=== PATIENT | male | born 1940 | race Caucasian/White ===

== ENCOUNTER 2017-09-18 08:30 | Outpatient (RCR) | payer MEDICARE, BC, SELFPAY | END 2017-09-20 | LOC: PT.CARL 08:30 | PROVIDERS: Referring Provider Internal Medicine Adolescent Medicine; Visit Provider Internal Medicine Adolescent Medicine | DX: M54.31 Sciatica, right side (principal); M54.32 Sciatica, left side | CPT/HCPCS: G8978; G8979; G8980; 97012; 97014; 97033; 97035; 97110; 97162; G0283 ==

== ENCOUNTER 2017-09-29 17:02 | Emergency (ER) | payer MEDICARE, BC, SELFPAY ==
--- NOTE | 2017-09-29 09:38 | XR_ITS ---
XR chest 2V HISTORY: ITS.REASON: COUGH, CONGESTION ORDERING PHYSICIAN: Hever Sutton MD PATIENT AGE: 77 years COMPARISON: 07/07/2017 FINDINGS: Prior CABG. Normal heart size. No lobar consolidation or collapse. Mild hyperinflation with attenuation of the peripheral pulmonary vessels consistent with obstructive chronic bronchitis. There is some patchy density left lung base posteriorly may be due to an area of atelectasis, fibrosis, or patchy infiltrate. No acute bony anomalies. IMPRESSION: Patchy density left lung base which may be due to an area of atelectasis, fibrosis, or infiltrate. COPD
[2017-09-29 17:15] VITALS: BP 117/59; PULSE 87; RESP 22; TEMP 36.6; O2SAT 95; BMI 24.3
[2017-09-29 18:35] VITALS: BP 128/67; PULSE 80; RESP 20; O2SAT 95
[2017-09-29 19:00] VITALS: BP 110/66; PULSE 79
[2017-09-29 23:33] VITALS: BP 168/84; PULSE 79; RESP 20; TEMP 36.6; O2SAT 99
[2017-09-29 23:54] LABS: Lactic Acid 2.3 mmol/L (0.4-2.0)
[2017-09-30 00:01] LABS: Alanine Aminotransferase 77 U/L (12-78); Albumin Level 3.9 gm/dL (3.4-5.0); Alkaline Phosphatase 101 U/L (46-116); Anion Gap 11.1 mEq/L (5-15); Aspartate Amino Transferase 37 U/L (15-37); Bilirubin,Total 1.5 mg/dL (0.2-1.0); Blood Urea Nitrogen 34 mg/dL (7-18); Calcium 9.4 mg/dL (8.5-10.1); Carbon Dioxide 31 mmol/L (21.0-32.0); Chloride 101 mmol/L (98-107); Creatinine,Serum 1.64 mg/dL (0.70-1.30); Estimated Glomerular Filt Rate 41 ml/min (>60); GFR (African American) 50 ML/MIN (>60); Glucose 86 mg/dL (74-106); Sodium 137 mmol/L (136-145); Total Protein,Serum 7.9 gm/dL (6.4-8.2)
[2017-09-30 00:10] LABS: Potassium 6.1 mmoL/L (3.5-5.1)
[2017-09-30 00:22] LABS: Strep Scrn Group A (Rapid) Negative (Negative)
[2017-09-30 01:09] LABS: Basophils % 0.5 % (0.1-2.0); Eosinophils % 0.5 % (0.1-12.0); Hematocrit 54.8 % (42.0-52.0); Hemoglobin 17.2 g/dL (14.1-18.0); Lymphocytes # 2.1 K/mm3 (0.7-4.5); Mean Corpuscular HGB Conc 31.4 g/dL (31.8-35.4); Mean Corpuscular Hemoglobin 30.3 pg (27.0-31.2); Mean Corpuscular Volume 96.4 fl (80-94); Mean Platelet Volume 7.9 fl (7.4-10.4); Monocytes % 6.5 % (1.7-9.3); Neutrophils # 8.5 K/mm3 (1.8-7.8); Neutrophils % 73.8 % (37.0-80.0); Platelet Count 285 K/mm3 (142-424); Red Blood Count 5.69 M/mm3 (4.60-6.20); Red Cell Distribution Width 13.3 % (11.5-17.5); White Blood Count 11.5 K/mm3 (4.8-10.8)
[2017-09-30 01:10] LABS: Basophils # 0.1 K/mm3 (0-0.2); Eosinophils # 0.1 K/mm3 (0.0-0.4); Monocytes # 0.8 K/mm3 (0.1-1.0)
== END 2017-09-29 20:30 | disposition home or self-care (01) ==
PROVIDERS: Emergency Provider Emergency Medicine; Family Provider Internal Medicine Adolescent Medicine; PCP Internal Medicine Adolescent Medicine
DX: J44.9 Chronic obstructive pulmonary disease, unspecified (principal); I48.0 Paroxysmal atrial fibrillation; N28.9 Disorder of kidney and ureter, unspecified; E87.5 Hyperkalemia
CPT/HCPCS: 71046; 80053; 83605; 85025; 87040; 87430; 96360; 96365; 96375; 99282; 99284; J2405

== ENCOUNTER → 2017-09-30 11:34 | Outpatient (CLI) | payer MEDICARE, BC, SELFPAY ==
[2017-09-30 13:21] LABS: Anion Gap 12.1 mEq/L (5-15); Blood Urea Nitrogen 29 mg/dL (7-18); Carbon Dioxide 31 mmol/L (21.0-32.0); Chloride 102 mmol/L (98-107); Estimated Glomerular Filt Rate 42 ml/min (>60); GFR (African American) 51 ML/MIN (>60); Glucose 98 mg/dL (74-106); Potassium 5.1 mmoL/L (3.5-5.1); Sodium 140 mmol/L (136-145)
== END ==
PROVIDERS: PCP Internal Medicine Adolescent Medicine; Visit Provider Internal Medicine Adolescent Medicine
DX: E87.5 Hyperkalemia (principal)
CPT/HCPCS: 36415; 80048

== ENCOUNTER → 2017-10-16 08:35 | Outpatient (CLI) | payer MEDICARE, BC, SELFPAY ==
[2017-10-16 13:56] LABS: Anion Gap 9.1 mEq/L (5-15); Blood Urea Nitrogen 18 mg/dL (7-18); Carbon Dioxide 33 mmol/L (21.0-32.0); Chloride 104 mmol/L (98-107); Creatinine,Serum 1.24 mg/dL (0.70-1.30); Estimated Glomerular Filt Rate 57 ml/min (>60); GFR (African American) 69 ML/MIN (>60); Glucose 93 mg/dL (74-106); Potassium 4.1 mmoL/L (3.5-5.1); Sodium 142 mmol/L (136-145)
== END ==
PROVIDERS: PCP Internal Medicine Adolescent Medicine; Visit Provider Internal Medicine Adolescent Medicine
DX: E78.5 Hyperlipidemia, unspecified (principal)
CPT/HCPCS: 36415; 80048

== ENCOUNTER → 2017-10-25 13:25 | Outpatient (CLI) | payer MEDICARE, BC, SELFPAY ==
--- NOTE | 2017-10-25 13:29 | CT_ITS ---
CT chest wo con HISTORY: Solitary pulmonary nodule, follow-up abnormal chest x-ray ITS.REASON: PULMONARY NODULES ORDERING PHYSICIAN: Sri Zelaya PATIENT AGE: 77 years TECHNIQUE: Axial images obtained. Sagittal and coronal reformatted images are also generated and reviewed. CONTRAST: None COMPARISON: Radiograph of 09/29/[address] scan of 05/19/2015 FINDINGS: There has been prior median sternotomy. Small nodular opacities are present in the superior mediastinum and may represent collateral vessels similar to the previous exam. There is extensive coronary artery calcification. Prior CABG. Normal heart size. No pericardial effusion. No hilar or mediastinal mass or adenopathy. There are centrilobular emphysematous changes. There are scattered nodular opacities in the right lung which appear stable. There is mild diffuse bronchial thickening. A 9 x 7 mm nodular opacity is present in the left lung base along the hemidiaphragm. In addition, there is an irregular area of parenchymal opacity in the left lower lobe posteriorly at 2 cm. This may be due to an area of postinflammatory fibrosis as there was previously noted pneumonia in this region on older CT scan. An active area of recurrent pneumonia or atelectasis is also better. Upper abdominal images show left renal cysts which are incompletely imaged. No acute bony anomalies. IMPRESSION: 1. Centrilobular emphysema bronchial thickening consistent with chronic bronchitis/COPD. 2. 9 x 7 mm noncalcified nodule is present in the left lung base not readily apparent on the previous exam. This is along the hemidiaphragm and could be postinflammatory in nature. Developing pulmonary nodule is an additional consideration. Suggest [address] follow-up to confirm short-term stability. 3. 2 cm irregular parenchymal opacity in left lung base posteriorly probably related to postinflammatory fibrotic change. Versus an area of acute infiltrate or atelectasis. This likely accounts for the radiographic abnormality.
== END ==
PROVIDERS: Family Provider Internal Medicine Adolescent Medicine; PCP Internal Medicine Adolescent Medicine; Visit Provider Nurse Practitioner Acute Care
DX: R91.8 Other nonspecific abnormal finding of lung field (principal)
CPT/HCPCS: 71250

== ENCOUNTER 2017-12-10 08:20 | Inpatient (IN) | payer MEDICARE, BC, SELFPAY ==
[2017-12-10 08:26] VITALS: BP 142/66; PULSE 84; RESP 16; TEMP 36.8; O2SAT 96; BMI 25.0
--- NOTE | 2017-12-10 08:39 | HMH.EDGENADL ---
ED Disposition Clinical Impression: CAP (community acquired pneumonia) Qualifiers: Laterality: unspecified laterality Qualified Code(s): J18.9 - Pneumonia, unspecified organism Disposition: Still a Patient Condition on Discharge: Fair Referrals: Benja Cortes MD [Primary Care Provider] - - Critical Care Critical Care Time: No Attestation: On , the high probability of a clinically significant, sudden or life threatening deterioration of the following system(s) required my full and direct attention, intervention and personal management. The time I documented below is in addition to time spent performing reported procedures but includes the following listed in this critical care notation. Medical Decision Making - Juan Miguel Inquiry Pt receiving controlled substance: No Vital Signs: 12/10/17 08:26 Temperature 98.2 F Temperature Source Oral Pulse Rate [Right Radial] 84 Respiratory Rate 16 Blood Pressure [Right Arm] 142/66 Blood Pressure [Right Radial Artery] 142/66 Blood Pressure Mean [Right Arm] 91 Blood Pressure Mean [Right Radial Artery] 91 Blood Pressure Source [Right Arm] Automatic Cuff Blood Pressure Source [Right Radial Artery] Automatic Cuff Blood Pressure Position [Right Arm] Sitting Blood Pressure Position [Right Radial Artery] Sitting 02 Sat by Pulse Oximetry 96 Oxygen Delivery Method Room Air - Lab Data Lab Results 12/10/17 08:30: WBC 15.0 H, RBC 4.86, Hgb 14.4, Hct 46.2, MCV 95.1 H, MCH 29.7, MCHC 31.2 L, RDW 13.9, Plt Count 236, MPV 8.2, Neut % (Auto) 89.0 H, Lymph % (Auto) 5.0 L, [place] % (Auto) 5.8, Eos % (Auto) 0.1, Baso % (Auto) 0.1, Neut # (Auto) 13.3 H, Lymph # (Auto) 0.7, [place] # (Auto) 0.9, Eos # (Auto) 0.0, Baso # (Auto) 0.0, Total Counted 100, Neutrophils % (Manual) 92 H, Lymphocytes % (Manual) 5 L, Monocytes % (Manual) 3, Platelet Estimate Normal 12/10/17 08:30: Sodium 145, Potassium 4.2, Chloride 107, Carbon Dioxide 31, Anion Gap 11.2, BUN 20 H, Creatinine 1.38 H, Estimated Creat Clear 48, Estimated GFR 50 L, Est GFR ( Amer) 61, Glucose 116 H, Calcium 9.1, Total Bilirubin 1.9 H, AST 14 L, ALT 18, Alkaline Phosphatase 74, Total Creatine Kinase 36 L, CK-MB (CK-2) 1.0, CK-MB (CK-2) Rel Index 2.8, Troponin I < 0.02, Total Protein 7.2, Albumin 3.7, Globulin 3.5 H, Albumin/Globulin Ratio 1.1 12/10/17 08:30: Lipase 124 12/10/17 09:45: Lactic Acid 1.2 12/10/17 09:50: Urine Color Yellow, Urine Appearance Clear, Urine pH 6.5, Ur Specific [place] 1.020, Urine Protein 2+, Urine Glucose (UA) Negative, Urine Ketones Trace, Urine Blood Negative, Urine Nitrate Negative, Urine Bilirubin Negative, Urine Urobilinogen 1.0, Ur Leukocyte Esterase Negative, Urine RBC None, Urine WBC 3-5, Ur Squamous Epith Cells Occasional, Urine Bacteria Trace Result diagrams: 12/10/17 08:30 12/10/17 08:30 Orders (Tests/Meds): ED MEDICATIONS Generic Name Dose Route Start Last Admin Trade Name Freq PRN Reason Stop Dose Admin Aspirin 81 mg 12/11/17 09:00 Aspirin 81mg Enteric Coated Tablet PO 01/10/18 08:59 DAILY [facility] Carvedilol 25 mg 12/10/17 21:00 Coreg 25mg Tablet PO 01/09/18 20:59 BID PAM Clopidogrel Bisulfate 75 mg 12/11/17 09:00 Plavix 75mg Tablet PO 01/10/18 08:59 DAILY PAM Sodium Chloride 1,000 mls @ 150 mls/hr 12/10/17 09:00 12/10/17 09:22 Sod Chlor 0.9% 1000ml Bag IV 01/09/18 08:59 150 mls/hr .[id number] PAM Administration Azithromycin 500 mg/ Sodium 250 mls @ 250 mls/hr 12/10/17 09:45 12/10/17 10:23 Chloride IV 12/24/17 09:44 250 mls/hr Q24H PAM Administration Protocol Ceftriaxone Sodium 1 gm/ 50 mls @ 100 mls/hr 12/10/17 09:45 12/10/17 10:00 Sodium Chloride IV 12/24/17 09:44 100 mls/hr Q24H PAM Administration Protocol Non-Formulary Medication 20 mg 12/10/17 21:00 Simvastatin [Simvastatin] PO 01/09/18 20:59 HS PAM Discontinued Medications Generic Name Dose Route Start Last Admin Trade Name Freq
--- NOTE | 2017-12-10 08:57 | CT_ITS ---
CT abdomen pelvis wo con CLINICAL INDICATION: Abdominal pain with vomiting ITS.REASON: abdo pain, dry heaves, 3 BMs since 4a ORDERING PHYSICIAN: Poncho Issa MD PATIENT AGE: 77 years COMPARISON: 03/21/2017 TECHNIQUE: Axial images obtained with sagittal and coronal reformats. All CT scans at the facility use one or more dose reduction, viz: automated exposure control; ma/kV adjustment per patient size (including targeted exams where dose is matched to indication; i.e. head); or iterative reconstruction technique. PROCEDURE: Oral Contrast: None IV Contrast: None . FINDINGS: Patchy consolidation is present in both lower lobes posteriorly consistent with bilateral lower lobe pneumonia. Prior cholecystectomy without ductal dilatation. The liver, spleen, adrenal glands, and pancreas are unremarkable. There exophytic left renal cyst. Hyperdensity is noted in the lower pole the right kidney consistent with a hyperdense cyst unchanged. There is moderate stranding of the perinephric renal fat bilaterally. This is similar when compared to the previous exam. No intestinal obstruction or free air. No evidence of appendicitis, diverticulitis, intestinal obstruction, or free air. There is mild prominence of the prostate with coarse calcifications. No acute bony anomalies. There is diffuse fatty infiltration of the generalized musculature. IMPRESSION: 1. Bilateral lower lobe pneumonia. 2. Enlarged prostate. 3. No acute abdominal or pelvic findings.
[2017-12-10 09:14] LABS: Basophils % 0.1 % (0.1-2.0); Eosinophils % 0.1 % (0.1-12.0); Hematocrit 46.2 % (42.0-52.0); Hemoglobin 14.4 g/dL (14.1-18.0); Lymphocytes # 0.7 K/mm3 (0.7-4.5); Mean Corpuscular HGB Conc 31.2 g/dL (31.8-35.4); Mean Corpuscular Hemoglobin 29.7 pg (27.0-31.2); Mean Corpuscular Volume 95.1 fl (80-94); Mean Platelet Volume 8.2 fl (7.4-10.4); Monocytes # 0.9 K/mm3 (0.1-1.0); Monocytes % 5.8 % (1.7-9.3); Neutrophils # 13.3 K/mm3 (1.8-7.8); Platelet Count 236 K/mm3 (142-424); Red Blood Count 4.86 M/mm3 (4.60-6.20); Red Cell Distribution Width 13.9 % (11.5-17.5)
--- NOTE | 2017-12-10 09:38 | XR_ITS ---
XR chest portable HISTORY: Pneumonia follow-up ITS.REASON: pneumonia on CT abdo ORDERING PHYSICIAN: Poncho Issa MD PATIENT AGE: 77 years COMPARISON: None available FINDINGS: Prior median sternotomy. Borderline cardiomegaly without failure. Patchy infiltrate is present in both lower lobes and in the right mid upper lung zone. No obvious effusion. No acute bony anomalies. IMPRESSION: Bilateral pneumonia
[2017-12-10 09:41] LABS: MANUAL DIFFERENTIAL MANUAL DIFFERENTIAL (MANUAL DIFF)
[2017-12-10 09:47] LABS: Alanine Aminotransferase 18 U/L (12-78); Albumin Level 3.7 gm/dL (3.4-5.0); Albumin/Globulin Ratio 1.1 (1.1-1.8); Alkaline Phosphatase 74 U/L (46-116); Anion Gap 11.2 mEq/L (5-15); Aspartate Amino Transferase 14 U/L (15-37); Bilirubin,Total 1.9 mg/dL (0.2-1.0); Blood Urea Nitrogen 20 mg/dL (7-18); CKMB Relative Index 2.8 U/L (0-4.0); Calcium 9.1 mg/dL (8.5-10.1); Carbon Dioxide 31 mmol/L (21.0-32.0); Chloride 107 mmol/L (98-107); Creatine Kinase 36 U/L (39-308); Creatinine Clearance Estimated 48 mL/min (0-300); Creatinine,Serum 1.38 mg/dL (0.70-1.30); Estimated Glomerular Filt Rate 50 ml/min (>60); GFR (African American) 61 ML/MIN (>60); Globulin 3.5 gm/dl (1.3-3.2); Glucose 116 mg/dL (74-106); Potassium 4.2 mmoL/L (3.5-5.1); Sodium 145 mmol/L (136-145); Total Protein,Serum 7.2 gm/dL (6.4-8.2); Troponin I < 0.02 ng/ml (0.00-0.06)
[2017-12-10 09:48] LABS: Lipase 124 u/L (73-393)
[2017-12-10 10:18] LABS: Lactic Acid 1.2 mmol/L (0.4-2.0)
[2017-12-10 10:27] LABS: Lymphocytes % 5 % (10-50); Monocytes % 3 % (2-9); Neutrophils % 92 % (42-76); Platelet Estimate Normal; Total Cells Counted 100
[2017-12-10 10:55] LABS: Microscopic, Urine URINE MICROSCOPIC (MICROSCOPIC)
[2017-12-10 10:57] LABS: Appearance,Urine CLEAR (Clear); Bilirubin,Urine Negative (Negative); Blood, Urine Negative (Negative); Color,Urine YELLOW (Yellow); Glucose,Urine (UA) Negative (Negative); Ketones,Urine TRACE (Negative); Leukocyte Esterase,Urine Negative (Negative); Nitrate,Urine Negative (Negative); PH,Urine 6.5 (5.0-8.5); Protein,Urine 2+ (Negative)
[2017-12-10 11:16] LABS: Bacteria,Urine Trace /lpf; Squamous Epithelial Cell,Urine Occasional #/hpf (0-5)
[2017-12-10 11:26] VITALS: BP 114/57; PULSE 84; RESP 16; TEMP 36.6
[2017-12-10 11:34] VITALS: BMI 24.8
[2017-12-10 13:33] LABS: Adenovirus,PCR Not Detected (NotDetected); Bordetella Pertussis Not Detected (NotDetected); Chlamydophila Pneumoniae, PCR Not Detected (NotDetected); Coronavirus 229E Not Detected (NotDetected); Coronavirus NL63 Not Detected (NotDetected); Coronavirus OC43 Not Detected (NotDetected); Coronovirus HKU1,PCR Not Detected (NotDetected); Human Metapneumovirus Not Detected (NotDetected); Influenza A, PCR Not Detected (NotDetected); Influenza AH1, 2009 Not Detected (NotDetected); Influenza AH1, PCR Not Detected (NotDetected); Influenza AH3,PCR Not Detected (NotDetected); Influenza B, PCR Not Detected (NotDetected); Mycoplasma Pneumoniae, PCR Not Detected (NotDected); Parainfluenza 1, PCR Not Detected (NotDetected); Parainfluenza 2, PCR Not Detected (NotDetected); Parainfluenza 3, PCR Not Detected (NotDetected); Parainfluenza 4, PCR Not Detected (NotDetected); Respiratory Syncytial Virus Not Detected (NotDetected)
[2017-12-10 13:35] VITALS: BP 114/44; PULSE 78; RESP 18; TEMP 37.7; O2SAT 96; BMI 24.8
--- NOTE | 2017-12-10 14:33 | HMH.HP ---
*Admission Date: 12/10/17 *Chief complaint: nausea, cough, weakness *History of present illness: 77 year old male with a history of HTN, CAD, A.Fib and COPD presents to the ED with nausea, dry heaves, and weakness that started at 0400 this morning. Patient reports he felt well yesterday with exception of a mild cough. He further reports chills and looser than normal stools. In the ED, CXR revealed bilateral pneumonia and CBC showed leukocytosis with WBC 15. CT abdomen/pelvis with no additional pathology. He had persistent dry heaving and was given both zofran and promethazine. He was noted to be mildly dehydrated and jaundiced with BUN/Creatinine 20/1.38 and Total Bili 1.9. Patient was admitted for IV antibiotics and further evaluation. [facility] History I have reviewed the patient's past medical history: Yes Medical History: Reports:: Hyperlipidemia, Hypertension Denies:: Diabetes Mellitus Type 1, Diabetes Mellitus Type 2 Other Surgeries: Yes: Open Heart Surgery (bypass) Amputation: No Fractures: No - *Social History Educational Level: Completed High School Smoking Status: Former smoker Smoking End Date: 15 years ago Alcohol Intake: never Occupational Status: retired Household Members: spouse - Psychiatric History Expresses thoughts of harming self/others: None Suicide Plan Description: No Plan Review of Systems - Review of Systems Review of systems:: pertinent systems reviewed and negative unless documented below - Constitutional Reports chills, Reports malaise - *Respiratory Reports cough Meds Home Medications Medication Instructions Recorded Confirmed Type Albuterol Sulfate [Albuterol HFA 1 dose INHALATION DAILY PRN 12/10/17 12/10/17 History Inhaler] Aspirin [Aspir 81] 81 mg PO DAILY 12/10/17 12/10/17 History Budesonide/Formoterol Fumarate 1 dose INHALATION DAILY 12/10/17 12/10/17 History [Symbicort 160-4.5 Mcg Inhaler] Carvedilol [Carvedilol 25mg Tab] 25 mg PO BID 12/10/17 12/10/17 History Clopidogrel Bisulfate [Plavix 75mg 75 mg PO DAILY 12/10/17 12/10/17 History Tab] Furosemide [Lasix 20mg tab] 20 mg PO DAILY 12/10/17 12/10/17 History Simvastatin 20 mg PO HS 12/10/17 12/10/17 History Allergies Allergy/AdvReac Type Severity Reaction Status Date / Time hydrocodone [From LORTAB] Allergy Mild Verified 12/10/17 08:36 oxycodone [From PERCOCET] Allergy Mild Verified 12/10/17 08:36 sulfamethoxazole Allergy Mild Verified 12/10/17 08:36 [From BACTRIM] trimethoprim [From BACTRIM] Allergy Mild Verified 12/10/17 08:36 Exam Vital signs and Labs for Last 24 Hours: Temp Pulse Resp BP Pulse Ox 100 F H 78 18 114/44 96 12/10/17 13:35 12/10/17 13:35 12/10/17 13:35 12/10/17 13:35 12/10/17 13:35 I & O for Last 24 hours: Intake & Output 12/08/17 12/09/17 12/10/17 12/11/17 11:59 11:59 11:59 11:59 Intake Total 0 / 0 Balance 0 / 0 Weight 168 lb 7 oz 168 lb 3 oz Narrative: Alert and oriented x3. Drowsy, opens eyes to voice. Rate and rhythm regular. Coarse crackles RLL/RML/LLL. Skin is slightly jaundiced. ENT exam unremarkable. No JVD or cervical LAD. Abdomen soft and nontender. Normoactive bowel sounds. Neuro exam with no acute deficits. Assessment and Plan (1) Elevated bilirubin Current visit: Yes Status: Acute Category: Medical Code(s): R17 - Unspecified jaundice (2) CAP (community acquired pneumonia) Current visit: Yes Status: Acute Qualifiers: Laterality: unspecified laterality Qualified Code(s): J18.9 - Pneumonia, unspecified organism Category: Medical Code(s): J18.9 - Pneumonia, unspecified organism - Assessment and plan all Dx Assessment and Plan for all problems:: IV antibiotics and normal saline infusions. Continue prn antiemetics. Blood cultures pending. Obtain sputum culture if able to produce. Respiratory PCR obtained and pending. Will recheck CBC/CMP in the am.
--- NOTE | 2017-12-10 14:37 | P.HP_ITS ---
*Admission Date: 12/10/17 *Chief complaint: nausea, cough, weakness *History of present illness: 77 year old male with a history of HTN, CAD, A.Fib and COPD presents to the ED with nausea, dry heaves, and weakness that started at 0400 this morning. Patient reports he felt well yesterday with exception of a mild cough. He further reports chills and looser than normal stools. In the ED, CXR revealed bilateral pneumonia and CBC showed leukocytosis with WBC 15. CT abdomen/pelvis with no additional pathology. He had persistent dry heaving and was given both zofran and promethazine. He was noted to be mildly dehydrated and jaundiced with BUN/Creatinine 20/1.38 and Total Bili 1.9. Patient was admitted for IV antibiotics and further evaluation. [facility] History I have reviewed the patient's past medical history: Yes Medical History: Reports:: Hyperlipidemia, Hypertension Denies:: Diabetes Mellitus Type 1, Diabetes Mellitus Type 2 Other Surgeries: Yes: Open Heart Surgery (bypass) Amputation: No Fractures: No - *Social History Educational Level: Completed High School Smoking Status: Former smoker Smoking End Date: 15 years ago Alcohol Intake: never Occupational Status: retired Household Members: spouse - Psychiatric History Expresses thoughts of harming self/others: None Suicide Plan Description: No Plan Review of Systems - Review of Systems Review of systems:: pertinent systems reviewed and negative unless documented below - Constitutional Reports chills, Reports malaise - *Respiratory Reports cough Meds Home Medications Medication Instructions Recorded Confirmed Type Albuterol Sulfate [Albuterol HFA 1 dose INHALATION DAILY PRN 12/10/17 12/10/17 History Inhaler] Aspirin [Aspir 81] 81 mg PO DAILY 12/10/17 12/10/17 History Budesonide/Formoterol Fumarate 1 dose INHALATION DAILY 12/10/17 12/10/17 History [Symbicort 160-4.5 Mcg Inhaler] Carvedilol [Carvedilol 25mg Tab] 25 mg PO BID 12/10/17 12/10/17 History Clopidogrel Bisulfate [Plavix 75mg 75 mg PO DAILY 12/10/17 12/10/17 History Tab] Furosemide [Lasix 20mg tab] 20 mg PO DAILY 12/10/17 12/10/17 History Simvastatin 20 mg PO HS 12/10/17 12/10/17 History Allergies Allergy/AdvReac Type Severity Reaction Status Date / Time hydrocodone [From LORTAB] Allergy Mild Verified 12/10/17 08:36 oxycodone [From PERCOCET] Allergy Mild Verified 12/10/17 08:36 sulfamethoxazole Allergy Mild Verified 12/10/17 08:36 [From BACTRIM] trimethoprim [From BACTRIM] Allergy Mild Verified 12/10/17 08:36 Exam Vital signs and Labs for Last 24 Hours: Temp Pulse Resp BP Pulse Ox 100 F H 78 18 114/44 96 12/10/17 13:35 12/10/17 13:35 12/10/17 13:35 12/10/17 13:35 12/10/17 13:35 I & O for Last 24 hours: Intake & Output 12/08/17 12/09/17 12/10/17 12/11/17 11:59 11:59 11:59 11:59 Intake Total 0 / 0 Balance 0 / 0 Weight 168 lb 7 oz 168 lb 3 oz Narrative: Alert and oriented x3. Drowsy, opens eyes to voice. Rate and rhythm regular. Coarse crackles RLL/RML/LLL. Skin is slightly jaundiced. ENT exam unremarkable. No JVD or cervical LAD. Abdomen soft and nontender. Normoactive bowel sounds. Neuro exam with no acute deficits. Assessment and Plan (1) Elevated bilirubin Current visit: Yes Status: Acute Category: Medical Code(s):
[2017-12-10 15:35] VITALS: BP 106/42; PULSE 95; RESP 18; TEMP 37.1; O2SAT 91
[2017-12-10 15:57] LABS: Rhinovirus/Enterovirus Detected (NotDetected)
[2017-12-10 20:00] VITALS: BP 91/45; PULSE 88; RESP 18; TEMP 36.6; O2SAT 99
[2017-12-10 20:56] VITALS: O2SAT 92
[2017-12-11] VITALS (10 sets, daily range): BP systolic 93–111; BP diastolic 41–56; PULSE 74–109; RESP 18–22; TEMP 36.5–37.3; O2SAT 85–97
--- NOTE | 2017-12-11 03:21 | PC.NURSE ---
C/O SOA AND NAUSEA. (REFER TO NOTIFY MD INTERVENTION FOR DETAILS OF C/O SOA) DID ADMINISTER NAUSEA MEDICATION PER MAR FOR C/O NAUSEA. TOLERATED 2LNC WELL T/O SHIFT. DENIED PAIN. VSS. WILL CONTINUE TO MONITOR.
--- NOTE | 2017-12-11 05:33 | PC.NURSE ---
DROPLET PRECAUTIONS IN PLACE R/T RHINOVIRUS DETECTED ON PCR. EDUCATION PROVIDED REGARDING ISOLATION AND PPE
--- NOTE | 2017-12-11 07:10 | P.CONPHA_ITS ---
[facility] Pharmacy VTE Monitoring - Patient Demographics Admission date: 12/10/17 Report Date: 12/11/17 Time: 07:10 Allergies/Adverse Reactions: Patient Allergies hydrocodone [From LORTAB] Allergy (Mild, Verified 12/10/17 08:36) oxycodone [From PERCOCET] Allergy (Mild, Verified 12/10/17 08:36) sulfamethoxazole [From BACTRIM] Allergy (Mild, Verified 12/10/17 08:36) trimethoprim [From BACTRIM] Allergy (Mild, Verified 12/10/17 08:36) Height: 1.75 m Weight: 76.289 kg Patient Problems: Current Active Problems CAP (community acquired pneumonia) (Acute) Elevated bilirubin (Acute) - VTE Risk Labs: VTE Related Lab Results Hgb 14.4 g/dL (14.1-18.0) 12/10/17 08:30 Hct 46.2 % (42.0-52.0) 12/10/17 08:30 Plt Count 236 K/mm3 (142-424) 12/10/17 08:30 BUN 20 mg/dL (7-18) H 12/10/17 08:30 Creatinine 1.38 mg/dL (0.70-1.30) H 12/10/17 08:30 Estimated Creat Clear 48 mL/min (0-300) 12/10/17 08:30 Clinical Trial Participant: No - Prophylaxis VTE Prophylaxis Ordered?: Yes Types of VTE Prophylaxis: TEDS Knee High Location of Applied Device: Bilateral Lower Extremeties
[2017-12-11 07:43] LABS: Basophils # 0.1 K/mm3 (0-0.2); Basophils % 0.3 % (0.1-2.0); Eosinophils # 0.2 K/mm3 (0.0-0.4); Hematocrit 41.6 % (42.0-52.0); Lymphocytes % 5.4 K/mm3 (10-50); Mean Corpuscular HGB Conc 30.7 g/dL (31.8-35.4); Mean Corpuscular Hemoglobin 29.7 pg (27.0-31.2); Mean Corpuscular Volume 96.6 fl (80-94); Mean Platelet Volume 8.6 fl (7.4-10.4); Monocytes # 0.4 K/mm3 (0.1-1.0); Neutrophils # 16.7 K/mm3 (1.8-7.8); Neutrophils % 91.4 % (37.0-80.0); Platelet Count 168 K/mm3 (142-424); Red Blood Count 4.31 M/mm3 (4.60-6.20); Red Cell Distribution Width 13.9 % (11.5-17.5); White Blood Count 18.3 K/mm3 (4.8-10.8)
[2017-12-11 07:59] LABS: MANUAL DIFFERENTIAL MANUAL DIFFERENTIAL (MANUAL DIFF)
[2017-12-11 08:18] LABS: Hemoglobin 12.9 g/dL (14.1-18.0)
[2017-12-11 08:19] LABS: Albumin Level 2.9 gm/dL (3.4-5.0); Albumin/Globulin Ratio 0.9 (1.1-1.8); Alkaline Phosphatase 48 U/L (46-116); Aspartate Amino Transferase 12 U/L (15-37); Blood Urea Nitrogen 31 mg/dL (7-18); Calcium 8.7 mg/dL (8.5-10.1); Carbon Dioxide 26 mmol/L (21.0-32.0); Chloride 108 mmol/L (98-107); Creatinine Clearance Estimated 37 mL/min (0-300); Creatinine,Serum 1.82 mg/dL (0.70-1.30); Estimated Glomerular Filt Rate 36 ml/min (>60); GFR (African American) 44 ML/MIN (>60); Globulin 3.4 gm/dl (1.3-3.2); Glucose 82 mg/dL (74-106); Sodium 145 mmol/L (136-145); Total Protein,Serum 6.3 gm/dL (6.4-8.2)
[2017-12-11 08:32] LABS: Alanine Aminotransferase 13 U/L (12-78)
--- NOTE | 2017-12-11 08:36 | P.PN_ITS ---
Internal Medicine - PN: Subj *Date: 12/11/17 *Time: 08:35 Interval history: He is to feel nauseated, but is breathing somewhat more easily. Wonders about starting his nebulizer treatments back. Exam Vital signs and Labs for Last 24 Hours: Temp Pulse Resp BP Pulse Ox 99.2 F 95 H 22 101/41 92 L 12/11/17 07:28 12/11/17 07:28 12/11/17 07:28 12/11/17 07:28 12/11/17 07:28 Laboratory Results - last 24 hr 12/10/17 13:30: Chlamy pneumoniae PCR Not detected, Adenovirus (PCR) Not detected, B.parapertussis DNA PCR Not detected, Coronavirus OC43 (PCR) Not detected, Coronavirus HKU1 (PCR) Not detected, Coronavirus 229E (PCR) Not detected, Coronavirus NL63 (PCR) Not detected, Human Metapneumovir PCR Not detected, Influenza A (H1) PCR Not detected, Influ A (H1N1/09) PCR Not detected , Influenza A (H3) PCR Not detected, Influenza Type A (PCR) Not detected, Influenza Type B (PCR) Not detected, M. pneumoniae (PCR) Not detected, Parainfluenza 1 (PCR) Not detected, Parainfluenza 2 (PCR) Not detected, Parainfluenza 3 (PCR) Not detected, Parainfluenza 4 (PCR) Not detected, RSV (PCR ) Not detected, Entero/Rhino (PCR) Detected A 12/11/17 07:15: WBC 18.3 H, RBC 4.31 L, Hgb 12.9 L D, Hct 41.6 L, MCV 96.6 H, MCH 29.7, MCHC 30.7 L, RDW 13.9, Plt Count 168 D, MPV 8.6, Neut % (Auto) 91.4 H , Lymph % (Auto) 5.4 L, [place] % (Auto) 2.0, Eos % (Auto) 1.0, Baso % (Auto) 0.3, Neut # (Auto) 16.7 H, Lymph # (Auto) 1.0, [place] # (Auto) 0.4, Eos # (Auto) 0.2, Baso # (Auto) 0.1 12/11/17 07:15: Sodium 145, Potassium 5.0, Chloride 108 H, Carbon Dioxide 26, Anion Gap 16.0 H, BUN 31 H D, Creatinine 1.82 H D, Estimated Creat Clear 37, Estimated GFR 36 L, Est GFR ( Amer) 44 L D, Glucose 82 D, Calcium 8.7, Total Bilirubin 2.0 H, AST 12 L, ALT 13 D, Alkaline Phosphatase 48, Total Protein 6.3 L, Albumin 2.9 L D, Globulin 3.4 H, Albumin/Globulin Ratio 0.9 L I & O for Last 24 hours: Intake & Output 12/08/17 12/09/17 12/10/17 12/11/17 11:59 11:59 11:59 11:59 Intake Total 1193 / 1193 Balance 1193 / 1193 Weight 168 lb 7 oz 168 lb 3 oz Narrative: Patient's alert, oriented ?3, bibasilar crackles. However moves air easily with minimal wheezing. Heart rate regular. Blood pressure normal. Abdomen soft, some nausea but no tenderness in the abdomen. No edema in the extremities of the feet. Assessment and Plan (1) Elevated bilirubin Current visit: Yes Status: Acute Category: Medical Code(s): R17 - Unspecified jaundice (2) CAP (community acquired pneumonia) Current visit: Yes Status: Acute Qualifiers: Laterality: unspecified laterality Qualified Code(s): J18.9 - Pneumonia, unspecified organism Category: Medical Code(s): J18.9 - Pneumonia, unspecified organism - Assessment and plan all Dx Assessment and Plan for all problems:: Restart nebulizers. Continue gentle hydration, follow labs tomorrow. Probable viral pneumonitis. Cover with antibiotics pending cultures.
[2017-12-11 10:27] LABS: Lymphocytes % 17 % (10-50); Monocytes % 12 % (2-9); Neutrophils % 67 % (42-76); Platelet Estimate Normal; Total Cells Counted 100
[2017-12-11 10:28] LABS: RBC Morphology Normal
--- NOTE | 2017-12-11 14:37 | HMH.PHACONS ---
- Pharmacy Consult Date: 12/11/17 Time: 14:37 Referring provider: DR. LANG Reason for Consult:: TOBRAMYCIN DOSING Allergies and ADEs:: Allergies Allergy/AdvReac Type Severity Reaction Status Date / Time hydrocodone [From LORTAB] Allergy Mild Verified 12/10/17 08:36 oxycodone [From PERCOCET] Allergy Mild Verified 12/10/17 08:36 sulfamethoxazole Allergy Mild Verified 12/10/17 08:36 [From BACTRIM] trimethoprim [From BACTRIM] Allergy Mild Verified 12/10/17 08:36 Home Medications:: Home Medications Medication Instructions Recorded Confirmed Type Albuterol Sulfate [Albuterol 0.63 mg IH Q6HP PRN 12/10/17 12/11/17 History Sulfate 0.63mg/3ml Neb] Aspirin [Aspir 81] 81 mg PO DAILY 12/10/17 12/10/17 History Budesonide/Formoterol Fumarate 1 dose INHALATION DAILY 12/10/17 12/10/17 History [Symbicort 160-4.5 Mcg Inhaler] Carvedilol [Carvedilol 25mg Tab] 25 mg PO BID 12/10/17 12/10/17 History Clopidogrel Bisulfate [Plavix 75mg 75 mg PO DAILY 12/10/17 12/10/17 History Tab] Furosemide [Lasix 20mg tab] 20 mg PO DAILY 12/10/17 12/10/17 History Simvastatin 20 mg PO HS 12/10/17 12/10/17 History Losartan Potassium [Losartan 25 mg PO DAILY 12/11/17 12/11/17 History Potassium] Height: 1.75 m Weight: 76.289 kg Laboratory Results:: Laboratory Results - last 24 hr 12/10/17 13:30: Chlamy pneumoniae PCR Not detected, Adenovirus (PCR) Not detected, B.parapertussis DNA PCR Not detected, Coronavirus OC43 (PCR) Not detected, Coronavirus HKU1 (PCR) Not detected, Coronavirus 229E (PCR) Not detected, Coronavirus NL63 (PCR) Not detected, Human Metapneumovir PCR Not detected, Influenza A (H1) PCR Not detected, Influ A (H1N1/09) PCR Not detected, Influenza A (H3) PCR Not detected, Influenza Type A (PCR) Not detected, Influenza Type B (PCR) Not detected, M. pneumoniae (PCR) Not detected, Parainfluenza 1 (PCR) Not detected, Parainfluenza 2 (PCR) Not detected, Parainfluenza 3 (PCR) Not detected, Parainfluenza 4 (PCR) Not detected, RSV (PCR) Not detected, Entero/Rhino (PCR) Detected A 12/11/17 07:15: WBC 18.3 H, RBC 4.31 L, Hgb 12.9 L D, Hct 41.6 L, MCV 96.6 H, MCH 29.7, MCHC 30.7 L, RDW 13.9, Plt Count 168 D, MPV 8.6, Neut % (Auto) 91.4 H, Lymph % (Auto) 5.4 L, Yell % (Auto) 2.0, Eos % (Auto) 1.0, Baso % (Auto) 0.3, Neut # (Auto) 16.7 H, Lymph # (Auto) 1.0, Yell # (Auto) 0.4, Eos # (Auto) 0.2, Baso # (Auto) 0.1, Total Counted 100, Neutrophils % (Manual) 67, Band Neutrophils % 3.0, Lymphocytes % (Manual) 17, Monocytes % (Manual) 12 H, Metamyelocytes % 1.0, Platelet Estimate Normal, RBC Morphology Normal 12/11/17 07:15: Sodium 145, Potassium 5.0, Chloride 108 H, Carbon Dioxide 26, Anion Gap 16.0 H, BUN 31 H D, Creatinine 1.82 H D, Estimated Creat Clear 37, Estimated GFR 36 L, Est GFR ( Amer) 44 L D, Glucose 82 D, Calcium 8.7, Total Bilirubin 2.0 H, AST 12 L, ALT 13 D, Alkaline Phosphatase 48, Total Protein 6.3 L, Albumin 2.9 L D, Globulin 3.4 H, Albumin/Globulin Ratio 0.9 L Medical History: Reports:: Hyperlipidemia, Hypertension Denies:: Diabetes Mellitus Type 1, Diabetes Mellitus Type 2 Assessment and Plan (1) Elevated bilirubin Current visit: Yes Status: Acute Category: Medical Code(s): R17 - Unspecified jaundice (2) CAP (community acquired pneumonia) Current visit: Yes Status: Acute Qualifiers: Laterality: unspecified laterality Qualified Code(s): J18.9 - Pneumonia, unspecified organism Category: Medical Code(s): J18.9 - Pneumonia, unspecified organism - Assessment and plan all Dx Assessment and Plan for all problems:: BASED ON PATIENT FACTORS, RECOMMEND TOBRAMYCIN 360 MG (5 MG/KG/DBW) IV Q48H. WILL OBTAIN LEVELS AT 4 AND 14-HOURS POST INFUSION. PHARMACY WILL FOLLOW DAILY AND ADJUST APPROPRIATE.
--- NOTE | 2017-12-11 17:33 | PC.NURSE ---
PATIENT SITTING UP AT BEDSIDE AT THIS TIME, FAMILY AT BEDSIDE. BLOOD CULTURES CAME BACK POSITIVE FOR STREPT PNEUMONIAE, NOTIFIED. C/O SOB AND NAUSEA, NAUSEA MEDS GIVEN THIS AM, PATIENT ABLE TO GET SOME SLEEP. ADVANCED FROM CLEARS TO A FULL LIQUID DIET, TO START AT DINNER, WILL MONITOR. PATIENT LUNG SOUNDS ARE WHEEZES AND DIMINISHED IN THE BASES. BLOOD PRESSURE HAS BEEN RUNNING LOW, HELD AM BLOOD PRESSURE MEDS, STATES PATIENT IS NO LONGER TAKING THAT MEDICATION. GAVE PATIENT MORE NAUSEA MEDICATION AT 1615, PATIENT STATES HE FEELS A LITTLE BETTER. DENIES ANY PAIN, CALL PATEL IN REACH, WILL CONTINUE TO MONITOR.
--- NOTE | 2017-12-11 18:58 | PC.NURSE ---
REPORT GIVEN TO REJI CALDWELL
--- NOTE | 2017-12-11 19:18 | PC.NURSE ---
report given to renetta
[2017-12-11 20:25] LABS: Tobramycin,Random 6.8 ug/ml
[2017-12-12] VITALS (10 sets, daily range): BP systolic 116–138; BP diastolic 55–78; PULSE 76–116; RESP 20–24; TEMP 36.3–37.2; O2SAT 89–100
--- NOTE | 2017-12-12 03:35 | PC.NURSE ---
He is a&ox3. He has been awake periodically t/o the night. Received PRN pain medication for pain all over. He is [place] on his right side. REports that his abdomen is tender in all quads. Received PRN medication for nausea. No vomiting. No sputum production. is at the bedside.
--- NOTE | 2017-12-12 07:31 | PC.NURSE ---
REPORT GIVEN TO Donna PRETTY W/C
--- NOTE | 2017-12-12 07:37 | XR_ITS ---
XR chest portable PICC plac HISTORY: ITS.REASON: Confirm PICC line placement ORDERING PHYSICIAN: Benja Cortes MD PATIENT AGE: 77 years COMPARISON: None available FINDINGS: There is a series of 3 portable chest x-rays performed for PICC line placement. Chest x-ray #1 obtained at 1316 hours shows the PICC line curled in the left axillary region with the tip inferior to the medial aspect of the clavicle likely in the subclavian vein. Chest x-ray #2 once again shows the line curled in the axillary region with no change in the tip placement. X-ray #3 shows the PICC line tip in the region of the right atrium. The line could be pulled back approximately 2 to 3 cm. 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 Mild cardiomegaly without failure. Vascular crowding noted in the lung bases with improvement in the bilateral infiltrates. IMPRESSION: Status post PICC line placement as described above. The last image shows PICC line tip at the region of the right atrium.
--- NOTE | 2017-12-12 07:52 | P.PN_ITS ---
Internal Medicine - PN: Subj *Date: 12/12/17 *Time: 07:30 Interval history: Patient reports continued nausea, no vomiting or diarrhea. He has a mild cough, no sputum production. reports he had a rough night. States he was up out of bed at least 4 times last night. He has been confused which seems to correlate with promethazine administration. Alert and oriented x 3 this morning. Rate and rhythm regular, no edema. Pulses 2+ bilaterally. Lung sounds with crackles in bilateral bases. Abdomen soft with mild diffuse tenderness, normoactive bowel sounds. Exam Vital signs and Labs for Last 24 Hours: Temp Pulse Resp BP Pulse Ox 97.5 F L 76 24 138/72 94 L 12/12/17 04:00 12/12/17 06:28 12/12/17 04:00 12/12/17 04:00 12/12/17 06:28 Laboratory Results - last 24 hr 12/11/17 07:15: WBC 18.3 H, RBC 4.31 L, Hgb 12.9 L D, Hct 41.6 L, MCV 96.6 H, MCH 29.7, MCHC 30.7 L, RDW 13.9, Plt Count 168 D, MPV 8.6, Neut % (Auto) 91.4 H , Lymph % (Auto) 5.4 L, [place] % (Auto) 2.0, Eos % (Auto) 1.0, Baso % (Auto) 0.3, Neut # (Auto) 16.7 H, Lymph # (Auto) 1.0, [place] # (Auto) 0.4, Eos # (Auto) 0.2, Baso # (Auto) 0.1, Total Counted 100, Neutrophils % (Manual) 67, Band Neutrophils % 3.0, Lymphocytes % (Manual) 17, Monocytes % (Manual) 12 H, Metamyelocytes % 1.0, Platelet Estimate Normal, RBC Morphology Normal 12/11/17 07:15: Sodium 145, Potassium 5.0, Chloride 108 H, Carbon Dioxide 26, Anion Gap 16.0 H, BUN 31 H D, Creatinine 1.82 H D, Estimated Creat Clear 37, Estimated GFR 36 L, Est GFR ( Amer) 44 L D, Glucose 82 D, Calcium 8.7, Total Bilirubin 2.0 H, AST 12 L, ALT 13 D, Alkaline Phosphatase 48, Total Protein 6.3 L, Albumin 2.9 L D, Globulin 3.4 H, Albumin/Globulin Ratio 0.9 L 12/11/17 20:04: Random Tobramycin 6.8 I & O for Last 24 hours: Intake & Output 12/09/17 12/10/17 12/11/17 12/12/17 11:59 11:59 11:59 11:59 Intake Total 1193 / 1193 2855 / 2855 Output Total 900 / 900 Balance 1193 / 1193 1955 / 1955 Weight 168 lb 7 oz 168 lb 3 oz 168 lb 3 oz Assessment and Plan (1) Elevated bilirubin Current visit: Yes Status: Acute Category: Medical Code(s): R17 - Unspecified jaundice (2) CAP (community acquired pneumonia) Current visit: Yes Status: Acute Qualifiers: Laterality: unspecified laterality Qualified Code(s): J18.9 - Pneumonia, unspecified organism Category: Medical Code(s): J18.9 - Pneumonia, unspecified organism (3) Blood bacterial culture positive Current visit: Yes Status: Acute Category: Medical Code(s): R78.81 - Bacteremia - Assessment and plan all Dx Assessment and Plan for all problems:: Blood culture revealed strep pneumo. Continue azithromycin, cefriaxone and tobra pending sensitivity. Place PICC line today. Change promethazine to zofran. Schedule tylenol for arthritic pain
[2017-12-12 09:11] LABS: Eosinophils # 0.1 K/mm3 (0.0-0.4); Eosinophils % 0.7 % (0.1-12.0); Hematocrit 41.3 % (42.0-52.0); Hemoglobin 12.9 g/dL (14.1-18.0); Lymphocytes # 0.5 K/mm3 (0.7-4.5); Lymphocytes % 3.2 K/mm3 (10-50); Mean Corpuscular HGB Conc 31.2 g/dL (31.8-35.4); Mean Corpuscular Hemoglobin 30.4 pg (27.0-31.2); Mean Corpuscular Volume 97.7 fl (80-94); Mean Platelet Volume 8.8 fl (7.4-10.4); Monocytes # 0.6 K/mm3 (0.1-1.0); Monocytes % 3.7 % (1.7-9.3); Neutrophils # 14.4 K/mm3 (1.8-7.8); Neutrophils % 92.5 % (37.0-80.0); Platelet Count 162 K/mm3 (142-424); Red Blood Count 4.23 M/mm3 (4.60-6.20); Red Cell Distribution Width 14.2 % (11.5-17.5); White Blood Count 15.6 K/mm3 (4.8-10.8)
[2017-12-12 09:15] LABS: MANUAL DIFFERENTIAL MANUAL DIFFERENTIAL (MANUAL DIFF)
--- NOTE | 2017-12-12 09:39 | INFXCTL.NOTE ---
Patient is psoitive for Rhinovirus. Per CDC Guidelines, patient has been placed in Droplet Precautions.
[2017-12-12 09:51] LABS: Alanine Aminotransferase 27 U/L (12-78); Alkaline Phosphatase 58 U/L (46-116); Anion Gap 16.1 mEq/L (5-15); Aspartate Amino Transferase 18 U/L (15-37); Bilirubin,Total 1.2 mg/dL (0.2-1.0); Blood Urea Nitrogen 48 mg/dL (7-18); Calcium 8.6 mg/dL (8.5-10.1); Carbon Dioxide 25 mmol/L (21.0-32.0); Chloride 105 mmol/L (98-107); Creatinine Clearance Estimated 33 mL/min (0-300); Creatinine,Serum 2.07 mg/dL (0.70-1.30); Estimated Glomerular Filt Rate 31 ml/min (>60); GFR (African American) 38 ML/MIN (>60); Glucose 100 mg/dL (74-106); Potassium 5.1 mmoL/L (3.5-5.1); Sodium 141 mmol/L (136-145)
[2017-12-12 11:18] LABS: Lymphocytes % 3 % (10-50); Monocytes % 5 % (2-9); Neutrophils % 90 % (42-76); Platelet Estimate Normal; RBC Morphology Normal; Total Cells Counted 100
--- NOTE | 2017-12-12 14:32 | SW/DCPLANNER ---
WENT IN TO SPEAK WITH PATIENT AND FAMILY ABOUT DISCHARGE PLANNING: PATIENT IS GOING TO NEED 10 DAYS OF IV ANTIBIOTICS.. I EXPLAINED TO THEM HE CAN STAY IN A SWING BED OR WE CAN FIND PLACEMENT FOR SHORT TERM IN A NURSING FACILITY... WE ARE WAITING ON CULTURES TO SEE WHAT ANTIBIOTIC IS NECESSARY AND ONCE WE DETERMINE WE WILL SEE WHAT PATIENT WANTS TO DO AND IF SWING BED IS CHOSEN THEY WILL CONVERT TO THAT STATUS...WILL FOLLOW UP WITH MD AND PATIENT AND TO SEE WHAT IS BEST FOR THEM...
--- NOTE | 2017-12-12 17:58 | PC.NURSE ---
77 YEAR OLD PATIENT ADMITTED TO THE HOSPITAL WITH A DIAGNOSIS OF PNEUMONIA AND DEHYDRATION. HE CONTINUES TO HAVE NAUSEA BUT DENIES VOMITING AT THIS TIME. HE HAS AN UNPRODUCTIVE COUGH AND HAS BEEN UNABLE TO GET US A SPUTUM SAMPLE. LUNG ASSESSMENT REVEALS CRACKLES IN THE BILATERAL LOWER LOBES. ABDOMINAL ASSESSMENT REVEALS MILD TENDERNESS THROUGHOUT ORDER FOR TYLENOL EVERY 8 HOURS FOR HIS ARTHRITIC PAIN AND HAS SEEM TO HELP ALLEVIATE SOME OF THE PAIN. HIS FAMILY HAS BEEN AT BEDSIDE ALL DAY. A PICC LINE WAS INSERTED TODAY AND HE TOLERATED THE PROCEDURE WELL. AT THIS TIME HE IS STILL NAUSEATED AND ZOFRAN HAS BEEN GIVEN PER ORDER. WE WILL CONTINUE TO MONITOR. FRANKLIN MCGINNIS, MSN, RN
[2017-12-13] VITALS: BP 148/80; PULSE 108; RESP 20; TEMP 36.8; O2SAT 98
[2017-12-13 04:00] VITALS: BP 147/67; PULSE 108; RESP 20; TEMP 36.6; O2SAT 96
--- NOTE | 2017-12-13 04:19 | PC.NURSE ---
Pt has rested well this shift, at beginning of shift pt c/o pain r.t arthritis and nuasea. Medicated per NOV. BS active in all 4 qauds. Fine crackles noted in roberta. bases. Pt is alert to person and time but not place. PICC noted to EZEKIEL, good blood return noted, infusing IVF without difficulty. at bedside. VSS. No acute distress noted. Will continue to monitor.
[2017-12-13 06:15] VITALS: PULSE 107; O2SAT 97
[2017-12-13 07:22] LABS: Anion Gap 9.6 mEq/L (5-15); Blood Urea Nitrogen 54 mg/dL (7-18); Carbon Dioxide 26 mmol/L (21.0-32.0); Chloride 105 mmol/L (98-107); Creatinine Clearance Estimated 40 mL/min (0-300); Creatinine,Serum 1.69 mg/dL (0.70-1.30); Estimated Glomerular Filt Rate 40 ml/min (>60); GFR (African American) 48 ML/MIN (>60); Glucose 98 mg/dL (74-106); Potassium 4.6 mmoL/L (3.5-5.1); Sodium 136 mmol/L (136-145)
[2017-12-13 07:25] LABS: Eosinophils % 0.2 % (0.1-12.0); Hematocrit 39.3 % (42.0-52.0); Hemoglobin 12.4 g/dL (14.1-18.0); Lymphocytes # 0.7 K/mm3 (0.7-4.5); Lymphocytes % 4.4 K/mm3 (10-50); Mean Corpuscular HGB Conc 31.5 g/dL (31.8-35.4); Mean Corpuscular Hemoglobin 30.5 pg (27.0-31.2); Mean Corpuscular Volume 96.9 fl (80-94); Mean Platelet Volume 8.9 fl (7.4-10.4); Monocytes # 0.7 K/mm3 (0.1-1.0); Monocytes % 4.3 % (1.7-9.3); Neutrophils # 14.4 K/mm3 (1.8-7.8); Platelet Count 188 K/mm3 (142-424); Red Blood Count 4.06 M/mm3 (4.60-6.20); Red Cell Distribution Width 14.2 % (11.5-17.5); White Blood Count 15.8 K/mm3 (4.8-10.8)
[2017-12-13 07:28] LABS: MANUAL DIFFERENTIAL MANUAL DIFFERENTIAL (MANUAL DIFF)
--- NOTE | 2017-12-13 07:31 | PC.NURSE ---
REPORT GIVEN TO Anthony MADRIGAL W/C
[2017-12-13 07:38] VITALS: BP 147/67; BP 163/78; PULSE 107; RESP 16; TEMP 36.4; O2SAT 99
--- NOTE | 2017-12-13 07:52 | PC.NURSE ---
report given to muna leach rn
--- NOTE | 2017-12-13 07:58 | HMH.SWING ---
*Admission Date: 12/10/17 *Chief complaint: Febrile illness/pneumococcal sepsis *History of present illness: 77 year old male with a history of HTN, CAD, A.Fib and COPD presents to the ED with nausea, dry heaves, and weakness that started at 0400 this morning. Patient reports he felt well yesterday with exception of a mild cough. He further reports chills and looser than normal stools. In the ED, CXR revealed bilateral pneumonia and CBC showed leukocytosis with WBC 15. CT abdomen/pelvis with no additional pathology. He had persistent dry heaving and was given both zofran and promethazine. He was noted to be mildly dehydrated and jaundiced with BUN/Creatinine 20/1.38 and Total Bili 1.9. Patient was admitted for IV antibiotics and further evaluation. Hospital Course Hospital Course: Patient was admitted to hospital and placed on broad-spectrum IV antibiotics. Serologic testing was done which revealed rhinovirus. Blood culture the following day returned positive for Streptococcus pneumonia. PICC line was placed and patient was continued on broad-spectrum IV antibiotics. Sensitivities returned this morning showing sensitivity to levofloxacin and vancomycin as well as benzyl penicillin. Of note patient suffered acute kidney injury with creatinine rising to 2.08. Returning this morning to 1.5, which is close to his baseline. Patient had some confusion with Phenergan and this was discontinued and this is also improved. Patient continues to complain of some back pain and hip pain. Physical therapy will be involved. This morning patient is clinically improving, metabolically stable. Plan will be to transfer to swing bed for ongoing physical therapy/Occupational Therapy and finishing up a total of 10 days of IV antibiotics for his pneumococcal sepsis. Exam Vital signs and Labs for Last 24 Hours: Temp Pulse Resp BP Pulse Ox 97.6 F 107 H 16 147/67 99 12/13/17 07:38 12/13/17 07:38 12/13/17 07:38 12/13/17 07:38 12/13/17 07:38 Laboratory Results - last 24 hr 12/12/17 09:00: Random Tobramycin 4.0 12/12/17 09:00: WBC 15.6 H, RBC 4.23 L, Hgb 12.9 L, Hct 41.3 L, MCV 97.7 H, MCH 30.4, MCHC 31.2 L, RDW 14.2, Plt Count 162, MPV 8.8, Neut % (Auto) 92.5 H, Lymph % (Auto) 3.2 L, [place] % (Auto) 3.7, Eos % (Auto) 0.7, Baso % (Auto) 0.0 L, Neut # (Auto) 14.4 H, Lymph # (Auto) 0.5 L, [place] # (Auto) 0.6, Eos # (Auto) 0.1, Baso # (Auto) 0.0, Total Counted 100, Neutrophils % (Manual) 90 H, Band Neutrophils % 2.0, Lymphocytes % (Manual) 3 L, Monocytes % (Manual) 5, Platelet Estimate Normal, RBC Morphology Normal 12/12/17 09:00: Sodium 141, Potassium 5.1, Chloride 105, Carbon Dioxide 25, Anion Gap 16.1 H, BUN 48 H D, Creatinine 2.07 H, Estimated Creat Clear 33, Estimated GFR 31 L, Est GFR ( Amer) 38 L, Glucose 100, Calcium 8.6, Total Bilirubin 1.2 H, AST 18 D, ALT 27 D, Alkaline Phosphatase 58, Total Protein 6.0 L, Albumin 3.0 L, Globulin 3.0, Albumin/Globulin Ratio 1.0 L 12/13/17 07:02: WBC 15.8 H, RBC 4.06 L, Hgb 12.4 L, Hct 39.3 L, MCV 96.9 H, MCH 30.5, MCHC 31.5 L, RDW 14.2, Plt Count 188, MPV 8.9, Neut % (Auto) 91.0 H, Lymph % (Auto) 4.4 L, [place] % (Auto) 4.3, Eos % (Auto) 0.2, Baso % (Auto) 0.0 L, Neut # (Auto) 14.4 H, Lymph # (Auto) 0.7, [place] # (Auto) 0.7, Eos # (Auto) 0.0, Baso # (Auto) 0.0 12/13/17 07:02: Sodium 136, Potassium 4.6, Chloride 105, Carbon Dioxide 26, Anion Gap 9.6, BUN 54 H, Creatinine 1.69 H, Estimated Creat Clear 40, Estimated GFR 40 L, Est GFR ( Amer) 48 L D, Glucose 98 I & O for Last 24 hours: Intake & Output 12/10/17 12/11/17 12/12/17 12/13/17 11:59 11:59 11:59 11:59 Intake Total 1193 / 1193 2855 / 2855 1650 / 1650 Output Total 900 / 900 Balance 1193 / 1193 1954 / 1954 1650 / 1650 Weight 168 lb 7 oz 168 lb 3 oz 168 lb 3 oz Narrative: Morning patient sitting in his chair. Alert. Oriented ?2. Little fuzzy about the date after having some sundowning last night. Lungs are clear in the anter
--- NOTE | 2017-12-13 08:01 | P.SWB_ITS ---
*Admission Date: 12/10/17 *Chief complaint: Febrile illness/pneumococcal sepsis *History of present illness: 77 year old male with a history of HTN, CAD, A.Fib and COPD presents to the ED with nausea, dry heaves, and weakness that started at 0400 this morning. Patient reports he felt well yesterday with exception of a mild cough. He further reports chills and looser than normal stools. In the ED, CXR revealed bilateral pneumonia and CBC showed leukocytosis with WBC 15. CT abdomen/pelvis with no additional pathology. He had persistent dry heaving and was given both zofran and promethazine. He was noted to be mildly dehydrated and jaundiced with BUN/Creatinine 20/1.38 and Total Bili 1.9. Patient was admitted for IV antibiotics and further evaluation. Hospital Course Hospital Course: Patient was admitted to hospital and placed on broad-spectrum IV antibiotics. Serologic testing was done which revealed rhinovirus. Blood culture the following day returned positive for Streptococcus pneumonia. PICC line was placed and patient was continued on broad-spectrum IV antibiotics. Sensitivities returned this morning showing sensitivity to levofloxacin and vancomycin as well as benzyl penicillin. Of note patient suffered acute kidney injury with creatinine rising to 2.08. Returning this morning to 1.5, which is close to his baseline. Patient had some confusion with Phenergan and this was discontinued and this is also improved. Patient continues to complain of some back pain and hip pain. Physical therapy will be involved. This morning patient is clinically improving, metabolically stable. Plan will be to transfer to swing bed for ongoing physical therapy/Occupational Therapy and finishing up a total of 10 days of IV antibiotics for his pneumococcal sepsis. Exam Vital signs and Labs for Last 24 Hours: Temp Pulse Resp BP Pulse Ox 97.6 F 107 H 16 147/67 99 12/13/17 07:38 12/13/17 07:38 12/13/17 07:38 12/13/17 07:38 12/13/17 07:38 Laboratory Results - last 24 hr 12/12/17 09:00: Random Tobramycin 4.0 12/12/17 09:00: WBC 15.6 H, RBC 4.23 L, Hgb 12.9 L, Hct 41.3 L, MCV 97.7 H, MCH 30.4, MCHC 31.2 L, RDW 14.2, Plt Count 162, MPV 8.8, Neut % (Auto) 92.5 H, Lymph % (Auto) 3.2 L, [place] % (Auto) 3.7, Eos % (Auto) 0.7, Baso % (Auto) 0.0 L, Neut # (Auto) 14.4 H, Lymph # (Auto) 0.5 L, [place] # (Auto) 0.6, Eos # (Auto) 0.1 , Baso # (Auto) 0.0, Total Counted 100, Neutrophils % (Manual) 90 H, Band Neutrophils % 2.0, Lymphocytes % (Manual) 3 L, Monocytes % (Manual) 5, Platelet Estimate Normal, RBC Morphology Normal 12/12/17 09:00: Sodium 141, Potassium 5.1, Chloride 105, Carbon Dioxide 25, Anion Gap 16.1 H, BUN 48 H D, Creatinine 2.07 H, Estimated Creat Clear 33, Estimated GFR 31 L, Est GFR ( Amer) 38 L, Glucose 100, Calcium 8.6, Total Bilirubin 1.2 H, AST 18 D, ALT 27 D, Alkaline Phosphatase 58, Total Protein 6.0 L, Albumin 3.0 L, Globulin 3.0, Albumin/Globulin Ratio 1.0 L 12/13/17 07:02: WBC 15.8 H, RBC 4.06 L, Hgb 12.4 L, Hct 39.3 L, MCV 96.9 H, MCH 30.5, MCHC 31.5 L, RDW 14.2, Plt Count 188, MPV 8.9, Neut % (Auto) 91.0 H, Lymph % (Auto) 4.4 L, [place] % (Auto) 4.3, Eos % (Auto) 0.2, Baso % (Auto) 0.0 L, Neut # (Auto) 14.4 H, Lymph # (Auto) 0.7, [place] # (Auto) 0.7, Eos # (Auto) 0.0, Baso # (Auto) 0.0 12/13/17 07:02: Sodium 136, Potassium 4.6, Chloride 105, Carbon Dioxide 26, Anion Gap 9.6, BUN 54 H, Creatinine 1.69 H, Estimated Creat Clear 40, Estimated GFR 40 L, Est GFR ( Amer) 48 L D, Glucose 98 I & O for Last 24 hours: Intake & Output 12/10/17 12/11/17 12/12/17 12/13/17 11:59 11:59 11:59 11:59
[2017-12-13 09:21] LABS: Lymphocytes % 6 % (10-50); Monocytes % 5 % (2-9); Neutrophils % 89 % (42-76); Platelet Estimate Normal; Total Cells Counted 100
[2017-12-13 09:23] LABS: RBC Morphology Normal
--- NOTE | 2017-12-13 11:02 | HMH.PHACONS ---
- Pharmacy Consult Date: 12/13/17 Time: 11:03 Referring provider: DR. LANG Reason for Consult:: TOBRAMYCIN LEVELS 4-HOUR POST-INFUSION: 6.8 CALCULATED PEAK: 7.69 MCG/ML 17-HOUR POST-INFUSION: 4.0 CALCULATED TROUGH: 1.12 MCG/ML A TOBRAMYCIN TROUGH LEVEL WAS SCHEDULED FOR TODAY. TOBRAMYCIN WAS DISCONTINUED AND ANTIBIOTICS HAVE BEEN CHANGED TO VANCOMYCIN AND LEVAQUIN DUE TO SENSITIVITIES OF BLOOD CULTURE. Allergies and ADEs:: Allergies Allergy/AdvReac Type Severity Reaction Status Date / Time hydrocodone [From LORTAB] Allergy Mild Verified 12/10/17 08:36 oxycodone [From PERCOCET] Allergy Mild Verified 12/10/17 08:36 sulfamethoxazole Allergy Mild Verified 12/10/17 08:36 [From BACTRIM] trimethoprim [From BACTRIM] Allergy Mild Verified 12/10/17 08:36 Home Medications:: Home Medications Medication Instructions Recorded Confirmed Type Aspirin [Aspir 81] 81 mg PO DAILY 12/10/17 12/13/17 History Budesonide/Formoterol Fumarate 1 dose INHALATION DAILY 12/10/17 12/13/17 History [Symbicort 160-4.5 Mcg Inhaler] Carvedilol [Carvedilol 25mg Tab] 25 mg PO BID 12/10/17 12/13/17 History Clopidogrel Bisulfate [Plavix 75mg 75 mg PO DAILY 12/10/17 12/13/17 History Tab] Ipratropium/Albuterol Sulfate 3 ml IH Q6RT 12/13/17 12/13/17 History [Duoneb 3mL neb] Levofloxacin/D5w 750 mg/150 ml 500 mg IV DAILY 12/13/17 12/13/17 History [Levofloxacin 750mg/150mL Premix IVPB] Height: 1.75 m Weight: 76.289 kg Laboratory Results:: Laboratory Results - last 24 hr 12/12/17 09:00: Total Counted 100, Neutrophils % (Manual) 90 H, Band Neutrophils % 2.0, Lymphocytes % (Manual) 3 L, Monocytes % (Manual) 5, Platelet Estimate Normal, RBC Morphology Normal 12/13/17 07:02: WBC 15.8 H, RBC 4.06 L, Hgb 12.4 L, Hct 39.3 L, MCV 96.9 H, MCH 30.5, MCHC 31.5 L, RDW 14.2, Plt Count 188, MPV 8.9, Neut % (Auto) 91.0 H, Lymph % (Auto) 4.4 L, [place] % (Auto) 4.3, Eos % (Auto) 0.2, Baso % (Auto) 0.0 L, Neut # (Auto) 14.4 H, Lymph # (Auto) 0.7, [place] # (Auto) 0.7, Eos # (Auto) 0.0, Baso # (Auto) 0.0, Total Counted 100, Neutrophils % (Manual) 89 H, Lymphocytes % (Manual) 6 L, Monocytes % (Manual) 5, Platelet Estimate Normal, RBC Morphology Normal 12/13/17 07:02: Sodium 136, Potassium 4.6, Chloride 105, Carbon Dioxide 26, Anion Gap 9.6, BUN 54 H, Creatinine 1.69 H, Estimated Creat Clear 40, Estimated GFR 40 L, Est GFR ( Amer) 48 L D, Glucose 98 Medical History: Reports:: Hyperlipidemia, Hypertension Denies:: Diabetes Mellitus Type 1, Diabetes Mellitus Type 2 Assessment and Plan (1) Elevated bilirubin Status: Acute Category: Medical Code(s): R17 - Unspecified jaundice (2) CAP (community acquired pneumonia) Status: Acute Qualifiers: Laterality: unspecified laterality Qualified Code(s): J18.9 - Pneumonia, unspecified organism Category: Medical Code(s): J18.9 - Pneumonia, unspecified organism (3) Streptococcal sepsis Status: Acute Category: Medical Code(s): A40.9 - Streptococcal sepsis, unspecified (4) Acute kidney injury Status: Acute Category: Medical Code(s): N17.9 - Acute kidney failure, unspecified (5) Osteoarthritis of back Status: Acute Category: Medical Code(s): M47.815 - Spondylosis without myelopathy or radiculopathy, thoracolumbar region (6) Cough Status: Acute Category: Medical Code(s): R05 - Cough - Assessment and plan all Dx Assessment and Plan for all problems:: TOBRAMYCIN LEVELS 4-HOUR POST-INFUSION: 6.8 CALCULATED PEAK: 7.69 MCG/ML 17-HOUR POST-INFUSION: 4.0 CALCULATED TROUGH: 1.12 MCG/ML A TOBRAMYCIN TROUGH LEVEL WAS SCHEDULED FOR TODAY. TOBRAMYCIN WAS DISCONTINUED AND ANTIBIOTICS HAVE BEEN CHANGED TO VANCOMYCIN AND LEVAQUIN DUE TO SENSITIVITIES OF BLOOD CULTURE.
== END 2017-12-13 08:26 | disposition swing bed (61) | DRG 193 ==
LOC: ER 10:14 → 2ND 11:28
PROVIDERS: Nurse Practitioner Family; Admitting Provider Internal Medicine Adolescent Medicine; Emergency Provider Emergency Medicine; Family Provider Internal Medicine Adolescent Medicine; PCP Internal Medicine Adolescent Medicine; Visit Provider Internal Medicine Adolescent Medicine
DX: J18.9 Pneumonia, unspecified organism (principal); A40.9 Streptococcal sepsis, unspecified; I48.91 Unspecified atrial fibrillation; J44.9 Chronic obstructive pulmonary disease, unspecified; E86.0 Dehydration; I10 Essential (primary) hypertension; I25.10 Atherosclerotic heart disease of native coronary artery without angina pectoris
CPT/HCPCS: 36569; 36415; 71045; 74176; 80048; 80053; 80200; 81001; 82550; 82553; 83605; 83690; 84484; 85007; 85025; 87040; 87077; 87186; 87486; 87581; 87633; 87798; 93005; 94640; 94761; 96365; 96366; 96375; 96376; 99284; C1751; J0456; J2405

== ENCOUNTER 2017-12-13 08:27 | Inpatient (IN) ==
--- NOTE | 2017-12-13 11:00 | Pharmacy Consult Notes ---
[facility] Pharmacy VTE Monitoring - Patient Demographics Admission date: 12/13/17 Report Date: 12/13/17 Time: 11:00 Allergies/Adverse Reactions: Patient Allergies hydrocodone [From LORTAB] Allergy (Mild, Verified 12/10/17 08:36) oxycodone [From PERCOCET] Allergy (Mild, Verified 12/10/17 08:36) sulfamethoxazole [From BACTRIM] Allergy (Mild, Verified 12/10/17 08:36) trimethoprim [From BACTRIM] Allergy (Mild, Verified 12/10/17 08:36) Height: 1.75 m Weight: 78.528 kg - VTE Risk Was VTE Risk Assessment Performed: Yes VTE Score: 3 VTE Risk Level: Low Risk - Prophylaxis VTE Prophylaxis Ordered?: Yes Types of VTE Prophylaxis: TEDS Thigh High Location of Applied Device: Bilateral Lower Extremeties
--- NOTE | 2017-12-13 11:13 | Pharmacy Consult Notes ---
- Pharmacy Consult Date: 12/13/17 Time: 11:11 Referring provider: DR. LANG Reason for Consult:: VANCOMYCIN DOSING Allergies and ADEs:: Allergies Allergy/AdvReac Type Severity Reaction Status Date / Time hydrocodone [From LORTAB] Allergy Mild Verified 12/10/17 08:36 oxycodone [From PERCOCET] Allergy Mild Verified 12/10/17 08:36 sulfamethoxazole Allergy Mild Verified 12/10/17 08:36 [From BACTRIM] trimethoprim [From BACTRIM] Allergy Mild Verified 12/10/17 08:36 Home Medications:: Home Medications Medication Instructions Recorded Confirmed Type Aspirin [Aspir 81] 81 mg PO DAILY 12/10/17 12/13/17 History Budesonide/Formoterol Fumarate 1 dose INHALATION DAILY 12/10/17 12/13/17 History [Symbicort 160-4.5 Mcg Inhaler] Carvedilol [Carvedilol 25mg Tab] 25 mg PO BID 12/10/17 12/13/17 History Clopidogrel Bisulfate [Plavix 75mg 75 mg PO DAILY 12/10/17 12/13/17 History Tab] Ipratropium/Albuterol Sulfate 3 ml IH Q6RT 12/13/17 12/13/17 History [Duoneb 3mL neb] Levofloxacin/D5w 750 mg/150 ml 500 mg IV DAILY 12/13/17 12/13/17 History [Levofloxacin 750mg/150mL Premix IVPB] Height: 1.75 m Weight: 78.528 kg Laboratory Results:: SRCR=1.69 Medical History: Reports:: Atrial Fibrillation, Coronary Artery Disease, Hyperlipidemia, Hypertension Denies:: Cancer, Diabetes Mellitus Type 1, Diabetes Mellitus Type 2, MRSA Assessment and Plan - Assessment and plan all Dx Assessment and Plan for all problems:: BASED ON PATIENT FACTORS, RECOMMEND VANCOMYCIN 1250 MG IV Q24H. PATIENT'S BLOOD CULTURE IS POSITIVE FOR STREP PNEUMONIAE, SENSITIVE TO VANCOMYCIN AND LEVAQUIN. PHARMACY WILL FOLLOW DAILY AND ADJUST APPROPRIATE.
--- NOTE | 2017-12-13 14:32 | Swing Bed Reports ---
*Admission Date: 12/13/17 *Chief complaint: Febrile illness, pneumococcal sepsis *History of present illness: 77-year-old male with a history of hypertension, CAD, A. fib, and COPD presents to the ED with nausea, dry heaves, and weakness that started at 04 100 this morning. Patient reports he felt well yesterday with the exception of a mild cough. He further reports chills and "" looser than normal stools. In the ED, chest x-ray revealed bilateral pneumonia and CBC showed leukocytosis with white blood cell count 15. CT of the abdomen and pelvis with no additional pathology. He had persistent dry heaving and was given both Zofran and promethazine. He was noted to be mildly dehydrated and jaundiced with BUN/ creatinine 20/1.38 and total bili 1.9. Patient was admitted for IV antibiotics and further evaluation. Hospital Course Hospital Course: Patient was admitted to the hospital and placed on broad-spectrum IV antibiotics. Serologic testing was done which revealed rhinovirus. Blood culture the following day returned positive for Streptococcus pneumonia. PICC line was placed and patient was continued on broad-spectrum IV antibiotics. Activities returned this morning showing sensitivity to levofloxacin and vancomycin as well as benzyl penicillin. Of note patient suffered acute kidney injury with creatinine rising to 2.08. Returning this morning to 1.5, which is close to his baseline. Patient had some confusion with Phenergan and this was discontinued and this is also improved. Patient continues to complain of some back pain and hip pain. Physical therapy will be involved. This morning patient is clinically improving, metabolically stable. Plan will be to transfer to swing bed for ongoing physical therapy/Occupational Therapy and finishing up a total of 10 days of IV antibiotics for his pneumococcal sepsis. Exam I & O for Last 24 hours: Intake & Output 12/10/17 12/11/17 12/12/17 12/13/17 23:59 23:59 23:59 23:59 Weight 173 lb 2 oz Narrative: This morning the patient is sitting in his chair. Alert and oriented 2. Little fuzzy about the day after having some sundowning last night. Lungs are clear in the anterior zhu. Posterior zhu have bibasilar rhonchi and minimal crackles but good air movement. Heart rate regular. Perfusion is good, and edema noticed yesterday is improving. Abdomen is soft and nontender. PICC line in the left antecubital fossa is well placed and has no tenderness or redness. He is able to move all extremities well although he is limited by back pain Discharge Medications Discharge Medications: Home Medications Medication Instructions Recorded Confirmed Type Aspirin [Aspir 81] 81 mg PO DAILY 12/10/17 12/13/17 History Budesonide/Formoterol Fumarate 1 dose INHALATION DAILY 12/10/17 12/13/17 History [Symbicort 160-4.5 Mcg Inhaler] Carvedilol [Carvedilol 25mg Tab] 25 mg PO BID 12/10/17 12/13/17 History Clopidogrel Bisulfate [Plavix 75mg 75 mg PO DAILY 12/10/17 12/13/17 History Tab] Ipratropium/Albuterol Sulfate 3 ml IH Q6RT 12/13/17 12/13/17 History [Duoneb 3mL neb] Levofloxacin/D5w 750 mg/150 ml 500 mg IV DAILY 12/13/17 12/13/17 History [Levofloxacin 750mg/150mL Premix IVPB]
--- NOTE | 2017-12-13 15:15 | Swing Bed Reports ---
[facility] Swing Bed H&P Swing Bed History and Physical: *Admission Date: 12/10/17 *Chief complaint: Febrile illness/pneumococcal sepsis *History of present illness: 77 year old male with a history of HTN, CAD, A.Fib and COPD presents to the ED with nausea, dry heaves, and weakness that started at 0400 this morning. Patient reports he felt well yesterday with exception of a mild cough. He further reports chills and "looser than normal" stools. In the ED, CXR revealed bilateral pneumonia and CBC showed leukocytosis with WBC 15. CT abdomen/pelvis with no additional pathology. He had persistent dry heaving and was given both zofran and promethazine. He was noted to be mildly dehydrated and jaundiced with BUN/Creatinine 20/1.38 and Total Bili 1.9. Patient was admitted for IV antibiotics and further evaluation. Hospital Course Hospital Course: Patient was admitted to hospital and placed on broad-spectrum IV antibiotics. Serologic testing was done which revealed rhinovirus. Blood culture the following day returned positive for Streptococcus pneumonia. PICC line was placed and patient was continued on broad-spectrum IV antibiotics. Sensitivities returned this morning showing sensitivity to levofloxacin and vancomycin as well as benzyl penicillin. Of note patient suffered acute kidney injury with creatinine rising to 2.08. Returning this morning to 1.5, which is close to his baseline. Patient had some confusion with Phenergan and this was discontinued and this is also improved. Patient continues to complain of some back pain and hip pain. Physical therapy will be involved. This morning patient is clinically improving, metabolically stable. Plan will be to transfer to swing bed for ongoing physical therapy/Occupational Therapy and finishing up a total of 10 days of IV antibiotics for his pneumococcal sepsis. Exam Vital signs and Labs for Last 24 Hours: Temp Pulse Resp BP Pulse Ox 97.6 F 107 H 16 147/67 99 12/13/17 07:38 12/13/17 07:38 12/13/17 07:38 12/13/17 07:38 12/13/17 07:38 Laboratory Results - last 24 hr 12/12/17 09:00: Random Tobramycin 4.0 12/12/17 09:00: WBC 15.6 H, RBC 4.23 L, Hgb 12.9 L, Hct 41.3 L, MCV 97.7 H, MCH 30.4, MCHC 31.2 L, RDW 14.2, Plt Count 162, MPV 8.8, Neut % (Auto) 92.5 H, Lymph % (Auto) 3.2 L, [place] % (Auto) 3.7, Eos % (Auto) 0.7, Baso % (Auto) 0.0 L, Neut # (Auto) 14.4 H, Lymph # (Auto) 0.5 L, [place] # (Auto) 0.6, Eos # (Auto) 0.1 , Baso # (Auto) 0.0, Total Counted 100, Neutrophils % (Manual) 90 H, Band Neutrophils % 2.0, Lymphocytes % (Manual) 3 L, Monocytes % (Manual) 5, Platelet Estimate Normal, RBC Morphology Normal 12/12/17 09:00: Sodium 141, Potassium 5.1, Chloride 105, Carbon Dioxide 25, Anion Gap 16.1 H, BUN 48 H D, Creatinine 2.07 H, Estimated Creat Clear 33, Estimated GFR 31 L, Est GFR ( Amer) 38 L, Glucose 100, Calcium 8.6, Total Bilirubin 1.2 H, AST 18 D, ALT 27 D, Alkaline Phosphatase 58, Total Protein 6.0 L, Albumin 3.0 L, Globulin 3.0, Albumin/Globulin Ratio 1.0 L 12/13/17 07:02: WBC 15.8 H, RBC 4.06 L, Hgb 12.4 L, Hct 39.3 L, MCV 96.9 H, MCH 30.5, MCHC 31.5 L, RDW 14.2, Plt Count 188, MPV 8.9, Neut % (Auto) 91.0 H, Lymph % (Auto) 4.4 L, [place] % (Auto) 4.3, Eos % (Auto) 0.2, Baso % (Auto) 0.0 L, Neut # (Auto) 14.4 H, Lymph # (Auto) 0.7, [place] # (Auto) 0.7, Eos # (Auto) 0.0, Baso # (Auto) 0.0 12/13/17 07:02: Sodium 136, Potassium 4.6, Chloride 105, Carbon Dioxide 26, Anion Gap 9.6, BUN 54 H, Creatinine 1.69 H, Estimated Creat Clear 40, Estimated GFR 40 L, Est GFR ( Amer) 48 L D, Glucose 98 I & O for Last 24 hours: Intake & Output 12/10/17 12/11/17 12/12/17 12/13/17 11:59 11:59 11:59 11:59 Intake Total 1193 / 1193 2855 / 2855 1650 / 1650 Output Total 900 / 900 Balance 1193 / 1193 1955 / 1955 1650 / 1650 Weight 168 lb 7 oz 168 lb 3 oz 168 lb 3 oz Narrative: Morning patient sitting in his chair. Alert. Oriented 2. Little fuzzy about the date after having some sundowning last night. Lungs are clear in the anterior zhu. Posterior zhu have bibasilar rhonchi and minimal crackles but good air movement. Heart rate regular. Perfusion is good, and edema noticed yesterday is improving. Abdomen is soft and nontender. PICC line in the left antecubital fossa is well placed and has no tenderness or redness. He is able to move all extremities well although he is limited by back pain. Results Labs on day of discharge: Labs from last 24 hours 12/13/17 12/13/17 12/12/17 07:02 07:02 09:00 WBC 15.8 H RBC 4.06 L Hgb 12.4 L Hct 39.3 L MCV 96.9 H MCH 30.5 MCHC 31.5 L RDW 14.2 Plt Count 188 MPV 8.9 Neut % (Auto) 91.0 H Lymph % (Auto) 4.4 L [place] % (Auto) 4.3 Eos % (Auto) 0.2 Baso % (Auto) 0.0 L Neut # (Auto) 14.4 H Lymph # (Auto) 0.7 [place] # (Auto) 0.7 Eos # (Auto) 0.0 Baso # (Auto) 0.0 Total Counted Neutrophils % (Manual) Band Neutrophils % Lymphocytes % (Manual) Monocytes % (Manual) Platelet Estimate RBC Morphology Sodium 136 141 Potassium 4.6 5.1 Chloride 105 105 Carbon Dioxide 26 25 Anion Gap 9.6 16.1 H BUN 54 H 48 H D Creatinine 1.69 H 2.07 H Estimated Creat Clear 40 33 Estimated GFR 40 L 31 L Est GFR ( Amer) 48 L D 38 L Glucose 98 100 Calcium 8.6 Total Bilirubin 1.2 H AST 18 D ALT 27 D Alkaline Phosphatase 58 Total Protein 6.0 L Albumin 3.0 L Globulin 3.0 Albumin/Globulin Ratio 1.0 L Random Tobramycin 12/12/17 12/12/17 09:00 09:00 WBC 15.6 H RBC 4.23 L Hgb 12.9 L Hct 41.3 L MCV 97.7 H MCH 30.4 MCHC 31.2 L RDW 14.2 Plt Count 162 MPV 8.8 Neut % (Auto) 92.5 H Lymph % (Auto) 3.2 L [place] % (Auto) 3.7 Eos % (Auto) 0.7 Baso % (Auto) 0.0 L Neut # (Auto) 14.4 H Lymph # (Auto) 0.5 L [place] # (Auto) 0.6 Eos # (Auto) 0.1 Baso # (Auto) 0.0 Total Counted 100 Neutrophils % (Manual) 90 H Band Neutrophils % 2.0 Lymphocytes % (Manual) 3 L Monocytes % (Manual) 5 Platelet Estimate Normal RBC Morphology Normal Sodium Potassium Chloride Carbon Dioxide Anion Gap BUN Creatinine Estimated Creat Clear Estimated GFR Est GFR ( Amer) Glucose Calcium Total Bilirubin AST ALT Alkaline Phosphatase Total Protein Albumin Globulin Albumin/Globulin Ratio Random Tobramycin 4.0 DS: Diagnosis - Discharge Diagnosis (1) Elevated bilirubin Status: Acute (2) CAP (community acquired pneumonia) Status: Acute (3) Streptococcal sepsis Status: Acute (4) Acute kidney injury Status: Acute (5) Osteoarthritis of back Status: Acute (6) Cough Status: Acute Discharge Medications Discharge Medications: Home Medications Medication Instructions Recorded Confirmed Type Albuterol Sulfate [Albuterol 0.63 mg IH Q6HP PRN 12/10/17 12/11/17 History Sulfate 0.63mg/3ml Neb] Aspirin [Aspir 81] 81 mg PO DAILY 12/10/17 12/10/17 History Budesonide/Formoterol Fumarate 1 dose INHALATION DAILY 12/10/17 12/10/17 History [Symbicort 160-4.5 Mcg Inhaler] Carvedilol [Carvedilol 25mg Tab] 25 mg PO BID 12/10/17 12/10/17 History Clopidogrel Bisulfate [Plavix 75mg 75 mg PO DAILY 12/10/17 12/10/17 History Tab] Furosemide [Lasix 20mg tab] 20 mg PO DAILY 12/10/17 12/10/17 History Simvastatin 20 mg PO HS 12/10/17 12/10/17 History Losartan Potassium [Losartan 25 mg PO DAILY 12/11/17 12/11/17 History Potassium] Disposition Disposition: [facility] Bed
--- NOTE | 2017-12-14 09:53 | Progress Note ---
Internal Medicine - PN: Subj *Date: 12/14/17 *Time: 09:51 Interval history: Patient had some chills through the night, tolerated PICC line and his new antibiotics fairly well. Good urine output. Exam Vital signs and Labs for Last 24 Hours: Temp Pulse Resp BP Pulse Ox 98.5 F 103 H 18 105/64 96 12/14/17 08:00 12/14/17 08:00 12/14/17 08:00 12/14/17 08:00 12/14/17 08:00 Laboratory Results - last 24 hr 12/13/17 22:20: Total Creatine Kinase 22 L, CK-MB (CK-2) 1.1, CK-MB (CK-2) Rel Index 5.0 H, Troponin I 0.09 H I & O for Last 24 hours: Intake & Output 12/11/17 12/12/17 12/13/17 12/14/17 11:59 11:59 11:59 11:59 Weight 173 lb 2 oz 173 lb 1.994 oz Narrative: Patient's in the chair, alert. Oriented 2, apparently had some sundowning type confusion through the night but this is cleared according to his family. Lungs are clear with rhonchi in the right lower lung field but no crackles. Heart rate regular. Abdomen soft, perfusion is good. Assessment and Plan (1) Acute kidney injury Current visit: No Status: Acute Category: Medical Code(s): N17.9 - Acute kidney failure, unspecified (2) Blood bacterial culture positive Current visit: No Status: Acute Category: Medical Code(s): R78.81 - Bacteremia (3) CAP (community acquired pneumonia) Current visit: No Status: Acute Qualifiers: Laterality: unspecified laterality Qualified Code(s): J18.9 - Pneumonia, unspecified organism Category: Medical Code(s): J18.9 - Pneumonia, unspecified organism (4) Cough Current visit: No Status: Acute Category: Medical Code(s): R05 - Cough (5) Streptococcal sepsis Current visit: No Status: Acute Category: Medical Code(s): A40.9 - Streptococcal sepsis, unspecified Overall patient is improving. Continue double antibiotic coverage. I will restart his Lasix today given his minimal dyspnea and his 's concern and his stable kidney function check labs tomorrow.
[2017-12-15 08:21] LABS: Basophils % 0.1 % (0.1-2.0); Eosinophils % 0.5 % (0.1-12.0); Hematocrit 37.3 % (42.0-52.0); Hemoglobin 11.6 g/dL (14.1-18.0); Lymphocytes # 0.7 K/mm3 (0.7-4.5); Lymphocytes % 9.2 K/mm3 (10-50); Mean Corpuscular HGB Conc 31.2 g/dL (31.8-35.4); Mean Corpuscular Hemoglobin 30.2 pg (27.0-31.2); Mean Corpuscular Volume 96.8 fl (80-94); Mean Platelet Volume 8.4 fl (7.4-10.4); Monocytes # 0.7 K/mm3 (0.1-1.0); Monocytes % 9.4 % (1.7-9.3); Neutrophils # 6.3 K/mm3 (1.8-7.8); Neutrophils % 80.8 % (37.0-80.0); Platelet Count 169 K/mm3 (142-424); Red Blood Count 3.85 M/mm3 (4.60-6.20); White Blood Count 7.8 K/mm3 (4.8-10.8)
--- NOTE | 2017-12-15 08:33 | Progress Note ---
Internal Medicine - PN: Subj *Date: 12/15/17 *Time: 08:32 Interval history: Patient overall is a little better, had a good breakfast. His is pleased by his progress this morning. Exam Vital signs and Labs for Last 24 Hours: Temp Pulse Resp BP Pulse Ox 98.1 F 100 H 18 117/64 98 12/15/17 07:53 12/15/17 07:53 12/15/17 07:53 12/15/17 07:53 12/15/17 07:53 Laboratory Results - last 24 hr 12/15/17 08:01: WBC 7.8 D, RBC 3.85 L, Hgb 11.6 L, Hct 37.3 L, MCV 96.8 H, MCH 30.2, MCHC 31.2 L, RDW 14.0, Plt Count 169, MPV 8.4, Neut % (Auto) 80.8 H, Lymph % (Auto) 9.2 L, [place] % (Auto) 9.4 H, Eos % (Auto) 0.5, Baso % (Auto) 0.1, Neut # (Auto) 6.3, Lymph # (Auto) 0.7, [place] # (Auto) 0.7, Eos # (Auto) 0.0, Baso # (Auto) 0.0 12/15/17 08:01: Sodium 137, Potassium 4.0, Chloride 106, Carbon Dioxide 25, Anion Gap 10.0, BUN 43 H, Creatinine 1.30 D, Estimated Creat Clear 54, Estimated GFR 54 L, Est GFR ( Amer) 65 D, Glucose 112 H I & O for Last 24 hours: Intake & Output 12/12/17 12/13/17 12/14/17 12/15/17 11:59 11:59 11:59 11:59 Intake Total 5704 / 5704 Output Total 975 / 975 Balance 4729 / 4729 Weight 173 lb 2 oz 173 lb 1.994 oz Narrative: White count improved, creatinine improved. Patient has rhonchi in both lung zhu but better with less crackles. More alert. Assessment and Plan (1) Acute kidney injury Current visit: No Status: Acute Category: Medical Code(s): N17.9 - Acute kidney failure, unspecified (2) Blood bacterial culture positive Current visit: No Status: Acute Category: Medical Code(s): R78.81 - Bacteremia (3) CAP (community acquired pneumonia) Current visit: No Status: Acute Qualifiers: Laterality: unspecified laterality Qualified Code(s): J18.9 - Pneumonia, unspecified organism Category: Medical Code(s): J18.9 - Pneumonia, unspecified organism (4) Cough Current visit: No Status: Acute Category: Medical Code(s): R05 - Cough (5) Streptococcal sepsis Current visit: No Status: Acute Category: Medical Code(s): A40.9 - Streptococcal sepsis, unspecified - Assessment and plan all Dx Assessment and Plan for all problems:: Overall improving. Continue PT/IV antibiotics for swing bed care.
[2017-12-16 07:02] LABS: Anion Gap 9.9 mEq/L (5-15); Basophils % 0.1 % (0.1-2.0); Eosinophils # 0.1 K/mm3 (0.0-0.4); Eosinophils % 0.8 % (0.1-12.0); Hematocrit 36.4 % (42.0-52.0); Hemoglobin 11.4 g/dL (14.1-18.0); Lymphocytes # 0.9 K/mm3 (0.7-4.5); Mean Corpuscular HGB Conc 31.4 g/dL (31.8-35.4); Mean Corpuscular Hemoglobin 29.8 pg (27.0-31.2); Mean Platelet Volume 8.7 fl (7.4-10.4); Monocytes # 0.7 K/mm3 (0.1-1.0); Neutrophils # 4.9 K/mm3 (1.8-7.8); Platelet Count 193 K/mm3 (142-424); Potassium 3.9 mmoL/L (3.5-5.1); Red Blood Count 3.84 M/mm3 (4.60-6.20); Red Cell Distribution Width 13.9 % (11.5-17.5); White Blood Count 6.5 K/mm3 (4.8-10.8)
--- NOTE | 2017-12-16 13:31 | Pharmacy Consult Notes ---
- Pharmacy Consult Date: 12/16/17 Time: 13:30 Referring provider: DR. LANG Reason for Consult:: VANCOMYCIN TROUGH LEVEL Allergies and ADEs:: Allergies Allergy/AdvReac Type Severity Reaction Status Date / Time hydrocodone [From LORTAB] Allergy Mild Verified 12/10/17 08:36 oxycodone [From PERCOCET] Allergy Mild Verified 12/10/17 08:36 sulfamethoxazole Allergy Mild Verified 12/10/17 08:36 [From BACTRIM] trimethoprim [From BACTRIM] Allergy Mild Verified 12/10/17 08:36 Home Medications:: Home Medications Medication Instructions Recorded Confirmed Type Aspirin [Aspir 81] 81 mg PO DAILY 12/10/17 12/13/17 History Budesonide/Formoterol Fumarate 1 dose INHALATION DAILY 12/10/17 12/13/17 History [Symbicort 160-4.5 Mcg Inhaler] Carvedilol [Carvedilol 25mg Tab] 25 mg PO BID 12/10/17 12/13/17 History Clopidogrel Bisulfate [Plavix 75mg 75 mg PO DAILY 12/10/17 12/13/17 History Tab] Furosemide [Lasix 20mg tab] 20 mg PO DAILY 12/13/17 12/13/17 History Ipratropium/Albuterol Sulfate 3 ml IH Q6RT 12/13/17 12/13/17 History [Duoneb 3mL neb] Levofloxacin/D5w 750 mg/150 ml 500 mg IV DAILY 12/13/17 12/13/17 History [Levofloxacin 750mg/150mL Premix IVPB] Height: 1.75 m Weight: 78.528 kg Laboratory Results:: Laboratory Results - last 24 hr 12/16/17 06:30: WBC 6.5, RBC 3.84 L, Hgb 11.4 L, Hct 36.4 L, MCV 95.0 H, MCH 29.8, MCHC 31.4 L, RDW 13.9, Plt Count 193, MPV 8.7, Neut % (Auto) 76.0, Lymph % (Auto) 13.0, [place] % (Auto) 10.0 H, Eos % (Auto) 0.8, Baso % (Auto) 0.1, Neut # (Auto) 4.9, Lymph # (Auto) 0.9, [place] # (Auto) 0.7, Eos # (Auto) 0.1, Baso # ( Auto) 0.0 12/16/17 06:30: Sodium 139, Potassium 3.9, Chloride 106, Carbon Dioxide 27, Anion Gap 9.9, BUN 35 H, Creatinine 1.14, Estimated Creat Clear 61, Estimated GFR 62, Est GFR ( Amer) 76, Glucose 88 D 12/16/17 12:33: Vancomycin Trough 12.0 Medical History: Reports:: Atrial Fibrillation, Coronary Artery Disease, Hyperlipidemia, Hypertension Denies:: Cancer, Diabetes Mellitus Type 1, Diabetes Mellitus Type 2, MRSA Assessment and Plan (1) Acute kidney injury Current visit: No Status: Acute Category: Medical Code(s): N17.9 - Acute kidney failure, unspecified (2) Blood bacterial culture positive Current visit: No Status: Acute Category: Medical Code(s): R78.81 - Bacteremia (3) CAP (community acquired pneumonia) Current visit: No Status: Acute Qualifiers: Laterality: unspecified laterality Qualified Code(s): J18.9 - Pneumonia, unspecified organism Category: Medical Code(s): J18.9 - Pneumonia, unspecified organism (4) Cough Current visit: No Status: Acute Category: Medical Code(s): R05 - Cough (5) Streptococcal sepsis Current visit: No Status: Acute Category: Medical Code(s): A40.9 - Streptococcal sepsis, unspecified - Assessment and plan all Dx Assessment and Plan for all problems:: BASED ON VANCOMYCIN TROUGH LEVEL AND PATIENT FACTORS, RECOMMEND CONTINUING VANCOMYCIN 1250 MG IV Q24H. PHARMACY WILL CONTINUE TO MONITOR DAILY AND ADJUST APPROPRIATE.
--- NOTE | 2017-12-17 08:34 | Progress Note ---
Internal Medicine - PN: Subj *Date: 12/17/17 *Time: 07:30 Interval history: Patient is sitting up the chair as he reports "I can't breathe laying down in that bed." States shortness of breath has worsened over the last two days. He was unable to complete PT yesterday due to shortness of breath. is concerned about LE edema. Appetite has improved. He further reports Tylenol is not helping his chronic back pain. Alert and oriented x3. Rate and rhythm regular. LS with fine crackles half way up posterior lung zhu. 1-2+ BLE edema, lower back with pitting edema. Abdomen distended and somewhat firm. No tenderness. Normoactive bowel sounds Exam Vital signs and Labs for Last 24 Hours: Temp Pulse Resp BP Pulse Ox 98.2 F 98 H 20 129/62 99 12/17/17 07:27 12/17/17 07:27 12/17/17 07:27 12/17/17 07:27 12/17/17 07:27 Laboratory Results - last 24 hr 12/16/17 12:33: Vancomycin Trough 12.0 I & O for Last 24 hours: Intake & Output 12/14/17 12/15/17 12/16/17 12/17/17 11:59 11:59 11:59 11:59 Intake Total 150 / 150 5704 / 5704 2228 / 2228 2553 / 2553 Output Total 975 / 975 1250 / 1250 700 / 700 Balance 150 / 150 4729 / 4729 978 / 978 1853 / 1853 Weight 173 lb 1.994 oz 173 lb 1.994 oz Assessment and Plan (1) Acute kidney injury Current visit: No Status: Acute Category: Medical Code(s): N17.9 - Acute kidney failure, unspecified (2) Blood bacterial culture positive Current visit: No Status: Acute Category: Medical Code(s): R78.81 - Bacteremia (3) CAP (community acquired pneumonia) Current visit: No Status: Acute Qualifiers: Laterality: unspecified laterality Qualified Code(s): J18.9 - Pneumonia, unspecified organism Category: Medical Code(s): J18.9 - Pneumonia, unspecified organism (4) Cough Current visit: No Status: Acute Category: Medical Code(s): R05 - Cough (5) Streptococcal sepsis Current visit: No Status: Acute Category: Medical Code(s): A40.9 - Streptococcal sepsis, unspecified - Assessment and plan all Dx Assessment and Plan for all problems:: He has developed some fluid overload due to ongoing IVF's and increased po fluid intake. IV lasix x one dose today. Start tramadol PRN for back pain. Consult Dr. Pinto.
--- NOTE | 2017-12-17 09:03 | Consult Report ---
*Admission Date: 12/13/17 *Chief complaint: I got dry heaves. *History of present illness: Mr. Henry is a 77-year-old man who has chronic obstructive pulmonary disease and who has had several episodes of pneumonia or acute bronchitis over this last year. He was recovering from one episode and seemed to be doing well when , a few days ago, he developed abdominal discomfort, nausea and "dry heaves." He does not recall having fever or chills and had no cough. He was weak and more short of breath and had lost his appetite. He came to the emergency room here and, during the evaluation for abdominal discomfort, was found to have bilateral, patchy, lower lobe pneumonia. He was admitted and placed on antibiotics and feels a little better now although his appetite has not returned. He has a little right-sided chest pain but it is not pleuritic. Mr. Henry had a long smoking history but quit 15 years ago. He was diagnosed with COPD years ago and is on inhalers at home. He has had the pneumococcal vaccine, this season's influenza vaccine and there is no known exposure to tuberculosis. [facility] History Medical History: Reports:: Atrial Fibrillation, Coronary Artery Disease, Hyperlipidemia, Hypertension Denies:: Cancer, Diabetes Mellitus Type 1, Diabetes Mellitus Type 2, MRSA Other Surgeries: Yes: CABG, Open Heart Surgery (bypass) Amputation: No Fractures: No - *Social History Educational Level: Completed High School Smoking Status: Former smoker Alcohol Intake: never Occupational Status: retired Housing: house Household Members: spouse Comment: He lives with his of 59 years. She is a retired nurse. They lost 1 son to lung cancer last year and have several others, 8 grandchildren and many great-grandchildren. - Psychiatric History Expresses thoughts of harming self/others: None Suicide Plan Description: No Plan *Family Hx:: Unable to obtain, No significant family history Review of Systems - Review of Systems Review of systems:: pertinent systems reviewed and negative unless documented below - Constitutional Reports anorexia, Reports weakness - ENT Comments: He developed cold sores on his lips and in his mouth with this illness. - *Respiratory Reports shortness of breath with activity - *Gastrointestinal Comments: See HPI. Meds Home Medications Medication Instructions Recorded Confirmed Type Aspirin [Aspir 81] 81 mg PO DAILY 12/10/17 12/13/17 History Budesonide/Formoterol Fumarate 1 dose INHALATION DAILY 12/10/17 12/13/17 History [Symbicort 160-4.5 Mcg Inhaler] Carvedilol [Carvedilol 25mg Tab] 25 mg PO BID 12/10/17 12/13/17 History Clopidogrel Bisulfate [Plavix 75mg 75 mg PO DAILY 12/10/17 12/13/17 History Tab] Furosemide [Lasix 20mg tab] 20 mg PO DAILY 12/13/17 12/13/17 History Ipratropium/Albuterol Sulfate 3 ml IH Q6RT 12/13/17 12/13/17 History [Duoneb 3mL neb] Levofloxacin/D5w 750 mg/150 ml 500 mg IV DAILY 12/13/17 12/13/17 History [Levofloxacin 750mg/150mL Premix IVPB] Allergies Allergy/AdvReac Type Severity Reaction Status Date / Time hydrocodone [From LORTAB] Allergy Mild Verified 12/10/17 08:36 oxycodone [From PERCOCET] Allergy Mild Verified 12/10/17 08:36 sulfamethoxazole Allergy Mild Verified 12/10/17 08:36 [From BACTRIM] trimethoprim [From BACTRIM] Allergy Mild Verified 12/10/17 08:36 Exam Vital signs and Labs for Last 24 Hours: Temp Pulse Resp BP Pulse Ox 98.2 F 98 H 20 129/62 99 12/17/17 07:27 12/17/17 08:47 12/17/17 08:47 12/17/17 07:27 12/17/17 08:47 Laboratory Results - last 24 hr 12/16/17 12:33: Vancomycin Trough 12.0 I & O for Last 24 hours: Intake & Output 12/14/17 12/15/17 12/16/17 12/17/17 23:59 23:59 23:59 23:59 Intake Total 2852 / 2852 4720 / 4720 2015 897 / 897 Output Total 975 / 975 1250 / 1250 700 / 700 Balance 1877 / 1877 3470 / 3470 1316 / 1316 897 / 897 Weight 78.528 kg Microbiology Reports for the Last 24 Hours: Blood cultures have grown Streptococcus pneumoniae sensitive to penicillin, vancomycin and levofloxacin. Narrative: I personally reviewed the abdominal CT and subsequent chest x-rays and compared them to a chest x-ray performed in early October. He has patchy bilateral lower lobe pneumonia and, on the present film, has developed bilateral pleural effusions, much larger on the right. Mr. Henry is a very pleasant, chronically ill-appearing man who is alert and oriented, sitting in a chair. HEENT: Sclerae clear; conjunctivae pink; EOMs full; PERRLA; he has healing herpetic lesions on the lips. Neck: No adenopathy Chest: Symmetrical expansion; dullness by percussion at the right base extending to the inferior border of the scapula; decreased breath sounds on the right with a prolonged expiration bilaterally with faint expiratory wheezes. There are inspiratory crackles at the left base. No rub. Heart: Regular rhythm; tachycardia; no murmur Abdomen: Bowel sounds diminished; soft, mild diffuse tenderness; no masses or organomegaly. : No flank tenderness skin: No rash but there are ecchymoses on the forearms. Neurological: Grossly intact Musculoskeletal: No ayaz arthritis Extremities: No clubbing; mild diffuse edema. Internal Medicine - CN: Reslt - Labs CBC & Chem 7: 12/16/17 06:30 12/16/17 06:30 Assessment and Plan (1) Acute kidney injury Current visit: No Status: Acute Category: Medical Code(s): N17.9 - Acute kidney failure, unspecified (2) Blood bacterial culture positive Current visit: No Status: Acute Category: Medical Code(s): R78.81 - Bacteremia (3) CAP (community acquired pneumonia) Current visit: No Status: Acute Qualifiers: Laterality: unspecified laterality Qualified Code(s): J18.9 - Pneumonia, unspecified organism Category: Medical Code(s): J18.9 - Pneumonia, unspecified organism (4) Cough Current visit: No Status: Acute Category: Medical Code(s): R05 - Cough (5) Streptococcal sepsis Current visit: No Status: Acute Category: Medical Code(s): A40.9 - Streptococcal sepsis, unspecified - Assessment and plan all Dx Assessment and Plan for all problems:: Mr. Henry has chronic obstructive pulmonary disease and presented with abdominal complaints related to bilateral pneumococcal pneumonia with bacteremia. He seems to be improving and I suggest switching him to a penicillin if he is not allergic. The large right pleural effusion may be related to generalized fluid overload but I suggest thoracentesis for laboratory studies and cultures. I am concerned that he has had recurrent infections lately and suggest getting quantitative immunoglobulins to be sure he is not immunodeficient. Inhaled corticosteroids are associated with an increased risk of pneumonia as well and perhaps he can be taken off those and left on a long-acting antimuscarinic agent and a long-acting beta agonist alone. I would like to follow-up with him as an outpatient with full pulmonary function studies, a [address] and a CT scan of the chest. Thank you for the opportunity to participate in Mr. Henry's care.
[2017-12-17 09:41] LABS: Anion Gap 7.2 mEq/L (5-15); Potassium 4.2 mmoL/L (3.5-5.1)
--- NOTE | 2017-12-17 17:38 | Consult Report ---
*Admission Date: 12/13/17 *Chief complaint: Need for thoracentesis *History of present illness: Mr. Henry is a 77-year-old man who has chronic obstructive pulmonary disease and who has had several episodes of pneumonia or acute bronchitis over this last year. He was recovering from one episode and seemed to be doing well when , a few days ago, he developed abdominal discomfort, nausea and "dry heaves." He does not recall having fever or chills and had no cough. He was weak and more short of breath and had lost his appetite. He came to the emergency room here and, during the evaluation for abdominal discomfort, was found to have bilateral, patchy, lower lobe pneumonia. He was admitted and placed on antibiotics and feels a little better now although his appetite has not returned. He has a little right-sided chest pain but it is not pleuritic. Surgical consultation was obtained after pulmonary evaluation today for possible thoracentesis. Review of Systems - Review of Systems Review of systems:: pertinent systems reviewed and negative unless documented below - *Neurologic Reports weakness [facility] History Medical History: Reports:: Atrial Fibrillation, Coronary Artery Disease, Hyperlipidemia, Hypertension Denies:: Cancer, Diabetes Mellitus Type 1, Diabetes Mellitus Type 2, MRSA Other Surgeries: Yes: CABG, Open Heart Surgery (bypass) Amputation: No Fractures: No - *Social History Educational Level: Completed High School Smoking Status: Former smoker Alcohol Intake: never Occupational Status: retired Housing: house Household Members: spouse - Psychiatric History Expresses thoughts of harming self/others: None Suicide Plan Description: No Plan *Family Hx:: Unable to obtain, No significant family history Meds Home Medications Medication Instructions Recorded Confirmed Type Aspirin [Aspir 81] 81 mg PO DAILY 12/10/17 12/13/17 History Budesonide/Formoterol Fumarate 1 dose INHALATION DAILY 12/10/17 12/13/17 History [Symbicort 160-4.5 Mcg Inhaler] Carvedilol [Carvedilol 25mg Tab] 25 mg PO BID 12/10/17 12/13/17 History Clopidogrel Bisulfate [Plavix 75mg 75 mg PO DAILY 12/10/17 12/13/17 History Tab] Furosemide [Lasix 20mg tab] 20 mg PO DAILY 12/13/17 12/13/17 History Ipratropium/Albuterol Sulfate 3 ml IH Q6RT 12/13/17 12/13/17 History [Duoneb 3mL neb] Levofloxacin/D5w 750 mg/150 ml 500 mg IV DAILY 12/13/17 12/13/17 History [Levofloxacin 750mg/150mL Premix IVPB] Allergies Allergy/AdvReac Type Severity Reaction Status Date / Time hydrocodone [From LORTAB] Allergy Mild Verified 12/10/17 08:36 oxycodone [From PERCOCET] Allergy Mild Verified 12/10/17 08:36 sulfamethoxazole Allergy Mild Verified 12/10/17 08:36 [From BACTRIM] trimethoprim [From BACTRIM] Allergy Mild Verified 12/10/17 08:36 Exam Vital signs and Labs for Last 24 Hours: Temp Pulse Resp BP Pulse Ox 98.2 F 86 20 129/62 99 12/17/17 07:27 12/17/17 11:06 12/17/17 08:47 12/17/17 07:27 12/17/17 10:00 Laboratory Results - last 24 hr 12/17/17 09:05: Sodium 139, Potassium 4.2, Chloride 106, Carbon Dioxide 30, Anion Gap 7.2, BUN 25 H D, Creatinine 1.30, Estimated Creat Clear 54, Estimated GFR 54 L, Est GFR ( Amer) 65, Glucose 107 H I & O for Last 24 hours: Intake & Output 12/15/17 12/16/17 12/17/17 12/18/17 11:59 11:59 11:59 11:59 Intake Total 5704 / 5704 2228 / 2228 2553 / 2553 240 / 240 Output Total 975 / 975 1250 / 1250 700 / 700 Balance 4729 / 4729 978 / 978 1853 / 1853 240 / 240 Weight 173 lb 1.994 oz - *Routine Respiratory Exam Present: decreased breath sounds Results - Labs 12/16/17 06:30 12/17/17 09:05 Laboratory Results - last 24 hr 12/17/17 09:05: Sodium 139, Potassium 4.2, Chloride 106, Carbon Dioxide 30, Anion Gap 7.2, BUN 25 H D, Creatinine 1.30, Estimated Creat Clear 54, Estimated GFR 54 L, Est GFR ( Amer) 65, Glucose 107 H Assessment and Plan (1) Acute kidney injury Current visit: No Status: Acute Category: Medical Code(s): N17.9 - Acute kidney failure, unspecified (2) Blood bacterial culture positive Current visit: No Status: Acute Category: Medical Code(s): R78.81 - Bacteremia (3) CAP (community acquired pneumonia) Current visit: No Status: Acute Qualifiers: Laterality: unspecified laterality Qualified Code(s): J18.9 - Pneumonia, unspecified organism Category: Medical Code(s): J18.9 - Pneumonia, unspecified organism (4) Cough Current visit: No Status: Acute Category: Medical Code(s): R05 - Cough (5) Streptococcal sepsis Current visit: No Status: Acute Category: Medical Code(s): A40.9 - Streptococcal sepsis, unspecified - Assessment and plan all Dx Assessment and Plan for all problems:: I reviewed his plain chest x-ray from today. This actually appeared as though there was not as much effusion as apparent and possibly the patient had more airspace disease, atelectasis, and possible consolidation. Ultrasound had been ordered by Dr. Pinto for possible marking of the site for pleural fluid aspiration. I discussed the ultrasound with Dr. Noble as it was being done. There is minimal fluid present and there is no clear path for needle aspiration for sampling without traversing lung tissue or spleen. Will therefore not plan for thoracentesis at this time. This would be difficult and carry appreciable risk even if done by radiology under CT guidance.
[2017-12-18 15:18] LABS: Microscopic, Urine URINE MICROSCOPIC (MICROSCOPIC)
[2017-12-18 15:21] LABS: Appearance,Urine CLEAR (Clear); Bilirubin,Urine Negative (Negative); Blood, Urine TRACE-I (Negative); Color,Urine YELLOW (Yellow); Glucose,Urine (UA) Negative (Negative); Ketones,Urine Negative (Negative); Leukocyte Esterase,Urine Negative (Negative); Protein,Urine Negative (Negative); Urobilinogen,Urine 0.2 EU/dl (0.2)
[2017-12-18 15:32] LABS: RBC,Urine Occasional #/hpf (0-3)
[2017-12-18 15:33] LABS: Bacteria,Urine Trace /lpf; Yeast,Urine 2+ /lpf
[2017-12-19 07:10] LABS: Basophils % 0.1 % (0.1-2.0); Eosinophils # 0.1 K/mm3 (0.0-0.4); Eosinophils % 1.3 % (0.1-12.0); Hematocrit 37.3 % (42.0-52.0); Hemoglobin 11.5 g/dL (14.1-18.0); Lymphocytes # 1.1 K/mm3 (0.7-4.5); Mean Corpuscular HGB Conc 30.7 g/dL (31.8-35.4); Mean Corpuscular Hemoglobin 29.8 pg (27.0-31.2); Mean Platelet Volume 7.7 fl (7.4-10.4); Monocytes # 0.5 K/mm3 (0.1-1.0); Monocytes % 5.3 % (1.7-9.3); Neutrophils # 6.9 K/mm3 (1.8-7.8); Neutrophils % 80.2 % (37.0-80.0); Platelet Count 285 K/mm3 (142-424); Red Blood Count 3.85 M/mm3 (4.60-6.20); Red Cell Distribution Width 14.3 % (11.5-17.5); White Blood Count 8.6 K/mm3 (4.8-10.8)
[2017-12-19 07:23] LABS: Anion Gap 6.9 mEq/L (5-15); Potassium 3.9 mmoL/L (3.5-5.1)
--- NOTE | 2017-12-19 08:06 | Progress Note ---
Internal Medicine - PN: Subj *Date: 12/19/17 *Time: 07:45 Interval history: Patient is up in chair. States he "feels better." Alert and oriented x3. Rate and rhythm regular. 1+ BLE. Anterior lung fiends clear. Abdomen soft and nontender. Reyes catheter draining clear yellow urine to gravity. Exam Vital signs and Labs for Last 24 Hours: Temp Pulse Resp BP Pulse Ox 98.4 F 103 H 20 153/66 95 12/19/17 07:31 12/19/17 07:31 12/19/17 07:31 12/19/17 07:12/19/17 07:31 Laboratory Results - last 24 hr 12/17/17 : IgG 593 L, IgA 178, IgM 35 12/18/17 15:05: Urine Color Yellow, Urine Appearance Clear, Urine pH 5.0, Ur Specific [place] 1.010, Urine Protein Negative, Urine Glucose (UA) Negative, Urine Ketones Negative, Urine Blood Trace-i, Urine Nitrate Negative, Urine Bilirubin Negative, Urine Urobilinogen 0.2, Ur Leukocyte Esterase Negative, Urine RBC Occasional, Urine WBC None, Ur Squamous Epith Cells None, Urine Bacteria Trace, Urine Yeast 2+ 12/19/17 06:16: WBC 8.6 D, RBC 3.85 L, Hgb 11.5 L, Hct 37.3 L, MCV 97.0 H, MCH 29.8, MCHC 30.7 L, RDW 14.3, Plt Count 285 D, MPV 7.7, Neut % (Auto) 80.2 H, Lymph % (Auto) 13.0, [place] % (Auto) 5.3, Eos % (Auto) 1.3, Baso % (Auto) 0.1, Neut # (Auto) 6.9, Lymph # (Auto) 1.1, [place] # (Auto) 0.5, Eos # (Auto) 0.1, Baso # (Auto) 0.0 12/19/17 06:16: Sodium 140, Potassium 3.9, Chloride 106, Carbon Dioxide 31, Anion Gap 6.9, BUN 20 H, Creatinine 1.27, Estimated Creat Clear 55, Estimated GFR 55 L, Est GFR ( Amer) 67, Glucose 101 I & O for Last 24 hours: Intake & Output 12/16/17 12/17/17 12/18/1729/18 11:59 11:59 11:59 11:59 Intake Total 2228 / 2228 2553 / 2553 990 / 990 1870 / 1870 Output Total 1250 / 1250 700 / 700 685 / 685 2300 / 2300 Balance 978 / 978 1853 / 1853 305 / 305 -430 / -430 Weight 173 lb 1.994 oz Assessment and Plan (1) Acute kidney injury Current visit: No Status: Acute Category: Medical Code(s): N17.9 - Acute kidney failure, unspecified (2) Blood bacterial culture positive Current visit: No Status: Acute Category: Medical Code(s): R78.81 - Bacteremia (3) CAP (community acquired pneumonia) Current visit: No Status: Acute Qualifiers: Laterality: unspecified laterality Qualified Code(s): J18.9 - Pneumonia, unspecified organism Category: Medical Code(s): J18.9 - Pneumonia, unspecified organism (4) Cough Current visit: No Status: Acute Category: Medical Code(s): R05 - Cough (5) Streptococcal sepsis Current visit: No Status: Acute Category: Medical Code(s): A40.9 - Streptococcal sepsis, unspecified - Assessment and plan all Dx Assessment and Plan for all problems:: Overall he is doing much better. Continue IV antibiotics. Add flomax for urinary retention. Consult Dr. Ayala. Encourage ambulation in hallway today.
--- NOTE | 2017-12-20 09:22 | Progress Note ---
Internal Medicine - PN: Subj *Date: 12/20/17 *Time: 09:21 Exam Vital signs and Labs for Last 24 Hours: Temp Pulse Resp BP Pulse Ox 98.5 F 99 H 20 127/59 91 L 12/20/17 07:44 12/20/17 07:44 12/20/17 07:44 12/20/17 07:44 12/19/17 23:11 I & O for Last 24 hours: Intake & Output 12/17/17 12/18/17 12/19/17 12/20/17 23:59 23:59 23:59 23:59 Intake Total 1377 / 1377 2180 / 2180 1040 / 1040 0 / 0 Output Total 500 / 500 1385 / 1385 2100 / 2100 600 / 600 Balance 877 / 877 795 / 795 -1060 / -1060 -600 / -600 Assessment and Plan (1) Acute kidney injury Current visit: No Status: Acute Category: Medical Code(s): N17.9 - Acute kidney failure, unspecified (2) Blood bacterial culture positive Current visit: No Status: Acute Category: Medical Code(s): R78.81 - Bacteremia (3) CAP (community acquired pneumonia) Current visit: No Status: Acute Qualifiers: Laterality: unspecified laterality Qualified Code(s): J18.9 - Pneumonia, unspecified organism Category: Medical Code(s): J18.9 - Pneumonia, unspecified organism (4) Cough Current visit: No Status: Acute Category: Medical Code(s): R05 - Cough (5) Streptococcal sepsis Current visit: No Status: Acute Category: Medical Code(s): A40.9 - Streptococcal sepsis, unspecified The patient's infection will respond to the chosen ABx?: Yes Is the patient receiving the right drug, dose, and route?: Yes Could a more targeted ABx be ordered?: No (CULTURE SENSITIVE TO VANCOMYCIN)
--- NOTE | 2017-12-20 13:57 | Pharmacy Consult Notes ---
- Pharmacy Consult Date: 12/20/17 Time: 13:54 Referring provider: DR. LANG Reason for Consult:: VANCOMYCIN TROUGH LEVEL Allergies and ADEs:: Allergies Allergy/AdvReac Type Severity Reaction Status Date / Time hydrocodone [From LORTAB] Allergy Mild Verified 12/10/17 08:36 oxycodone [From PERCOCET] Allergy Mild Verified 12/10/17 08:36 sulfamethoxazole Allergy Mild Verified 12/10/17 08:36 [From BACTRIM] trimethoprim [From BACTRIM] Allergy Mild Verified 12/10/17 08:36 Home Medications:: Home Medications Medication Instructions Recorded Confirmed Type Aspirin [Aspir 81] 81 mg PO DAILY 12/10/17 12/13/17 History Budesonide/Formoterol Fumarate 1 dose INHALATION DAILY 12/10/17 12/13/17 History [Symbicort 160-4.5 Mcg Inhaler] Carvedilol [Carvedilol 25mg Tab] 25 mg PO BID 12/10/17 12/13/17 History Clopidogrel Bisulfate [Plavix 75mg 75 mg PO DAILY 12/10/17 12/13/17 History Tab] Furosemide [Lasix 20mg tab] 20 mg PO DAILY 12/13/17 12/13/17 History Ipratropium/Albuterol Sulfate 3 ml IH Q6RT 12/13/17 12/13/17 History [Duoneb 3mL neb] Levofloxacin/D5w 750 mg/150 ml 500 mg IV DAILY 12/13/17 12/13/17 History [Levofloxacin 750mg/150mL Premix IVPB] Height: 1.75 m Weight: 78.528 kg Laboratory Results:: Laboratory Results - last 24 hr 12/20/17 12:27: Vancomycin Trough 16.4 Medical History: Reports:: Atrial Fibrillation, Coronary Artery Disease, Hyperlipidemia, Hypertension Denies:: Cancer, Diabetes Mellitus Type 1, Diabetes Mellitus Type 2, MRSA Assessment and Plan (1) Acute kidney injury Current visit: No Status: Acute Category: Medical Code(s): N17.9 - Acute kidney failure, unspecified (2) Blood bacterial culture positive Current visit: No Status: Acute Category: Medical Code(s): R78.81 - Bacteremia (3) CAP (community acquired pneumonia) Current visit: No Status: Acute Qualifiers: Laterality: unspecified laterality Qualified Code(s): J18.9 - Pneumonia, unspecified organism Category: Medical Code(s): J18.9 - Pneumonia, unspecified organism (4) Cough Current visit: No Status: Acute Category: Medical Code(s): R05 - Cough (5) Streptococcal sepsis Current visit: No Status: Acute Category: Medical Code(s): A40.9 - Streptococcal sepsis, unspecified - Assessment and plan all Dx Assessment and Plan for all problems:: BASED ON VANCOMYCIN TROUGH LEVEL AND PATIENT FACTORS, RECOMMEND CONTINUING VANCOMYCIN 1250 MG IV Q24H. PHARMACY WILL CONTINUE TO MONITOR DAILY AND ADJUST APPROPRIATE.
--- NOTE | 2017-12-21 08:20 | Progress Note ---
Internal Medicine - PN: Subj *Date: 12/21/17 *Time: 08:19 Interval history: Swing bed progress note: Patient in good spirits, eating well, tolerating Reyes catheter well. Has been up and down the hallway walking with a Reyes catheter and a leg bag. Exam Vital signs and Labs for Last 24 Hours: Temp Pulse Resp BP Pulse Ox 98.6 F 99 H 18 122/53 98 12/21/17 07:45 12/21/17 07:45 12/21/17 07:45 12/21/17 07:45 12/21/17 07:45 Laboratory Results - last 24 hr 12/20/17 12:27: Vancomycin Trough 16.4 I & O for Last 24 hours: Intake & Output 12/18/17 12/19/17 12/20/17 12/21/17 11:59 11:59 11:59 11:59 Intake Total 990 / 990 1870 / 1870 840 / 840 720 / 720 Output Total 685 / 685 2300 / 2300 1600 / 1600 1500 / 1500 Balance 305 / 305 -430 / -430 -760 / -760 -780 / -780 Weight 173 lb 1.994 oz Narrative: Alert, oriented 3, heart rate regular, abdomen soft, Reyes catheter draining clear yellow urine. Lungs are much improved with only minimal rhonchi in both bases. Assessment and Plan (1) Acute kidney injury Current visit: No Status: Acute Category: Medical Code(s): N17.9 - Acute kidney failure, unspecified (2) Blood bacterial culture positive Current visit: No Status: Acute Category: Medical Code(s): R78.81 - Bacteremia (3) CAP (community acquired pneumonia) Current visit: No Status: Acute Qualifiers: Laterality: unspecified laterality Qualified Code(s): J18.9 - Pneumonia, unspecified organism Category: Medical Code(s): J18.9 - Pneumonia, unspecified organism (4) Cough Current visit: No Status: Acute Category: Medical Code(s): R05 - Cough (5) Streptococcal sepsis Current visit: No Status: Acute Category: Medical Code(s): A40.9 - Streptococcal sepsis, unspecified - Assessment and plan all Dx Assessment and Plan for all problems:: Continue swing bed antibiotics. Anticipate discharge on December 23.
--- NOTE | 2017-12-22 08:32 | Progress Note ---
Internal Medicine - PN: Subj *Date: 12/22/17 *Time: 08:30 Interval history: Patient has had some scrotal swelling and lower abdominal edema overnight. Has been sitting in the chair most of the day yesterday. He has no breathing difficulties. Exam Vital signs and Labs for Last 24 Hours: Temp Pulse Resp BP Pulse Ox 97.2 F L 100 H 18 117/55 95 12/22/17 07:44 12/22/17 07:44 12/22/17 07:44 12/22/17 07:44 12/22/17 07:44 I & O for Last 24 hours: Intake & Output 12/19/17 12/20/17 12/21/17 12/22/17 11:59 11:59 11:59 11:59 Intake Total 1870 / 1870 840 / 840 720 / 720 1180 / 1180 Output Total 2300 / 2300 1600 / 1600 1500 / 1500 1750 / 1750 Balance -430 / -430 -760 / -760 -780 / -780 -570 / -570 Weight 173 lb 1.994 oz Narrative: Pleasant alert, lungs are clear, scrotal swelling noted, edema in the thighs and suprapubic area. Assessment and Plan (1) Acute kidney injury Current visit: No Status: Acute Category: Medical Code(s): N17.9 - Acute kidney failure, unspecified (2) Blood bacterial culture positive Current visit: No Status: Acute Category: Medical Code(s): R78.81 - Bacteremia (3) CAP (community acquired pneumonia) Current visit: No Status: Acute Qualifiers: Laterality: unspecified laterality Qualified Code(s): J18.9 - Pneumonia, unspecified organism Category: Medical Code(s): J18.9 - Pneumonia, unspecified organism (4) Cough Current visit: No Status: Acute Category: Medical Code(s): R05 - Cough (5) Streptococcal sepsis Current visit: No Status: Acute Category: Medical Code(s): A40.9 - Streptococcal sepsis, unspecified (6) Peripheral edema Current visit: Yes Status: Acute Category: Medical Code(s): R60.9 - Edema , unspecified Positional issues related to hospital bed and chair positioning. IV Lasix today , elevate scrotum. - Assessment and plan all Dx Assessment and Plan for all problems:: Peripheral edema
[2017-12-23 06:50] LABS: Basophils % 0.3 % (0.1-2.0); Eosinophils # 0.1 K/mm3 (0.0-0.4); Eosinophils % 1.4 % (0.1-12.0); Hemoglobin 11.3 g/dL (14.1-18.0); Lymphocytes # 1.2 K/mm3 (0.7-4.5); Mean Corpuscular HGB Conc 31.4 g/dL (31.8-35.4); Mean Corpuscular Volume 95.6 fl (80-94); Mean Platelet Volume 7.6 fl (7.4-10.4); Monocytes # 0.6 K/mm3 (0.1-1.0); Monocytes % 8.7 % (1.7-9.3); Neutrophils % 72.4 % (37.0-80.0); Platelet Count 319 K/mm3 (142-424); Red Blood Count 3.77 M/mm3 (4.60-6.20); Red Cell Distribution Width 14.3 % (11.5-17.5)
[2017-12-23 06:55] LABS: Anion Gap 7.3 mEq/L (5-15); Potassium 3.3 mmoL/L (3.5-5.1)
[2017-12-23 08:10] VITALS: BP 123/62
--- NOTE | 2017-12-23 09:05 | Discharge Summary ---
General - General Admission date: 12/13/17 Discharge date: 12/23/17 HPI HPI: Mr. Henry is a 77-year-old man who has chronic obstructive pulmonary disease and who has had several episodes of pneumonia or acute bronchitis over this last year. He was admitted to hospital on the acute care side for pneumonia, but was found to have pneumococcal sepsis. PICC line was placed, and he was transferred to swing bed on the date listed above for ongoing IV antibiotics. Please see admission H&P to swing bed for details. Hospital Course Hospital Course: Patient had an improving but slowly improving course in swing bed. He required ongoing Lasix for his edema. Required Reyes catheter placement for urinary retention issues which have occurred him before, and urology saw him and recommended continuing Reyes catheter and Flomax. He received physical therapy which helped him quite a bit. He defervesced nicely, improved vis--vis respiratory issues and appetite issues and reached his goals. Finish his antibiotic therapy this morning. He will be discharged home with ongoing medications as noted below. The only addition will be Flomax. I will see him in 3 days, urology in a week and a half , Reyes catheter on discharge. He will continue using his walker, diet and activity will remain as tolerated. Objective Vital signs: Temp Pulse Resp BP Pulse Ox 98.5 F 98 H 20 123/62 93 L 12/23/17 08:00 12/23/17 08:00 12/23/17 08:00 12/23/17 08:00 12/23/17 08:00 Narrative: Patient is awake, pleasant, no oxygen requirement. No leg edema. Some scrotal edema but improving over the last couple of days. Abdomen soft and nontender, anterior lung zhu are clear. Results Labs on day of discharge: Labs from last 24 hours 12/23/17 12/23/17 06:02 06:02 WBC 7.0 RBC 3.77 L Hgb 11.3 L Hct 36.0 L MCV 95.6 H MCH 30.0 MCHC 31.4 L RDW 14.3 Plt Count 319 MPV 7.6 Neut % (Auto) 72.4 Lymph % (Auto) 17.0 [place] % (Auto) 8.7 Eos % (Auto) 1.4 Baso % (Auto) 0.3 Neut # (Auto) 5.0 Lymph # (Auto) 1.2 [place] # (Auto) 0.6 Eos # (Auto) 0.1 Baso # (Auto) 0.0 Sodium 142 Potassium 3.3 L Chloride 102 Carbon Dioxide 36 H Anion Gap 7.3 BUN 9 Creatinine 1.40 H Estimated Creat Clear 50 Estimated GFR 49 L Est GFR ( Amer) 60 Glucose 93 DS: Diagnosis - Discharge Diagnosis (1) Acute kidney injury Status: Resolved (2) Blood bacterial culture positive Status: Resolved (3) CAP (community acquired pneumonia) Status: Resolved (4) Cough Status: Resolved (5) Streptococcal sepsis Status: Resolved (6) Peripheral edema Status: Chronic Discharge Plan - Patient Discharge Instructions Patient Instructions: DI for Pneumonia -- Adult, Peripherally Inserted Central Catheter, Central Line-Associated Bloodstream Infections, DI for Sepsis -- Adult - Follow up Plan Follow up with: Benja Cortes MD [Staff Physician] - 12/26/17 9:00 am Xu Ayala MD [Staff Physician] - 01/02/18 1:15 pm Disposition: Home, Self-Jail Medications: Home Medications Medication Instructions Recorded Confirmed Type Aspirin [Aspir 81] 81 mg PO DAILY 12/10/17 12/13/17 History Budesonide/Formoterol Fumarate 1 dose INHALATION DAILY 12/10/17 12/13/17 History [Symbicort 160-4.5 Mcg Inhaler] Carvedilol [Carvedilol 25mg Tab] 25 mg PO BID 12/10/17 12/13/17 History Clopidogrel Bisulfate [Plavix 75mg 75 mg PO DAILY 12/10/17 12/13/17 History Tab] Furosemide [Lasix 20mg tab] 20 mg PO DAILY 12/13/17 12/13/17 History Ipratropium/Albuterol Sulfate 3 ml IH Q6RT 12/13/17 12/13/17 History [Duoneb 3mL neb] Levofloxacin/D5w 750 mg/150 ml 500 mg IV DAILY 12/13/17 12/13/17 History [Levofloxacin 750mg/150mL Premix IVPB] Prescriptions/Medication Reconciliation: New Tamsulosin HCl [Flomax] 0.4 mg PO HS 30 Days cap.er.24h Continue Clopidogrel Bisulfate [Plavix 75mg Tab] 75 mg PO DAILY Aspirin [Aspir 81] 81 mg PO DAILY Ipratropium/Albuterol Sulfate [Duoneb 3mL neb] 3 ml IH Q6RT Furosemide [Lasix 20mg tab] 20 mg PO DAILY Carvedilol [Carvedilol 25mg Tab] 25 mg PO BID Budesonide/Formoterol Fumarate [Symbicort 160-4.5 Mcg Inhaler] 1 dose INHALATION DAILY Ipratropium/Albuterol Sulfate [Duoneb 3mL neb] 3 ml IH Q1HP PRN ampul.neb PRN Reason: SOA Discontinued Ondansetron HCl/Pf [Zofran 4mg/2mL vial] 4 mg IV Q4HP PRN vial PRN Reason: Nausea Levofloxacin/D5w 750 mg/150 ml [Levofloxacin 750mg/150mL Premix IVPB] 500 mg IV DAILY
== END 2017-12-23 11:00 | disposition home or self-care (01) ==
LOC: 2ND 08:27
PROVIDERS: ADMIT Internal Medicine Adolescent Medicine; ATTEND Internal Medicine Adolescent Medicine

== ENCOUNTER → 2017-12-17 09:41 | Day surgery (SDC) | payer MEDICARE, BC, SELFPAY | PROVIDERS: Visit Provider Radiology Diagnostic Radiology | DX: Z00.00 Encounter for general adult medical examination without abnormal findings (principal) ==

== ENCOUNTER → 2018-01-02 10:47 | Outpatient (CLI) | payer MEDICARE, BC, SELFPAY ==
--- NOTE | 2018-01-02 11:07 | XR_ITS ---
XR chest 2V HISTORY: Follow-up pneumonia ITS.REASON: STREPTOCOCCAL SEPSIS ORDERING PHYSICIAN: Benja Cortes MD PATIENT AGE: 77 years COMPARISON: 12/17/2017 FINDINGS: Cardiomegaly without failure. Prior CABG. Right pleural effusion once again noted and slightly smaller with some parenchymal opacification in the right lung base which may be due to atelectasis or infiltrate somewhat improved. Small left pleural effusion with mild left basilar atelectasis once again noted. IMPRESSION: Persistent but improving right-sided pleural effusion and right basilar airspace disease
[2018-01-02 12:00] LABS: Basophils % 0.4 % (0.1-2.0); Eosinophils # 0.1 K/mm3 (0.0-0.4); Eosinophils % 0.9 % (0.1-12.0); Hematocrit 39.7 % (42.0-52.0); Lymphocytes # 0.9 K/mm3 (0.7-4.5); Lymphocytes % 14.6 K/mm3 (10-50); Mean Corpuscular HGB Conc 30.2 g/dL (31.8-35.4); Mean Corpuscular Hemoglobin 29.6 pg (27.0-31.2); Mean Corpuscular Volume 97.7 fl (80-94); Monocytes # 0.5 K/mm3 (0.1-1.0); Monocytes % 7.5 % (1.7-9.3); Neutrophils # 4.9 K/mm3 (1.8-7.8); Neutrophils % 76.6 % (37.0-80.0); Platelet Count 216 K/mm3 (142-424); Red Blood Count 4.06 M/mm3 (4.60-6.20); Red Cell Distribution Width 13.7 % (11.5-17.5); White Blood Count 6.4 K/mm3 (4.8-10.8)
[2018-01-02 12:25] LABS: Alanine Aminotransferase 14 U/L (12-78); Albumin/Globulin Ratio 0.9 (1.1-1.8); Alkaline Phosphatase 93 U/L (46-116); Anion Gap 5.1 mEq/L (5-15); Aspartate Amino Transferase 18 U/L (15-37); Bilirubin,Total 0.9 mg/dL (0.2-1.0); Blood Urea Nitrogen 12 mg/dL (7-18); Calcium 9.4 mg/dL (8.5-10.1); Chloride 103 mmol/L (98-107); Creatinine,Serum 1.18 mg/dL (0.70-1.30); Estimated Glomerular Filt Rate 60 ml/min (>60); GFR (African American) 73 ML/MIN (>60); Globulin 3.3 gm/dl (1.3-3.2); Glucose 102 mg/dL (74-106); Magnesium 1.8 mg/dL (1.4-2.2); Potassium 4.1 mmoL/L (3.5-5.1); Sodium 146 mmol/L (136-145); Total Protein,Serum 6.3 gm/dL (6.4-8.2)
[2018-01-02 12:57] LABS: Carbon Dioxide 42 mmol/L (21.0-32.0)
[2018-01-02 15:24] LABS: Prostate Specific Ag, Diagnost 9.04 ng/mL (0.0-4.0)
== END ==
PROVIDERS: PCP Internal Medicine Adolescent Medicine; Visit Provider Internal Medicine Adolescent Medicine
DX: N18.2 Chronic kidney disease, stage 2 (mild) (principal); R97.20 Elevated prostate specific antigen [PSA]; A40.9 Streptococcal sepsis, unspecified
CPT/HCPCS: 36415; 71046; 80053; 83735; 84153; 85025

== ENCOUNTER → 2018-01-28 10:08 | Outpatient (CLI) | payer MEDICARE, BC, SELFPAY ==
[2018-01-28 10:54] LABS: Basophils % 0.2 % (0.1-2.0); Eosinophils # 0.1 K/mm3 (0.0-0.4); Eosinophils % 1.6 % (0.1-12.0); Hematocrit 39.1 % (42.0-52.0); Hemoglobin 12.1 g/dL (14.1-18.0); Lymphocytes # 1.1 K/mm3 (0.7-4.5); Lymphocytes % 22.3 K/mm3 (10-50); Mean Corpuscular HGB Conc 31.1 g/dL (31.8-35.4); Mean Corpuscular Hemoglobin 30.1 pg (27.0-31.2); Mean Corpuscular Volume 96.9 fl (80-94); Mean Platelet Volume 7.9 fl (7.4-10.4); Monocytes # 0.4 K/mm3 (0.1-1.0); Monocytes % 7.5 % (1.7-9.3); Neutrophils # 3.4 K/mm3 (1.8-7.8); Neutrophils % 68.4 % (37.0-80.0); Platelet Count 218 K/mm3 (142-424); Red Blood Count 4.03 M/mm3 (4.60-6.20); Red Cell Distribution Width 13.4 % (11.5-17.5)
--- NOTE | 2018-01-28 10:59 | XR_ITS ---
XR chest 2V HISTORY: ITS.REASON: COPD ORDERING PHYSICIAN: Benja Cortes MD PATIENT AGE: 78 years COMPARISON: 01/02/2018 FINDINGS: Prior CABG. Borderline cardiomegaly without failure. There is hyperinflation consistent with COPD. The right basilar infiltrate has improved. There is some patchy density in the retrocardiac region on the left consistent with some infiltrate in the left lung base posteriorly. Small left pleural effusion also noted. IMPRESSION: Cardiomegaly with COPD with patchy infiltrate in the left lung base posteriorly and small left effusion
[2018-01-28 12:38] LABS: Alanine Aminotransferase 15 U/L (12-78); Albumin Level 3.5 gm/dL (3.4-5.0); Albumin/Globulin Ratio 1.1 (1.1-1.8); Alkaline Phosphatase 68 U/L (46-116); Anion Gap 9.7 mEq/L (5-15); Aspartate Amino Transferase 18 U/L (15-37); Bilirubin,Total 1.4 mg/dL (0.2-1.0); Blood Urea Nitrogen 21 mg/dL (7-18); Calcium 9.6 mg/dL (8.5-10.1); Carbon Dioxide 36 mmol/L (21.0-32.0); Chloride 105 mmol/L (98-107); Creatinine,Serum 1.24 mg/dL (0.70-1.30); Estimated Glomerular Filt Rate 57 ml/min (>60); GFR (African American) 68 ML/MIN (>60); Globulin 3.1 gm/dl (1.3-3.2); Glucose 85 mg/dL (74-106); Potassium 4.7 mmoL/L (3.5-5.1); Sodium 146 mmol/L (136-145); Total Protein,Serum 6.6 gm/dL (6.4-8.2)
--- NOTE | 2018-04-30 13:35 | PC.NURSE ---
SPOKE ON PHONE WITH PT REGARDING DISCONTINUING HIS PLAVIX 7 DAYS PRIOR TO INJECTION. 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 PT STATES HE IS UNSURE AND WOULD LIKE TO DISCUSS THIS WITH HIS AND WILL CALL CLINIC BACK.
== END ==
PROVIDERS: Visit Provider Internal Medicine Adolescent Medicine
DX: I10 Essential (primary) hypertension (principal); J44.9 Chronic obstructive pulmonary disease, unspecified
CPT/HCPCS: 36415; 71046; 80053; 85025

== ENCOUNTER → 2018-04-21 12:54 | Outpatient (POV) | payer MEDICARE, BC, SELFPAY ==
[2018-04-21 13:19] VITALS: BP 110/54; PULSE 89; RESP 18; O2SAT 98
--- NOTE | 2018-04-21 15:26 | HMH.PMCON ---
Assessment and Plan (1) Degenerative joint disease (DJD) of lumbar spine Current visit: Yes Status: Chronic Qualifiers: Spinal osteoarthritis complication: with radiculopathy Qualified Code(s): M47.26 - Other spondylosis with radiculopathy, lumbar region Category: Medical Code(s): M47.816 - Spondylosis without myelopathy or radiculopathy, lumbar region (2) Radiculopathy Current visit: Yes Status: Chronic Qualifiers: Spinal region: lumbar Qualified Code(s): M54.16 - Radiculopathy, lumbar region Category: Medical Code(s): M54.10 - Radiculopathy, site unspecified (3) Hip pain Current visit: Yes Status: Acute Qualifiers: Laterality: bilateral Qualified Code(s): M25.551 - Pain in right hip; M25.552 - Pain in left hip Category: Medical Code(s): M25.559 - Pain in unspecified hip - Assessment and plan all Dx Assessment and Plan for all problems:: We will schedule an L4-L5 lumbar epidural steroid injection for the patient. We will determine if he can come off Plavix prior to this patient and I did discuss if we are unable to have him off of the Plavix that we could do an intra-articular hip injection to see if this would be beneficial. This note was dictated using voice recognition software and may contain errors or omissions HPI - Data of Consult Consult date: 04/21/18 Requesting Physician: Kenna Clifford APRN Primary Care Provider: Benja Cortes MD Family Provider: Benja Cortes MD - Consult Narrative Reason for consult: Pain, hip pain History of present illness: Mr. Henry is a 78 year old male presented today for consultation in regards to his back pain and hip pain. Patient states his pain is a 5 out of 10 today. He states that standing or walking increases his pain while rest and Tylenol arthritis decreases his pain. Patient denies numbness or tingling in his extremities. Patient's tried and failed physical therapy along with massage therapy. Patient states that his pain is achy and constant. Patient states it is right in his low back and radiating into his hips at times. Patient does have history of arthritis. Patient is currently on Plavix. Patient does have lumbar MRI showing pathology at L4-L5 and L5-S1. CC: Kenna Clifford APRN [facility] History I have reviewed the patient's past medical history: Yes Medical History: Reports:: Atrial Fibrillation, Coronary Artery Disease, Hyperlipidemia, Hypertension Denies:: Cancer, Diabetes Mellitus Type 1, Diabetes Mellitus Type 2, MRSA Other Surgeries: Yes: CABG, Open Heart Surgery Amputation: No Fractures: No - *Social History Smoking Status: Former smoker Alcohol Intake: never Occupational Status: retired Housing: house Household Members: spouse - Psychiatric History Expresses thoughts of harming self/others: None Suicide Plan Description: No Plan *Family Hx:: Unable to obtain, No significant family history Review of Systems - Review of Systems ROS General: no recent weight change, no fever, no sleep disturbances Respiratory: no cough, no shortness of air, no recurring pulmonary infections Cardiovascular/Peripheral Vascular: No chest pain, No palpitations, no edema, no shortness of breath. Gastrointestinal: no incontinence, normal bowel movements reported Genitourinary: no incontinence Musculoskeletal: Back pain, hip pain Psychiatric: normal mood/ affect Neurological: [denies weakness in extremities], [denies balance issues] Meds Home Medications Medication Instructions Recorded Confirmed Type Aspirin [Aspir 81] 81 mg PO DAILY 12/10/17 12/13/17 History Budesonide/Formoterol Fumarate 1 dose INHALATION DAILY 12/10/17 12/13/17 History [Symbicort 160-4.5 Mcg Inhaler] Carvedilol [Carvedilol 25mg Tab] 25 mg PO BID 12/10/17 12/13/17 History Clopidogrel Bisulfate [Plavix 75mg 75 mg PO DAILY 12/10/17 12/13/17 History Tab] Furosemide [Lasix 20mg tablet] 20 mg PO RICHI
--- NOTE | 2018-04-21 15:29 | P.CONS_ITS ---
Assessment and Plan (1) Degenerative joint disease (DJD) of lumbar spine Current visit: Yes Status: Chronic Qualifiers: Spinal osteoarthritis complication: with radiculopathy Qualified Code(s): M47.26 - Other spondylosis with radiculopathy, lumbar region Category: Medical Code(s): M47.816 - Spondylosis without myelopathy or radiculopathy, lumbar region (2) Radiculopathy Current visit: Yes Status: Chronic Qualifiers: Spinal region: lumbar Qualified Code(s): M54.16 - Radiculopathy, lumbar region Category: Medical Code(s): M54.10 - Radiculopathy, site unspecified (3) Hip pain Current visit: Yes Status: Acute Qualifiers: Laterality: bilateral Qualified Code(s): M25.551 - Pain in right hip; M25.552 - Pain in left hip Category: Medical Code(s): M25.559 - Pain in unspecified hip - Assessment and plan all Dx Assessment and Plan for all problems:: We will schedule an L4-L5 lumbar epidural steroid injection for the patient. We will determine if he can come off Plavix prior to this patient and I did discuss if we are unable to have him off of the Plavix that we could do an intra -articular hip injection to see if this would be beneficial. This note was dictated using voice recognition software and may contain errors or omissions HPI - Data of Consult Consult date: 04/21/18 Requesting Physician: Kenna Clifford APRN Primary Care Provider: Benja Cortes MD Family Provider: Benja Cortes MD - Consult Narrative Reason for consult: Pain, hip pain History of present illness: Mr. Henry is a 78 year old male presented today for consultation in regards to his back pain and hip pain. Patient states his pain is a 5 out of 10 today. He states that standing or walking increases his pain while rest and Tylenol arthritis decreases his pain. Patient denies numbness or tingling in his extremities. Patient's tried and failed physical therapy along with massage therapy. Patient states that his pain is achy and constant. Patient states it is right in his low back and radiating into his hips at times. Patient does have history of arthritis. Patient is currently on Plavix. Patient does have lumbar MRI showing pathology at L4-L5 and L5-S1. CC: Kenna Clifford APRN [facility] History I have reviewed the patient's past medical history: Yes Medical History: Reports:: Atrial Fibrillation, Coronary Artery Disease, Hyperlipidemia, Hypertension Denies:: Cancer, Diabetes Mellitus Type 1, Diabetes Mellitus Type 2, MRSA Other Surgeries: Yes: CABG, Open Heart Surgery Amputation: No Fractures: No - *Social History Smoking Status: Former smoker Alcohol Intake: never Occupational Status: retired Housing: house Household Members: spouse - Psychiatric History Expresses thoughts of harming self/others: None Suicide Plan Description: No Plan *Family Hx:: Unable to obtain, No significant family history Review of Systems - Review of Systems ROS General: no recent weight change, no fever, no sleep disturbances Respiratory: no cough, no shortness of air, no recurring pulmonary infections Cardiovascular/Peripheral Vascular: No chest pain, No palpitations, no edema, no shortness of breath. Gastrointestinal: no incontinence, normal bowel movements reported Genitourinary: no incontinence Musculoskeletal: Back pain, hip pain Psychiatric: normal mood/ affect Neurological: [denies weakness in extremities], [denies balance issues] Meds Home Medications
--- NOTE | 2018-05-01 13:07 | PC.NURSE ---
clearance obtained for pt to come off of plavix prior to [place]. Pt has decided he would rather not have lumbar epidural injection, but would like to have intr articular hip injections.
== END ==
PROVIDERS: Family Provider Internal Medicine Adolescent Medicine; PCP Internal Medicine Adolescent Medicine; Visit Provider Clinical Nurse Specialist Family Health
DX: M47.26 Other spondylosis with radiculopathy, lumbar region (principal); M47.816 Spondylosis without myelopathy or radiculopathy, lumbar region; M54.16 Radiculopathy, lumbar region; M25.551 Pain in right hip; M25.552 Pain in left hip
CPT/HCPCS: 99202

== ENCOUNTER → 2018-06-09 09:33 | Outpatient (POV) | payer MEDICARE, BC, SELFPAY ==
[2018-06-09 09:50] VITALS: BP 126/72; PULSE 91; RESP 20; O2SAT 99; BMI 24.3
--- NOTE | 2018-06-09 09:55 | HMH.PAINSOAP ---
[facility] Pain Management SOAP Note Subjective:: Patient is a pleasant 78-year-old white male who presents today for follow-up after his lumbar epidural steroid injection. Patient is doing extremely well he rates his pain a 0 out of 10. Patient states he is walking straighter and much more functional. Patient states he is pleasantly surprised at how well he is doing. Patient would like to follow-up on an as-needed basis. Patient is currently on Plavix which he does have permission to come off for injective therapy. ROS General: no recent weight change, no fever, no sleep disturbances Respiratory: no cough, no shortness of air, no recurring pulmonary infections Cardiovascular/Peripheral Vascular: No chest pain, No palpitations, no edema, no shortness of breath. Gastrointestinal: no incontinence, normal bowel movements reported Genitourinary: no incontinence Musculoskeletal: back pain intermittently Psychiatric: normal mood/ affect Neurological: [denies weakness in extremities], [denies balance issues] Objective:: Physical Exam General: Alert and oriented x3, no acute distress, pleasant and cooperative, on continuous oxygen Lungs: Resps E/U, Symmetrical chest expansion, Eyes: PERRL Musculoskeletal: Flexion and extension of lumbar spine somewhat guarded secondary to pain, deep tendon reflexes normal, strength in upper and lower extremities [5/5], normal gait noted Neurological: speech clear, visitor services associate equal, no gross sensory deficits Assessment:: degenerative disc disease of lumbar spine with lumbar radiculopathy Plan:: We will follow-up with the patient on an as-needed basis. Patient's been instructed to call the office when his pain begins to return. This note was dictated using voice recognition software and may contain errors or omissions
--- NOTE | 2018-06-09 09:58 | P.CONS_ITS ---
[facility] Pain Management SOAP Note Subjective:: Patient is a pleasant 78-year-old white male who presents today for follow-up after his lumbar epidural steroid injection. Patient is doing extremely well he rates his pain a 0 out of 10. Patient states he is walking straighter and much more functional. Patient states he is pleasantly surprised at how well he is doing. Patient would like to follow-up on an as-needed basis. Patient is currently on Plavix which he does have permission to come off for injective therapy. ROS General: no recent weight change, no fever, no sleep disturbances Respiratory: no cough, no shortness of air, no recurring pulmonary infections Cardiovascular/Peripheral Vascular: No chest pain, No palpitations, no edema, no shortness of breath. Gastrointestinal: no incontinence, normal bowel movements reported Genitourinary: no incontinence Musculoskeletal: back pain intermittently Psychiatric: normal mood/ affect Neurological: [denies weakness in extremities], [denies balance issues] Objective:: Physical Exam General: Alert and oriented x3, no acute distress, pleasant and cooperative, on continuous oxygen Lungs: Resps E/U, Symmetrical chest expansion, Eyes: PERRL Musculoskeletal: Flexion and extension of lumbar spine somewhat guarded secondary to pain, deep tendon reflexes normal, strength in upper and lower extremities [5/5], normal gait noted Neurological: speech clear, sheet sewer equal, no gross sensory deficits Assessment:: degenerative disc disease of lumbar spine with lumbar radiculopathy Plan:: We will follow-up with the patient on an as-needed basis. Patient's been instructed to call the office when his pain begins to return. This note was dictated using voice recognition software and may contain errors or omissions
== END ==
PROVIDERS: Family Provider Internal Medicine Adolescent Medicine; PCP Internal Medicine Adolescent Medicine; Visit Provider Clinical Nurse Specialist Family Health
DX: M51.16 Intervertebral disc disorders with radiculopathy, lumbar region (principal)
CPT/HCPCS: 99213

== ENCOUNTER 2019-01-02 15:57 | Observation (INO) ==
[2019-01-02 16:48] LABS: Basophils % 0.1 % (0.1-2.0); Eosinophils # 0.1 K/mm3 (0.0-0.4); Eosinophils % 0.8 % (0.1-12.0); Hematocrit 44.8 % (42.0-52.0); Hemoglobin 14.4 g/dL (14.1-18.0); Lymphocytes # 0.4 K/mm3 (0.7-4.5); Lymphocytes % 2.7 % (10-50); Mean Corpuscular HGB Conc 32.1 g/dL (31.8-35.4); Mean Corpuscular Hemoglobin 29.6 pg (27.0-31.2); Mean Corpuscular Volume 92.1 fl (80-94); Mean Platelet Volume 8.2 fl (7.4-10.4); Monocytes # 0.6 K/mm3 (0.1-1.0); Monocytes % 3.4 % (1.7-9.3); Neutrophils # 15.7 K/mm3 (1.8-7.8); Neutrophils % 93.1 % (37.0-80.0); Platelet Count 180 K/mm3 (142-424); Red Blood Count 4.86 M/mm3 (4.60-6.20); White Blood Count 16.9 K/mm3 (4.8-10.8)
[2019-01-02 17:05] LABS: Albumin Level 4.3 gm/dL (3.4-5.0); Albumin/Globulin Ratio 1.3 (1.1-1.8); Anion Gap 17.7 mEq/L (5-15); Bilirubin,Total 3.4 mg/dL (0.2-1.0); Calcium 9.5 mg/dL (8.5-10.1); Globulin 3.3 gm/dl (1.3-3.2); Potassium 4.7 mmoL/L (3.5-5.1); Total Protein,Serum 7.6 gm/dL (6.4-8.2)
[2019-01-02 17:15] LABS: Lymphocytes % 5 % (10-50); Neutrophils % 85 % (42-76); RBC Morphology Normal; Total Cells Counted 100
[2019-01-02 18:37] LABS: Microscopic, Urine URINE MICROSCOPIC (MICROSCOPIC)
[2019-01-02 18:46] LABS: Appearance,Urine CLEAR (Clear); Bilirubin,Urine Negative (Negative); Blood, Urine 3+ (Negative); Color,Urine YELLOW (Yellow); Glucose,Urine (UA) Negative (Negative); Ketones,Urine TRACE (Negative); Leukocyte Esterase,Urine TRACE (Negative); PH,Urine 5.5 (5.0-8.5); Protein,Urine TRACE (Negative); Specific Gravity, Urine 1.015 (1.005-1.030); Urobilinogen,Urine 0.2 EU/dl (0.2)
[2019-01-02 18:57] LABS: Bacteria,Urine Trace /lpf; Squamous Epithelial Cell,Urine Occasional #/hpf (0-5)
[2019-01-03 06:18] LABS: Eosinophils % 0.1 % (0.1-12.0); Lymphocytes # 0.5 K/mm3 (0.7-4.5); White Blood Count 10.9 K/mm3 (4.8-10.8)
[2019-01-03 06:35] LABS: Basophils % 0.1 % (0.1-2.0); Hematocrit 38.9 % (42.0-52.0); Lymphocytes % 4.2 % (10-50); Mean Corpuscular HGB Conc 31.6 g/dL (31.8-35.4); Mean Corpuscular Hemoglobin 29.4 pg (27.0-31.2); Mean Platelet Volume 7.6 fl (7.4-10.4); Monocytes # 0.5 K/mm3 (0.1-1.0); Monocytes % 4.9 % (1.7-9.3); Neutrophils # 9.9 K/mm3 (1.8-7.8); Neutrophils % 90.6 % (37.0-80.0); Platelet Count 132 K/mm3 (142-424); Red Blood Count 4.18 M/mm3 (4.60-6.20); Red Cell Distribution Width 14.1 % (11.5-17.5)
[2019-01-03 06:38] LABS: Hemoglobin 12.3 g/dL (14.1-18.0)
[2019-01-03 06:51] LABS: Albumin Level 3.2 gm/dL (3.4-5.0); Albumin/Globulin Ratio 1.1 (1.1-1.8); Anion Gap 13.8 mEq/L (5-15); Bilirubin,Total 2.1 mg/dL (0.2-1.0); Globulin 2.9 gm/dl (1.3-3.2); Potassium 4.8 mmoL/L (3.5-5.1); Total Protein,Serum 6.1 gm/dL (6.4-8.2)
[2019-01-03 07:05] LABS: Calcium 8.5 mg/dL (8.5-10.1)
[2019-01-03 07:56] LABS: Eosinophils % 1 % (0-3); Lymphocytes % 1 % (10-50); Monocytes % 4 % (2-9); Neutrophils % 93 % (42-76); RBC Morphology Normal; Total Cells Counted 100
--- NOTE | 2019-01-03 08:13 | History & Physical Report ---
*Admission Date: 01/02/19 *Chief complaint: Gross hematuria, abdominal pain *History of present illness: 78-year-old white male with history of COPD, oxygen requiring, recurrent pneumonias, CHF and CAD as well as a history of recurrent nephrolithiasis who 1 day before presentation to the office began to have episodes of gross hematuria. He called his urologist, Dr. Xu Ayala, who prescribed Macrobid but the patient was unable to take this the night before his office visit because of significant nausea with the medication. The next morning his urine cleared but he continued to have pain in his lower abdomen and groin, presented to my office on the day of admission, January 02, and was found to be slightly tachycardic, dehydrated with continuing abdominal pain Admitted and observation for labs, rehydration, further diagnostic testing and treatment of possible cystitis/hematuria. [facility] History I have reviewed the patient's past medical history: Yes Medical History: Reports:: Atrial Fibrillation, Coronary Artery Disease, Hyperlipidemia, Hypertension Denies:: Cancer, Diabetes Mellitus Type 1, Diabetes Mellitus Type 2, Internal Pacemaker, MRSA, Seizures *Have you ever received a pneumonia vaccine?: Yes *Have you received a flu vaccine this season?: Yes Other Medical History: Reports: Arthritis Other Surgeries: Yes: CABG, Cholecystectomy, Coronary Stent, Open Heart Surgery. No: Pacemaker Amputation: No Fractures: No - *Social History Educational Level: Completed High School Smoking Status: Never smoker Alcohol Intake: never *Occupational Status:: retired Housing: house Household Members: spouse *Travel in the last 8 weeks: None - Psychiatric History Expresses thoughts of harming self/others: None Suicide Plan Description: No Plan Family Hx:: Cancer, Coronary Artery Disease Review of Systems - Review of Systems Review of systems:: pertinent systems reviewed and negative unless documented below Negative for chest pain or palpitations. Positive for shortness of air but patient thinks this might be from abdominal pain. Positive for gross hematuria 24 hours before admission. Negative for fevers or chills. Negative for diarrhea or vomiting. Meds Home Medications Medication Instructions Recorded Confirmed Type Aspirin [Aspir 81] 81 mg PO DAILY 12/10/17 10/01/18 History Carvedilol [Carvedilol 25mg Tab] 25 mg PO BID 12/10/17 01/02/19 History Clopidogrel Bisulfate [Plavix 75mg 75 mg PO DAILY 12/10/17 10/01/18 History Tab] Furosemide [Lasix 20mg tablet] 20 mg PO DAILY 12/13/17 01/02/19 History Tamsulosin HCl [Flomax] 0.4 mg PO HS 05/16/18 01/02/19 History Simvastatin 1 tab PO DAILY 10/01/18 01/02/19 History Allergies Allergy/AdvReac Type Severity Reaction Status Date / Time hydrocodone [From LORTAB] Allergy Mild Verified 10/01/18 20:30 oxycodone [From PERCOCET] Allergy Mild Verified 10/01/18 20:30 sulfamethoxazole Allergy Mild Verified 10/01/18 20:30 [From BACTRIM] trimethoprim [From BACTRIM] Allergy Mild Verified 10/01/18 20:30 Exam Vital signs and Labs for Last 24 Hours: Temp Pulse Resp BP Pulse Ox 98.4 F 89 20 104/56 L 93 L 01/03/19 04:00 01/03/19 04:00 01/03/19 04:00 01/03/19 04:00 01/03/19 04:00 Laboratory Results - last 24 hr 01/02/19 16:30: WBC 16.9 H, RBC 4.86, Hgb 14.4, Hct 44.8, MCV 92.1, MCH 29.6, MCHC 32.1, RDW 14.0, Plt Count 180, MPV 8.2, Neut % (Auto) 93.1 H, Lymph % (Auto) 2.7 L, Gem % (Auto) 3.4, Eos % (Auto) 0.8, Baso % (Auto) 0.1, Neut # (Auto) 15.7 H, Lymph # (Auto) 0.4 L, Gem # (Auto) 0.6, Eos # (Auto) 0.1, Baso # (Auto) 0.0, Total Counted 100, Neutrophils % (Manual) 85 H, Band Neutrophils % 10.0 H, Lymphocytes % (Manual) 5 L, Platelet Estimate Normal, RBC Morphology Normal 01/02/19 16:30: Sodium 140, Potassium 4.7, Chloride 100, Carbon Dioxide 27, Anion Gap 17.7 H, BUN 27 H, Creatinine 1.44 H, Estimated Creat Clear 44, Estimated GFR 48 L, Est GFR ( Amer) 58 L, Glucose 137 H, Calcium 9.5, Total Bilirubin 3.4 H, AST 21, ALT 25, Alkaline Phosphatase 102, Total Protein 7.6, Albumin 4.3, Globulin 3.3 H, Albumin/Globulin Ratio 1.3 01/02/19 18:30: Urine Color Yellow, Urine Appearance Clear, Urine pH 5.5, Ur Specific [place] 1.015, Urine Protein Trace, Urine Glucose (UA) Negative, Urine Ketones Trace, Urine Blood 3+, Urine Nitrate Negative, Urine Bilirubin Negative, Urine Urobilinogen 0.2, Ur Leukocyte Esterase Trace, Urine RBC 3-5, Urine WBC 5- 10, Ur Squamous Epith Cells Occasional, Urine Bacteria Trace 01/03/19 05:55: WBC 10.9 H D, RBC 4.18 L, Hgb 12.3 L D, Hct 38.9 L, MCV 93.0, MCH 29.4, MCHC 31.6 L, RDW 14.1, Plt Count 132 L D, MPV 7.6, Neut % (Auto) 90.6 H, Lymph % (Auto) 4.2 L, Gem % (Auto) 4.9, Eos % (Auto) 0.1, Baso % (Auto) 0.1, Neut # (Auto) 9.9 H, Lymph # (Auto) 0.5 L, Gem # (Auto) 0.5, Eos # (Auto) 0.0, Baso # (Auto) 0.0, Total Counted 100, Neutrophils % (Manual) 93 H, Lymphocytes % (Manual) 1 L, Atypical Lymphs % 1.0, Monocytes % (Manual) 4, Eosinophils % (Manual) 1, Platelet Estimate Slight decrease, RBC Morphology Normal 01/03/19 05:55: Sodium 142, Potassium 4.8, Chloride 104, Carbon Dioxide 29, Anion Gap 13.8, BUN 29 H, Creatinine 1.68 H, Estimated Creat Clear 37, Estimated GFR 40 L, Est GFR ( Amer) 48 L, Glucose 94 D, Calcium 8.5 D, Total Bilirubin 2.1 H, AST 15 D, ALT 19, Alkaline Phosphatase 76, Total Protein 6.1 L , Albumin 3.2 L D, Globulin 2.9, Albumin/Globulin Ratio 1.1 I & O for Last 24 hours: Intake & Output 12/31/18 01/01/19 01/02/19 01/03/19 11:59 11:59 11:59 11:59 Intake Total 1699 / 1699 Output Total 300 / 300 Balance 1399 / 1399 Weight 158 lb 0.014 oz Narrative: Patient is pleasant and oriented, mildly tachypneic, mildly tachycardic as reflected in my office vital signs. Oxygen saturations acceptable on 2 L nasal cannula which is his baseline. Lungs have good air movement but minimal bibasilar rhonchi as baseline. Heart rate regular with 2/6 holosystolic murmur. Abdomen soft, tender in both lower quadrants and minimally tender in both flanks. No rebound or guarding. No edema or clubbing in his hands, has trace ankle edema which is baseline. Able to move all extremities but is globally weak. Assessment and Plan (1) Gross hematuria Current visit: Yes Status: Acute Category: Medical Code(s): R31.0 - Gross hematuria (2) Cystitis Current visit: Yes Status: Acute Category: Medical Code(s): N30.90 - Cystitis, unspecified without hematuria (3) Dehydration Current visit: Yes Status: Acute Category: Medical Code(s): E86.0 - Dehydration - Assessment and plan all Dx Assessment and Plan for all problems:: Plan will be to admit to observation for the above problems, obtain labs, obtain CT scan of abdomen and pelvis. Begin IV fluids and close observation in hospital.
--- NOTE | 2019-01-03 08:34 | Discharge Summary ---
General - General Admission date:: 01/02/19 Discharge date: 01/03/19 HPI HPI: 78-year-old white male with history of COPD, oxygen requiring, recurrent pneumonias, CHF and CAD as well as a history of recurrent nephrolithiasis who 1 day before presentation to the office began to have episodes of gross hematuria. He called his urologist, Dr. Xu Ayala, who prescribed Macrobid but the patient was unable to take this the night before his office visit because of significant nausea with the medication. The next morning his urine cleared but he continued to have pain in his lower abdomen and groin, presented to my office on the day of admission, January 02, and was found to be slightly tachycardic, dehydrated with continuing abdominal pain Admitted and observation for labs, rehydration, further diagnostic testing and treatment of possible cystitis/hematuria. Hospital Course Hospital Course: The patient was admitted and placed on levofloxacin which he tolerated well. Rehydrated with IV fluids. CT scan of abdomen and pelvis showed evidence of bladder wall thickening with evidence of cystitis, but no evidence of renal mass, obstructive uropathy or stone disease. Patient was able to urinate freely. This morning patient was eating well, nausea had improved nicely after some IV Phenergan through the night, and patient wished to be discharged home. Patient will be discharged home on levofloxacin and antinausea medication. He will see Dr. Ayala this next week, and I will obtain labs to monitor his ongoing renal insufficiency issues and blood counts on Saturday at the [place] lab location. Objective Vital signs: Temp Pulse Resp BP Pulse Ox 98.4 F 91 H 18 104/48 L 99 01/03/19 08:00 01/03/19 08:00 01/03/19 08:00 01/03/19 08:00 01/03/19 08:00 Narrative: Essentially unchanged from yesterday except his vital signs have normalized with no tachycardia or tachypnea. Lungs are clear except minimal rhonchi in the bases which is baseline. Heart rate regular, previous murmur noted. Abdomen is less tender. No CVA tenderness. Extremities are unchanged. Results Labs on day of discharge: Labs from last 24 hours 01/03/19 01/03/19 01/02/19 05:55 05:55 18:30 WBC 10.9 H D RBC 4.18 L Hgb 12.3 L D Hct 38.9 L MCV 93.0 MCH 29.4 MCHC 31.6 L RDW 14.1 Plt Count 132 L D MPV 7.6 Neut % (Auto) 90.6 H Lymph % (Auto) 4.2 L [place] % (Auto) 4.9 Eos % (Auto) 0.1 Baso % (Auto) 0.1 Neut # (Auto) 9.9 H Lymph # (Auto) 0.5 L [place] # (Auto) 0.5 Eos # (Auto) 0.0 Baso # (Auto) 0.0 Total Counted 100 Neutrophils % (Manual) 93 H Band Neutrophils % Lymphocytes % (Manual) 1 L Atypical Lymphs % 1.0 Monocytes % (Manual) 4 Eosinophils % (Manual) 1 Platelet Estimate Slight decrease RBC Morphology Normal Sodium 142 Potassium 4.8 Chloride 104 Carbon Dioxide 29 Anion Gap 13.8 BUN 29 H Creatinine 1.68 H Estimated Creat Clear 37 Estimated GFR 40 L Est GFR ( Amer) 48 L Glucose 94 D Calcium 8.5 D Total Bilirubin 2.1 H AST 15 D ALT 19 Alkaline Phosphatase 76 Total Protein 6.1 L Albumin 3.2 L D Globulin 2.9 Albumin/Globulin Ratio 1.1 Urine Color Yellow Urine Appearance Clear Urine pH 5.5 Ur Specific [place] 1.015 Urine Protein Trace Urine Glucose (UA) Negative Urine Ketones Trace Urine Blood 3+ Urine Nitrate Negative Urine Bilirubin Negative Urine Urobilinogen 0.2 Ur Leukocyte Esterase Trace Urine RBC 3-5 Urine WBC 5-10 Ur Squamous Epith Cells Occasional Urine Bacteria Trace 01/02/19 01/02/19 16:30 16:30 WBC 16.9 H RBC 4.86 Hgb 14.4 Hct 44.8 MCV 92.1 MCH 29.6 MCHC 32.1 RDW 14.0 Plt Count 180 MPV 8.2 Neut % (Auto) 93.1 H Lymph % (Auto) 2.7 L [place] % (Auto) 3.4 Eos % (Auto) 0.8 Baso % (Auto) 0.1 Neut # (Auto) 15.7 H Lymph # (Auto) 0.4 L [place] # (Auto) 0.6 Eos # (Auto) 0.1 Baso # (Auto) 0.0 Total Counted 100 Neutrophils % (Manual) 85 H Band Neutrophils % 10.0 H Lymphocytes % (Manual) 5 L Atypical Lymphs % Monocytes % (Manual) Eosinophils % (Manual) Platelet Estimate Normal RBC Morphology Normal Sodium 140 Potassium 4.7 Chloride 100 Carbon Dioxide 27 Anion Gap 17.7 H BUN 27 H Creatinine 1.44 H Estimated Creat Clear 44 Estimated GFR 48 L Est GFR ( Amer) 58 L Glucose 137 H Calcium 9.5 Total Bilirubin 3.4 H AST 21 ALT 25 Alkaline Phosphatase 102 Total Protein 7.6 Albumin 4.3 Globulin 3.3 H Albumin/Globulin Ratio 1.3 Urine Color Urine Appearance Urine pH Ur Specific [place] Urine Protein Urine Glucose (UA) Urine Ketones Urine Blood Urine Nitrate Urine Bilirubin Urine Urobilinogen Ur Leukocyte Esterase Urine RBC Urine WBC Ur Squamous Epith Cells Urine Bacteria DS: Diagnosis - Discharge Diagnosis (1) Gross hematuria Status: Resolved (2) Cystitis Status: Acute (3) Dehydration Status: Resolved Discharge Plan - Patient Discharge Instructions ACTIVITY: Continue current activity DIET: continue same diet Patient Instructions: DI for Dehydration -- Adult, DI for Hematuria - Follow up Plan Follow up with: Xu Ayala MD [Staff Physician] - 01/08/19 Disposition: Home, Self-Halfway Medications: Home Medications Medication Instructions Recorded Confirmed Type Aspirin [Aspir 81] 81 mg PO DAILY 12/10/17 10/01/18 History Carvedilol [Carvedilol 25mg Tab] 25 mg PO BID 12/10/17 01/02/19 History Clopidogrel Bisulfate [Plavix 75mg 75 mg PO DAILY 12/10/17 10/01/18 History Tab] Furosemide [Lasix 20mg tablet] 20 mg PO DAILY 12/13/17 01/02/19 History Tamsulosin HCl [Flomax] 0.4 mg PO HS 05/16/18 01/02/19 History Simvastatin 1 tab PO DAILY 10/01/18 01/02/19 History Promethazine HCl [Phenergan 25mg 25 mg PO Q6H PRN #15 tab 01/03/19 Rx tab] levoFLOXacin [Levaquin 500mg 500 mg PO DAILY #7 tab 01/03/19 Rx tab] Prescriptions/Medication Reconciliation: New levoFLOXacin [Levaquin 500mg tab] 500 mg PO DAILY #7 tab Promethazine HCl [Phenergan 25mg tab] 25 mg PO Q6H PRN #15 tab PRN Reason: Nausea And Vomiting Continue Clopidogrel Bisulfate [Plavix 75mg Tab] 75 mg PO DAILY Aspirin [Aspir 81] 81 mg PO DAILY Furosemide [Lasix 20mg tablet] 20 mg PO DAILY Carvedilol [Carvedilol 25mg Tab] 25 mg PO BID Tamsulosin HCl [Flomax] 0.4 mg PO HS Simvastatin 1 tab PO DAILY Other Amb Orders: Basic Metabolic Panel Time Frame: 01/05/19, Facility: [facility], Location: Lab [place] Location Complete Blood Count Auto Diff Time Frame: 01/05/19, Facility: [facility], Location: Lab [place] Location
== END 2019-01-03 10:22 | disposition home or self-care (01) ==
LOC: 2ND
PROVIDERS: ADMIT Internal Medicine Adolescent Medicine; ATTEND Internal Medicine Adolescent Medicine
CPT/HCPCS: 36415; 71020; 71046; 74178; 80053; 81001; 85007; 85025; 93005; G0378; J2405; Q9967

== ENCOUNTER → 2019-01-05 08:28 | Outpatient (CLI) | payer MEDICARE, SELFPAY ==
[2019-01-05 14:23] LABS: Anion Gap 12.9 mEq/L (5-15); Blood Urea Nitrogen 38 mg/dL (7-18); Calcium 8.8 mg/dL (8.5-10.1); Carbon Dioxide 29 mmol/L (21.0-32.0); Chloride 103 mmol/L (98-107); Creatinine,Serum 1.83 mg/dL (0.70-1.30); Estimated Glomerular Filt Rate 36 ml/min (>60); GFR (African American) 44 ML/MIN (>60); Glucose 92 mg/dL (74-106); Potassium 4.9 mmoL/L (3.5-5.1); Sodium 140 mmol/L (136-145)
[2019-01-05 14:38] LABS: Basophils % 0.3 % (0.1-2.0); Eosinophils # 0.1 K/mm3 (0.0-0.4); Eosinophils % 3.1 % (0.1-12.0); Hematocrit 38.2 % (42.0-52.0); Hemoglobin 12.2 g/dL (14.1-18.0); Lymphocytes # 0.6 K/mm3 (0.7-4.5); Mean Corpuscular HGB Conc 31.8 g/dL (31.8-35.4); Mean Corpuscular Hemoglobin 29.8 pg (27.0-31.2); Mean Corpuscular Volume 93.7 fl (80-94); Mean Platelet Volume 8.1 fl (7.4-10.4); Monocytes # 0.4 K/mm3 (0.1-1.0); Monocytes % 8.3 % (1.7-9.3); Neutrophils # 3.1 K/mm3 (1.8-7.8); Neutrophils % 74.3 % (37.0-80.0); Platelet Count 146 K/mm3 (142-424); Red Blood Count 4.08 M/mm3 (4.60-6.20); Red Cell Distribution Width 14.2 % (11.5-17.5); White Blood Count 4.2 K/mm3 (4.8-10.8)
== END ==
PROVIDERS: PCP Internal Medicine Adolescent Medicine; Visit Provider Internal Medicine Adolescent Medicine
DX: N30.90 Cystitis, unspecified without hematuria (principal)
CPT/HCPCS: 36415; 80048; 85025

== ENCOUNTER → 2019-01-22 13:06 | Outpatient (CLI) | payer MEDICARE, SELFPAY ==
[2019-01-22 15:20] LABS: Prostate Specific Ag, Diagnost 8.14 ng/mL (0.0-4.0)
== END ==
PROVIDERS: Visit Provider Urology
DX: R97.20 Elevated prostate specific antigen [PSA] (principal)
CPT/HCPCS: 36415; 84153

== ENCOUNTER 2019-02-20 13:57 | Emergency (ER) | payer MEDICARE, SELFPAY ==
[2019-02-20 14:08] VITALS: BP 108/59; PULSE 91; RESP 18; TEMP 36.4; O2SAT 94; BMI 26.1
--- NOTE | 2019-02-20 14:20 | HMH.EDUTC ---
[facility] [place] Clinical Impression: Dysfunction of left eustachian tube Left otitis media Qualifiers: Otitis media type: suppurative Chronicity: acute Recurrence: non-recurrent Spontaneous tympanic membrane rupture: without spontaneous rupture Qualified Code(s): H66.002 - Acute suppurative otitis media without spontaneous rupture of ear drum, left ear Disposition: Home, Self-Care Condition on Discharge: Good Instructions: DI for Otitis Media (Middle Ear Infection)-Child Prescriptions: Amoxicillin/Potassium Clav [Augmentin 875-125 Tablet] 1 tab PO Q12H 10 Days #20 tab Fluticasone Propionate [Flonase Allergy Relief NS] 1 spray NS BID 10 Days #1 bot predniSONE [Prednisone 20mg Tab] 20 mg PO BID 5 Days #10 tab Referrals: Benja Cortes MD [Primary Care Provider] - Time of Disposition: 14:28 Medical Decision Making - Juan Miguel Inquiry Pt receiving controlled substance: No Vital Signs: 02/20/19 14:08 Temperature 97.5 F L Temperature Source Oral Pulse Rate [Right Radial] 91 H Respiratory Rate 18 Blood Pressure [Right Arm] 108/59 L Blood Pressure Mean [Right Arm] 75 Blood Pressure Source [Right Arm] Automatic Cuff Blood Pressure Position [Right Arm] Sitting 02 Sat by Pulse Oximetry 94 L Oxygen Delivery Method Room Air [facility] - General Stated complaint: Ear vblocked and can't hear Time Seen by Provider: 02/20/19 14:20 Mode of Arrival: Ambulatory Source of Information: Patient Limitations: No Limitations Description of Symptoms (Recalled from Triage Doc. by RN): PT C/O DIFFICULTY HEARING OUT OF LT EAR. PT STATES HE FEELS IF IT IS CLOGGED WITH SOMETHING HEENT Symptoms (Recalled from RN notes): Yes (LT EAR HEARING PROBLEM) Resp Symptoms (Recalled from RN notes): No Skin Symptoms (Recalled from RN notes): No MS Symptoms (Recalled from RN notes): No Functional Status (Recalled from RN notes): N/A - History of Present Illness Provider Complaint: Left ear has felt full and clogged for 4-5 days. Had ear irrigated at PCP 2 days ago but no change. Can't hear at all. Denies pain. States it feels as if there is water in his ear. Onset (ago): day(s) (5) Relieving factors: none Exacerbating factors: none Associated symptoms: denies other symptoms Treatments prior to arrival: none - Related Data Home Medications Medication Instructions Recorded Confirmed Aspirin [Aspir 81] 81 mg PO DAILY 12/10/17 01/22/19 Carvedilol [Carvedilol 25mg Tab] 25 mg PO BID 12/10/17 01/22/19 Clopidogrel Bisulfate [Plavix 75mg 75 mg PO DAILY 12/10/17 01/22/19 Tab] Furosemide [Lasix 20mg tablet] 20 mg PO DAILY 12/13/17 01/22/19 Tamsulosin HCl [Flomax] 0.4 mg PO HS 05/16/18 01/22/19 Simvastatin 1 tab PO DAILY 10/01/18 01/22/19 Previous Rx's Medication Instructions Recorded Promethazine HCl [Phenergan 25mg 25 mg PO Q6H PRN #15 tab 01/03/19 tab] levoFLOXacin [Levaquin 500mg 500 mg PO DAILY #7 tab 01/03/19 tab] Amoxicillin/Potassium Clav 1 tab PO Q12H 10 Days #20 tab 02/20/19 [Augmentin 875-125 Tablet] Fluticasone Propionate [Flonase 1 spray NS BID 10 Days #1 bot 02/20/19 Allergy Relief NS] predniSONE [Prednisone 20mg 20 mg PO BID 5 Days #10 tab 02/20/19 Tab] Allergies Allergy/AdvReac Type Severity Reaction Status Date / Time hydrocodone [From LORTAB] Allergy Mild Verified 01/22/19 11:42 oxycodone [From PERCOCET] Allergy Mild Verified 01/22/19 11:42 sulfamethoxazole Allergy Mild Verified 01/22/19 11:42 [From BACTRIM] trimethoprim [From BACTRIM] Allergy Mild Verified 01/22/19 11:42 - Worker's Comp Is this a Worker's Comp case?: No [facility] History - Hepatitis A Screen Drug use history?: No High risk sexual behaviors?: No History of sexually transmitted infection?: No Currently employed?: No Childcare worker?: No Do you have indoor plumbing?: Yes Do you have electricity?: Yes Attestation statement:: This patient has been screened for Hepatitis A risk factors.
--- NOTE | 2019-02-20 14:26 | ED_ITS ---
[facility] [place] Clinical Impression: Dysfunction of left eustachian tube Left otitis media Qualifiers: Otitis media type: suppurative Chronicity: acute Recurrence: non-recurrent Spontaneous tympanic membrane rupture: without spontaneous rupture Qualified Code(s): H66.002 - Acute suppurative otitis media without spontaneous rupture of ear drum, left ear Disposition: Home, Self-Care Condition on Discharge: Good Instructions: DI for Otitis Media (Middle Ear Infection)-Child Prescriptions: Amoxicillin/Potassium Clav [Augmentin 875-125 Tablet] 1 tab PO Q12H 10 Days #20 tab Fluticasone Propionate [Flonase Allergy Relief NS] 1 spray NS BID 10 Days #1 bot predniSONE [Prednisone 20mg Tab] 20 mg PO BID 5 Days #10 tab Referrals: Benja Cortes MD [Primary Care Provider] - Time of Disposition: 14:28 Medical Decision Making - Juan Miguel Inquiry Pt receiving controlled substance: No Vital Signs: 02/20/19 14:08 Temperature 97.5 F L Temperature Source Oral Pulse Rate [Right Radial] 91 H Respiratory Rate 18 Blood Pressure [Right Arm] 108/59 L Blood Pressure Mean [Right Arm] 75 Blood Pressure Source [Right Arm] Automatic Cuff Blood Pressure Position [Right Arm] Sitting 02 Sat by Pulse Oximetry 94 L Oxygen Delivery Method Room Air [facility] [place] HPI - General Stated complaint: Ear vblocked and can't hear Time Seen by Provider: 02/20/19 14:20 Mode of Arrival: Ambulatory Source of Information: Patient Limitations: No Limitations Description of Symptoms (Recalled from Triage Doc. by RN): PT C/O DIFFICULTY HEARING OUT OF LT EAR. PT STATES HE FEELS IF IT IS CLOGGED WITH SOMETHING HEENT Symptoms (Recalled from RN notes): Yes (LT EAR HEARING PROBLEM) Resp Symptoms (Recalled from RN notes): No Skin Symptoms (Recalled from RN notes): No MS Symptoms (Recalled from RN notes): No Functional Status (Recalled from RN notes): N/A - History of Present Illness Provider Complaint: Left ear has felt full and clogged for 4-5 days. Had ear irrigated at PCP 2 days ago but no change. Can't hear at all. Denies pain. States it feels as if there is water in his ear. Onset (ago): day(s) (5) Relieving factors: none Exacerbating factors: none Associated symptoms: denies other symptoms Treatments prior to arrival: none - Related Data Home Medications Medication Instructions Recorded Confirmed Aspirin [Aspir 81] 81 mg PO DAILY 12/10/17 01/22/19 Carvedilol [Carvedilol 25mg Tab] 25 mg PO BID 12/10/17 01/22/19 Clopidogrel Bisulfate [Plavix 75mg 75 mg PO DAILY 12/10/17 01/22/19 Tab] Furosemide [Lasix 20mg tablet] 20 mg PO DAILY 12/13/17 01/22/19 Tamsulosin HCl [Flomax] 0.4 mg PO HS 05/16/18 01/22/19 Simvastatin 1 tab PO DAILY 10/01/18 01/22/19 Previous Rx's Medication Instructions Recorded Promethazine HCl [Phenergan 25mg 25 mg PO Q6H PRN #15 tab 01/03/19 tab] levoFLOXacin [Levaquin 500mg 500 mg PO DAILY #7 tab 01/03/19 tab] Amoxicillin/Potassium Clav 1 tab PO Q12H 10 Days #20 tab 02/20/19 [Augmentin 875-125 Tablet] Fluticasone Propionate [Flonase 1 spray NS BID 10 Days #1 bot 02/20/19 Allergy Relief NS] predniSONE [Prednisone 20mg 20 mg PO BID 5 Days #10 tab 02/20/19 Tab]
[2019-02-20 14:35] VITALS: BP 108/59; PULSE 91; RESP 18; TEMP 36.4; O2SAT 94
== END 2019-02-20 14:35 | disposition home or self-care (01) ==
PROVIDERS: Emergency Provider Physician Assistant; PCP Internal Medicine Adolescent Medicine
DX: H69.82 Other specified disorders of Eustachian tube, left ear (principal); H66.002 Acute suppurative otitis media without spontaneous rupture of ear drum, left ear; I25.10 Atherosclerotic heart disease of native coronary artery without angina pectoris; I48.91 Unspecified atrial fibrillation; E78.5 Hyperlipidemia, unspecified; I10 Essential (primary) hypertension; Z95.1 Presence of aortocoronary bypass graft; Z88.2 Allergy status to sulfonamides; Z88.5 Allergy status to narcotic agent
CPT/HCPCS: G0463; 99201

== ENCOUNTER 2019-03-09 05:36 | Inpatient (IN) ==
[2019-03-09 06:06] LABS: Basophils % 0.1 % (0.1-2.0); Eosinophils % 0.2 % (0.1-12.0); Hematocrit 38.4 % (42.0-52.0); Lymphocytes # 0.6 K/mm3 (0.7-4.5); Lymphocytes % 8.1 % (10-50); Mean Corpuscular HGB Conc 31.3 g/dL (31.8-35.4); Mean Corpuscular Hemoglobin 27.9 pg (27.0-31.2); Mean Corpuscular Volume 89.4 fl (80-94); Mean Platelet Volume 7.8 fl (7.4-10.4); Monocytes # 0.5 K/mm3 (0.1-1.0); Monocytes % 6.5 % (1.7-9.3); Neutrophils # 5.8 K/mm3 (1.8-7.8); Platelet Count 156 K/mm3 (142-424); Red Blood Count 4.29 M/mm3 (4.60-6.20); Red Cell Distribution Width 14.6 % (11.5-17.5); White Blood Count 6.9 K/mm3 (4.8-10.8)
[2019-03-09 06:16] LABS: Albumin Level 3.4 gm/dL (3.4-5.0); Anion Gap 14.4 mEq/L (5-15); Bilirubin,Direct 2.4 mg/dL (0.0-0.2); Bilirubin,Indirect 2.3 mg/dL (0.0-0.9); Bilirubin,Total 4.7 mg/dL (0.2-1.0); C-Reactive Protein 0.4 mg/L (0.0-0.9); Calcium 9.2 mg/dL (8.5-10.1); Lymphocytes % 9 % (10-50); Monocytes % 4 % (2-9); Neutrophils % 82 % (42-76); Potassium 4.4 mmoL/L (3.5-5.1); RBC Morphology Normal; Total Cells Counted 100; Total Protein,Serum 6.7 gm/dL (6.4-8.2)
--- NOTE | 2019-03-09 06:41 | Emergency Department Note ---
ED Disposition Clinical Impression: Elevated LFTs, Renal insufficiency, Left bundle branch block (LBBB) Abdominal pain Qualifiers: Abdominal location: epigastric Qualified Code(s): R10.13 - Epigastric pain COPD (chronic obstructive pulmonary disease) Qualifiers: COPD type: unspecified COPD Qualified Code(s): J44.9 - Chronic obstructive pulmonary disease, unspecified Disposition: Admitted as Observation Condition on Discharge: Good Instructions: DI for Acute Abdomen Referrals: Benja Cortes MD [Primary Care Provider] - - Critical Care Critical Care Time: No Attestation: On 03/09/19, the high probability of a clinically significant, sudden or life threatening deterioration of the following system(s) required my full and direct attention, intervention and personal management. The time I documented below is in addition to time spent performing reported procedures but includes the following listed in this critical care notation. Medical Decision Making - Medical Records Medical records reviewed: Yes: I reviewed the patient's medical records. - Juan Miguel Inquiry Pt receiving controlled substance: No Vital Signs: 03/09/19 05:58 03/09/19 07:56 03/09/19 08:00 Temperature 97.4 F L Temperature Source Oral Pulse Rate [Right] 95 H 81 87 Respiratory Rate 20 Blood Pressure [Right Arm] 123/63 119/58 L 119/58 L Blood Pressure Mean [Right Arm] 83 78 78 Blood Pressure Source [Right Arm] Automatic Cuff Blood Pressure Position [Right Arm] Supine 02 Sat by Pulse Oximetry 99 94 L 93 L Oxygen Delivery Method Nasal Cannula Oxygen Flow Rate (LPM) 2 - Lab Data Lab results reviewed: Yes: I reviewed the patient's lab results. Lab Results 03/09/19 05:40: WBC 6.9, RBC 4.29 L, Hgb 12.0 L, Hct 38.4 L, MCV 89.4, MCH 27.9, MCHC 31.3 L, RDW 14.6, Plt Count 156, MPV 7.8, Neut % (Auto) 85.0 H, Lymph % (Auto) 8.1 L, [place] % (Auto) 6.5, Eos % (Auto) 0.2, Baso % (Auto) 0.1, Neut # (Auto) 5.8, Lymph # (Auto) 0.6 L, [place] # (Auto) 0.5, Eos # (Auto) 0.0, Baso # (Auto) 0.0, Total Counted 100, Neutrophils % (Manual) 82 H, Band Neutrophils % 5.0, Lymphocytes % (Manual) 9 L, Monocytes % (Manual) 4, Platelet Estimate Normal, RBC Morphology Normal, ESR 19 03/09/19 05:40: Sodium 138, Potassium 4.4, Chloride 102, Carbon Dioxide 26, Anion Gap 14.4, BUN 25 H, Creatinine 1.47 H, Estimated Creat Clear 43, Estimated GFR 46 L, Est GFR ( Amer) 56 L, Glucose 122 H, Calcium 9.2, Total Bilirubin 4.7 H, Direct Bilirubin 2.4 H, Indirect Bilirubin 2.3 H, AST 398 H*, ALT 307 H*, Alkaline Phosphatase 328 H, Troponin I 0.03, C-Reactive Protein 0.4, Total Protein 6.7, Albumin 3.4, Amylase 112, Lipase 202 03/09/19 05:40: Lactate 0.8 Result diagrams: 03/09/19 05:40 03/09/19 05:40 Orders (Tests/Meds): ED MEDICATIONS Discontinued Medications Generic Name Dose Route Start Last Admin Trade Name Lazq PRN Reason Stop Dose Admin Famotidine 20 mg 03/09/19 05:46 03/09/19 05:55 Pepcid 20mg/2ml Vial IV 03/09/19 05:47 20 mg ONCE ONE Administration Sodium Chloride 1,000 mls @ 999 mls/hr 03/09/19 06:00 03/09/19 05:55 Sod Chlor 0.9% 1000ml Bag IV 03/09/19 07:00 999 mls/hr .Q1H1M PAM Administration Ketorolac Tromethamine 30 mg 03/09/19 05:46 03/09/19 05:55 Toradol 30mg/Ml Vial IV 03/09/19 05:47 30 mg ONCE ONE Administration Metoclopramide HCl 10 mg 03/09/19 05:46 03/09/19 05:55 Reglan 10mg/2ml Vial IVP 03/09/19 05:47 10 mg ONCE ONE Administration Ondansetron HCl 4 mg 03/09/19 05:46 03/09/19 05:55 Zofran 4mg/2ml Vial IV 03/09/19 05:47 4 mg ONCE ONE Administration ORDERS Category Date Time Status PT/PTT Stat Lab 03/09/19 08:14 Ordered - Radiology Data #1 Image(s): Chest Image Reviewed: Yes I reviewed the patient's radiology image Preliminary Findings: Abnormal (chronic) - CT Data CT Scan: Abdomen, Pelvis Time Received: 08:[address] Reviewed: Yes: I have viewed the radiologist's interpretation Preliminary Findings: Abnormal (see report) - ECG Data Tracing #1 Normal Sinus Rhythm: Yes Ischemic changes: non-specific ST-T wave changes Conduction abnormalities present: LBBB ECG compared to prior tracings: there are no significant changes - Physician Consults Physician Consulted: deepak Reason -: Admission Nausea/Vomiting/Diarrhea HPI - General Chief complaint: Abdominal Pain Stated complaint: CHEST PAIN Time Seen by Provider: 03/09/19 06:10 Mode of Arrival: Ambulatory Source of Information: Patient, Relative, Medical Record Limitations: No Limitations Description of Symptoms (Recalled from ER Triage Doc. by RN): Pt having upper abd pain started this AM - History of Present Illness HPI Narrative: acute upper abd pain which started this am assoc with nausea - no vomiting and no melena or chest pain MD complaint: nausea, abdominal pain Onset (ago): hour(s) Associated Abdominal Pain: Yes Location of pain: epigastric Severity: moderate Associated symptoms: denies other symptoms - Related Data Home Medications Medication Instructions Recorded Confirmed Aspirin [Aspir 81] 81 mg PO DAILY 12/10/17 03/09/19 Clopidogrel Bisulfate [Plavix 75mg 75 mg PO DAILY 12/10/17 03/09/19 Tab] Tamsulosin HCl [Flomax] 0.4 mg PO HS 05/16/18 03/09/19 Simvastatin 1 tab PO DAILY 10/01/18 03/09/19 Albuterol Sulfate [Albuterol 1.25 mg IH Q6HP PRN 03/09/19 03/09/19 0.042% 1.25mg/3mL neb] Albuterol Sulfate [Albuterol HFA 1 - 2 puffs IH Q4HP PRN 03/09/19 03/09/19 Inhaler] Carvedilol [Carvedilol 12.5mg Tab] 12.5 mg PO BID 03/09/19 03/09/19 Furosemide [Lasix 40mg tab] 40 mg PO DAILY 03/09/19 03/09/19 Polyethylene Glycol 3350 [Miralax 17 gm PO DAILY 03/09/19 03/09/19 17gm Packet] Promethazine HCl [Phenergan 25mg 25 mg PO Q6HP PRN 03/09/19 03/09/19 tab] Allergies Allergy/AdvReac Type Severity Reaction Status Date / Time hydrocodone [From LORTAB] Allergy Mild Verified 03/02/19 15:00 oxycodone [From PERCOCET] Allergy Mild Verified 03/02/19 15:00 sulfamethoxazole Allergy Mild Verified 03/02/19 15:00 [From BACTRIM] trimethoprim [From BACTRIM] Allergy Mild Verified 03/02/19 15:[address] [facility] History - Hepatitis A Screen Drug use history?: No High risk sexual behaviors?: No History of sexually transmitted infection?: No Currently employed?: No Childcare worker?: No Do you have indoor plumbing?: Yes Do you have electricity?: Yes Attestation statement:: This patient has been screened for Hepatitis A risk factors. I have reviewed the patient's past medical history: Yes Medical History: Reports:: Atrial Fibrillation, Coronary Artery Disease, Hyperlipidemia, Hypertension Denies:: Cancer, Diabetes Mellitus Type 1, Diabetes Mellitus Type 2, Internal Pacemaker, MRSA, Seizures Other Medical History: Reports: Arthritis Other Surgeries: Yes: CABG, Cardiac Catheterization, Cardiac Surgery (Bypass x4, stents x2), Cholecystectomy, Coronary Stent, Open Heart Surgery. No: Pacemaker Amputation: No Fractures: No Comment: TURP x3 - Social History Smoking Status: Former smoker Alcohol Intake: never Substance Use Type: denies use Occupational Status: retired Housing: house Household Members: spouse Comment: He lives with his of 59 years. She is a retired nurse. They lost 1 son to lung cancer last year and have several others, 8 grandchildren and many great-grandchildren. - Psychiatric History Expresses thoughts of harming self/others: None Suicide Plan Description: No Plan Family Hx:: Cancer, Coronary Artery Disease ROS Obtained: Yes All systems reviewed & no additional complaints - Constitutional Constitutional: Denies fever(s) - Eyes Eyes: Denies change in vision - ENT Ears, Nose, Mouth, and Throat: Denies sore throat - Cardiovascular Cardiovascular: Denies chest pain - Respiratory Respiratory: No cough - Gastrointestinal Gastrointestingal: Reports: as per HPI, abdominal pain, nausea. Denies: malcom rrhea, black, tarry stools - Genitourinary Male Genitourinary: Denies hematuria - Musculoskeletal Musculoskeletal: Denies joint swelling - Integumentary/Breasts Skin/Breast: Denies rash - Neurologic Neurologic: Denies seizure-like activity Physical Exam - General General appearance: alert, in no apparent distress - Head Head exam: normocephalic - Eye Eye exam: Present: PERRL, EOMI, scleral icterus - ENT ENT exam: Present: mucous membranes dry - Neck Neck exam: Present: trachea midline - Respiratory Respiratory exam: Present: other (bilat rhonchi ). Absent: respiratory distress - Cardiovascular Cardiovascular exam: Present: regular rate, systolic murmur, +S4 - Abdominal Exam Abdominal exam: Present: soft, tenderness Abdominal tenderness: Present: epigastrium - Extremities Exam Extremities exam: Absent: calf tenderness - Neurological Exam Neurological exam: Present: alert, CN II-XII intact - Psychiatric Psychiatric exam: Present: normal affect - Skin Skin exam: Absent: rash
[2019-03-09 06:53] LABS: Erythrocyte Sedimentation Rate 19 mm/hr (0-20)
[2019-03-09 08:32] LABS: INR 1.05 (0.9-1.1); Prothrombin Time 10.9 seconds (9.4-11.8)
--- NOTE | 2019-03-09 09:15 | Pharmacy Consult Notes ---
[facility] Pharmacy VTE Monitoring - Patient Demographics Admission date: 03/09/19 Report Date: 03/09/19 Time: 09:15 Allergies/Adverse Reactions: Patient Allergies hydrocodone [From LORTAB] Allergy (Mild, Verified 03/02/19 15:00) oxycodone [From PERCOCET] Allergy (Mild, Verified 03/02/19 15:00) sulfamethoxazole [From BACTRIM] Allergy (Mild, Verified 03/02/19 15:00) trimethoprim [From BACTRIM] Allergy (Mild, Verified 03/02/19 15:00) Height: 1.75 m Weight: 72.3 kg Patient Problems: Current Active Problems (Updated 03/09/19 @ 08:21 by Doyle Alba MD) Renal insufficiency (Acute) Abdominal pain (Acute) Elevated LFTs (Acute) Left bundle branch block (LBBB) (Acute) COPD (chronic obstructive pulmonary disease) (Acute) - VTE Risk Labs: VTE Related Lab Results Hgb 12.0 g/dL (14.1-18.0) L 03/09/19 05:40 Hct 38.4 % (42.0-52.0) L 03/09/19 05:40 Plt Count 156 K/mm3 (142-424) 03/09/19 05:40 PT 10.9 seconds (9.4-11.8) 03/09/19 05:40 INR 1.05 (0.9-1.1) 03/09/19 05:40 APTT 25.0 seconds (23.6-34.0) 03/09/19 05:40 BUN 25 mg/dL (7-18) H 03/09/19 05:40 Creatinine 1.47 mg/dL (0.70-1.30) H 03/09/19 05:40 Estimated Creat Clear 43 mL/min (50-200) 03/09/19 05:40 - Prophylaxis VTE Prophylaxis Ordered?: Yes Types of VTE Prophylaxis: TEDS Knee High Location of Applied Device: Bilateral Lower Extremeties - VTE Diagnosis Confirmed Treatment or plan recommended: Continue Current Treatment
--- NOTE | 2019-03-09 13:17 | Consult Report ---
*Admission Date: 03/09/19 *Reason for consult:: Abdominal pain/ELevated LFTs *History of present illness: This is a 79-year-old male patient with past medical history of CABG and renal insufficiency. He presented to the ER early this morning with complaints of sharp epigastric pain associated with nausea. Cardiac work-up has been negative so far. The patient had a cholecystectomy in 2010 and since then has had 4-5 episodes of sharp epigastric pain associated with nausea and sometimes vomiting. Most recently was in December of this year when he presented to the ER. He reports he was diagnosed with GERD and given a PPI.. Today, in the ER, his bilirubin was elevated at 4.7, AST/ALT were 398/307 and alk phos was 328. Platelets are 156. CT abdomen pelvis without contrast (due to elevated creatinine) showed postcholecystectomy change, minimal amount of perihepatic fluid, unremarkable spleen and pancreas. Small bilateral pleural effusions, right larger than left small amount of ascites and diffuse fatty infiltration skeletal muscles. No acute findings. This is the first time that he knows of where his liver enzymes were elevated. He denies any recent exposure to hepatitis that he is aware of, although his son has chronic hepatitis C. at the time of examination, the patient reports that abdominal pain has resolved. Dumont sign is negative, and abdomen is nontender nondistended. He does have positive icterus. He does report that he has some chronic constipation for which he takes occasional MiraLAX occasional prune juice. He does have occasional bloating and belching. Today he reports he has not had a bowel movement 2 days. [facility] History I have reviewed the patient's past medical history: Yes Medical History: Reports:: Atrial Fibrillation, Coronary Artery Disease, Hyperlipidemia, Hypertension, Myocardial Infarction, Renal Insufficiency Denies:: Cancer, Diabetes Mellitus Type 1, Diabetes Mellitus Type 2, Internal Pacemaker, MRSA, Seizures *Have you ever received a pneumonia vaccine?: Yes *Have you received a flu vaccine this season?: Yes Other Medical History: Reports: Arthritis Other Surgeries: Yes: CABG, Cardiac Catheterization, Cardiac Surgery (Bypass x4, stents x2), Cholecystectomy, Coronary Stent, Open Heart Surgery, Other (turp, cyst removal). No: Pacemaker Amputation: No Fractures: No - *Social History Smoking Status: Former smoker Smoking End Date: 15 years Alcohol Intake: never Substance Use Type: denies use *Occupational Status:: retired Housing: house Household Members: spouse *Travel in the last 8 weeks: None - Psychiatric History Expresses thoughts of harming self/others: None Suicide Plan Description: No Plan Family Hx:: Cancer, Hypertension Review of Systems - Constitutional Denies anorexia, Denies fatigue, Denies malaise, Denies weakness, Denies weight loss - Eyes Denies blurry vision, Denies change in vision, Denies sensitivity to light - ENT Denies abnormal hearing, Denies change in voice, Denies difficulty swallowing, Denies hoarseness, Denies pain with swallowing, Denies throat swelling - *Cardiovascular Denies chest pain, Denies shortness of breath - *Respiratory Denies cough, Denies shortness of breath - *Gastrointestinal Reports abdominal pain, Reports bloating, Reports constipation, Reports nausea, Reports vomiting, Denies change in bowel habits, Denies heartburn, Denies vomiting blood, Denies bright, red blood in stools, Denies black, tarry stools - *Musculoskeletal Denies joint pain, Denies muscle cramps, Denies muscle weakness - *Neurologic Denies abnormal speech, Denies behavioral changes, Denies confusion, Denies dizziness, Denies frequent falls, Denies seizure-like activity - Psychiatric Denies anxiety, Denies change in appetite, Denies confusion, Denies depression - Endocrine Denies cold intolerance, Denies flushing, Denies increased thirst - Hematologic/Lymphatic Denies easy bleeding, Denies easy bruising Meds Home Medications Medication Instructions Recorded Confirmed Type Aspirin [Aspir 81] 81 mg PO DAILY 12/10/17 03/09/19 History Clopidogrel Bisulfate [Plavix 75mg 75 mg PO DAILY 12/10/17 03/09/19 History Tab] Tamsulosin HCl [Flomax] 0.4 mg PO HS 05/16/18 03/09/19 History Simvastatin 1 tab PO DAILY 10/01/18 03/09/19 History Albuterol Sulfate [Albuterol 1.25 mg IH Q6HP PRN 03/09/19 03/09/19 History 0.042% 1.25mg/3mL neb] Albuterol Sulfate [Albuterol HFA 1 - 2 puffs IH Q4HP PRN 03/09/19 03/09/19 History Inhaler] Carvedilol [Carvedilol 12.5mg Tab] 12.5 mg PO BID 03/09/19 03/09/19 History Furosemide [Lasix 40mg tab] 40 mg PO DAILY 03/09/19 03/09/19 History Polyethylene Glycol 3350 [Miralax 17 gm PO DAILY 03/09/19 03/09/19 History 17gm Packet] Promethazine HCl [Phenergan 25mg 25 mg PO Q6HP PRN 03/09/19 03/09/19 History tab] Allergies Allergy/AdvReac Type Severity Reaction Status Date / Time hydrocodone [From LORTAB] Allergy Mild Verified 03/02/19 15:00 oxycodone [From PERCOCET] Allergy Mild Verified 03/02/19 15:00 sulfamethoxazole Allergy Mild Verified 03/02/19 15:00 [From BACTRIM] trimethoprim [From BACTRIM] Allergy Mild Verified 03/02/19 15:00 Exam Vital signs and Labs for Last 24 Hours: Temp Pulse Resp BP Pulse Ox 98.0 F 87 18 110/65 94 L 03/09/19 09:12 03/09/19 09:12 03/09/19 09:12 03/09/19 09:12 03/09/19 09:12 Laboratory Results - last 24 hr 03/09/19 05:40: WBC 6.9, RBC 4.29 L, Hgb 12.0 L, Hct 38.4 L, MCV 89.4, MCH 27.9, MCHC 31.3 L, RDW 14.6, Plt Count 156, MPV 7.8, Neut % (Auto) 85.0 H, Lymph % (Auto) 8.1 L, [place] % (Auto) 6.5, Eos % (Auto) 0.2, Baso % (Auto) 0.1, Neut # (Auto) 5.8, Lymph # (Auto) 0.6 L, [place] # (Auto) 0.5, Eos # (Auto) 0.0, Baso # (Auto) 0.0, Total Counted 100, Neutrophils % (Manual) 82 H, Band Neutrophils % 5.0, Lymphocytes % (Manual) 9 L, Monocytes % (Manual) 4, Platelet Estimate Normal, RBC Morphology Normal, ESR 19 03/09/19 05:40: Sodium 138, Potassium 4.4, Chloride 102, Carbon Dioxide 26, Anion Gap 14.4, BUN 25 H, Creatinine 1.47 H, Estimated Creat Clear 43, Estimated GFR 46 L, Est GFR ( Amer) 56 L, Glucose 122 H, Calcium 9.2, Total Bilirubin 4.7 H, Direct Bilirubin 2.4 H, Indirect Bilirubin 2.3 H, AST 398 H*, ALT 307 H*, Alkaline Phosphatase 328 H, Troponin I 0.03, C-Reactive Protein 0.4, Total Protein 6.7, Albumin 3.4, Amylase 112, Lipase 202 03/09/19 05:40: Lactate 0.8 03/09/19 05:40: PT 10.9, INR 1.05, APTT 25.0 03/09/19 11:33: Troponin I 0.04 I & O for Last 24 hours: Intake & Output 03/07/19 03/08/19 03/09/19 03/10/19 11:59 11:59 11:59 11:59 Weight 72.3 kg Radiology Reports for the Last 24 Hours: CT abdomen pelvis wo con CLINICAL INDICATION: Midepigastric pain ITS.REASON: upper abd pain ORDERING PHYSICIAN: Doyle Alba MD PATIENT AGE: 79 years COMPARISON: 100 TECHNIQUE: Axial images obtained with sagittal and coronal reformats. All CT scans at the facility use one or more dose reduction, viz: automated exposure control, ma/kV adjustment per patient size (including targeted exams where dose is matched to indication, i.e. head), or iterative reconstruction technique. PROCEDURE: Oral Contrast: None IV Contrast: None . FINDINGS: Patient refused IV contrast somewhat limiting evaluation of solid organs. There is a small right pleural effusion and trace left-sided pleural effusion. There are extensive coronary artery calcifications. There has been a prior CABG. Aortic valvular calcifications are also noted. Postcholecystectomy change. There is minimal amount of perihepatic fluid. The spleen and adrenal glands and pancreas have an unremarkable unenhanced CT appearance. No renal or ureteral calculi or hydronephrosis. There is a hyperdensity along the lower pole the right kidney suggesting a small hyperdense cyst unchanged. An exophytic cyst projects off the upper pole left kidney at 2 cm. There is a hyperdense nodule projecting off the lower pole the left kidney as well at 8 mm unchanged. No evidence of diverticulitis. There is mild diffuse hazy appearance of the mesentery similar appearance on the previous exam. No intestinal obstruction or free air. Small amount fluid is present in the right lower quadrant. No evidence of appendicitis. No evidence of diverticulitis. Prostate is enlarged at 5.7 cm. There is diffuse fatty infiltration of the skeletal muscles similar to the previous exam. No acute bony findings. There is a small right internal hernia containing fat IMPRESSION: Overall no significant change from 01/02/2019 with small bilateral pleural effusions right larger than left, diffuse hazy appearance of the mesenteries, small amount of ascites, diffuse fatty infiltration of the skeletal muscles with other nonacute findings as described above. No acute findings are apparent IMPRESSION: Dictated By: Yrn Noble MD Signed By: <Electronically signed by Yrn Noble MD in OV> - Constitutional no acute distress, average body habitus, cooperative - *Routine HEENT Exam Head: Present: normocephalic Eye: Present: PERRL ENT: Present: mucous membranes moist - *Routine Neck Exam Present: supple, full ROM - Routine Chest/Breast/Axilla Exam Chest wall: Absent: tenderness Breast: Absent: tenderness - *Routine Respiratory Exam Present: CTA bilaterally. Absent: accessory muscle use, respiratory distress, stridor, wheezes - *Routine Cardiovascular Exam Present: RRR, Normal S1, Normal S2. Absent: murmur, gallop, rubs - *Routine Abdominal Exam Present: soft, normoactive bowel sounds. Absent: tenderness, distended, rebound, guarding, organomegaly Comments: Negative Dumont sign - *Routine Extremities Exam Absent: cyanosis, clubbing, edema - *Routine Skin Exam Present: jaundice. Absent: cyanosis, erythema, pallor - *Routine Neurological Exam Present: alert, oriented X3, vision grossly intact. Absent: sensory deficit, motor deficit - Routine Psychiatric Exam Present: normal affect, normal thought process, cooperative Internal Medicine - CN: Reslt - Labs CBC & Chem 7: 03/09/19 05:40 03/09/19 05:40 Labs: Short CBC 03/09/19 Range/Units 05:40 WBC 6.9 (4.8-10.8) K/mm3 Hgb 12.0 L (14.1-18.0) g/dL Hct 38.4 L (42.0-52.0) % Plt Count 156 (142-424) K/mm3 BMP 03/09/19 05:40 Sodium 138 Potassium 4.4 Chloride 102 Carbon Dioxide 26 BUN 25 H Creatinine 1.47 H Glucose 122 H Calcium 9.2 Cardiac Enzymes 03/09/19 03/09/19 Range/Units 05:40 11:33 Troponin I 0.03 0.04 (0.00-0.06) ng/ml Liver Function 03/09/19 Range/Units 05:40 Total Bilirubin 4.7 H (0.2-1.0) mg/dL Direct Bilirubin 2.4 H (0.0-0.2) mg/dL AST 398 H* (15-37) U/L ALT 307 H* (12-78) U/L Alkaline Phosphatase 328 H (46-116) U/L Albumin 3.4 (3.4-5.0) gm/dL Assessment and Plan (1) Abdominal pain Current visit: Yes Status: Acute Qualifiers: Abdominal location: epigastric Qualified Code(s): R10.13 - Epigastric pain Category: Medical Code(s): R10.9 - Unspecified abdominal pain Acute sharp epigastric pain times since cholecystectomy in 2010, associated with nausea and sometimes vomiting. The first time with significant elevated LFTs. At the time of exam, abdominal pain is resolved, negative Dumont sign, no TTP on exam. Patient is afebrile. After discussion with Dr. Monterroso, will schedule ERCP this afternoon. (2) Elevated LFTs Current visit: Yes Status: Acute Category: Medical Code(s): R94.5 - Abnormal results of liver function studies Initial liver enzymes bilirubin 4.7, AST 398, ALT 307, alk phos 328. Platelets are 156. Amylase and lipase were WNL. Patient is status post cholecystectomy x8 years with similar epigastric sharp stabbing pain 4-5 times intermittently since then. This time with significantly elevated liver function and positive icterus, likely biliary related. After discussion with Dr. Monterroso, schedule ERCP this afternoon. Recheck liver function in the a.m. along with hepatitis panel and ammonia. (3) Constipation Current visit: Yes Status: Acute Category: Medical Code(s): K59.00 - Constipation, unspecified Patient is chronically constipated and uses occasional prune-juice and occasional MiraLAX. Has not had bowel movement 2 days. Possible contributor to the nausea and vomiting aspect. Start patient on bowel regimen MiraLAX/Metamucil in the same glass every morning. Recommend patient go home and continue the same regimen daily. Patient to follow-up in outpatient clinic with me after discharge.
--- NOTE | 2019-03-09 14:20 | History & Physical Report ---
*Admission Date: 03/09/19 *Chief complaint: Abdominal pain and vomiting *History of present illness: This is a 79-year-old male patient with past medical history of CABG and renal insufficiency. He presented to the ER early this morning with complaints of sharp epigastric pain associated with nausea. Cardiac work-up has been negative so far. The patient had a cholecystectomy in 2010 and since then has had 4-5 episodes of sharp epigastric pain associated with nausea and sometimes vomiting. Most recently was in December of this year when he presented to the ER. He reports he was diagnosed with GERD and given a PPI.. Today, in the ER, his bilirubin was elevated at 4.7, AST/ALT were 398/307 and alk phos was 328. Platelets are 156. CT abdomen pelvis without contrast (due to elevated creatinine) showed postcholecystectomy change, minimal amount of perihepatic fluid, unremarkable spleen and pancreas. Small bilateral pleural effusions, right larger than left small amount of ascites and diffuse fatty infiltration skeletal muscles. No acute findings. This is the first time that he knows of where his liver enzymes were elevated. He denies any recent exposure to hepatitis that he is aware of, although his son has chronic hepatitis C. at the time of examination, the patient reports that abdominal pain has resolved. Dumont sign is negative, and abdomen is nontender nondistended. He does have positive icterus. He does report that he has some chronic constipation for which he takes occasional MiraLAX occasional prune juice. He does have occasional bloating and belching. Today he reports he has not had a bowel movement 2 days. Above note per GI consultation-appreciated. Patient notes his gallbladder was removed in 2010. His -a retired nurse- reports that the attacks over the past several months have been "just like gallbladder attacks and seemed to get worse with certain kinds of foods." [facility] History I have reviewed the patient's past medical history: Yes Medical History: Reports:: Atrial Fibrillation, Coronary Artery Disease, Hyperlipidemia, Hypertension, Myocardial Infarction, Renal Insufficiency Denies:: Cancer, Diabetes Mellitus Type 1, Diabetes Mellitus Type 2, Internal Pacemaker, MRSA, Seizures *Have you ever received a pneumonia vaccine?: Yes *Have you received a flu vaccine this season?: Yes Other Medical History: Reports: Arthritis Other Surgeries: Yes: CABG, Cardiac Catheterization, Cardiac Surgery (Bypass x4, stents x2), Cholecystectomy, Coronary Stent, Open Heart Surgery, Other (turp, cyst removal). No: Pacemaker Amputation: No Fractures: No - *Social History Smoking Status: Former smoker Smoking End Date: 15 years Alcohol Intake: never Substance Use Type: denies use *Occupational Status:: retired Housing: house Household Members: spouse *Travel in the last 8 weeks: None - Psychiatric History Expresses thoughts of harming self/others: None Suicide Plan Description: No Plan Family Hx:: Cancer, Hypertension Review of Systems - Review of Systems Review of systems:: pertinent systems reviewed and negative unless documented below - Constitutional Reports anorexia, Reports weakness, Denies fever(s), Denies headache(s) - Eyes Denies blind spots, Denies blurry vision - ENT Denies abnormal hearing, Denies bleeding gums, Denies dizziness - *Cardiovascular Denies chest pain, Denies excessive sweating, Denies shortness of breath, Denies irregular heart rhythm - *Respiratory Reports shortness of breath (At baseline), Reports shortness of breath with activity, Denies change in phlegm color, Denies chest congestion - *Gastrointestinal Reports abdominal pain, Reports belching, Reports bloating, Reports feeling full early, Reports nausea, Reports vomiting, Denies change in stools, Denies coffee ground vomit, Denies vomiting blood, Denies loose stools, Denies black, tarry stools, Denies constant urge to pass stool - *Genitourinary Denies difficulty urinating - *Musculoskeletal Denies abnormal walking - Integumentary/Breasts Denies acne, Denies hair loss, Denies bleeding lesions - *Neurologic Denies abnormal hearing, Denies abnormal speech, Denies behavioral changes, Denies confusion, Denies dizziness, Denies frequent falls, Denies seizure-like activity, Denies weakness Meds Home Medications Medication Instructions Recorded Confirmed Type Aspirin [Aspir 81] 81 mg PO DAILY 12/10/17 03/09/19 History Clopidogrel Bisulfate [Plavix 75mg 75 mg PO DAILY 12/10/17 03/09/19 History Tab] Tamsulosin HCl [Flomax] 0.4 mg PO HS 05/16/18 03/09/19 History Simvastatin 1 tab PO DAILY 10/01/18 03/09/19 History Albuterol Sulfate [Albuterol 1.25 mg IH Q6HP PRN 03/09/19 03/09/19 History 0.042% 1.25mg/3mL neb] Albuterol Sulfate [Albuterol HFA 1 - 2 puffs IH Q4HP PRN 03/09/19 03/09/19 History Inhaler] Carvedilol [Carvedilol 12.5mg Tab] 12.5 mg PO BID 03/09/19 03/09/19 History Furosemide [Lasix 40mg tab] 40 mg PO DAILY 03/09/19 03/09/19 History Polyethylene Glycol 3350 [Miralax 17 gm PO DAILY 03/09/19 03/09/19 History 17gm Packet] Promethazine HCl [Phenergan 25mg 25 mg PO Q6HP PRN 03/09/19 03/09/19 History tab] Allergies Allergy/AdvReac Type Severity Reaction Status Date / Time hydrocodone [From LORTAB] Allergy Mild Verified 03/02/19 15:00 oxycodone [From PERCOCET] Allergy Mild Verified 03/02/19 15:00 sulfamethoxazole Allergy Mild Verified 03/02/19 15:00 [From BACTRIM] trimethoprim [From BACTRIM] Allergy Mild Verified 03/02/19 15:00 Exam Vital signs and Labs for Last 24 Hours: Temp Pulse Resp BP Pulse Ox 98.0 F 87 18 110/65 94 L 03/09/19 09:12 03/09/19 09:12 03/09/19 09:12 03/09/19 09:12 03/09/19 09:12 Laboratory Results - last 24 hr 03/09/19 05:40: WBC 6.9, RBC 4.29 L, Hgb 12.0 L, Hct 38.4 L, MCV 89.4, MCH 27.9, MCHC 31.3 L, RDW 14.6, Plt Count 156, MPV 7.8, Neut % (Auto) 85.0 H, Lymph % (Auto) 8.1 L, [place] % (Auto) 6.5, Eos % (Auto) 0.2, Baso % (Auto) 0.1, Neut # (Auto) 5.8, Lymph # (Auto) 0.6 L, [place] # (Auto) 0.5, Eos # (Auto) 0.0, Baso # (Auto) 0.0, Total Counted 100, Neutrophils % (Manual) 82 H, Band Neutrophils % 5.0, Lymphocytes % (Manual) 9 L, Monocytes % (Manual) 4, Platelet Estimate Normal, RBC Morphology Normal, ESR 19 03/09/19 05:40: Sodium 138, Potassium 4.4, Chloride 102, Carbon Dioxide 26, Anion Gap 14.4, BUN 25 H, Creatinine 1.47 H, Estimated Creat Clear 43, Estimated GFR 46 L, Est GFR ( Amer) 56 L, Glucose 122 H, Calcium 9.2, Total Bilirubin 4.7 H, Direct Bilirubin 2.4 H, Indirect Bilirubin 2.3 H, AST 398 H*, ALT 307 H*, Alkaline Phosphatase 328 H, Troponin I 0.03, C-Reactive Protein 0.4, Total Protein 6.7, Albumin 3.4, Amylase 112, Lipase 202 03/09/19 05:40: Lactate 0.8 03/09/19 05:40: PT 10.9, INR 1.05, APTT 25.0 03/09/19 11:33: Troponin I 0.04 I & O for Last 24 hours: Intake & Output 03/07/19 03/08/19 03/09/19 03/10/19 11:59 11:59 11:59 11:59 Weight 159 lb 6.307 oz Narrative: Patient is actively retching. Otherwise is alert, oriented. No scleral icterus. Lungs have good air movement but he has some rhonchi consistent with previous exams, really at baseline. Heart rate regular with previously noted murmur. Mild tachycardia noted when he is in pain. Abdominal exam shows significant tenderness but no Dumont sign in the right upper quadrant. Generalized tenderness noted, no CVA tenderness. No edema, no clubbing, no cyanosis. Moves all extremities well, alert, oriented and neurologically intact. Oropharynx is dry but clear, no JVD. Assessment and Plan (1) Abdominal pain Current visit: Yes Status: Acute Qualifiers: Abdominal location: epigastric Qualified Code(s): R10.13 - Epigastric pain Category: Medical Code(s): R10.9 - Unspecified abdominal pain (2) Elevated LFTs Current visit: Yes Status: Acute Category: Medical Code(s): R94.5 - Abnormal results of liver function studies (3) Constipation Current visit: Yes Status: Acute Category: Medical Code(s): K59.00 - Constipation, unspecified - Assessment and plan all Dx Assessment and Plan for all problems:: Appreciate GI consultation. Agree with plan for ERCP. IV fluids and emesis control.
--- NOTE | 2019-03-09 15:16 | Progress Note ---
[facility] Anesthesia Checklist - Patient Identification Patient Identification: Arm Band - Structural Data Admitted From: Inpatient Planned Operative Procedure/s: ercp Consent for Planned Operative Procedure(s) Verified: Yes Verified Documents: Surgical Consent, History and Physical - NPO Status Verified Time NPO: 00:00 - Additional verifications Anesthesia Reactions: No - Airway Assessment C-Spine Mobility Assessed: Yes (mp2) TMJ Mobility Assessed: Yes Dentition: Good Dentition - Neurological Assessment Level of Consciousness: Awake, Alert - Anesthesia Plan Anesthesia Risk discussed: Yes Anesthesia Plan: Verified ASA Class: III Anesthesia Type: MAC [facility] History I have reviewed the patient's past medical history: Yes Medical History: Reports:: Atrial Fibrillation, Coronary Artery Disease, Hyperlipidemia, Hypertension, Myocardial Infarction, Renal Insufficiency Denies:: Cancer, Diabetes Mellitus Type 1, Diabetes Mellitus Type 2, Internal Pacemaker, MRSA, Seizures *Have you ever received a pneumonia vaccine?: Yes *Have you received a flu vaccine this season?: Yes Other Medical History: Reports: Arthritis Other Surgeries: Yes: CABG, Cardiac Catheterization, Cardiac Surgery (Bypass x4, stents x2), Cholecystectomy, Coronary Stent, Open Heart Surgery, Other (turp, cyst removal). No: Pacemaker Amputation: No Fractures: No - *Social History Smoking Status: Former smoker Smoking End Date: 15 years Alcohol Intake: never Substance Use Type: denies use *Occupational Status:: retired Housing: house Household Members: spouse *Travel in the last 8 weeks: None - Psychiatric History Expresses thoughts of harming self/others: None Suicide Plan Description: No Plan Family Hx:: Cancer, Hypertension
--- NOTE | 2019-03-09 16:26 | Procedure Note ---
[facility] Procedure Note Procedure Note:: ERCP procedure Report: Endoscopic retrograde cholangiopancreatography with biliary sphincterotomy and balloon extraction Endoscopist: Mukesh Monterroso II, MD Referring Physician: Benja Cortes M.D. Date of Procedure: March 09, 2019 Equipment: Olympus 180 side viewing endoscope duodenoscope Sedation: MAC sedation Indication: Mr. Henry is a 79-year-old gentleman who has developed the onset of epigastric abdominal pain that radiates through into his back. He had a bout of this in December and 2 minor bouts until now. He presented with some darkened urine, low-grade fever and chills. Labs showed total bilirubin 4.7 with ALT 307 and alkaline phosphatase 328. The patient did have a CAT scan without contrast that showed no significant changes. The patient did have cholecystectomy in 2010 for gallstones and states that this is very similar to his gallbladder pain. Procedure: Prior to the procedure, a history and physical exam was performed, and patient's medications and allergies were reviewed. The risks, benefits and alternatives of the sedation and procedure were discussed with the patient. All questions were answered and informed consent was obtained. The patient was brought to the fluoroscopic radiology room. Patient identification and proposed procedure were verified by the physician and the nurse. The patient was placed in a swimmer's position between left lateral decubitus and prone position and the scope was passed under direct vision. Throughout the procedure, the patient's blood pressure, pulse, and oxygen saturations were monitored continuously. The ERCP was accomplished without difficulty. The patient tolerated the procedure well. Findings: The side-viewing scope was passed directly into the upper esophagus and advanced to the second portion of the duodenum. There was some chronic gastritis. There was also some blanching of the mucosa. The ampulla was well visualized. Both the common bile duct and pancreatic duct were cannulated with a guidewire. A pancreatogram was not performed to prevent pancreatitis. A cholangiogram was performed and there appeared to be sludgy filling defect in the distal common bile duct with delayed drainage of the CBD. A generous biliary sphincterotomy was performed. There was extravasation of some yellow sludge and bile drained freely. A 9 to 12 mm sweeping balloon was placed at the hilum and swept through the biliary system twice with the passage of a small amount of sludge but no purulence. There was excellent decompression of the biliary system. Impression: 1. Minor choledocholithiasis with biliary sludge but no purulence (no cholangitis) Plan: I do feel that this is the etiology of his pain and jaundice. I will discuss the findings with patient and family. The biliary system has been cleared.
[2019-03-10 07:02] LABS: Basophils % 0.2 % (0.1-2.0); Eosinophils % 0.4 % (0.1-12.0); Hematocrit 38.9 % (42.0-52.0); Hemoglobin 11.7 g/dL (14.1-18.0); Lymphocytes # 0.8 K/mm3 (0.7-4.5); Lymphocytes % 14.3 % (10-50); Mean Corpuscular HGB Conc 30.1 g/dL (31.8-35.4); Mean Corpuscular Hemoglobin 27.3 pg (27.0-31.2); Mean Corpuscular Volume 90.6 fl (80-94); Mean Platelet Volume 7.9 fl (7.4-10.4); Monocytes # 0.4 K/mm3 (0.1-1.0); Monocytes % 7.5 % (1.7-9.3); Neutrophils # 4.1 K/mm3 (1.8-7.8); Neutrophils % 77.5 % (37.0-80.0); Platelet Count 136 K/mm3 (142-424); Red Cell Distribution Width 14.7 % (11.5-17.5); White Blood Count 5.3 K/mm3 (4.8-10.8)
--- NOTE | 2019-03-10 07:34 | Progress Note ---
Internal Medicine - PN: Subj *Date: 03/10/19 *Time: 18:48 Interval history: tolerated sips and chips overnight. No longer having Abdominal pain. S/p ERCP with removal of stone in CBD. remains hemodynamically stable with no fever. Exam Vital signs and Labs for Last 24 Hours: Temp Pulse Resp BP Pulse Ox 98.1 F 93 H 18 127/53 L 92 L 03/10/19 04:00 03/10/19 04:00 03/10/19 04:00 03/10/19 04:00 03/10/19 04:00 Laboratory Results - last 24 hr 03/09/19 05:40: PT 10.9, INR 1.05, APTT 25.0 03/09/19 11:33: Troponin I 0.04 03/09/19 14:30: Troponin I 0.04 03/10/19 06:45: Ammonia 26 03/10/19 06:45: WBC 5.3, RBC 4.30 L, Hgb 11.7 L, Hct 38.9 L, MCV 90.6, MCH 27.3, MCHC 30.1 L, RDW 14.7, Plt Count 136 L, MPV 7.9, Neut % (Auto) 77.5, Lymph % (Auto) 14.3, [place]edar % (Auto) 7.5, Eos % (Auto) 0.4, Baso % (Auto) 0.2, Neut # (Auto) 4.1, Lymph # (Auto) 0.8, Cedar # (Auto) 0.4, Eos # (Auto) 0.0, Baso # (Auto) 0.0 I & O for Last 24 hours: Intake & Output 03/07/19 03/08/19 03/09/19 03/10/19 23:59 23:59 23:59 23:59 Intake Total 782 / 782 Output Total 120 / 120 Balance -120 / -120 782 / 782 Weight 72.3 kg 73.255 kg Narrative: Patient is alert and oriented. No acute distress Mild scleral icterus. Lungs have good air movement but he has some rhonchi consistent with previous exams, at baseline. Heart rate regular with previously noted murmur. Abdominal exam shows significant provement in tenderness, no Dumont sign in the right upper quadrant.no CVA tenderness. No edema, no clubbing, no cyanosis. Moves all extremities well, alert, oriented and neurologically intact. Oropharynx is dry but clear, no JVD. Assessment and Plan (1) Abdominal pain Current visit: Yes Status: Acute Qualifiers: Abdominal location: epigastric Qualified Code(s): R10.13 - Epigastric pain Category: Medical Code(s): R10.9 - Unspecified abdominal pain (2) Elevated LFTs Current visit: Yes Status: Acute Category: Medical Code(s): R94.5 - Abnormal results of liver function studies (3) Constipation Current visit: Yes Status: Acute Category: Medical Code(s): K59.00 - Constipation, unspecified (4) Choledocholithiasis Current visit: Yes Status: Acute Category: Medical Code(s): K80.50 - Calculus of bile duct without cholangitis or cholecystitis without obstruction That is post ERCP with removal of minor choledocholithiasis and sludge, improvement in symptoms. Continue to advance diet slowly. Monitor for improvement. GI continues to follow along, appreciate recommendations. continues to require inpatient management.
[2019-03-10 07:54] LABS: Albumin Level 2.9 gm/dL (3.4-5.0); Albumin/Globulin Ratio 0.9 (1.1-1.8); Anion Gap 13.7 mEq/L (5-15); Bilirubin,Total 4.5 mg/dL (0.2-1.0); Calcium 8.5 mg/dL (8.5-10.1); Globulin 3.1 gm/dl (1.3-3.2); Potassium 4.7 mmoL/L (3.5-5.1)
[2019-03-10 08:23] LABS: Hepatitis B Core Antibody IgM Negative (Negative); Hepatitis B Surface Antigen Negative (Negative)
[2019-03-11 06:21] LABS: Basophils % 0.2 % (0.1-2.0); Eosinophils # 0.1 K/mm3 (0.0-0.4); Eosinophils % 1.2 % (0.1-12.0); Hemoglobin 11.3 g/dL (14.1-18.0); Lymphocytes # 0.9 K/mm3 (0.7-4.5); Lymphocytes % 21.8 % (10-50); Mean Corpuscular HGB Conc 29.8 g/dL (31.8-35.4); Mean Corpuscular Hemoglobin 27.4 pg (27.0-31.2); Mean Platelet Volume 7.9 fl (7.4-10.4); Monocytes # 0.4 K/mm3 (0.1-1.0); Neutrophils # 2.8 K/mm3 (1.8-7.8); Neutrophils % 66.8 % (37.0-80.0); Platelet Count 127 K/mm3 (142-424); Red Blood Count 4.13 M/mm3 (4.60-6.20); Red Cell Distribution Width 14.7 % (11.5-17.5); White Blood Count 4.2 K/mm3 (4.8-10.8)
[2019-03-11 06:25] LABS: Hepatitis C Antibody 0.1 s/co ratio (0.0-0.9)
[2019-03-11 06:45] LABS: Albumin Level 2.8 gm/dL (3.4-5.0); Albumin/Globulin Ratio 0.9 (1.1-1.8); Anion Gap 10.5 mEq/L (5-15); Bilirubin,Total 3.1 mg/dL (0.2-1.0); Calcium 8.4 mg/dL (8.5-10.1); Potassium 4.5 mmoL/L (3.5-5.1); Total Protein,Serum 5.8 gm/dL (6.4-8.2)
--- NOTE | 2019-03-11 08:49 | Discharge Summary ---
General - General Admission date:: 03/09/19 Discharge date: 03/11/19 HPI HPI: This is a 79-year-old male patient with past medical history of CABG and renal insufficiency. He presented to the ER early this morning with complaints of sharp epigastric pain associated with nausea. Cardiac work-up has been negative so far. The patient had a cholecystectomy in 2010 and since then has had 4-5 episodes of sharp epigastric pain associated with nausea and sometimes vomiting. Most recently was in December of this year when he presented to the ER. He reports he was diagnosed with GERD and given a PPI.. Today, in the ER, his bilirubin was elevated at 4.7, AST/ALT were 398/307 and alk phos was 328. Platelets are 156. CT abdomen pelvis without contrast (due to elevated creatinine) showed postcholecystectomy change, minimal amount of perihepatic fluid, unremarkable spleen and pancreas. Small bilateral pleural effusions, right larger than left small amount of ascites and diffuse fatty infiltration skeletal muscles. No acute findings. This is the first time that he knows of where his liver enzymes were elevated. He denies any recent exposure to hepatitis that he is aware of, although his son has chronic hepatitis C. at the time of examination, the patient reports that abdominal pain has resolved. Dumont sign is negative, and abdomen is nontender nondistended. He does have positive icterus. He does report that he has some chronic constipation for which he takes occasional MiraLAX occasional prune juice. He does have occasional bloating and belching. Today he reports he has not had a bowel movement 2 days. Above note per GI consultation-appreciated. Patient notes his gallbladder was removed in 2010. 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 GI consultation was obtained and ERCP was performed that afternoon revealing retained choledocholithiasis. This was addressed endoscopically with excellent results. The patient tolerated the procedure well. The next morning the patient had improving liver labs including improving bilirubin and AST/8 ALT levels, but he did have a slight elevation in creatinine. IV fluids were gently increased and the patient was observed overnight. This morning creatinine had improved back down to 1.8. Patient felt good, tolerated a full liquid diet and was able to be discharged home. Plan will be to discharge home today. Have asked patient to hold his Lasix today and resume this tomorrow. We will get labs again on March 13 to document his renal function as well as obstructive liver labs and I will see him in the office at his regularly scheduled appointment on March 17. Objective Vital signs: Temp Pulse Resp BP Pulse Ox 97.6 F 88 17 116/54 L 94 L 03/11/19 07:43 03/11/19 07:43 03/11/19 07:43 03/11/19 07:43 03/11/19 07:43 Narrative: Pleasant, talkative, no jaundice, heart rate irregular with murmur as previously noted. Lungs have some rhonchorous sounds consistent with his known emphysema but good air movement. Abdomen soft, minimal tenderness in the right upper quadrant with vigorous palpation but much improved over admission. No edema or clubbing. Neurologically intact. Results Labs on day of discharge: Labs from last 24 hours 03/11/19 03/11/19 03/09/19 06:02 06:02 11:33 WBC 4.2 L RBC 4.13 L Hgb 11.3 L Hct 38.0 L MCV 92.0 MCH 27.4 MCHC 29.8 L RDW 14.7 Plt Count 127 L MPV 7.9 Neut % (Auto) 66.8 Lymph % (Auto) 21.8 [place] % (Auto) 10.0 H Eos % (Auto) 1.2 Baso % (Auto) 0.2 Neut # (Auto) 2.8 Lymph # (Auto) 0.9 [place] # (Auto) 0.4 Eos # (Auto) 0.1 Baso # (Auto) 0.0 Sodium 137 Potassium 4.5 Chloride 104 Carbon Dioxide 27 Anion Gap 10.5 BUN 27 H Creatinine 1.89 H Estimated Creat Clear 35 Estimated GFR 35 L Est GFR ( Amer) 42 L Glucose 82 Calcium 8.4 L Total Bilirubin 3.1 H AST 98 H D ALT 213 H D Alkaline Phosphatase 242 H Total Protein 5.8 L Albumin 2.8 L Globulin 3.0 Albumin/Globulin Ratio 0.9 L Hepatitis A IgM Ab Negative Hep Bs Antigen Negative Hep B Core IgM Ab Negative Hepatitis C Antibody 0.1 DS: Diagnosis - Discharge Diagnosis (1) Abdominal pain Status: Resolved (2) Elevated LFTs Status: Resolved (3) Constipation Status: Chronic (4) Choledocholithiasis Status: Resolved (5) Acute kidney injury superimposed on chronic kidney disease Status: Acute (6) Panlobular emphysema Status: Chronic (7) Coronary atherosclerosis Status: Chronic Discharge Plan - Patient Discharge Instructions ACTIVITY: Continue current activity DIET: continue same diet Patient Instructions: DI for Endoscopic Retrograde Cholangiopancreatography, DI for Atrial Fibrillation, DI for Abdominal Pain-Adult, DI for Constipation - Follow up Plan Follow up with: Billy Spicer MD [Staff Physician] - 03/19/19 2:30 pm Benja Cortes MD [Primary Care Provider] - 03/17/19 Disposition: Home, Self-[facility] Medications: Home Medications Medication Instructions Recorded Confirmed Type Aspirin [Aspir 81] 81 mg PO DAILY 12/10/17 03/09/19 History Clopidogrel Bisulfate [Plavix 75mg 75 mg PO DAILY 12/10/17 03/09/19 History Tab] Simvastatin 20 mg PO HS 10/01/18 03/10/19 History Albuterol Sulfate [Albuterol HFA 1 - 2 puffs IH Q4HP PRN 03/09/19 03/09/19 History Inhaler] Carvedilol [Carvedilol 12.5mg Tab] 12.5 mg PO BID 03/09/19 03/09/19 History Furosemide [Lasix 40mg tab] 40 mg PO DAILY 03/09/19 03/09/19 History Polyethylene Glycol 3350 [Miralax 17 gm PO DAILY 03/09/19 03/09/19 History 17gm Packet] Promethazine HCl [Phenergan 25mg 25 mg PO Q6HP PRN 03/09/19 03/09/19 History tab] Albuterol Sulfate [Albuterol 2.5 mg INHALATION Q6HP PRN 03/10/19 03/10/19 History 0.083% 2.5mg/3mL neb] Ciprofloxacin HCl/Dexameth [Cipro 4 drops OP QID 03/10/19 03/10/19 History 0.3%-Dex 0.1% Otic Susp 7.5mL] Fluticasone Propionate [Flonase 2 spry NS DAILYP PRN 03/10/19 03/10/19 History Allergy Relief NS] Tamsulosin HCl 0.4 mg PO HS 03/10/19 03/10/19 History Prescriptions/Medication Reconciliation: Continued Clopidogrel Bisulfate [Plavix 75mg Tab] 75 mg PO DAILY Aspirin [Aspir 81] 81 mg PO DAILY Carvedilol [Carvedilol 12.5mg Tab] 12.5 mg PO BID Albuterol Sulfate [Albuterol HFA Inhaler] 1 - 2 puffs IH Q4HP PRN PRN Reason: Shortness Of Breath Or Wheezing Tamsulosin HCl 0.4 mg PO HS Ciprofloxacin HCl/Dexameth [Cipro 0.3%-Dex 0.1% Otic Susp 7.5mL] 4 drops OP QID Albuterol Sulfate [Albuterol 0.083% 2.5mg/3mL neb] 2.5 mg INHALATION Q6HP PRN PRN Reason: Shortness Of Breath Fluticasone Propionate [Flonase Allergy Relief NS] 2 spry NS DAILYP PRN PRN Reason: ALLERGIES Simvastatin 20 mg PO HS Promethazine HCl [Phenergan 25mg tab] 25 mg PO Q6HP PRN PRN Reason: Nausea And Vomiting Furosemide [Lasix 40mg tab] 40 mg PO DAILY Polyethylene Glycol 3350 [Miralax 17gm Packet] 17 gm PO DAILY Other Amb Orders: Complete Blood Count Auto Diff Time Frame: 03/13/19, Facility: [facility], Location: [facility] Location Comprehensive Metabolic Panel Time Frame: 03/13/19, Facility: [facility], Location: [facility] Location
== END 2019-03-11 10:07 | disposition home or self-care (01) | DRG 445 ==
LOC: ER 05:36 → 2ND 05:36 → OBSVTOIN 08:22 → 2ND 09:06
PROVIDERS: ADMIT Internal Medicine Adolescent Medicine; ATTEND Internal Medicine Adolescent Medicine
CPT/HCPCS: 36415; 71020; 71046; 74176; 74330; 80048; 80053; 80074; 80076; 82140; 82150; 83605; 83690; 84484; 85007; 85025; 85610; 85651; 85730; 86140; 93005; 96365; 96375; 99284; J2405

== ENCOUNTER → 2019-03-13 07:33 | Outpatient (CLI) | payer MEDICARE, SELFPAY ==
[2019-03-13 13:30] LABS: Basophils % 0.3 % (0.1-2.0); Eosinophils # 0.1 K/mm3 (0.0-0.4); Eosinophils % 2.3 % (0.1-12.0); Hematocrit 39.6 % (42.0-52.0); Hemoglobin 11.5 g/dL (14.1-18.0); Lymphocytes # 0.8 K/mm3 (0.7-4.5); Lymphocytes % 17.5 % (10-50); Mean Corpuscular HGB Conc 29.1 g/dL (31.8-35.4); Mean Corpuscular Hemoglobin 27.5 pg (27.0-31.2); Mean Corpuscular Volume 94.5 fl (80-94); Mean Platelet Volume 8.3 fl (7.4-10.4); Monocytes # 0.4 K/mm3 (0.1-1.0); Monocytes % 9.5 % (1.7-9.3); Neutrophils # 3.1 K/mm3 (1.8-7.8); Neutrophils % 70.4 % (37.0-80.0); Platelet Count 152 K/mm3 (142-424); Red Blood Count 4.19 M/mm3 (4.60-6.20); Red Cell Distribution Width 14.7 % (11.5-17.5); White Blood Count 4.5 K/mm3 (4.8-10.8)
[2019-03-13 14:14] LABS: Alanine Aminotransferase 130 U/L (12-78); Albumin Level 3.1 gm/dL (3.4-5.0); Albumin/Globulin Ratio 1.1 (1.1-1.8); Alkaline Phosphatase 229 U/L (46-116); Anion Gap 10.9 mEq/L (5-15); Aspartate Amino Transferase 34 U/L (15-37); Bilirubin,Total 1.4 mg/dL (0.2-1.0); Blood Urea Nitrogen 21 mg/dL (7-18); Calcium 8.7 mg/dL (8.5-10.1); Carbon Dioxide 30 mmol/L (21.0-32.0); Chloride 106 mmol/L (98-107); Estimated Glomerular Filt Rate 42 ml/min (>60); GFR (African American) 51 ML/MIN (>60); Globulin 2.8 gm/dl (1.3-3.2); Glucose 93 mg/dL (74-106); Potassium 4.9 mmoL/L (3.5-5.1); Sodium 142 mmol/L (136-145); Total Protein,Serum 5.9 gm/dL (6.4-8.2)
== END ==
PROVIDERS: PCP Internal Medicine Adolescent Medicine; Visit Provider Internal Medicine Adolescent Medicine
DX: K80.50 Calculus of bile duct without cholangitis or cholecystitis without obstruction (principal)
CPT/HCPCS: 36415; 80053; 85025

== ENCOUNTER → 2019-08-22 12:05 | Outpatient (CLI) | payer MEDICARE, SELFPAY ==
--- NOTE | 2019-08-22 12:18 | XR_ITS ---
PROCEDURE: XR CHEST 2V CLINICAL HISTORY: acute bronchopneumonia, copd exacerbation COMPARISON: CHESTWO CT chest wo con from 10/25/2017 CXR2V XR chest 2V from 10/01/2018 CXR2V XR chest 2V from 01/02/2019 Chest from 03/09/2019 FINDINGS: The lung zhu are somewhat hyperexpanded and appear clear of infiltrate. Cardiac size is borderline, there are sternal wire sutures and surgical clips from previous CABG. The vascularity is normal. There is minimal lateral elevation right hemidiaphragm and minimal blunting of the right costophrenic angle and these findings were seen previously, doubt a pleural effusion. IMPRESSION: Mild COPD, no acute chest pathology noted Dictated by: Dr. Benjamin Gordon MD 08/22/2019 20:[address] Benjamin Gordon MD in [place] 08/22/2019 20:16
[2019-08-22 12:46] LABS: Basophils % 0.4 % (0.1-2.0); Eosinophils # 0.1 K/mm3 (0.0-0.4); Eosinophils % 0.8 % (0.1-12.0); Hematocrit 41.8 % (42.0-52.0); Hemoglobin 13.2 g/dL (14.1-18.0); Lymphocytes # 1.3 K/mm3 (0.7-4.5); Lymphocytes % 15.8 % (10-50); Mean Corpuscular HGB Conc 31.5 g/dL (31.8-35.4); Mean Corpuscular Hemoglobin 30.7 pg (27.0-31.2); Mean Corpuscular Volume 97.4 fl (80-94); Mean Platelet Volume 8.2 fl (7.4-10.4); Monocytes # 0.7 K/mm3 (0.1-1.0); Monocytes % 8.2 % (1.7-9.3); Neutrophils # 6.3 K/mm3 (1.8-7.8); Neutrophils % 74.9 % (37.0-80.0); Platelet Count 243 K/mm3 (142-424); Red Cell Distribution Width 14.3 % (11.5-17.5); White Blood Count 8.4 K/mm3 (4.8-10.8)
[2019-08-22 13:38] LABS: Alanine Aminotransferase 14 U/L (12-78); Albumin Level 3.3 gm/dL (3.4-5.0); Alkaline Phosphatase 112 U/L (46-116); Anion Gap 10.5 mEq/L (5-15); Aspartate Amino Transferase 17 U/L (15-37); Blood Urea Nitrogen 23 mg/dL (7-18); Calcium 8.7 mg/dL (8.5-10.1); Carbon Dioxide 32 mmol/L (21.0-32.0); Chloride 102 mmol/L (98-107); Creatinine,Serum 1.67 mg/dL (0.70-1.30); Estimated Glomerular Filt Rate 40 ml/min (>60); GFR (African American) 48 ML/MIN (>60); Globulin 3.2 gm/dl (1.3-3.2); Glucose 98 mg/dL (74-106); Magnesium 1.7 mg/dL (1.4-2.2); Potassium 4.5 mmoL/L (3.5-5.1); Sodium 140 mmol/L (136-145); Total Protein,Serum 6.5 gm/dL (6.4-8.2)
== END ==
PROVIDERS: Visit Provider Internal Medicine Adolescent Medicine
DX: J18.0 Bronchopneumonia, unspecified organism (principal); J44.1 Chronic obstructive pulmonary disease with (acute) exacerbation; A09 Infectious gastroenteritis and colitis, unspecified
CPT/HCPCS: 36415; 71046; 80053; 83735; 85025

== ENCOUNTER → 2019-10-08 14:14 | Outpatient (CLI) | payer MEDICARE, SELFPAY ==
--- NOTE | 2019-10-08 14:20 | CT_ITS ---
PROCEDURE: CT HEAD/BRAIN WO CON CLINICAL INDICATION: TIA , VISION CHANGES ,SLURRED SPEECH Slurred speech, disturbance COMPARISON: No exams were available for comparison TECHNIQUE: Axial images obtained. All CT scans at the facility use one or more dose reduction, viz: automated exposure control, ma/kV adjustment per patient size (including targeted exams where dose is matched to indication, i.e. head), or iterative reconstruction technique. FINDINGS: No midline shift, mass effect, intracranial hemorrhage, hydrocephalus, or extra-axial fluid collection is evident. There is generalized atrophy with hypoattenuation of the periventricular white matter consistent with microangiopathic changes. The calvarium has an unremarkable appearance. No mastoid effusion. No sinus air-fluid level. IMPRESSION: No acute intracranial finding Dictated by: Yrn Noble MD 10/08/2019 14:43 Electronically signed by Yrn Noble MD in [place] 10/08/2019 14:43
== END ==
PROVIDERS: PCP Internal Medicine Adolescent Medicine; Visit Provider Nurse Practitioner Family
DX: G45.9 Transient cerebral ischemic attack, unspecified (principal); H53.9 Unspecified visual disturbance; R47.81 Slurred speech
CPT/HCPCS: 70450

== ENCOUNTER → 2019-10-20 10:00 | Outpatient (CLI) | payer MEDICARE, SELFPAY ==
--- NOTE | 2019-10-20 10:08 | CA_ITS ---
APPROVED REPORT EXAM: Comprehensive 2D, Doppler, and color-flow Echocardiogram Speech Language Pathologist Travel: Sejal Renner, RT(R) Ht: 5 ft 8 in Wt: 175lbs BSA: 1.93 BP: 132/84 mmHg Indications: Hx of TIA, COPD, ex smoker, HTN, hyperlipidemia, AFIB, hx of CAD, CABG 2D Dimensions LVOT 2.06 cm (M/F) 1.5-2.5 M-Mode Dimensions RVDd 2.93 cm (0.9-2.6) LVDd 5.01 cm (3.5-5.7) LVDs 4.20 cm (3.5-5.7) IVSd 1.14 cm (0.6-1.1) PWd 0.87 cm (0.6-1.1) EF (Teich) 33.80% FS 16.20% EDV (Teich) 118.80 mL ESV (Teich) 78.60 mL Aortic Valve LVOT Max 71.00 (70-110 cm/s) LVOT VTI 13.91 cm Mitral Valve MV PHT 73.00 ms Left Ventricle Left atrium is mildly enlarged, left ventricle is mildly dilated, reduced left ventricular systolic function, visually estimated ejection fraction 30%, left ventricle is globally hypokinetic, there is abnormal septal motion, diastolic parameters are inconclusive. Right Ventricle Right atrium and right ventricle mildly enlarged with normal contractility. Aortic Valve Aortic valve is thickened and calcified, without Doppler evidence of aortic stenosis, there is mild aortic insufficiency. Mitral Valve Mitral valve leaflets are minimally thickened, there is mild mitral regurgitation. Tricuspid Valve Tricuspid valve is grossly normal, there is mild tricuspid regurgitation, calculated right ventricular systolic pressure is 65 mmHg. Pulmonic Valve Pulmonic valve is poorly visualized. Great Vessels Aortic root is normal size. Pericardium No significant pericardial effusion noted. Conclusion 1. Biatrial abdomen, dilated left ventricle, visually estimated ejection fraction 30%, left ventricle is globally hypokinetic, there is abnormal septal motion, diastolic parameters are inconclusive. 2. Mildly enlarged right ventricle with normal contractility. 3. Thickened and calcified aortic valve without Doppler evidence of aortic stenosis, there is mild aortic insufficiency. 4. Mild mitral and tricuspid regurgitation, calculated right ventricular systolic pressure 65 mmHg. 5. No significant pericardial effusion noted. Electronically signed by : Alfie Rodriguez, 10/20/2019 21:11:45
--- NOTE | 2019-10-20 10:08 | CA_ITS ---
APPROVED REPORT Missile Tracking Technician: CHANEL Laterality: Bilateral Study Quality: Good Indications: TIA,HTN,BLURRED VISION,ESAU Doppler Spectral Velocity Analysis dICA (R) 89.50/29.20 cm/s dICA (L) 93.90/28.40 cm/s Chelsie (R) 149.20/36.30 cm/s Chelsie (L) 98.90/32.20 cm/s pICA (R) 145.30/43.40 cm/s pICA (L) 89.00/31.10 cm/s dCCA (R) 73.30/16.80 cm/s dCCA (L) 93.10/14.70 cm/s pCCA (R) 80.60/21.30 cm/s pCCA (L) 79.10/10.10 cm/s Vert (R) 49.50/9.00 cm/s Vert (L) 40.30/13.70 cm/s ICA/CCA 2.00 ICA/CCA 1.10 Findings Duplex evaluation demonstrates stenosis of the right proximal internal carotid artery in the range of 20-49% with PSV <140 cm/sec, EDV <100 cm/sec, and IC/CC Ratio <4.0.Duplex evaluation demonstrates stenosis of the left proximal internal carotid artery in the range of 20-49% with PSV <140 cm/sec, EDV <100 cm/sec, and IC/CC Ratio <4.0.Antegrade flow seen bilateral vertebral arteries. No significant change from study of 07/11/2017 Conclusion Duplex evaluation demonstrates stenosis of the right and left proximal internal carotid artery in the range of 20-49% Antegrade flow seen bilateral vertebral arteries. No significant change from study of 07/11/2017 Electronically signed by : Yrn Noble MD 10/20/2019 18:10:25
== END ==
PROVIDERS: PCP Internal Medicine Adolescent Medicine; Visit Provider Nurse Practitioner Family
DX: G45.9 Transient cerebral ischemic attack, unspecified (principal); H53.9 Unspecified visual disturbance; R47.81 Slurred speech
CPT/HCPCS: 93306; 93880

== ENCOUNTER 2019-12-02 06:21 | Inpatient (IN) ==
[2019-12-02 06:42] LABS: ABG HCO3 26.5 mmhg (22.0-26.0); ABG Oxygen Saturation 97 % (90-100); ABG PH 7.23 mmol/L (7.35-7.45); ABG PO2 112.6 mmhg (80-100); ABG TCO2 28.4 mmhg (23-27)
[2019-12-02 06:42] LABS: Basophils % 0.1 % (0.1-2.0); Eosinophils % 0.1 % (0.1-12.0); Hematocrit 43.7 % (42.0-52.0); Hemoglobin 13.7 g/dL (14.1-18.0); Lymphocytes # 0.6 K/mm3 (0.7-4.5); Lymphocytes % 4.1 % (10-50); Mean Corpuscular HGB Conc 31.3 g/dL (31.8-35.4); Mean Corpuscular Volume 95.7 fl (80-94); Monocytes # 0.7 K/mm3 (0.1-1.0); Monocytes % 4.7 % (1.7-9.3); Neutrophils # 13.2 K/mm3 (1.8-7.8); Neutrophils % 91.1 % (37.0-80.0); Platelet Count 218 K/mm3 (142-424); Red Blood Count 4.57 M/mm3 (4.60-6.20); Red Cell Distribution Width 13.6 % (11.5-17.5); White Blood Count 14.5 K/mm3 (4.8-10.8)
[2019-12-02 06:43] LABS: Oxygen 2 LPM %
[2019-12-02 06:44] LABS: ABG PCO2 64.2 mmhg (35.0-45.0)
[2019-12-02 06:50] LABS: Bilirubin,Total 1.6 mg/dl (0.2-1.3)
[2019-12-02 06:51] LABS: Albumin Level 4.3 g/dl (3.5-5.0); Albumin/Globulin Ratio 1.4 (1.1-1.8); Anion Gap 12.8 mEq/L (5-15); Calcium 9.1 mg/dl (8.4-10.2); Total Protein,Serum 7.3 g/dl (6.3-8.2)
--- NOTE | 2019-12-02 06:53 | Emergency Department Note ---
ED Disposition Clinical Impression: Severe sepsis with acute organ dysfunction, Left bundle branch block (LBBB), Renal insufficiency Community acquired pneumonia Qualifiers: Laterality: right Lung location: lower lobe of lung Qualified Code(s): J18.9 - Pneumonia, unspecified organism Respiratory failure Qualifiers: Chronicity: acute on chronic Respiratory failure complication: hypercapnia Qualified Code(s): J96.22 - Acute and chronic respiratory failure with hypercapnia COPD (chronic obstructive pulmonary disease) Qualifiers: COPD type: COPD with acute lower respiratory infection Qualified Code(s): J44.0 - Chronic obstructive pulmonary disease with (acute) lower respiratory infection Disposition: Admitted As Inpatient Condition on Discharge: Good - Critical Care Critical Care Time: No Attestation: On , the high probability of a clinically significant, sudden or life threatening deterioration of the following system(s) required my full and direct attention, intervention and personal management. The time I documented below is in addition to time spent performing reported procedures but includes the following listed in this critical care notation. Medical Decision Making - Medical Records Medical records reviewed: Yes: I reviewed the patient's medical records. - Juan Miguel Inquiry Pt receiving controlled substance: No Vital Signs: 12/02/19 06:30 12/02/19 06:51 12/02/19 06:54 Temperature 99.1 F Temperature Source Oral Pulse Rate 109 H Pulse Rate [Right Brachial] 69 87 Respiratory Rate 24 Blood Pressure [Right Arm] 120/51 L 120/51 L Blood Pressure Mean [Right Arm] 74 74 Blood Pressure Source [Right Arm] Automatic Cuff Blood Pressure Position [Right Arm] Sitting 02 Sat by Pulse Oximetry 97 100 98 Oxygen Delivery Method Nasal Cannula Nasal Cannula Oxygen Flow Rate (LPM) 2 2 12/02/19 07:21 Temperature Temperature Source Pulse Rate Pulse Rate [Right Brachial] 83 Respiratory Rate Blood Pressure [Right Arm] 105/32 L Blood Pressure Mean [Right Arm] 56 Blood Pressure Source [Right Arm] Blood Pressure Position [Right Arm] 02 Sat by Pulse Oximetry 96 Oxygen Delivery Method BiPAP Oxygen Flow Rate (LPM) - Lab Data Lab results reviewed: Yes: I reviewed the patient's lab results. Lab Results 12/02/19 06:30: WBC 14.5 H, RBC 4.57 L, Hgb 13.7 L, Hct 43.7, MCV 95.7 H, MCH 2 9.9, MCHC 31.3 L, RDW 13.6, Plt Count 218, MPV 8.0, Neut % (Auto) 91.1 H, Lymph % (Auto) 4.1 L, [place] % (Auto) 4.7, Eos % (Auto) 0.1, Baso % (Auto) 0.1, Neut # (Auto) 13.2 H, Lymph # (Auto) 0.6 L, [place] # (Auto) 0.7, Eos # (Auto) 0.0, Baso # (Auto) 0.0, Total Counted 100, Neutrophils % (Manual) 92 H, Lymphocytes % (Manual) 3 L, Monocytes % (Manual) 4, Eosinophils % (Manual) 1, Platelet Estimate Normal, Hypochromasia 1+ 12/02/19 06:30: Sodium 138, Potassium 4.8, Chloride 100, Carbon Dioxide 30, [place]i on Gap 12.8, BUN 22 H, Creatinine 1.30 H, Estimated Creat Clear 44, Estimated GFR 53 L, Est GFR ( Amer) 65, Glucose 115 H, Calcium 9.1, Total Bilirubin 1.6 H, AST 29, ALT 19, Alkaline Phosphatase 94, Troponin I 0.02, Total Protein 7.3, Albumin 4.3, Globulin 3.0, Albumin/Globulin Ratio 1.4 12/02/19 06:30: Lactate 0.9 12/02/19 06:30: Influenza Type A Ag Negative, Influenza Type B Ag Negative 12/02/19 06:39: Specimen Source L. brachial, O2 % 2 lpm, ABG pH 7.23 L*, ABG pCO2 64.2 H, ABG pO2 112.6 H, ABG HCO3 26.5 H, ABG Total CO2 28.4 H, ABG O2 Saturation 97, ABG Base Excess -1.0, Yrn Test N/a Result diagrams: 12/02/19 06:30 12/02/19 06:30 Orders (Tests/Meds): ED MEDICATIONS Generic Name Dose Route Start Last Admin Trade Name Freq PRN Reason Stop Dose Admin Ceftriaxone Sodium 1 gm/ 50 mls @ 100 mls/hr 12/02/19 07:45 12/02/19 07:43 Sodium Chloride IV 12/16/19 07:44 100 mls/hr Q24H PAM Administration Protocol Azithromycin 500 mg/ Sodium 250 mls @ 250 mls/hr 12/02/19 07:45 12/02/19 07:43 Chloride IV 12/16/19 07:44 250 mls/hr Q24H PAM Administration Protocol Sodium Chloride 3 ml 12/02/19 07:00 Sodium Chloride 3% 15ml [facility] 01/01/20 06:59 ONCE PRN INDUCE SPUTUM COLLECTION Discontinued Medications Generic Name Dose Route Start Last Admin Trade Name Freq PRN Reason Stop Dose Admin Albuterol/Ipratropium 3 ml 12/02/19 06:52 12/02/19 06:53 Duoneb 3ml [facility] 12/02/19 06:53 3 ml ONCE ONE Administration Methylprednisolone Sodium Succinate 125 mg 12/02/19 06:46 12/02/19 06:50 Solu-Medrol 125mg/2ml Vial IV 12/02/19 06:47 125 mg ONCE ONE Administration ORDERS Category Date Time Status Troponin I Q3H Lab 12/02/19 09:30 Ordered Troponin I Q3H Lab 12/02/19 12:30 Ordered Blood Culture Stat Micro 12/02/19 06:30 Received Sputum Culture & Gram Stain Stat Micro 12/02/19 06:30 Results - Radiology Data #1 Image(s): Chest Image Reviewed: Yes I reviewed the patient's radiology image Preliminary Findings: Abnormal (rt lower lobe ) - ECG Data Tracing #1 Normal Sinus Rhythm: Yes Ischemic changes: non-specific ST-T wave changes Conduction abnormalities present: LBBB ECG compared to prior tracings: there are no significant changes - Physician Consults Physician Consulted: deepak Reason -: Admission Resp/SOB HPI - General Chief Complaint: Shortness of Breath/Dyspnea Stated Complaint: cough,congestion Time Seen by Provider: 12/02/19 06:40 Mode of Arrival: Family Vehicle Source of Information: Patient, Relative, Medical Record Limitations: No Limitations Description of Symptoms (Recalled from ER Triage Doc. by RN): pt presents with cough and congestion of what he reports to be 3-4 days, but family member states has been going on for awhile and just recently gotten worse. pt is oxygen dependent, wearing 2lpm per nc at home at all times, and has a significant copd hx. pt denies being on any antibiotics or steroids at this time, and has no significant risk of exposure to anyone positive for coronavirus cvd19. gcs 15. vss. pt is sitting upright with significant improvement in breathing after transporting from [facility]--bed. right side lung auscultation with rhonchi. productive cough. - History of Present Illness pt with hx of copd and over the last few days has hx of prod cough- yellow sputum - - has no known exposure for covid-19- MD Complaint: shortness of breath, cough Onset (ago): day(s) Severity: moderate Known history of: COPD Associated symptoms: denies other symptoms Treatment prior to arrival: none - Related Data Home oxygen amount: 2 liters Home Medications Medication Instructions Recorded Confirmed Aspirin [Aspir 81] 81 mg PO DAILY 12/10/17 12/02/19 Clopidogrel Bisulfate [Plavix 75mg 75 mg PO DAILY 12/10/17 12/02/19 Tab] Simvastatin 20 mg PO HS 10/01/18 12/02/19 Albuterol Sulfate [Albuterol HFA 1 - 2 puffs IH Q4HP PRN 03/09/19 12/02/19 Inhaler] Furosemide [Lasix 40mg tablet] 40 mg PO DAILY 03/09/19 12/02/19 carvediloL [Carvedilol 12.5mg Tab] 12.5 mg PO BID 03/09/19 12/02/19 polyethylene glycoL 3350 [Miralax 17 gm PO DAILY 03/09/19 12/02/19 17gm Packet] Albuterol Sulfate [Albuterol 2.5 mg INHALATION Q6HP PRN 03/10/19 12/02/19 0.083% 2.5mg/3mL neb] Fluticasone Propionate [Flonase 2 spry NS DAILYP PRN 03/10/19 12/02/19 Allergy Relief NS] Tamsulosin HCl 0.4 mg PO HS 03/10/19 12/02/19 pantoprazole 40 mg tablet,delayed 1 tab PO DAILY 11/02/19 12/02/19 release tiotropium 2.5 mcg-olodaterol 2.5 1 spray INHALATION DAILY 11/02/19 12/02/19 mcg/actuation mist for inhalation Allergies Allergy/AdvReac Type Severity Reaction Status Date / Time hydrocodone [From LORTAB] Allergy Mild Verified 11/02/19 09:15 oxycodone [From PERCOCET] Allergy Mild Verified 11/02/19 09:15 sulfamethoxazole Allergy Mild Verified 11/02/19 09:15 [From BACTRIM] trimethoprim [From BACTRIM] Allergy Mild Verified 11/02/19 09:15 [facility] History - Hepatitis A Screen Drug use history?: No High risk sexual behaviors?: No History of sexually transmitted infection?: No Currently employed?: No Childcare worker?: No Do you have indoor plumbing?: Yes Do you have electricity?: Yes Attestation statement:: This patient has been screened for Hepatitis A risk factors. I have reviewed the patient's past medical history: Yes Medical History: Reports:: Atrial Fibrillation, Coronary Artery Disease, Diabetes Mellitus Type 2, Hyperlipidemia, Hypertension, Myocardial Infarction, Renal Insufficiency Denies:: Cancer, Diabetes Mellitus Type 1, Internal Pacemaker, MRSA, Seizures Other Medical History: Reports: Arthritis Other Surgeries: Yes: CABG, Cardiac Catheterization, Cardiac Surgery, Cholecystectomy, Coronary Stent, Open Heart Surgery, Other (BPH x3). No: Pacemaker Amputation: No Fractures: No Comment: TURP x3 - Social History Educational Level: Completed High School Smoking Status: Former smoker Tobacco Type: cigarettes Alcohol Intake: never Substance Use Type: denies use Occupational Status: disabled Housing: house Household Members: spouse Comment: He lives with his of 59 years. She is a retired nurse. They lost 1 son to lung cancer last year and have several others, 8 grandchildren and many great-grandchildren. Family Hx:: Cancer, Hypertension ROS Obtained: Yes All systems reviewed & no additional complaints - Constitutional Constitutional: Denies fever(s) - Eyes Eyes: Denies change in vision - ENT Ears, Nose, Mouth, and Throat: Denies sore throat - Cardiovascular Cardiovascular: Reports as per HPI, Denies chest pain, Reports dyspnea - Respiratory Respiratory: Yes as per HPI, Yes change in phlegm color, Yes cough, No coughing up blood - Gastrointestinal Gastrointestingal: Denies: abdominal pain - Genitourinary Male Genitourinary: Denies hematuria - Musculoskeletal Musculoskeletal: Denies joint pain, Denies joint swelling - Integumentary/Breasts Skin/Breast: Denies rash - Neurologic Neurologic: Denies focal weakness, Denies seizure-like activity Physical Exam - General General appearance: alert, in no apparent distress - Head Head exam: normocephalic - Eye Eye exam: Present: PERRL, EOMI. Absent: scleral icterus - Respiratory Respiratory exam: Present: normal lung sounds bilaterally, prolonged expiratory phase. Absent: respiratory distress - Cardiovascular Cardiovascular exam: Present: regular rate, systolic murmur, +S4 - Abdominal Exam Abdominal exam: Absent: soft - Extremities Exam Extremities exam: Absent: calf tenderness - Neurological Exam Neurological exam: Present: alert, oriented X3, CN II-XII intact - Psychiatric Psychiatric exam: Present: normal affect - Skin Skin exam: Absent: rash
[2019-12-02 06:59] LABS: Eosinophils % 1 % (0-3); Hypochromasia 1+; Lymphocytes % 3 % (10-50); Monocytes % 4 % (2-9); Neutrophils % 92 % (42-76); Total Cells Counted 100
--- NOTE | 2019-12-02 07:50 | Pharmacy Consult Notes ---
[facility] Pharmacy VTE Monitoring - Patient Demographics Admission date: 12/02/19 Report Date: 12/02/19 Time: 07:50 Allergies/Adverse Reactions: Patient Allergies hydrocodone [From LORTAB] Allergy (Mild, Verified 11/02/19 09:15) oxycodone [From PERCOCET] Allergy (Mild, Verified 11/02/19 09:15) sulfamethoxazole [From BACTRIM] Allergy (Mild, Verified 11/02/19 09:15) trimethoprim [From BACTRIM] Allergy (Mild, Verified 11/02/19 09:15) Height: 1.75 m Weight: 65.771 kg - VTE Risk Labs: VTE Related Lab Results Hgb 13.7 g/dL (14.1-18.0) L 12/02/19 06:30 Hct 43.7 % (42.0-52.0) 12/02/19 06:30 Plt Count 218 K/mm3 (142-424) 12/02/19 06:30 BUN 22 mg/dl (9-20) H 12/02/19 06:30 Creatinine 1.30 mg/dl (0.66-1.25) H 12/02/19 06:30 Estimated Creat Clear 44 mL/min (50-200) 12/02/19 06:30 Clinical Trial Participant: No - Prophylaxis VTE Prophylaxis Ordered?: Yes Types of VTE Prophylaxis: TEDS Knee High
[2019-12-02 08:16] LABS: ABG Base Excess -2.9 mmol/L (-2.4-2.3); ABG HCO3 23.3 mmhg (22.0-26.0); ABG Oxygen Saturation 94 % (90-100); ABG PCO2 46.7 mmhg (35.0-45.0); ABG PH 7.32 mmol/L (7.35-7.45); ABG PO2 71.8 mmhg (80-100); ABG TCO2 24.7 mmhg (23-27)
--- NOTE | 2019-12-02 08:52 | History & Physical Report ---
*Admission Date: 12/02/19 *Chief complaint: Cough/congestion/shortness of air *History of present illness: 79-year-old white male with long history of COPD, frequent exacerbations and pneumonias, I saw him last week in the office and he was doing well for a preventative healthcare exam. Patient over the past couple of days has developed cough, increasing mucus production, fevers and dyspnea. reports diminished oral intake, brought to the emergency department where he was found to be hypoxic, hypercapnic on blood gas, infiltrate on chest x-ray and coughing up mucopurulent sputum. He was admitted to hospital for IV antibiotics. [facility] History I have reviewed the patient's past medical history: Yes Medical History: Reports:: Atrial Fibrillation, Coronary Artery Disease, Diabetes Mellitus Type 2, Hyperlipidemia, Hypertension, Myocardial Infarction, Renal Insufficiency Denies:: Cancer, Diabetes Mellitus Type 1, Internal Pacemaker, MRSA, Seizures *Have you ever received a pneumonia vaccine?: Yes *Have you received a flu vaccine this season?: Yes Other Medical History: Reports: Arthritis Other Surgeries: Yes: CABG, Cardiac Catheterization, Cardiac Surgery, Cholecystectomy, Coronary Stent, Open Heart Surgery, Other (BPH x3). No: Pacemaker Amputation: No Fractures: No - *Social History Educational Level: Completed High School Smoking Status: Former smoker Tobacco Type: cigarettes Alcohol Intake: never Substance Use Type: denies use *Occupational Status:: disabled Housing: house Household Members: spouse *Travel in the last 8 weeks: None Family Hx:: Cancer, Hypertension Review of Systems - Review of Systems Review of systems:: pertinent systems reviewed and negative unless documented below Cough/congestion/shortness of air as noted. Diminished p.o. intake. Denies nausea or vomiting. Otherwise 10 point review of systems negative - *Neurologic Denies localized weakness, Denies seizure-like activity Meds Home Medications Medication Instructions Recorded Confirmed Type Aspirin [Aspir 81] 81 mg PO DAILY 12/10/17 12/02/19 History Clopidogrel Bisulfate [Plavix 75mg 75 mg PO DAILY 12/10/17 12/02/19 History Tab] Simvastatin 20 mg PO HS 10/01/18 12/02/19 History Albuterol Sulfate [Albuterol HFA 1 - 2 puffs IH Q4HP PRN 03/09/19 12/02/19 Histo ry Inhaler] Furosemide [Lasix 40mg tablet] 40 mg PO DAILY 03/09/19 12/02/19 History carvediloL [Carvedilol 12.5mg Tab] 12.5 mg PO BID 03/09/19 12/02/19 History polyethylene glycoL 3350 [Miralax 17 gm PO DAILY 03/09/19 12/02/19 History 17gm Packet] Albuterol Sulfate [Albuterol 2.5 mg INHALATION Q6HP PRN 03/10/19 12/02/19 History 0.083% 2.5mg/3mL neb] Fluticasone Propionate [Flonase 2 spry NS DAILYP PRN 03/10/19 12/02/19 History Allergy Relief NS] Tamsulosin HCl 0.4 mg PO HS 03/10/19 12/02/19 History pantoprazole 40 mg tablet,delayed 1 tab PO DAILY 11/02/19 12/02/19 History release tiotropium 2.5 mcg-olodaterol 2.5 1 spray INHALATION DAILY 11/02/19 12/02/19 History mcg/actuation mist for inhalation Allergies Allergy/AdvReac Type Severity Reaction Status Date / Time hydrocodone [From LORTAB] Allergy Mild Verified 11/02/19 09:15 oxycodone [From PERCOCET] Allergy Mild Verified 11/02/19 09:15 sulfamethoxazole Allergy Mild Verified 11/02/19 09:15 [From BACTRIM] trimethoprim [From BACTRIM] Allergy Mild Verified 11/02/19 09:15 Exam Vital signs and Labs for Last 24 Hours: Temp Pulse Resp BP Pulse Ox 98.1 F 87 20 118/43 L 96 12/02/19 08:05 12/02/19 08:05 12/02/19 08:05 12/02/19 08:05 12/02/19 08:00 Laboratory Results - last 24 hr 12/02/19 06:30: WBC 14.5 H, RBC 4.57 L, Hgb 13.7 L, Hct 43.7, MCV 95.7 H, MCH 2 9.9, MCHC 31.3 L, RDW 13.6, Plt Count 218, MPV 8.0, Neut % (Auto) 91.1 H, Lymph % (Auto) 4.1 L, [place] % (Auto) 4.7, Eos % (Auto) 0.1, Baso % (Auto) 0.1, Neut # (Auto) 13.2 H, Lymph # (Auto) 0.6 L, [place] # (Auto) 0.7, Eos # (Auto) 0.0, Baso # (Auto) 0.0, Total Counted 100, Neutrophils % (Manual) 92 H, Lymphocytes % (Manual) 3 L, Monocytes % (Manual) 4, Eosinophils % (Manual) 1, Platelet Estimate Normal, Hypochromasia 1+ 12/02/19 06:30: Sodium 138, Potassium 4.8, Chloride 100, Carbon Dioxide 30, Anion Gap 12.8, BUN 22 H, Creatinine 1.30 H, Estimated Creat Clear 44, Estimated GFR 53 L, Est GFR ( Amer) 65, Glucose 115 H, Calcium 9.1, Total Bilirubin 1.6 H, AST 29, ALT 19, Alkaline Phosphatase 94, Troponin I 0.02, Total Protein 7.3, Albumin 4.3, Globulin 3.0, Albumin/Globulin Ratio 1.4 12/02/19 06:30: Lactate 0.9 12/02/19 06:30: Influenza Type A Ag Negative, Influenza Type B Ag Negative 12/02/19 06:39: Specimen Source L. brachial, O2 % 2 lpm, ABG pH 7.23 L*, ABG pCO2 64.2 H, ABG pO2 112.6 H, ABG HCO3 26.5 H, ABG Total CO2 28.4 H, ABG O2 Saturation 97, ABG Base Excess -1.0, Yrn Test N/a 12/02/19 08:12: ABG pH 7.32 L, ABG pCO2 46.7 H, ABG pO2 71.8 L, ABG HCO3 23.3, ABG Total CO2 24.7, ABG O2 Saturation 94, ABG Base Excess -2.9 L I & O for Last 24 hours: Intake & Output 11/29/19 11/30/19 12/01/19 12/02/19 11:59 11:59 11:59 11:59 Weight 144 lb 2 oz Microbiology Reports for the Last 24 Hours: Microbiology 12/02/19 06:30 Sputum - Expectorated Sputum Gram Stain - Final - Constitutional mild distress Comments: Appears chronically ill but appears dyspneic - *Routine HEENT Exam Head: Present: normocephalic Eye: Present: EOMI, PERRL ENT: Present: mucous membranes dry - *Routine Neck Exam Present: supple. Absent: lymphadenopathy - *Routine Respiratory Exam Present: prolonged expiratory phase, rales, rhonchi - *Routine Cardiovascular Exam Present: RRR, murmur - *Routine Abdominal Exam Present: soft, normoactive bowel sounds. Absent: tenderness - *Routine Extremities Exam Absent: cyanosis, clubbing, edema - *Routine Skin Exam Present: warm. Absent: rash - *Routine Neurological Exam Present: alert, oriented X3 Assessment and Plan (1) COPD (chronic obstructive pulmonary disease) Current visit: Yes Status: Acute Qualifiers: COPD type: COPD with acute lower respiratory infection Qualified Code(s): J44.0 - Chronic obstructive pulmonary disease with (acute) lower respiratory infection Category: Medical Code(s): J44.9 - Chronic obstructive pulmonary disease, unspecified Exacerbation as noted secondary to bacterial pneumonia. Admit to hospital. Bi PAP support for respiratory failure (2) Community acquired pneumonia Current visit: Yes Status: Acute Qualifiers: Laterality: right Lung location: lower lobe of lung Qualified Code(s): J18.9 - Pneumonia, unspecified organism Category: Medical Code(s): J18.9 - Pneumonia, unspecified organism Ceftriaxone/azithromycin as noted. Await cultures (3) Left bundle branch block (LBBB) Current visit: Yes Status: Acute Category: Medical Code(s): I44.7 - Left bundle-branch block, unspecified (4) Respiratory failure Current visit: Yes Status: Acute Qualifiers: Chronicity: acute on chronic Respiratory failure complication: hypercapnia Qualified Code(s): J96.22 - Acute and chronic respiratory failure with hypercapnia Category: Medical Code(s): J96.90 - Respiratory failure, unspecified, unspecified whether with hypoxia or hypercapnia BiPAP as noted. ABG at noon. (5) Severe sepsis with acute organ dysfunction Current visit: Yes Status: Acute Category: Medical Code(s): A41.9 - Sepsis, unspecified organism; R65.20 - Severe sepsis without septic shock Admission as noted. IV antibiotics, fluid support.
[2019-12-02 11:57] LABS: ABG HCO3 25.5 mmhg (22.0-26.0); ABG Oxygen Saturation 98 % (90-100); ABG TCO2 27.1 mmhg (23-27)
[2019-12-02 12:00] LABS: Oxygen 30% %
[2019-12-02 12:03] LABS: ABG PCO2 53.6 mmhg (35.0-45.0)
--- NOTE | 2019-12-02 12:24 | Sepsis Event Note ---
[facility] Tissue Perfusion Eval Sepsis Re-Evaluation Performed: Yes Date Performed: 12/02/19 Time Performed: 12:24
--- NOTE | 2019-12-03 07:34 | Electrocardiograph Report ---
APPROVED REPORT Exam: Resting ECG HR:86 bpm ECG Measurements Heart Rate 86 AXES QRSd 144 QRS 133 QT 424 T2 QTc 507 <Conclusion> Wide QRS rhythm Nonspecific intraventricular block Late r wave progression Abnormal ECG Electronically signed by : Benja Cortes, 12/03/2019 07:34:09
[2019-12-03 08:18] LABS: Anion Gap 15.7 mEq/L (5-15); Calcium 8.8 mg/dl (8.4-10.2)
[2019-12-03 08:20] LABS: Basophils % 0.1 % (0.1-2.0); Hematocrit 38.8 % (42.0-52.0); Lymphocytes # 0.4 K/mm3 (0.7-4.5); Lymphocytes % 2.8 % (10-50); Mean Corpuscular HGB Conc 30.9 g/dL (31.8-35.4); Mean Corpuscular Volume 96.6 fl (80-94); Mean Platelet Volume 8.8 fl (7.4-10.4); Monocytes # 0.2 K/mm3 (0.1-1.0); Monocytes % 1.6 % (1.7-9.3); Neutrophils # 12.4 K/mm3 (1.8-7.8); Neutrophils % 95.4 % (37.0-80.0); Platelet Count 178 K/mm3 (142-424); Red Blood Count 4.02 M/mm3 (4.60-6.20); Red Cell Distribution Width 13.6 % (11.5-17.5)
--- NOTE | 2019-12-03 09:07 | Progress Note ---
Internal Medicine - PN: Subj *Date: 12/03/19 *Time: 08:30 Interval history: Mr. Henry did well overnight. Tolerated BiPAP poorly due to feeling smothered. Is much more alert this morning. Tolerating regular diet. Currently still on IV antibiotics and 2 to 3 L nasal cannula oxygen continuously. Denies chest pain, nausea, vomiting, diarrhea, confusion. Still having productive cough for thick purulent sputum. at bedside and updated of plan Exam Vital signs and Labs for Last 24 Hours: Temp Pulse Resp BP Pulse Ox 97.5 F L 93 H 20 113/61 99 12/03/19 08:00 12/03/19 08:00 12/03/19 08:00 12/03/19 08:00 12/03/19 08:00 Laboratory Results - last 24 hr 12/02/19 09:30: Troponin I 0.03 12/02/19 11:53: Specimen Source Left brachial, O2 % 30%, ABG pH 7.30 L, ABG pCO2 53.6 H, ABG pO2 110.0 H, ABG HCO3 25.5, ABG Total CO2 27.1 H, ABG O2 Saturation 98, ABG Base Excess -1.0 12/02/19 12:35: Troponin I 0.03 12/03/19 07:56: WBC 13.0 H, RBC 4.02 L, Hgb 12.0 L, Hct 38.8 L, MCV 96.6 H, MCH 29.9, MCHC 30.9 L, RDW 13.6, Plt Count 178, MPV 8.8, Neut % (Auto) 95.4 H, Lymph % (Auto) 2.8 L, [place] % (Auto) 1.6 L, Eos % (Auto) 0.0 L, Baso % (Auto) 0.1, Neut # (Auto) 12.4 H, Lymph # (Auto) 0.4 L, [place] # (Auto) 0.2, Eos # (Auto) 0.0, Baso # (Auto) 0.0 12/03/19 07:56: Sodium 139, Potassium 4.7, Chloride 101, Carbon Dioxide 27, Anion Gap 15.7 H, BUN 26 H, Creatinine 1.20, Estimated Creat Clear 47, Estimated GFR 59, Est GFR ( Amer) 71, Glucose 154 H, Calcium 8.8 I & O for Last 24 hours: Intake & Output 11/30/19 12/01/19 12/02/19 12/03/19 23:59 23:59 23:59 23:59 Intake Total 2660 / 2900 1304 / 1304 Output Total 715 / 715 320 / 320 Balance 1945 / 2185 984 / 984 Weight 65 kg Microbiology Reports for the Last 24 Hours: Microbiology 12/02/19 06:30 Sputum - Expectorated Sputum Gram Stain - Final - *Routine HEENT Exam Head: Present: normocephalic Eye: Present: EOMI, PERRL ENT: Present: mucous membranes moist - *Routine Neck Exam Present: supple. Absent: lymphadenopathy - *Routine Respiratory Exam Present: decreased breath sounds (In bilateral bases, left most prominent on exam today), crackles - *Routine Cardiovascular Exam Present: RRR - *Routine Abdominal Exam Present: soft, normoactive bowel sounds. Absent: tenderness - *Routine Extremities Exam Absent: cyanosis, clubbing, edema Comments: numerous ecchymosis on arms and legs - *Routine Skin Exam Present: warm, lesions (see above). Absent: rash - *Routine Neurological Exam Present: alert, oriented X3 Assessment and Plan (1) COPD (chronic obstructive pulmonary disease) Current visit: Yes Status: Acute Qualifiers: COPD type: COPD with acute lower respiratory infection Qualified Code(s): J44.0 - Chronic obstructive pulmonary disease with (acute) lower respiratory infection Category: Medical Code(s): J44.9 - Chronic obstructive pulmonary disease, unspecified (2) Community acquired pneumonia Current visit: Yes Status: Acute Qualifiers: Laterality: right Lung location: lower lobe of lung Qualified Code(s): J18.9 - Pneumonia, unspecified organism Category: Medical Code(s): J18.9 - Pneumonia, unspecified organism (3) Left bundle branch block (LBBB) Current visit: Yes Status: Acute Category: Medical Code(s): I44.7 - Left bundle-branch block, unspecified (4) Respiratory failure Current visit: Yes Status: Acute Qualifiers: Chronicity: acute on chronic Respiratory failure complication: hypercapnia Qualified Code(s): J96.22 - Acute and chronic respiratory failure with hypercapnia Category: Medical Code(s): J96.90 - Respiratory failure, unspecified, unspecified whether with hypoxia or hypercapnia (5) Severe sepsis with acute organ dysfunction Current visit: Yes Status: Acute Category: Medical Code(s): A41.9 - Sepsis, unspecified organism; R65.20 - Severe sepsis without septic shock (6) Chronic kidney disease, stage III (moderate) Current visit: Yes Status: Chronic Category: Medical Code(s): N18.3 - Chronic kidney disease, stage 3 (moderate) (7) Acute on chronic respiratory failure with hypoxia and hypercapnia Current visit: Yes Status: Acute Category: Medical Code(s): J96.21 - Acute and chronic respiratory failure with hypoxia; J96.22 - Acute and chronic respiratory failure with hypercapnia Does not on admission. Blood gas with pH 7.3. Wears 2 L oxygen at home as needed. Required aggressive respiratory support needing bilevel ventilation. (8) Moderate protein-calorie malnutrition Current visit: Yes Status: Acute Category: Medical Code(s): E44.0 - Moderate protein-calorie malnutrition - Assessment and plan all Dx Assessment and Plan for all problems:: 79-year-old gentleman with multiple comorbidities. Sepsis has resolved, continues to struggle with community-acquired pneumonia and chronic kidney disease. Continue to wean oxygen. Continue IV antibiotics for another 24 hours. If does well overnight, will transition oral antibiotics tomorrow. Physical therapy to see patient today.
[2019-12-03 09:30] LABS: Lymphocytes % 2 % (10-50); Monocytes % 2 % (2-9); Neutrophils % 96 % (42-76); RBC Morphology Normal; Total Cells Counted 100
[2019-12-04 07:28] LABS: Anion Gap 14.9 mEq/L (5-15)
[2019-12-04 07:31] LABS: Eosinophils % 0.1 % (0.1-12.0); Hematocrit 37.7 % (42.0-52.0); Hemoglobin 12.1 g/dL (14.1-18.0); Lymphocytes # 0.3 K/mm3 (0.7-4.5); Lymphocytes % 2.8 % (10-50); Mean Corpuscular HGB Conc 32.1 g/dL (31.8-35.4); Mean Corpuscular Volume 94.9 fl (80-94); Mean Platelet Volume 8.7 fl (7.4-10.4); Monocytes # 0.2 K/mm3 (0.1-1.0); Monocytes % 2.2 % (1.7-9.3); Neutrophils # 9.7 K/mm3 (1.8-7.8); Neutrophils % 94.8 % (37.0-80.0); Platelet Count 191 K/mm3 (142-424); Red Blood Count 3.97 M/mm3 (4.60-6.20); Red Cell Distribution Width 13.5 % (11.5-17.5); White Blood Count 10.3 K/mm3 (4.8-10.8)
--- NOTE | 2019-12-04 08:25 | Progress Note ---
Internal Medicine - PN: Subj *Date: 12/04/19 *Time: 08:23 Interval history: Overall patient feels much better. He ate 100% of his diet this morning and is alert and pleasant. Exam Vital signs and Labs for Last 24 Hours: Temp Pulse Resp BP Pulse Ox 97.7 F 97 H 18 121/65 99 12/04/19 08:00 12/04/19 08:00 12/04/19 08:00 12/04/19 08:00 12/04/19 08:00 Laboratory Results - last 24 hr 12/03/19 07:56: Total Counted 100, Neutrophils % (Manual) 96 H, Lymphocytes % (Manual) 2 L, Monocytes % (Manual) 2, Platelet Estimate Normal, RBC Morphology Normal 12/04/19 06:55: WBC 10.3, RBC 3.97 L, Hgb 12.1 L, Hct 37.7 L, MCV 94.9 H, MCH 30.5, MCHC 32.1, RDW 13.5, Plt Count 191, MPV 8.7, Neut % (Auto) 94.8 H, Lymph % (Auto) 2.8 L, [place] % (Auto) 2.2, Eos % (Auto) 0.1, Baso % (Auto) 0.0 L, Neut # (Auto) 9.7 H, Lymph # (Auto) 0.3 L, [place] # (Auto) 0.2, Eos # (Auto) 0.0, Baso # (Auto) 0.0 12/04/19 06:55: Sodium 136, Potassium 4.9, Chloride 101, Carbon Dioxide 25, Anion Gap 14.9, BUN 37 H D, Creatinine 1.30 H, Estimated Creat Clear 43, Estimated GFR 53 L, Est GFR ( Amer) 65, Glucose 135 H, Calcium 9.0 I & O for Last 24 hours: Intake & Output 12/01/19 12/02/19 12/03/19 12/04/19 11:59 11:59 11:59 11:59 Intake Total 0 / 0 3964 / 3964 1920 / 1920 Output Total 1035 / 1035 800 / 800 Balance 0 / 0 2929 / 2929 1120 / 1120 Weight 144 lb 2 oz 143 lb 6 oz 144 lb 1 oz Microbiology Reports for the Last 24 Hours: Microbiology 12/02/19 06:30 Sputum - Expectorated Sputum Gram Stain - Final 12/02/19 06:30 Sputum - Expectorated Sputum Sputum Culture - Preliminary 12/02/19 06:30 Blood Blood Culture - Preliminary NO GROWTH AFTER 48 HOURS 12/02/19 06:30 Blood Blood Culture - Preliminary NO GROWTH AFTER 48 HOURS Narrative: Patient is pleasant. Alert. Doing well on 2 L nasal cannula. Lungs have good air movement. Rhonchi in the right base. Heart rate regular. Abdomen soft. No edema or clubbing. Neurologically intact. No rash. Assessment and Plan (1) COPD (chronic obstructive pulmonary disease) Current visit: Yes Status: Acute Qualifiers: COPD type: COPD with acute lower respiratory infection Qualified Code(s): J44.0 - Chronic obstructive pulmonary disease with (acute) lower respiratory infection Category: Medical Code(s): J44.9 - Chronic obstructive pulmonary disease, unspecified (2) Community acquired pneumonia Current visit: Yes Status: Acute Qualifiers: Laterality: right Lung location: lower lobe of lung Qualified Code(s): J18.9 - Pneumonia, unspecified organism Category: Medical Code(s): J18.9 - Pneumonia, unspecified organism (3) Left bundle branch block (LBBB) Current visit: Yes Status: Acute Category: Medical Code(s): I44.7 - Left bundle-branch block, unspecified (4) Respiratory failure Current visit: Yes Status: Acute Qualifiers: Chronicity: acute on chronic Respiratory failure complication: hypercapnia Qualified Code(s): J96.22 - Acute and chronic respiratory failure with hypercapnia Category: Medical Code(s): J96.90 - Respiratory failure, unspecified, unspecified whether with hypoxia or hypercapnia (5) Severe sepsis with acute organ dysfunction Current visit: Yes Status: Acute Category: Medical Code(s): A41.9 - Sepsis, unspecified organism; R65.20 - Severe sepsis without septic shock (6) Chronic kidney disease, stage III (moderate) Current visit: Yes Status: Chronic Category: Medical Code(s): N18.3 - Chronic kidney disease, stage 3 (moderate) (7) Acute on chronic respiratory failure with hypoxia and hypercapnia Current visit: Yes Status: Acute Category: Medical Code(s): J96.21 - Acute and chronic respiratory failure with hypoxia; J96.22 - Acute and chronic respiratory failure with hypercapnia (8) Moderate protein-calorie malnutrition Current visit: Yes Status: Acute Category: Medical Code(s): E44.0 - Moderate protein-calorie malnutrition (9) COPD exacerbation Current visit: Yes Status: Acute Category: Medical Code(s): J44.1 - Chronic obstructive pulmonary disease with (acute) exacerbation (10) Aspiration pneumonia Current visit: Yes Status: Acute Category: Medical Code(s): J69.0 - Pneumonitis due to inhalation of food and vomit Patient meets criteria for aspiration pneumonia. Speech therapy has been involved. Patient has improved. We discussed speech therapy recommendations. Continue current antibiotics, await cultures, probable discharge tomorrow on oxygen and nebs given his COPD.
[2019-12-04 09:59] LABS: Eosinophils % 1 % (0-3); Lymphocytes % 3 % (10-50); Monocytes % 2 % (2-9); Neutrophils % 94 % (42-76); Total Cells Counted 100
[2019-12-04 10:01] LABS: RBC Morphology Normal
--- NOTE | 2019-12-05 08:23 | Discharge Summary ---
General - General Admission date:: 12/02/19 Discharge date: 12/05/19 HPI HPI: 79-year-old white male with long history of COPD, frequent exacerbations and pneumonias, I saw him last week in the office and he was doing well for a preventative healthcare exam. Patient over the past couple of days has developed cough, increasing mucus production, fevers and dyspnea. reports diminished oral intake, brought to the emergency department where he was found to be hypoxic, hypercapnic on blood gas, infiltrate on chest x-ray and coughing up mucopurulent sputum. He was admitted to hospital for IV antibiotics. Hospital Course Hospital Course: Patient overall did well. Required BiPAP support for acute respiratory failure on chronic respiratory failure, and did well after 24 hours. Gram stain of sputum culture showed gram-negative rods and gram-positive cocci, final identification and sensitivities are pending. Patient was treated with ceftriaxone and azithromycin and did very nicely. Over the last 24 hours he is improving. Has been able to do all of his self- care activities including going to the bathroom and eating and walking with a walker. He wishes to be discharged home today. Plan will be to discharge home today with Omnicef and azithromycin. He will receive an IV dose of both of these before discharge and start p.o. medications tomorrow. Short course steroids with follow-up with me in the office on Saturday. Objective Vital signs: Temp Pulse Resp BP Pulse Ox 97.7 F 100 H 20 117/69 99 12/05/19 07:50 12/05/19 07:50 12/05/19 07:50 12/05/19 07:50 12/05/19 07:50 Narrative: Patient is awake. Alert. Pleasant, oriented x3. No focal neurologic deficits. Lungs with very minimal rhonchi but vastly improved vis--vis air movement. Heart rate regular. Abdomen soft, nontender. No clubbing, no edema, no cyanosis. No skin rash. ENT exam clear. Results Labs on day of discharge: Labs from last 24 hours 12/04/19 06:55 Total Counted 100 Neutrophils % (Manual) 94 H Lymphocytes % (Manual) 3 L Monocytes % (Manual) 2 Eosinophils % (Manual) 1 Platelet Estimate Normal RBC Morphology Normal Preliminary micro results at discharge 12/02/19 06:30 Sputum Culture - Preliminary Sputum - Expectorated Sputum Gram Negative Rods Gram Positive Cocci 12/02/19 06:30 Blood Culture - Preliminary Blood NO GROWTH AFTER 48 HOURS 12/02/19 06:30 Blood Culture - Preliminary Blood NO GROWTH AFTER 48 HOURS DS: Diagnosis - Discharge Diagnosis (1) COPD (chronic obstructive pulmonary disease) Status: Acute (2) Community acquired pneumonia Status: Acute (3) Left bundle branch block (LBBB) Status: Chronic (4) Respiratory failure Status: Acute (5) Severe sepsis with acute organ dysfunction Status: Acute (6) Chronic kidney disease, stage III (moderate) Status: Chronic (7) Acute on chronic respiratory failure with hypoxia and hypercapnia Status: Acute (8) Moderate protein-calorie malnutrition Status: Acute (9) COPD exacerbation Status: Acute (10) Aspiration pneumonia Status: Acute Discharge Plan - Patient Discharge Instructions ACTIVITY: Continue current activity DIET: continue same diet - Follow up Plan Follow up with: Benja Cortes MD [Primary Care Provider] - 12/08/19 11:00 am Disposition: Home, Self-Long Term Medications: Home Medications Medication Instructions Recorded Confirmed Type Aspirin [Aspir 81] 81 mg PO DAILY 12/10/17 12/02/19 History Clopidogrel Bisulfate [Plavix 75mg 75 mg PO DAILY 12/10/17 12/02/19 History Tab] Simvastatin 20 mg PO HS 10/01/18 12/02/19 History Albuterol Sulfate [Albuterol HFA 1 - 2 puffs IH Q4HP PRN 03/09/19 12/02/19 History Inhaler] Furosemide [Lasix 40mg tablet] 40 mg PO DAILY 03/09/19 12/02/19 History carvediloL [Carvedilol 12.5mg Tab] 12.5 mg PO BID 03/09/19 12/02/19 History polyethylene glycoL 3350 [Miralax 17 gm PO DAILY 03/09/19 12/02/19 History 17gm Packet] Albuterol Sulfate [Albuterol 2.5 mg INHALATION Q6HP PRN 03/10/19 12/02/19 History 0.083% 2.5mg/3mL neb] Fluticasone Propionate [Flonase 2 spry NS DAILYP PRN 03/10/19 12/02/19 History Allergy Relief NS] Tamsulosin HCl 0.4 mg PO HS 03/10/19 12/02/19 History pantoprazole 40 mg tablet,delayed 40 mg PO DAILY 11/02/19 12/02/19 History release tiotropium 2.5 mcg-olodaterol 2.5 1 spray INHALATION DAILY 11/02/19 12/02/19 History mcg/actuation mist for inhalation Azithromycin [Zithromax 250mg 250 mg PO DIRECTED #6 tab 12/05/19 Rx tab] Cefdinir [Omnicef 300mg Capsule] 300 mg PO BID #14 cap 12/05/19 Rx predniSONE [Deltasone 20mg 20 mg PO BID 3 Days #6 tab 12/05/19 Rx tablet] Prescriptions/Medication Reconciliation: New predniSONE [Deltasone 20mg tablet] 20 mg PO BID 3 Days #6 tab Azithromycin [Zithromax 250mg tab] 250 mg PO DIRECTED #6 tab Cefdinir [Omnicef 300mg Capsule] 300 mg PO BID #14 cap Continued pantoprazole 40 mg tablet,delayed release 40 mg PO DAILY tiotropium 2.5 mcg-olodaterol 2.5 mcg/actuation mist for inhalation 1 spray INHALATION DAILY Clopidogrel Bisulfate [Plavix 75mg Tab] 75 mg PO DAILY Aspirin [Aspir 81] 81 mg PO DAILY carvediloL [Carvedilol 12.5mg Tab] 12.5 mg PO BID Albuterol Sulfate [Albuterol HFA Inhaler] 1 - 2 puffs IH Q4HP PRN PRN Reason: Shortness Of Breath Or Wheezing Tamsulosin HCl 0.4 mg PO HS Albuterol Sulfate [Albuterol 0.083% 2.5mg/3mL neb] 2.5 mg INHALATION Q6HP PRN PRN Reason: Shortness Of Breath Fluticasone Propionate [Flonase Allergy Relief NS] 2 spry NS DAILYP PRN PRN Reason: ALLERGIES Simvastatin 20 mg PO HS Furosemide [Lasix 40mg tablet] 40 mg PO DAILY polyethylene glycoL 3350 [Miralax 17gm Packet] 17 gm PO DAILY - Problem Reconciliation Problems Reviewed?: Yes
== END 2019-12-05 11:55 | disposition home or self-care (01) | DRG 177 ==
LOC: 2ND 06:21 → ER 06:21 → OBSVTOIN 07:30 → 2ND 08:11
PROVIDERS: ADMIT Internal Medicine Adolescent Medicine; ATTEND Internal Medicine Adolescent Medicine
DX: Z79.02 Long term (current) use of antithrombotics/antiplatelets; Z88.2 Allergy status to sulfonamides; Z79.51 Long term (current) use of inhaled steroids; E44.0 Moderate protein-calorie malnutrition; Z79.82 Long term (current) use of aspirin; Z87.891 Personal history of nicotine dependence; Z88.5 Allergy status to narcotic agent; J96.01 Acute respiratory failure with hypoxia; Z68.22 Body mass index [BMI] 22.0-22.9, adult; I25.10 Atherosclerotic heart disease of native coronary artery without angina pectoris; J96.22 Acute and chronic respiratory failure with hypercapnia; Z95.5 Presence of coronary angioplasty implant and graft; Z87.01 Personal history of pneumonia (recurrent); J69.0 Pneumonitis due to inhalation of food and vomit; I25.2 Old myocardial infarction; N18.3 Chronic kidney disease, stage 3 (moderate); I12.9 Hypertensive chronic kidney disease with stage 1 through stage 4 chronic kidney disease, or unspecified chronic kidney disease; R65.10 Systemic inflammatory response syndrome (SIRS) of non-infectious origin without acute organ dysfunction; J44.0 Chronic obstructive pulmonary disease with (acute) lower respiratory infection; E11.22 Type 2 diabetes mellitus with diabetic chronic kidney disease; Z88.1 Allergy status to other antibiotic agents; Z79.899 Other long term (current) drug therapy; J44.1 Chronic obstructive pulmonary disease with (acute) exacerbation; I44.7 Left bundle-branch block, unspecified
CPT/HCPCS: 36415; 71010; 71045; 80048; 80053; 82803; 83605; 84484; 85007; 85025; 87040; 87070; 87077; 87186; 87205; 87275; 87276; 92526; 92610; 93005; 94640; 94660; 94761; 96365; 96367; 96375; 97161; 99284; 99285; J0456

== ENCOUNTER → 2020-01-28 11:44 | Outpatient (CLI) | payer MEDICARE, SELFPAY ==
[2020-01-29 11:21] LABS: PSA, Free 2.81 ng/mL
== END ==
PROVIDERS: Visit Provider Urology
DX: R97.20 Elevated prostate specific antigen [PSA] (principal)
CPT/HCPCS: 36415; 84153; 84154

== ENCOUNTER → 2021-01-27 15:04 | Outpatient (CLI) | payer MEDICARE, SELFPAY ==
[2021-01-29 09:09] LABS: PSA, Free 1.68 ng/mL; Prostate Specific Ag 5.2 ng/mL (0.0-4.0)
== END ==
PROVIDERS: Visit Provider Urology
DX: R97.20 Elevated prostate specific antigen [PSA] (principal)
CPT/HCPCS: 36415; 84153; 84154

== ENCOUNTER → 2021-04-04 19:14 | Outpatient (CLI) | payer MEDICARE, SELFPAY ==
[2021-04-04 19:35] LABS: Basophils % 0.4 % (0.1-2.0); Eosinophils # 0.1 K/mm3 (0.0-0.4); Eosinophils % 1.2 % (0.1-12.0); Hematocrit 41.1 % (42.0-52.0); Hemoglobin 12.9 g/dL (14.1-18.0); Lymphocytes # 1.3 K/mm3 (0.7-4.5); Lymphocytes % 20.4 % (10-50); Mean Corpuscular HGB Conc 31.3 g/dL (31.8-35.4); Mean Corpuscular Hemoglobin 30.6 pg (27.0-31.2); Mean Corpuscular Volume 97.7 fl (80-94); Mean Platelet Volume 8.8 fl (7.4-10.4); Monocytes # 0.6 K/mm3 (0.1-1.0); Neutrophils # 4.5 K/mm3 (1.8-7.8); Neutrophils % 68.9 % (37.0-80.0); Platelet Count 240 K/mm3 (142-424); Red Blood Count 4.21 M/mm3 (4.60-6.20); Red Cell Distribution Width 13.1 % (11.5-17.5); White Blood Count 6.5 K/mm3 (4.8-10.8)
[2021-04-04 19:59] LABS: Anion Gap 15.1 mEq/L (5-15); Blood Urea Nitrogen 38 mg/dl (9-20); Calcium 8.9 mg/dl (8.4-10.2); Carbon Dioxide 29 mmol/L (22.0-30.0); Chloride 102 mmol/L (98-107); Estimated Glomerular Filt Rate 45 ml/min (>60); GFR (African American) 54 ML/MIN (>60); Glucose 102 mg/dl (74-100); Potassium 5.1 mmoL/L (3.5-5.1); Sodium 141 mmol/L (136-145)
== END ==
PROVIDERS: Visit Provider Internal Medicine Adolescent Medicine
DX: I25.10 Atherosclerotic heart disease of native coronary artery without angina pectoris (principal)
CPT/HCPCS: 80048; 85025

== ENCOUNTER 2021-08-05 07:42 | Outpatient (CLI) | payer MEDICARE, SELFPAY ==
[2021-08-05] VITALS (11 sets, daily range): BP systolic 102–122; BP diastolic 45–60; PULSE 47–76; RESP 18; TEMP 36.8; O2SAT 83–97
== END 2021-08-05 11:55 | disposition home or self-care (01) ==
PROVIDERS: PCP Internal Medicine Adolescent Medicine; Visit Provider Internal Medicine Adolescent Medicine
DX: U07.1 COVID-19 (principal); Z23 Encounter for immunization
CPT/HCPCS: 96365

== ENCOUNTER → 2021-09-06 16:49 | Outpatient (CLI) | payer MEDICARE, SELFPAY ==
[2021-09-06 18:05] LABS: Basophils % 0.5 % (0.1-2.0); Eosinophils # 0.2 K/mm3 (0.0-0.4); Hematocrit 38.2 % (42.0-52.0); Hemoglobin 12.7 g/dL (14.1-18.0); Lymphocytes # 1.3 K/mm3 (0.7-4.5); Lymphocytes % 25.4 % (10-50); Mean Corpuscular HGB Conc 33.3 g/dL (31.8-35.4); Mean Corpuscular Volume 93.3 fl (80-94); Mean Platelet Volume 7.9 fl (7.4-10.4); Monocytes # 0.4 K/mm3 (0.1-1.0); Monocytes % 8.5 % (1.7-9.3); Neutrophils # 3.2 K/mm3 (1.8-7.8); Neutrophils % 62.5 % (37.0-80.0); Platelet Count 259 K/mm3 (142-424); Red Cell Distribution Width 13.5 % (11.5-17.5); White Blood Count 5.1 K/mm3 (4.8-10.8)
[2021-09-06 18:32] LABS: Chloride 99 mmol/L (98-107)
[2021-09-06 18:33] LABS: Potassium 4.6 mmoL/L (3.5-5.1); Sodium 136 mmol/L (136-145)
[2021-09-06 18:35] LABS: Alanine Aminotransferase 14 U/L (12-78); Alkaline Phosphatase 100 U/L (38-126); Anion Gap 12.6 mEq/L (5-15); Aspartate Amino Transferase 27 U/L (17-59); Bilirubin,Total 1.4 mg/dl (0.2-1.3); Carbon Dioxide 29 mmol/L (22.0-30.0)
[2021-09-06 18:36] LABS: Albumin/Globulin Ratio 1.6 (1.1-1.8); Calcium 8.2 mg/dl (8.4-10.2); Globulin 2.5 g/dL (1.3-3.2); Glucose 85 mg/dl (74-100); Magnesium 1.9 mg/dl (1.6-2.3); Total Protein,Serum 6.5 g/dl (6.3-8.2)
[2021-09-06 18:40] LABS: Blood Urea Nitrogen 24 mg/dl (9-20); Estimated Glomerular Filt Rate 49 ml/min (>60); GFR (African American) 59 ML/MIN (>60)
[2021-09-06 19:06] LABS: Thyroid Stimulating Hormone 1.78 uIU/mL (0.465-4.68)
== END ==
PROVIDERS: Visit Provider Internal Medicine Adolescent Medicine
DX: R55 Syncope and collapse (principal); I25.10 Atherosclerotic heart disease of native coronary artery without angina pectoris; Z79.899 Other long term (current) drug therapy
CPT/HCPCS: 36415; 80053; 83735; 84443; 85025

== ENCOUNTER → 2021-10-31 07:41 | Outpatient (CLI) | payer MEDICARE, SELFPAY ==
--- NOTE | 2021-10-31 07:41 | CT_ITS ---
FINAL REPORT CLINICAL HISTORY: gross hematuria, lower pelvic pain COMPARISON: March 09, 2019 FINDINGS: Axial CT images of the abdomen and pelvis were obtained without intravenous contrast. Coronal reformatted images were also obtained.This study was performed with techniques to keep radiation doses as low as reasonably achievable (ALARA). Individualized dose reduction techniques using automated exposure control or adjustment of mA and/or kV according to the patient's size were employed. Abdomen: There are small pleural effusions. There is mild bibasilar atelectasis. There is no evidence of renal stone. There is mild bilateral hydronephrosis and hydroureter. There is an 11 mm hyperdense mass in the lower pole of the right kidney that previously measured 8 mm. There is a 3 mm hyperdense mass in the lateral left kidney that is stable. These cannot be accurately characterized without contrast but favor hyperdense cysts. There are 2 other probable left renal cysts. The gallbladder surgically absent. The liver, spleen and pancreas have an unremarkable, unenhanced appearance. No adenopathy is seen. There is diffuse fatty atrophy of the abdomen and pelvis musculature which is somewhat worse. There is mild anasarca. There are vascular calcifications. Pelvis: The appendix is not seen. There is no evidence of ureteral dilation or ureteral stone. There is urinary bladder wall thickening which is likely inflammatory.No mass or abnormal fluid collection is identified. The prostate is diffusely enlarged with multiple calcifications. There are small inguinal hernias containing fat. IMPRESSION: Mild bilateral hydronephrosis and hydroureter without renal stones.. Urinary bladder wall thickening, likely inflammatory. Probable hyperdense bilateral renal cysts. If indicated, follow-up with noncontrast CT or renal mass protocol CT. Reviewed, Interpreted and Dictated by Michi Maguire III, MD Transcribed by Dania Mendoza Authenticated by Michi Maguire III, MD on 10/31/2021 09:07:44 AM [facility]
== END ==
PROVIDERS: PCP Internal Medicine Adolescent Medicine; Visit Provider Urology
DX: R31.9 Hematuria, unspecified (principal)
CPT/HCPCS: 74176

== ENCOUNTER → 2021-11-02 16:42 | Outpatient (CLI) | payer MEDICARE, SELFPAY | PROVIDERS: Visit Provider Urology | DX: N20.0 Calculus of kidney (principal) | CPT/HCPCS: 87086 ==

== ENCOUNTER → 2021-11-15 16:22 | Outpatient (CLI) | payer MEDICARE, SELFPAY | PROVIDERS: Visit Provider Urology | DX: R31.9 Hematuria, unspecified (principal); Z01.812 Encounter for preprocedural laboratory examination; Z11.52 Encounter for screening for COVID-19 | CPT/HCPCS: C9803; U0003; U0005 ==

== ENCOUNTER 2021-11-17 09:09 | Day surgery (SDC) | payer MEDICARE, SELFPAY ==
[2021-11-17 10:46] VITALS: BP 110/56; PULSE 75; RESP 18; TEMP 37.4; O2SAT 96; BMI 21.1
[2021-11-17 12:05] VITALS: BP 119/55; PULSE 76; RESP 18; TEMP 36.6; O2SAT 98
--- NOTE | 2021-11-17 14:22 | HMH.OPNOTE ---
Date of procedure: 11/17/21 Pre-op Diagnosis:: Gross hematuria Post-op Diagnosis:: Gross hematuria Procedure performed:: Cystoscopy Surgeon:: Xu Ayala MD Anesthesia: local Estimated blood loss (mL): 0 Clinical Note:: 81-year-old white male with persistent gross hematuria presents for cystoscopy. 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 Recent CT scan shows no evidence of stones but there is some mild hydronephrosis. Operative findings:: Some hemorrhagic areas at the bladder neck. The bladder showed some mild to moderate trabeculation but no evidence of bladder tumors. The ureteral orifices were difficult to assess and I could not visualize any urine coming from the ureters that the exam was suboptimal for this. Operative note:: Patient taken to the operating suite after informed consent was obtained. On the stretcher is prepped draped in the standard surgical fashion and 2% lidocaine placed into the urethra and urethral clamp. A 5 minutes the clamp removed and the flexible cystoscope introduced into the urethra meatus into the prostatic urethra which showed some bilobar hyperplasia but no evidence of bleeding points. The bladder was entered and examined in a systematic fashion. There was some blood in the urine making it difficult to evaluate very well so the scope was removed and a 16 Vincentian red rubber catheter was placed into the urethra but it would not pass by the prostatic urethra so a 14 Vincentian coud? catheter was used to empty the bladder. Once the bladder was emptied the flexible cystoscope reintroduced into the urethra and now there was some clot at the prostatic urethra. The bladder was entered and examined in a systematic fashion. There is no evidence of any callosal abnormalities. Mild to moderate trabeculation was noted. There was some mild bleeding noted at the bladder neck proximal portion of the prostate small clot was noted there at the bladder neck. Ureteral orifices were difficult to visualize and suboptimal to tell if any hematuria was coming from the ureter. Scope then removed the patient tolerated the procedure well. I think that catheterizing the patient with a straight catheter because some trauma creating more bleeding and a small clot. He is to continue the dutasteride for now as he said his urine has been clearing over the past couple of days. I will see him back in 1 month if no improvement will consider cystoscopy and ureteroscopy under anesthesia. He is a poor anesthetic candidate. Condition: stable Disposition: same day Specimens:: None Complications:: None
== END 2021-11-17 12:10 | disposition home or self-care (01) ==
LOC: OUTP 09:10
PROVIDERS: PCP Internal Medicine Adolescent Medicine; Visit Provider Urology
DX: N32.89 Other specified disorders of bladder (principal); R97.20 Elevated prostate specific antigen [PSA]; N40.1 Benign prostatic hyperplasia with lower urinary tract symptoms; R31.9 Hematuria, unspecified; I48.91 Unspecified atrial fibrillation; I11.0 Hypertensive heart disease with heart failure; I50.9 Heart failure, unspecified; I25.10 Atherosclerotic heart disease of native coronary artery without angina pectoris; E78.5 Hyperlipidemia, unspecified; I25.2 Old myocardial infarction; Z88.6 Allergy status to analgesic agent; Z88.1 Allergy status to other antibiotic agents
CPT/HCPCS: 52000

== ENCOUNTER → 2021-11-20 16:07 | Outpatient (CLI) | payer MEDICARE, SELFPAY ==
[2021-11-20 16:16] LABS: MANUAL DIFFERENTIAL MANUAL DIFFERENTIAL (MANUAL DIFF)
[2021-11-20 16:28] LABS: Basophils % 0.4 % (0.1-2.0); Eosinophils # 0.1 K/mm3 (0.0-0.4); Eosinophils % 1.7 % (0.1-12.0); Hematocrit 24.3 % (42.0-52.0); Lymphocytes % 14.9 % (10-50); Mean Corpuscular HGB Conc 33.1 g/dL (31.8-35.4); Mean Corpuscular Hemoglobin 31.7 pg (27.0-31.2); Mean Corpuscular Volume 95.6 fl (80-94); Mean Platelet Volume 8.7 fl (7.4-10.4); Monocytes # 0.4 K/mm3 (0.1-1.0); Monocytes % 6.2 % (1.7-9.3); Neutrophils # 4.9 K/mm3 (1.8-7.8); Neutrophils % 76.8 % (37.0-80.0); Platelet Count 345 K/mm3 (142-424); Red Blood Count 2.54 M/mm3 (4.60-6.20); Red Cell Distribution Width 14.1 % (11.5-17.5); White Blood Count 6.4 K/mm3 (4.8-10.8)
[2021-11-20 17:25] LABS: Anion Gap 11.9 mEq/L (5-15); Blood Urea Nitrogen 38 mg/dl (9-20); Calcium 7.6 mg/dl (8.4-10.2); Carbon Dioxide 25 mmol/L (22.0-30.0); Chloride 97 mmol/L (98-107); Estimated Glomerular Filt Rate 39 ml/min (>60); GFR (African American) 47 ML/MIN (>60); Glucose 104 mg/dl (74-100); Potassium 3.9 mmoL/L (3.5-5.1); Sodium 130 mmol/L (136-145)
[2021-11-20 18:09] LABS: Lymphocytes % 15 % (10-50); Monocytes % 3 % (2-9); Neutrophils % 82 % (42-76); Platelet Estimate Normal; RBC Morphology Normal; Total Cells Counted 100
== END ==
PROVIDERS: Visit Provider Urology
DX: R31.9 Hematuria, unspecified (principal)
CPT/HCPCS: 80048; 85007; 85014; 85018; 85048; 85049

== ENCOUNTER 2021-11-22 12:31 | Inpatient (IN) | payer MEDICARE, SELFPAY ==
[2021-11-22] VITALS (22 sets, daily range): BP systolic 94–119; BP diastolic 41–54; PULSE 65–82; RESP 15–24; TEMP 36.6–37.5; O2SAT 89–100; BMI 21.1; BMI 20.8
--- NOTE | 2021-11-22 12:39 | ECG_ITS ---
APPROVED REPORT Exam: Resting ECG HR:73 bpm ECG Measurements Heart Rate 73 AXES QRSd 153 QRS 256 QT 427 T 63 QTc 453 Conclusion Junctional rhythm RIGHT AXIS DEVIATION [QRS AXIS > 100] INTRAVENTRICULAR CONDUCTION DELAY [130+ ms QRS DURATION] ABNORMAL ECG No significant pack changer prior tracing UNCONFIRMED REPORT Electronically signed by : Benja Cortes MD 11/24/2021 16:08:21
--- NOTE | 2021-11-22 13:06 | XR_ITS ---
FINAL REPORT CLINICAL HISTORY: dyspea COMPARISON: November 2019 FINDINGS: Two views of the chest were obtained. The heart size and pulmonary vascularity are within normal limits. Patient is status post median sternotomy. There is left basilar atelectasis or pneumonia. There is no pneumothorax. The bony thorax is intact. IMPRESSION: Left basilar atelectasis or pneumonia. Reviewed, Interpreted and Dictated by Michi Maguire III, MD Transcribed by LAKIA Ga Authenticated by Michi Maguire III, MD on 11/22/2021 03:02:57 PM [facility]
--- NOTE | 2021-11-22 13:07 | CT_ITS ---
FINAL REPORT TECHNIQUE: Postcontrast axial images through the abdomen and pelvis were performed. This study was performed with techniques to keep radiation doses as low as reasonably achievable, (ALARA). Individualized dose reduction techniques using automated exposure control or adjustment of mA and/or kV according to the patient's size were employed. CLINICAL HISTORY: anorectal abscess vs other. COMPARISON: October 31, 2021 FINDINGS: Abdomen: The lung bases show [id number] bilateral pleural effusions, increased since the prior exam. There is mild bibasilar atelectasis. The liver is normal in size and attenuation. The gallbladder is surgically absent. The spleen is unremarkable. The adrenals are normal. The pancreas is unremarkable. There is moderate to severe bilateral hydronephrosis and hydroureter, worse than on the prior exam. Small bilateral renal masses cannot be accurately characterized without contrast, but likely represent a combination of hyperdense cysts and simple cysts. The aorta is normal in caliber. No free fluid or adenopathy is identified. No findings for mechanical bowel obstruction are identified. Pelvis: There is widespread fatty atrophic change of the musculature of the pelvis. There is right greater than left urothelial thickening. The appendix is not identified. The urinary bladder shows severe wall thickening, likely inflammatory. Material in the urinary bladder may represent blood clot or debris. The prostate is enlarged. There is mild rectal wall thickening which may represent stercoral colitis. There is a moderate to large amount of stool in the rectum. No free fluid, free air, abscess or adenopathy is identified. IMPRESSION: 1. Interval increase in [id number] bilateral pleural effusions with mild bibasilar atelectasis. 2. Moderate to severe bilateral hydronephrosis and hydroureter has worsened since the prior exam. Right greater than left urothelial thickening is seen. 3. Severe urinary bladder wall thickening is likely inflammatory. Material within the bladder may represent blood clot or debris. 4. Mild rectal wall thickening may represent stercoral colitis. Reviewed, Interpreted and Dictated by Michi Maguire III, MD Transcribed by LAKIA Ga Authenticated by Michi Maguire III, MD on 11/22/2021 03:02:54 PM [facility]
[2021-11-22 13:12] LABS: Basophils % 0.6 % (0.1-2.0); Chloride 95 mmol/L (98-107); Eosinophils # 0.1 K/mm3 (0.0-0.4); Eosinophils % 0.9 % (0.1-12.0); Hematocrit 24.6 % (42.0-52.0); Hemoglobin 7.9 g/dL (14.1-18.0); Lymphocytes # 0.6 K/mm3 (0.7-4.5); Lymphocytes % 8.9 % (10-50); Mean Corpuscular HGB Conc 32.1 g/dL (31.8-35.4); Mean Corpuscular Hemoglobin 31.3 pg (27.0-31.2); Mean Corpuscular Volume 97.6 fl (80-94); Mean Platelet Volume 8.1 fl (7.4-10.4); Monocytes # 0.5 K/mm3 (0.1-1.0); Monocytes % 7.1 % (1.7-9.3); Neutrophils # 5.7 K/mm3 (1.8-7.8); Neutrophils % 82.4 % (37.0-80.0); Platelet Count 298 K/mm3 (142-424); Red Blood Count 2.52 M/mm3 (4.60-6.20); Red Cell Distribution Width 14.4 % (11.5-17.5); White Blood Count 6.9 K/mm3 (4.8-10.8)
[2021-11-22 13:13] LABS: Sodium 126 mmol/L (136-145)
[2021-11-22 13:15] LABS: Alanine Aminotransferase 16 U/L (12-78); Albumin Level 3.5 g/dl (3.5-5.0); Albumin/Globulin Ratio 1.4 (1.1-1.8); Alkaline Phosphatase 75 U/L (38-126); Aspartate Amino Transferase 22 U/L (17-59); Bilirubin,Total 0.8 mg/dl (0.2-1.3); Blood Urea Nitrogen 37 mg/dl (9-20); Carbon Dioxide 25 mmol/L (22.0-30.0); Creatinine Clearance Estimated 25 mL/min (50-200); Estimated Glomerular Filt Rate 29 ml/min (>60); GFR (African American) 35 ML/MIN (>60); Globulin 2.5 g/dL (1.3-3.2)
[2021-11-22 13:16] LABS: Calcium 7.6 mg/dl (8.4-10.2); Glucose 109 mg/dl (74-100)
[2021-11-22 13:22] LABS: Magnesium 2.1 mg/dl (1.6-2.3)
--- NOTE | 2021-11-22 13:25 | HMH.EDGENADL ---
ED Disposition Clinical Impression: Urinary tract bacterial infections, Symptomatic anemia, Moderate dehydration Disposition: Admitted As Inpatient Condition on Discharge: Undetermined Referrals: Benja Cortes MD [Primary Care Provider] - - Critical Care Critical Care Time: No Attestation: On 11/22/21, the high probability of a clinically significant, sudden or life threatening deterioration of the following system(s) required my full and direct attention, intervention and personal management. The time I documented below is in addition to time spent performing reported procedures but includes the following listed in this critical care notation. Medical Decision Making - Medical Records Medical records reviewed: Yes: I reviewed the patient's medical records. - Juan Miguel Inquiry Pt receiving controlled substance: No Vital Signs: 11/22/21 12:32 11/22/21 13:00 11/22/21 14:00 Temperature 98.2 F Temperature Source Oral Pulse Rate 70 70 Pulse Rate [Radial] 78 Respiratory Rate 24 16 16 Blood Pressure 101/41 L 115/42 L Blood Pressure [Right Arm] 94/41 L Blood Pressure Mean 61 61 Blood Pressure Mean [Right Arm] 58 Blood Pressure Position [Right Arm] Sitting 02 Sat by Pulse Oximetry 89 L 95 100 Oxygen Delivery Method Room Air Room Air Room Air 11/22/21 14:30 11/22/21 15:03 11/22/21 15:30 Temperature Temperature Source Pulse Rate 67 71 71 Pulse Rate [Radial] Respiratory Rate 16 16 16 Blood Pressure 106/46 L 108/51 L 115/50 L Blood Pressure [Right Arm] Blood Pressure Mean 60 63 71 Blood Pressure Mean [Right Arm] Blood Pressure Position [Right Arm] 02 Sat by Pulse Oximetry 100 100 100 Oxygen Delivery Method Room Air Room Air Room Air 11/22/21 16:00 11/22/21 16:30 Temperature Temperature Source Pulse Rate 70 Pulse Rate [Radial] Respiratory Rate 15 Blood Pressure 111/48 L 111/47 L Blood Pressure [Right Arm] Blood Pressure Mean 76 Blood Pressure Mean [Right Arm] Blood Pressure Position [Right Arm] 02 Sat by Pulse Oximetry 100 Oxygen Delivery Method Room Air - Lab Data Lab results reviewed: Yes: I reviewed the patient's lab results. Lab Results 11/22/21 12:47: WBC 6.9, RBC 2.52 L, Hgb 7.9 L, Hct 24.6 L, MCV 97.6 H, MCH 31.3 H, MCHC 32.1, RDW 14.4, Plt Count 298, MPV 8.1, Neut % (Auto) 82.4 H, Lymph % (Auto) 8.9 L, [place] % (Auto) 7.1, Eos % (Auto) 0.9, Baso % (Auto) 0.6, Neut # (Auto) 5.7, Lymph # (Auto) 0.6 L, [place] # (Auto) 0.5, Eos # (Auto) 0.1, Baso # (Auto) 0.0 11/22/21 12:47: Sodium 126 L, Potassium 4.0, Chloride 95 L, Carbon Dioxide 25, Anion Gap 10.0, BUN 37 H, Creatinine 2.20 H D, Estimated Creat Clear 25, Estimated GFR 29 L, Est GFR ( Amer) 35 L D, Glucose 109 H, Calcium 7.6 L, Total Bilirubin 0.8, AST 22, ALT 16, Alkaline Phosphatase 75, Total Protein 6.0 L, Albumin 3.5, Globulin 2.5, Albumin/Globulin Ratio 1.4 11/22/21 12:47: D-Dimer 0.69 H 11/22/21 12:47: Magnesium 2.1, Troponin I 0.04 H, C-Reactive Protein 2.1, NT-Pro-B Natriuret Pep 5230 H, TSH 1.66, Thyroxine (T4) 9.0 11/22/21 13:20: Lactate 0.7 11/22/21 14:05: SARS-CoV-2 (PCR) Not detected, Influenza A Untype (PCR) Not detected, Influenza Type B (PCR) Not detected 11/22/21 15:03: Urine Color Brown, Urine Appearance Turbid, Urine pH 6.5, Ur Specific [place] 1.015, Urine Protein 3+, Urine Glucose (UA) Negative, Urine Ketones Trace, Urine Blood 3+, Urine Nitrate Positive, Urine Bilirubin 2+ A, Urine Urobilinogen 1.0, Ur Leukocyte Esterase 2+ A, Urine RBC 50-100, Urine WBC 5-10, Ur Squamous Epith Cells Occasional, Urine Bacteria 2+ 11/22/21 16:02: Troponin I 0.04 H Result diagrams: 11/22/21 12:47 11/22/21 12:47 Orders (Tests/Meds): ED MEDICATIONS Generic Name Dose Route Start Last Admin Trade Name Freq PRN Reason Stop Dose Admin Polyethylene Glycol 17 gm 11/22/21 14:56 11/22/21 16:36 Polyethylene Glycol 3350 17 Gm Packet PO 12/22/21 14:55 17 gm DAILYP PRN Administration
--- NOTE | 2021-11-22 13:26 | PC.NURSE ---
pt gone to ct
[2021-11-22 13:27] LABS: C-Reactive Protein 2.1 mg/L (0-4)
[2021-11-22 13:33] LABS: NT Pro Brain Natriuretic Pep. 5230 pg/mL (0-450)
[2021-11-22 13:36] LABS: Lactic Acid 0.7 mmol/L (0.7-2.1)
[2021-11-22 13:37] LABS: Troponin I 0.04 ng/ml (0.00-0.034)
[2021-11-22 13:49] LABS: D-Dimer 0.69 ug/mL (0.0-0.5)
[2021-11-22 13:55] LABS: Thyroid Stimulating Hormone 1.66 uIU/mL (0.465-4.68)
--- NOTE | 2021-11-22 14:09 | PC.NURSE ---
BLADDER SCANNER WITH >74CC
[2021-11-22 14:12] LABS: Coronavirus 19, PCR Not Detected (NotDetected); Influenza A, PCR Not Detected (NotDetected); Influenza B, PCR Not Detected (NotDetected)
[2021-11-22 15:06] LABS: Microscopic, Urine URINE MICROSCOPIC (MICROSCOPIC)
[2021-11-22 15:28] LABS: Appearance,Urine TURBID (Clear); Blood, Urine 3+ (Negative); Color,Urine BROWN (Yellow); Glucose,Urine (UA) Negative (Negative); Ketones,Urine TRACE (Negative); Leukocyte Esterase,Urine 2+ (Negative); Nitrate,Urine POSITIVE (Negative); PH,Urine 6.5 (5.0-8.5); Protein,Urine 3+ (Negative); Specific Gravity, Urine 1.015 (1.005-1.030)
[2021-11-22 15:32] LABS: Bilirubin,Urine 2+ (Negative)
[2021-11-22 15:33] LABS: Bacteria,Urine 2+ /lpf; RBC,Urine 50-100 #/hpf (0-3); Squamous Epithelial Cell,Urine Occasional #/hpf (0-5)
[2021-11-22 16:46] LABS: Troponin I 0.04 ng/ml (0.00-0.034)
--- NOTE | 2021-11-22 16:47 | PC.NURSE ---
heat treat operator paging media monitor dr. gabriela sotelo
--- NOTE | 2021-11-22 16:52 | PC.NURSE ---
YULIA MEADOWS speaking with Dr. Cortes
--- NOTE | 2021-11-22 17:00 | PC.NURSE ---
notified warehouse loader of admission
--- NOTE | 2021-11-22 17:39 | PC.NURSE ---
ATTEMPTED TO CALL REPORT SHE WILL HAVE TO CALL YOU BACK, SHE IS DISCHARGING A PT
--- NOTE | 2021-11-22 17:49 | PC.NURSE ---
REPORT CALLED TO FLOOR
[2021-11-23] VITALS (8 sets, daily range): BP systolic 106–118; BP diastolic 47–53; PULSE 73–85; RESP 16–19; TEMP 36.6–37.1; O2SAT 97–100; BMI 21.0
--- NOTE | 2021-11-23 05:36 | PC.NURSE ---
pt has rested well t/o shift, received one unit of blood this shift with no s/s of transfusion reaction, has not had a bowel movement so far this shift, has complained of SOA with exertion and is wearing 2L NC, O2 sats have remained 99-100%, remains at bedside
[2021-11-23 06:16] LABS: Basophils % 0.1 % (0.1-2.0); Eosinophils % 0.7 % (0.1-12.0); Hematocrit 26.9 % (42.0-52.0); Hemoglobin 8.3 g/dL (14.1-18.0); Lymphocytes # 0.7 K/mm3 (0.7-4.5); Lymphocytes % 11.1 % (10-50); Mean Corpuscular Volume 97.1 fl (80-94); Mean Platelet Volume 7.8 fl (7.4-10.4); Monocytes # 0.5 K/mm3 (0.1-1.0); Monocytes % 7.9 % (1.7-9.3); Neutrophils # 4.7 K/mm3 (1.8-7.8); Neutrophils % 80.3 % (37.0-80.0); Platelet Count 299 K/mm3 (142-424); Red Blood Count 2.77 M/mm3 (4.60-6.20); Red Cell Distribution Width 14.9 % (11.5-17.5); White Blood Count 5.9 K/mm3 (4.8-10.8)
[2021-11-23 06:55] LABS: Anion Gap 8.4 mEq/L (5-15); Blood Urea Nitrogen 37 mg/dl (9-20); Calcium 7.8 mg/dl (8.4-10.2); Carbon Dioxide 27 mmol/L (22.0-30.0); Chloride 100 mmol/L (98-107); Creatinine Clearance Estimated 27 mL/min (50-200); Estimated Glomerular Filt Rate 32 ml/min (>60); GFR (African American) 39 ML/MIN (>60); Glucose 93 mg/dl (74-100); Potassium 4.4 mmoL/L (3.5-5.1); Sodium 131 mmol/L (136-145)
--- NOTE | 2021-11-23 07:24 | HMH.PHAVTE ---
[facility] Pharmacy VTE Monitoring - Patient Demographics Admission date: 11/23/21 Report Date: 11/23/21 Time: 07:24 Allergies/Adverse Reactions: Patient Allergies hydrocodone [From LORTAB] Allergy (Mild, Verified 11/20/21 15:52) oxycodone [From PERCOCET] Allergy (Mild, Verified 11/20/21 15:52) sulfamethoxazole [From BACTRIM] Allergy (Mild, Verified 11/20/21 15:52) trimethoprim [From BACTRIM] Allergy (Mild, Verified 11/20/21 15:52) Height: 1.75 m Weight: 64.41 kg Patient Problems: Current Active Problems Urinary tract bacterial infections (Acute) Symptomatic anemia (Acute) Moderate dehydration (Acute) - VTE Risk Labs: VTE Related Lab Results Hgb 8.3 g/dL (14.1-18.0) L 11/23/21 05:33 Hct 26.9 % (42.0-52.0) L 11/23/21 05:33 Plt Count 299 K/mm3 (142-424) 11/23/21 05:33 BUN 37 mg/dl (9-20) H 11/23/21 05:33 Creatinine 2.00 mg/dl (0.66-1.25) H 11/23/21 05:33 Estimated Creat Clear 27 mL/min (50-200) 11/23/21 05:33 Was VTE Risk Assessment Performed: Yes VTE Score: 9 VTE Risk Level: Moderate Risk Clinical Trial Participant: No - Prophylaxis VTE Prophylaxis Ordered?: Yes Types of VTE Prophylaxis: TEDS Knee High
--- NOTE | 2021-11-23 07:46 | HMH.PHAINT ---
home medication list verified using list from [facility]
--- NOTE | 2021-11-23 09:04 | HMH.HP ---
*Admission Date: 11/23/21 *Chief complaint: Hematuria/weakness/anemia *History of present illness: 81-year-old white male with multiple medical problems including COPD, coronary atherosclerotic heart disease, recent stent placement within the past 12 months in [place], diastolic and systolic CHF and recent hematuria, with current indwelling Reyes catheter because of severe urinary retention. Over the past week patient has had increasing hematuria, blood counts of been monitored and slowly declining. Urology feels that this is a slow decline in his hemoglobin based on some chronic irritation from the urinary tract but no definitive sites of bleeding have been identified. Patient came to the ER yesterday, found to have relatively low hemoglobin, given his coronary disease and hemoglobin below 8 patient was admitted for further evaluation and transfusion. [facility] History I have reviewed the patient's past medical history: Yes Medical History: Reports:: Atrial Fibrillation, Congestive Heart Failure, Coronary Artery Disease, Hyperlipidemia, Hypertension, Kidney Stones, Myocardial Infarction, Renal Insufficiency Denies:: Cancer, Diabetes Mellitus Type 1, Diabetes Mellitus Type 2, Internal Pacemaker, MRSA, Seizures *Have you ever received a pneumonia vaccine?: Yes *Have you received a flu vaccine this season?: Yes Other Medical History: Reports: Anemia, Arthritis, Cataracts, Sinus Problems Other Surgeries: Yes: No Previous Surgery, Angiogram, Angioplasty, CABG, Cardiac Catheterization, Cardiac Surgery, Cholecystectomy, Colonoscopy, Coronary Stent, Open Heart Surgery, Other. No: Pacemaker Amputation: No Fractures: No - *Social History Smoking Status: Never smoker Tobacco Type: cigarettes Alcohol Intake: never Substance Use Type: denies use *Occupational Status:: retired Housing: house Household Members: spouse *Travel in the last 8 weeks: None Family Hx:: Cancer, Heart Attack, Hyperlipidemia, Hypertension Review of Systems - Review of Systems Review of systems:: pertinent systems reviewed and negative unless documented below - *Neurologic Denies localized weakness, Denies headache(s), Denies numbness, Denies fainting Meds Home Medications Medication Instructions Recorded Confirmed Type Aspirin [Aspir 81] 81 mg PO DAILY 12/10/17 11/22/21 History Simvastatin 20 mg PO HS 10/01/18 11/22/21 History Furosemide [Lasix 40mg tablet] 40 mg PO DAILY 03/09/19 11/22/21 History carvediloL [Carvedilol 12.5mg Tab] 12.5 mg PO BID 03/09/19 11/22/21 History polyethylene glycoL 3350 [Miralax 17 gm PO DAILY 03/09/19 11/22/21 History 17gm Packet] Fluticasone Propionate [Flonase 2 spry NS DAILYP PRN 03/10/19 11/22/21 History Allergy Relief NS] Tamsulosin HCl 0.4 mg PO HS 03/10/19 11/22/21 History pantoprazole 40 mg tablet,delayed 40 mg PO DAILY 11/02/19 11/22/21 History release tiotropium 2.5 mcg-olodaterol 2.5 1 spray INHALATION DAILY 11/02/19 11/22/21 History mcg/actuation mist for inhalation albuterol sulfate 2.5 mg INHALATION Q4H PRN 01/18/20 11/22/21 History ticagrelor 60 mg tablet 60 mg PO BID tab 04/05/20 11/23/21 History Dutasteride 0.5 mg PO DAILY 11/14/21 11/22/21 History Finasteride [Proscar] 5 mg PO DAILY 11/22/21 11/22/21 History Allergies Allergy/AdvReac Type Severity Reaction Status Date / Time hydrocodone [From LORTAB] Allergy Mild Verified 11/20/21 15:52 oxycodone [From PERCOCET] Allergy Mild Verified 11/20/21 15:52 sulfamethoxazole Allergy Mild Verified 11/20/21 15:52 [From BACTRIM] trimethoprim [From BACTRIM] Allergy Mild Verified 11/20/21 15:52 Exam Vital signs and Labs for Last 24 Hours: Temp Pulse Resp BP Pulse Ox 97.9 F 81 18 106/50 L 97 11/23/21 07:58 11/23/21 07:58 11/23/21 07:58 11/23/21 07:58 11/23/21 07:58 Laboratory Results - last 24 hr 11/22/21 12:47: WBC 6.9, RBC 2.52 L, Hgb 7.9 L, Hct 24.6 L, MCV 97.6 H, MCH 31.3 H, MCHC 32.1, RDW 14.4, Plt Count 298, MPV 8.1, Neut %
--- NOTE | 2021-11-23 09:11 | XR_ITS ---
FINAL REPORT CLINICAL HISTORY: INFILTRATE COMPARISON: 11/22/2021 FINDINGS: TWO VIEWS OF THE CHEST There is cardiomegaly. The patient is status post median sternotomy. There is persistent bibasilar atelectasis or pneumonia, left greater than right. Small bilateral pleural effusions are noted. There is no pneumothorax. IMPRESSION: Persistent bibasilar atelectasis or pneumonia with small bilateral pleural effusions. Reviewed, Interpreted and Dictated by Michi Maguire III, MD Transcribed by Elizabeth Barnes Authenticated by Michi Maguire III, MD on 11/23/2021 10:50:57 AM [facility]
--- NOTE | 2021-11-23 10:09 | HMH.OTEV ---
OT Inpatient Evaluation Rehab OT IP Evaluation Start: 11/23/21 09:04 Freq: ONCE Status: Complete Protocol: Document 11/23/21 10:04 JAEMANHEIM (Rec: 11/23/21 10:09 [facility] [id number]) Rehab OT IP Assessment Subjective History Pt oriented x 4 on arrival. Pt agreeable to engage in therapy evaluation. Pt admitted via ED on 11/22/21 due to UTI, dehydration, and anemia. The following information was copied from PCP's history and physical report: 81-year-old white male with multiple medical problems including COPD, coronary atherosclerotic heart disease, recent stent placement within the past 12 months in [place], diastolic and systolic CHF and recent hematuria, with current indwelling Reyes catheter because of severe urinary retention. Over the past week patient has had increasing hematuria, blood counts of been monitored and slowly declining. Urology feels that this is a slow decline in his hemoglobin based on some chronic irritation from the urinary tract but no definitive sites of bleeding have been identified. Patient came to the ER yesterday, found to have relatively low hemoglobin, given his coronary disease and hemoglobin below 8 patient was admitted for further evaluation and transfusion. Pt has a past medical history of: Atrial Fibrillation, Congestive Heart Failure, Coronary Artery Disease, Hyperlipidemia, Hypertension, Kidney Stones, Myocardial Infarction, Renal Insufficiency. Pt claims prior to being in
--- NOTE | 2021-11-23 10:53 | HMH.PTEV ---
Physical Therapy Evaluation Rehab PT IP Evaluation Start: 11/23/21 09:04 Freq: ONCE Status: Active Protocol: Document 11/23/21 10:50 BASIM (Rec: 11/23/21 10:53 PHOTARIQ [id number]) Subjective/History History History 81 yowm adm to [facility] with anemiw and poss UTI. He reports he lives with his spouse, 1 step to enter the home and he is generally independent with all mobility. Subjective Subjective He reports no c/o this am. Rehab PT IP Eval Objective Appearance Patient Behavior Appropriate Patient Orientation Person,Place,Time Difficulty following instructions none Speech Pattern Clear Ambulation Patient Able to Ambulate Yes Ambulation Observation IP General Gait Pattern Observation No Deviations/Normal Ambulation Distance (feet) 250 Ambulation Assistive Device None Ambulation Ability Independent Balance Ability to Arise Able, uses arms to help Sitting Balance Steady, safe Standing Balance Steady, wide stance Dynamic Sitting Balance Ability Good Dynamic Standing Balance Ability Good Transfers Bed Transfer Ability Independent Chair Transfer Ability Independent Sit to Stand Bed Transfer Ability Independent Sit to Stand Chair Transfer Ability Independent ROM All Extremities PT ROM Status WFL MMT All Extremities PT MMT WFL Rehab PT IP prob,goals,plan Problems Date of Evaluation: 11/23/21 Discharge Plan PT Discharge Plan Pt currently presents at baseline for all mobility and is appropriate to return home once medically stable. G -code Required No Eval Complexity Eval Charge Codes 07734 - Moderate Complexity PHYSICIAN CERTIFICATION: I certify the specified therapy services for Nas Henry are required, authorized, and reviewed every 30 days.
--- NOTE | 2021-11-23 14:50 | HMH.CONS ---
*Admission Date: 11/23/21 *Reason for consult:: Gross hematuria *History of present illness: Patient is an 81-year-old white male who is well-known to me. He has had some persistent gross hematuria for the last several weeks. His hemoglobin is drifted down to 7.9 and he was admitted for a transfusion. He was transfused 1 unit and his hemoglobin this morning was 8.3. States he feels a little bit better. He still having some dark blood in the urine with occasional clots. 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 Recent cystoscopy was performed with some evidence of prostate bleeding. Kidney function was low higher than normal 2 on admission and it too is improved with gentle hydration. His urine on admission appeared infected and he is on antibiotics. Culture is pending [facility] History Medical History: Reports:: Atrial Fibrillation, Congestive Heart Failure, Coronary Artery Disease, Hyperlipidemia, Hypertension, Kidney Stones, Myocardial Infarction, Renal Insufficiency Denies:: Cancer, Diabetes Mellitus Type 1, Diabetes Mellitus Type 2, Internal Pacemaker, MRSA, Seizures *Have you ever received a pneumonia vaccine?: Yes *Have you received a flu vaccine this season?: Yes Other Medical History: Reports: Anemia, Arthritis, Cataracts, Sinus Problems Other Surgeries: Yes: No Previous Surgery, Angiogram, Angioplasty, CABG, Cardiac Catheterization, Cardiac Surgery, Cholecystectomy, Colonoscopy, Coronary Stent, Open Heart Surgery, Other. No: Pacemaker Amputation: No Fractures: No - *Social History Smoking Status: Never smoker Tobacco Type: cigarettes Alcohol Intake: never Substance Use Type: denies use *Occupational Status:: retired Housing: house Household Members: spouse *Travel in the last 8 weeks: None Family Hx:: Cancer, Heart Attack, Hyperlipidemia, Hypertension Review of Systems - Review of Systems Review of systems:: pertinent systems reviewed and negative unless documented below - *Neurologic Denies localized weakness, Denies headache(s), Denies numbness, Denies fainting Meds Home Medications Medication Instructions Recorded Confirmed Type Aspirin [Aspir 81] 81 mg PO DAILY 12/10/17 11/22/21 History Simvastatin 20 mg PO HS 10/01/18 11/22/21 History Furosemide [Lasix 40mg tablet] 40 mg PO DAILY 03/09/19 11/22/21 History carvediloL [Carvedilol 12.5mg Tab] 12.5 mg PO BID 03/09/19 11/22/21 History polyethylene glycoL 3350 [Miralax 17 gm PO DAILY 03/09/19 11/22/21 History 17gm Packet] Fluticasone Propionate [Flonase 2 spry NS DAILYP PRN 03/10/19 11/22/21 History Allergy Relief NS] Tamsulosin HCl 0.4 mg PO HS 03/10/19 11/22/21 History pantoprazole 40 mg tablet,delayed 40 mg PO DAILY 11/02/19 11/22/21 History release tiotropium 2.5 mcg-olodaterol 2.5 1 spray INHALATION DAILY 11/02/19 11/22/21 History mcg/actuation mist for inhalation albuterol sulfate 2.5 mg INHALATION Q4H PRN 01/18/20 11/22/21 History ticagrelor 60 mg tablet 60 mg PO BID tab 04/05/20 11/23/21 History Dutasteride 0.5 mg PO DAILY 11/14/21 11/22/21 History Finasteride [Proscar] 5 mg PO DAILY 11/22/21 11/22/21 History Allergies Allergy/AdvReac Type Severity Reaction Status Date / Time hydrocodone [From LORTAB] Allergy Mild Verified 11/20/21 15:52 oxycodone [From PERCOCET] Allergy Mild Verified 11/20/21 15:52 sulfamethoxazole Allergy Mild Verified 11/20/21 15:52 [From BACTRIM] trimethoprim [From BACTRIM] Allergy Mild Verified 11/20/21 15:52 Exam Vital signs and Labs for Last 24 Hours: Temp Pulse Resp BP Pulse Ox 97.9 F 74 18 106/50 L 97 11/23/21 07:58 11/23/21 13:28 11/23/21 07:58 11/23/21 07:58 11/23/21 13:28 Laboratory Results - last 24 hr 11/22/21 12:47: Blood Type Confirm O Negative 11/22/21 15:03: Urine Color Brown, Urine Appearance Turbid, Urine pH 6.5, Ur Specific [place] 1.015, Urine Protein 3+, Urine Glucose (UA) Negative, Urine Ketones Trace, Urine
[2021-11-24] VITALS (7 sets, daily range): BP systolic 102–137; BP diastolic 45–68; PULSE 77–83; RESP 16–18; TEMP 36.7–37.1; O2SAT 97–100; BMI 21.2
[2021-11-24 06:47] LABS: Basophils % 0.4 % (0.1-2.0); Eosinophils # 0.1 K/mm3 (0.0-0.4); Eosinophils % 1.4 % (0.1-12.0); Hematocrit 28.7 % (42.0-52.0); Hemoglobin 8.8 g/dL (14.1-18.0); Lymphocytes # 0.8 K/mm3 (0.7-4.5); Lymphocytes % 11.5 % (10-50); Mean Corpuscular HGB Conc 30.7 g/dL (31.8-35.4); Mean Corpuscular Hemoglobin 30.1 pg (27.0-31.2); Mean Corpuscular Volume 98.1 fl (80-94); Mean Platelet Volume 7.5 fl (7.4-10.4); Monocytes # 0.7 K/mm3 (0.1-1.0); Monocytes % 9.8 % (1.7-9.3); Neutrophils # 5.1 K/mm3 (1.8-7.8); Neutrophils % 76.9 % (37.0-80.0); Platelet Count 315 K/mm3 (142-424); Red Blood Count 2.92 M/mm3 (4.60-6.20); Red Cell Distribution Width 14.6 % (11.5-17.5); White Blood Count 6.7 K/mm3 (4.8-10.8)
[2021-11-24 07:00] LABS: Alanine Aminotransferase 10 U/L (12-78); Albumin Level 3.1 g/dl (3.5-5.0); Albumin/Globulin Ratio 1.3 (1.1-1.8); Alkaline Phosphatase 68 U/L (38-126); Anion Gap 11.5 mEq/L (5-15); Aspartate Amino Transferase 14 U/L (17-59); Bilirubin,Total 0.6 mg/dl (0.2-1.3); Blood Urea Nitrogen 39 mg/dl (9-20); Calcium 7.8 mg/dl (8.4-10.2); Carbon Dioxide 25 mmol/L (22.0-30.0); Chloride 102 mmol/L (98-107); Creatinine Clearance Estimated 27 mL/min (50-200); Estimated Glomerular Filt Rate 32 ml/min (>60); GFR (African American) 39 ML/MIN (>60); Globulin 2.4 g/dL (1.3-3.2); Glucose 98 mg/dl (74-100); Potassium 4.5 mmoL/L (3.5-5.1); Sodium 134 mmol/L (136-145); Total Protein,Serum 5.5 g/dl (6.3-8.2)
--- NOTE | 2021-11-24 07:12 | HMH.ACPN2 ---
Internal Medicine - PN: Subj *Date: 11/24/21 *Time: 08:36 Interval history: Patient is remained stable overnight on 2 L oxygen. Continues to have frankly bloody urine. Extensive discussion with at bedside today elicits that he is on Brilinta and aspirin for A. fib, not CAD or stroke prophylaxis. She was concerned as to why he is on blood thinner as well as having bloody urine. I concur with this thought process. Additionally discussed his blood pressure regimen of Coreg for rate control and blood pressure control, his enlarged prostate with recent addition of finasteride, and continued lower abdominal tenderness concerning for urinary obstruction. All questions answered. Patient looks fairly stable this morning. Continued hematuria however concerning. Exam Vital signs and Labs for Last 24 Hours: Temp Pulse Resp BP Pulse Ox 98.4 F 77 17 112/48 L 97 11/24/21 04:00 11/24/21 06:14 11/24/21 04:00 11/24/21 04:00 11/24/21 06:14 I & O for Last 24 hours: Intake & Output 11/21/21 11/22/21 11/23/21 11/24/21 23:59 23:59 23:59 23:59 Intake Total 250 / 250 840 / 840 Output Total 100 / 100 0 / 100 100 / 100 Balance 150 / 150 840 / 740 -100 / -100 Weight 63.957 kg 64.41 kg 65.136 kg Microbiology Reports for the Last 24 Hours: Microbiology 11/22/21 15:03 Urine,Clean Catch Urine Culture - Preliminary NO GROWTH AFTER 24 HOURS Narrative: - Constitutional minimal acute distress, thin, chronically ill appearing - *Routine HEENT Exam Head: Present: normocephalic Eye: Present: EOMI, PERRL ENT: Present: mucous membranes moist - *Routine Neck Exam Present: supple. Absent: lymphadenopathy - *Routine Respiratory Exam Present: rales - *Routine Cardiovascular Exam Present: RRR - *Routine Abdominal Exam Present: soft, normoactive bowel sounds. suprapubic tenderness - *Routine Extremities Exam Absent: cyanosis, clubbing, edema - *Routine Skin Exam Present: warm. Absent: rash - *Routine Neurological Exam Present: alert, oriented X3, Neurologically intact but globally weak Assessment and Plan (1) Pneumonia Status: Acute Category: Medical Code(s): J18.9 - Pneumonia, unspecified organism (2) Symptomatic anemia Status: Acute Category: Medical Code(s): D64.9 - Anemia, unspecified (3) Urinary tract bacterial infections Status: Acute Category: Medical Code(s): N39.0 - Urinary tract infection, site not specified; A49.9 - Bacterial infection, unspecified (4) Acute kidney injury superimposed on chronic kidney disease Status: Acute Category: Medical Code(s): N17.9 - Acute kidney failure, unspecified; N18.9 - Chronic kidney disease, unspecified (5) Chronic kidney disease, stage III (moderate) Status: Chronic Category: Medical Code(s): N18.3 - Chronic kidney disease, stage 3 (moderate) (6) Panlobular emphysema Status: Chronic Category: Medical Code(s): J43.1 - Panlobular emphysema (7) Gross hematuria Status: Acute Category: Medical Code(s): R31.0 - Gross hematuria - Assessment and plan all Dx Assessment and Plan for all problems:: 81-year-old male with concern for pneumonia on exam given increased oxygen requirement and findings on chest x-ray. Additionally has concern for gross hematuria and urinary obstruction. Urology consulted, appreciate their recommendations. Plan as follows: Pneumonia Acute hypoxia -Continue supplemental oxygen, goal sats greater than 90. On oxygen at home but only at night. -Continue ceftriaxone for dual coverage of respiratory pathogens and urinary pathogens Hematuria UTI Urinary obstruction VANESSA on CKD -Tender on exam this morning, continues to have gross hematuria. Hematuria began after resuming Brilinta and aspirin per patient report. -We will stop Brilinta and aspirin today as they are used for A. fib, not CAD or CVA risk modification. -Given tenderness on exam, wi
--- NOTE | 2021-11-24 14:01 | PC.NURSE ---
After x2 attempts to [address] way cath, nursing staff unsuccessful. Notified MD [facility] office, MD will attempt when he comes to second floor to round.
[2021-11-24 15:47] LABS: Microscopic, Urine URINE MICROSCOPIC (MICROSCOPIC)
[2021-11-24 16:28] LABS: Appearance,Urine CLEAR (Clear); Blood, Urine 3+ (Negative); Color,Urine RED (Yellow); Glucose,Urine (UA) Negative (Negative); Ketones,Urine Negative (Negative); Leukocyte Esterase,Urine 2+ (Negative); Nitrate,Urine POSITIVE (Negative); PH,Urine 6.5 (5.0-8.5); Protein,Urine 2+ (Negative); Specific Gravity, Urine <= 1.005 (1.005-1.030); Urobilinogen,Urine 0.2 EU/dl (0.2)
[2021-11-24 16:30] LABS: Bilirubin,Urine 1+ (Negative)
--- NOTE | 2021-11-24 16:30 | HMH.CONFU ---
Internal Medicine - PN: Subj *Date: 11/24/21 *Time: 16:30 Interval history: Patient with some mild persistent hematuria on Brilinta and aspirin. The Brilinta has been stopped as of today. Nursing staff was unable to place a Reyes catheter and I placed a 22 Macedonian coud? catheter and irrigated the bladder with some small clots present. The catheter did not irrigate normally and I and where there is a larger clot in the bladder contributing to the hematuria. Exam Vital signs and Labs for Last 24 Hours: Temp Pulse Resp BP Pulse Ox 98.3 F 81 18 137/68 100 11/24/21 15:13 11/24/21 15:13 11/24/21 15:13 11/24/21 15:13 11/24/21 15:13 Laboratory Results - last 24 hr 11/24/21 05:53: WBC 6.7, RBC 2.92 L, Hgb 8.8 L, Hct 28.7 L, MCV 98.1 H, MCH 30.1, MCHC 30.7 L, RDW 14.6, Plt Count 315, MPV 7.5, Neut % (Auto) 76.9, Lymph % (Auto) 11.5, [place] % (Auto) 9.8 H, Eos % (Auto) 1.4, Baso % (Auto) 0.4, Neut # (Auto) 5.1, Lymph # (Auto) 0.8, [place] # (Auto) 0.7, Eos # (Auto) 0.1, Baso # (Auto) 0.0 11/24/21 05:53: Sodium 134 L, Potassium 4.5, Chloride 102, Carbon Dioxide 25, Anion Gap 11.5, BUN 39 H, Creatinine 2.00 H, Estimated Creat Clear 27, Estimated GFR 32 L, Est GFR ( Amer) 39 L, Glucose 98, Calcium 7.8 L, Total Bilirubin 0.6, AST 14 L D, ALT 10 L D, Alkaline Phosphatase 68, Total Protein 5.5 L, Albumin 3.1 L, Globulin 2.4, Albumin/Globulin Ratio 1.3 I & O for Last 24 hours: Intake & Output 11/21/21 11/22/21 11/23/21 11/24/21 23:59 23:59 23:59 23:59 Intake Total 250 / 250 840 / 840 1215 / 1215 Output Total 100 / 100 0 / 100 685 / 685 Balance 150 / 150 840 / 740 530 / 530 Weight 63.957 kg 64.41 kg 65.136 kg Microbiology Reports for the Last 24 Hours: Microbiology 11/22/21 13:20 Blood Blood Culture - Preliminary NO GROWTH AFTER 48 HOURS 11/22/21 13:20 Blood Blood Culture - Preliminary NO GROWTH AFTER 48 HOURS 11/22/21 15:03 Urine,Clean Catch Urine Culture - Preliminary - Constitutional no acute distress - *Routine HEENT Exam Head: Present: normocephalic Eye: Present: EOMI, PERRL ENT: Present: mucous membranes moist - *Routine Neck Exam Present: supple. Absent: lymphadenopathy - *Routine Respiratory Exam Present: prolonged expiratory phase. Absent: accessory muscle use - *Routine Cardiovascular Exam Absent: JVD - *Routine Abdominal Exam Present: soft, tenderness - *Routine Extremities Exam Absent: cyanosis, clubbing, edema - *Routine Skin Exam Present: warm. Absent: rash - *Routine Neurological Exam Present: alert, oriented X3 Assessment and Plan (1) Pneumonia Status: Acute Category: Medical Code(s): J18.9 - Pneumonia, unspecified organism (2) Symptomatic anemia Status: Acute Category: Medical Code(s): D64.9 - Anemia, unspecified (3) Urinary tract bacterial infections Status: Acute Category: Medical Code(s): N39.0 - Urinary tract infection, site not specified; A49.9 - Bacterial infection, unspecified (4) Acute kidney injury superimposed on chronic kidney disease Status: Acute Category: Medical Code(s): N17.9 - Acute kidney failure, unspecified; N18.9 - Chronic kidney disease, unspecified (5) Chronic kidney disease, stage III (moderate) Status: Chronic Category: Medical Code(s): N18.3 - Chronic kidney disease, stage 3 (moderate) (6) Panlobular emphysema Status: Chronic Category: Medical Code(s): J43.1 - Panlobular emphysema (7) Gross hematuria Status: Acute Category: Medical Code(s): R31.0 - Gross hematuria Patient with some persistent hematuria and that I suspect possible bladder clot formation. Reyes catheter is in place and he is having some discomfort and B and O suppositories were ordered. I will reassess in the morning but feels like he likely needs to go the operating room for cystoscopy and clot evacuation and will plan for that.
[2021-11-24 16:41] LABS: RBC,Urine 50-100 #/hpf (0-3); WBC,Urine TNTC #/hpf (0-3)
[2021-11-24 16:42] LABS: Bacteria,Urine 3+ /lpf
--- NOTE | 2021-11-24 17:35 | PC.NURSE ---
Pt c/o abdominal pain, abdomen tender to touch and very firm. Pt had <50mL of hematuria in murphy bag. Pt was uncomfortable and couldnt tolerate laying supine in bed. Only felt any relief when standing up but still stated that he was very uncomfortable and was crying. MD Jamie kumar MD gave orders to remove murphy and for PRN medications to contact PCP. Shortly after MD Ayala came to the floor palpated pt's abd which was very tender. then ordered PRN belladonna and opium suppository q8h. also stated he would likely take pt down to surgery tomorrow for cystoscopy. 1630- pt called this RN to his room, pt sitting on side of bed, hematuria noted on floor and pt asked for cath to be removed. Repositioned pt back in bed, murphy cath irrigated then removed. Pt felt immediate relief and denied any further bladder spasms. 1750- pt has urinated in urinal. dark red/brown in color. (2) small blood clots noted. 100mL out total.
[2021-11-25] VITALS (23 sets, daily range): BP systolic 99–146; BP diastolic 46–68; PULSE 76–90; RESP 14–18; TEMP 36.6–43; O2SAT 93–100; BMI 21.8
--- NOTE | 2021-11-25 | XR_ITS ---
PROCEDURE INFORMATION: Exam: XR Abdomen Exam date and time: 11/25/2021 12:00 AM Age: 81 years old Clinical indication: Device placement; Urinary device; Renal or nephroureteral stent; Additional info: Or images of right renal stent placement. Fluoro time: 1.43 TECHNIQUE: Imaging protocol: XR of the abdomen. Views: Frontal supine view of the abdomen. 1 View. COMPARISON: No relevant prior studies available. FINDINGS: Tubes, catheters and devices: Right ureteral stent is seen superimposed over the right abdomen. . Gastrointestinal tract: Multiple loops of air-filled bowel Bones/joints: Lumbar spine poorly delineated on this spot film IMPRESSION: 1. Right ureteral stent is seen superimposed over the right abdomen. . 2. This is a spot film which demonstrates lumbar spine and air-filled loops of bowel
--- NOTE | 2021-11-25 03:16 | PC.NURSE ---
Pt has c/o discomfort with urination and some lower abdominal tenderness. Urine output has decreased over shift. Pt states urination is becoming more difficult. Pt does not want F/C at this time. Total urine output is 175 Pt is currently NPO for cystoscopy in AM. Pt declines to sign consent at this time. Pt states he wants to speak with MD first. Pt remains on 2L O2 NC as at home. VSS. Will continue to monitor.
--- NOTE | 2021-11-25 06:15 | PC.NURSE ---
Pt voided this AM. 250 ml of dark red urine. 2 Blood clots noted in urinal. Pt states he feels better.
[2021-11-25 07:23] LABS: Basophils % 0.4 % (0.1-2.0); Eosinophils # 0.1 K/mm3 (0.0-0.4); Eosinophils % 1.2 % (0.1-12.0); Hematocrit 29.5 % (42.0-52.0); Hemoglobin 8.9 g/dL (14.1-18.0); Lymphocytes # 0.8 K/mm3 (0.7-4.5); Lymphocytes % 8.9 % (10-50); Mean Corpuscular HGB Conc 30.3 g/dL (31.8-35.4); Mean Corpuscular Hemoglobin 29.8 pg (27.0-31.2); Mean Corpuscular Volume 98.3 fl (80-94); Mean Platelet Volume 7.6 fl (7.4-10.4); Monocytes # 0.7 K/mm3 (0.1-1.0); Neutrophils # 6.7 K/mm3 (1.8-7.8); Neutrophils % 80.5 % (37.0-80.0); Platelet Count 366 K/mm3 (142-424); Red Cell Distribution Width 14.6 % (11.5-17.5); White Blood Count 8.3 K/mm3 (4.8-10.8)
[2021-11-25 07:26] LABS: Alanine Aminotransferase 11 U/L (12-78); Albumin Level 3.3 g/dl (3.5-5.0); Albumin/Globulin Ratio 1.3 (1.1-1.8); Alkaline Phosphatase 67 U/L (38-126); Anion Gap 12.7 mEq/L (5-15); Aspartate Amino Transferase 20 U/L (17-59); Bilirubin,Total 0.7 mg/dl (0.2-1.3); Blood Urea Nitrogen 42 mg/dl (9-20); Carbon Dioxide 22 mmol/L (22.0-30.0); Chloride 103 mmol/L (98-107); Creatinine Clearance Estimated 33 mL/min (50-200); Estimated Glomerular Filt Rate 39 ml/min (>60); GFR (African American) 47 ML/MIN (>60); Globulin 2.5 g/dL (1.3-3.2); Glucose 93 mg/dl (74-100); Potassium 4.7 mmoL/L (3.5-5.1); Sodium 133 mmol/L (136-145); Total Protein,Serum 5.8 g/dl (6.3-8.2)
--- NOTE | 2021-11-25 07:52 | PC.NURSE ---
bladder scanned pt for 420ml post void. MD to see pt
--- NOTE | 2021-11-25 09:04 | PC.NURSE ---
pt off floor with Surgery team
--- NOTE | 2021-11-25 09:45 | P.PN_ITS ---
[facility] Anesthesia Checklist - Patient Identification Patient Identification: Arm Band - Structural Data Admitted From: Home Planned Operative Procedure/s: Cystoscopy with Clot Evacuation Consent for Planned Operative Procedure(s) Verified: Yes Verified Documents: Surgical Consent, History and Physical - NPO Status Verified Time NPO: 00:00 - Additional verifications Anesthesia Reactions: No Hx Blood Transfusions: No - Airway Assessment C-Spine Mobility Assessed: Yes (mp2) TMJ Mobility Assessed: Yes Dentition: Poor Dentition - Neurological Assessment Level of Consciousness: Awake, Alert - Anesthesia Plan Anesthesia Risk discussed: Yes Anesthesia Plan: Verified ASA Class: III Anesthesia Type: General [facility] History I have reviewed the patient's past medical history: Yes Medical History: Reports:: Atrial Fibrillation, Congestive Heart Failure, Coronary Artery Disease, Hyperlipidemia, Hypertension, Kidney Stones, Myocardial Infarction, Renal Insufficiency Denies:: Cancer, Diabetes Mellitus Type 1, Diabetes Mellitus Type 2, Internal Pacemaker, MRSA, Seizures *Have you ever received a pneumonia vaccine?: Yes *Have you received a flu vaccine this season?: Yes Other Medical History: Reports: Anemia, Arthritis, Cataracts, Sinus Problems Anesthesia experience/problems:: nac Other Surgeries: Yes: Angiogram, Angioplasty, CABG, Cardiac Catheterization, Cardiac Surgery, Cholecystectomy, Colonoscopy, Coronary Stent, Open Heart Surgery, Other. No: Pacemaker Amputation: No Fractures: No - *Social History Smoking Status: Never smoker Tobacco Type: cigarettes Alcohol Intake: never Substance Use Type: denies use *Occupational Status:: retired Housing: house Household Members: spouse *Travel in the last 8 weeks: None Family Hx:: Cancer, Heart Attack, Hyperlipidemia, Hypertension
--- NOTE | 2021-11-25 11:42 | HMH.ANESI ---
[facility] Anesthesia Record Part I Intake, IV Amount: 1,000 Estimated blood loss (mL): 0 Urine output (mL): 0 Blood Pressure: 99/46 SaO2: 93 Pulse Rate: 81 Respiratory Rate: 16 Temperature: 99.3 F Patient is:: Drowsy, Stable Stable to PACU at:: 11:40
--- NOTE | 2021-11-25 12:03 | HMH.OPNOTE ---
Date of procedure: 11/25/21 Pre-op Diagnosis:: Gross hematuria, bilateral hydronephrosis Post-op Diagnosis:: Bilateral ureteral edema and friability, prostatic bleeding Procedure performed:: Cystoscopy with evacuation of clot, bilateral ureteroscopy, bilateral ureteral stent placement and fulguration of prostate bleeding and bladder neck bleeding. 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 He also has bilateral hydronephrosis and presents for urologic evaluation. Operative findings:: Cystoscopy revealed a small amount of clot that was irrigated free. Both ureteral trigones were edematous and friable appearing. Bilateral ureteroscopy was performed showing bilateral ureteral edema and friability. The right renal pelvis appeared normal. The mid and upper ureter on the right side cannot be evaluated due to the ureteral edema. Bilateral ureteral stents were placed and fulguration of bladder and prostate bleeding was performed. Operative note:: Patient taken to the operating room after informed consent was obtained. General anesthesia was administered. Sequential compression devices placed. He was on preoperative antibiotics. He was then placed into the dorsal lithotomy position and prepped and draped in the standard surgical fashion. The 22 Stateless cystoscope passed into the urethral meatus and there was some area of trauma at the bulbar urethra and the bladder neck was a bit high. The bladder was entered and there was some clot present and the Urovac was used to evacuate out a small amount of clot. The bladder was then evaluated with a 30 and 70 degree lens. Both ureteral orifice ease were edematous and there was friable mucosa along the trigone bilaterally. There was no evidence of bladder tumors or stones. There was some bleeding from the bladder neck and prostatic urethra. There was some bloody efflux of urine from both ureters. A guidewire was passed into the right ureteral orifice and our flexible ureteroscope passed over the guidewire and the entirety of the right ureter was friable and edematous. I was able to pass the scope into the renal pelvis which appeared more normal regarding the mucosal appearance. The ureteroscope then removed and the left ureteral orifice was attempted to be cannulated with a guidewire but could not find the appropriate lumen. The ureteroscope was used passed into the distal part of the left ureter and we passed a 0.035 Glidewire through the appropriate lumen after many attempts to find appropriate lumen. Under fluoroscopy the guidewire passed up into the left renal pelvis and a ureteral catheter was passed over the Glidewire and contrast injected and the renal pelvis filled appropriately. We then passed our 0.035 sensor guidewire through the ureteral catheter and the ureteral catheter removed. Then passed a 4.8 x 24 Stateless stent over the guidewire and a good curl was noted proximally and distally. Guidewire was passed into the right ureteral orifice and into the renal pelvis as well and a 6 x 26 Stateless stent was passed over the guidewire and the guidewire removed. Redundant curl was noted in the right renal pelvis the string was removed from each stent. There was some bloody efflux of urine noted from the ureteral stents. We then passed our 26 Stateless resectoscope sheath into the bladder and the friable tissue around each trigone was lightly fulgurated. Some bleeding at the bladder neck was fulgurated and some bleeding of the prostatic urethra was fulgurated as well. We then removed the resectoscope and a 22 Stateless three-way catheter passed with aid of a catheter guide. 10 cc placed into the balloon and continuous bladder irrigation started. Patient tolerated procedure well Condition: stable Disposition: PACU Specimens::
--- NOTE | 2021-11-25 12:12 | SUR.PHASEI ---
1209- detailed report given to gabriela gracia on [facility] at this time.
--- NOTE | 2021-11-25 13:02 | HMH.ACPN ---
Internal Medicine - PN: Patricio *Date: 11/25/21 *Time: 13:02 Interval history: Uneventful overnight but went to the OR this morning for cystoscopy and has just returned from PACU. Continuous bladder irrigation in place. is at bedside. She reports some ongoing shortness of breath but denies cough. Otherwise no new concerns. Exam Vital signs and Labs for Last 24 Hours: Temp Pulse Resp BP Pulse Ox 99.1 F 85 14 112/54 L 97 11/25/21 12:10 11/25/21 12:10 11/25/21 12:10 11/25/21 12:10 11/25/21 12:10 Laboratory Results - last 24 hr 11/24/21 15:30: Urine Color Red, Urine Appearance Clear, Urine pH 6.5, Ur Specific B[place] <= 1.005, Urine Protein 2+, Urine Glucose (UA) Negative, Urine Ketones Negative, Urine Blood 3+, Urine Nitrate Positive, Urine Bilirubin 1+ A, Urine Urobilinogen 0.2, Ur Leukocyte Esterase 2+ A, Urine RBC 50-100, Urine WBC Tntc, Ur Squamous Epith Cells 3-5, Urine Bacteria 3+ 11/25/21 06:35: WBC 8.3, RBC 3.00 L, Hgb 8.9 L, Hct 29.5 L, MCV 98.3 H, MCH 29.8, MCHC 30.3 L, RDW 14.6, Plt Count 366, MPV 7.6, Neut % (Auto) 80.5 H, Lymph % (Auto) 8.9 L, [place] % (Auto) 9.0, Eos % (Auto) 1.2, Baso % (Auto) 0.4, Neut # (Auto) 6.7, Lymph # (Auto) 0.8, [place] # (Auto) 0.7, Eos # (Auto) 0.1, Baso # (Auto) 0.0 11/25/21 06:35: Sodium 133 L, Potassium 4.7, Chloride 103, Carbon Dioxide 22, Anion Gap 12.7, BUN 42 H, Creatinine 1.70 H, Estimated Creat Clear 33, Estimated GFR 39 L, Est GFR ( Amer) 47 L D, Glucose 93, Calcium 8.0 L, Total Bilirubin 0.7, AST 20 D, ALT 11 L, Alkaline Phosphatase 67, Total Protein 5.8 L, Albumin 3.3 L, Globulin 2.5, Albumin/Globulin Ratio 1.3 I & O for Last 24 hours: Intake & Output 11/23/21 11/24/21 11/25/21 11/26/21 11:59 11:59 11:59 11:59 Intake Total 610 / 610 840 / 840 1855 / 1855 Output Total 100 / 100 100 / 100 1360 / 1360 Balance 510 / 510 740 / 740 495 / 495 Weight 142 lb 143 lb 9.6 oz 147 lb 3.2 oz Microbiology Reports for the Last 24 Hours: Microbiology 11/22/21 13:20 Blood Blood Culture - Preliminary NO GROWTH AFTER 48 HOURS 11/22/21 13:20 Blood Blood Culture - Preliminary NO GROWTH AFTER 48 HOURS 11/22/21 15:03 Urine,Clean Catch Urine Culture - Preliminary - Constitutional no acute distress, thin, cooperative - *Routine HEENT Exam Head: Present: atraumatic Eye: Present: conjunctivae pink ENT: Present: mucous membranes moist - *Routine Neck Exam Present: supple - *Routine Respiratory Exam Present: rales (left base) - *Routine Cardiovascular Exam Present: RRR - *Routine Abdominal Exam Present: soft, normoactive bowel sounds. Absent: distended - *Routine Rectal Exam Patient deferred: visual exam - *Routine Exam Patient deferred: groin exam (see urology notes) - *Routine Extremities Exam Present: pulses intact. Absent: edema - *Routine Skin Exam Present: intact, warm - *Routine Neurological Exam Present: normal speech (drowsy but wakes easily and is conversant) Assessment and Plan (1) Pneumonia Status: Acute Category: Medical Code(s): J18.9 - Pneumonia, unspecified organism (2) Symptomatic anemia Status: Acute Category: Medical Code(s): D64.9 - Anemia, unspecified (3) Urinary tract bacterial infections Status: Acute Category: Medical Code(s): N39.0 - Urinary tract infection, site not specified; A49.9 - Bacterial infection, unspecified (4) Acute kidney injury superimposed on chronic kidney disease Status: Acute Category: Medical Code(s): N17.9 - Acute kidney failure, unspecified; N18.9 - Chronic kidney disease, unspecified (5) Chronic kidney disease, stage III (moderate) Status: Chronic Category: Medical Code(s): N18.3 - Chronic kidney disease, stage 3 (moderate) (6) Panlobular emphysema Status: Chronic Category: Medical Code(s): J43.1 - Panlobular emphysema (7) Gross hematuria Status: Acute Category: Medical
--- NOTE | 2021-11-25 13:15 | PC.NURSE ---
pt back on the floor from surgery. post op vitals being completed. Pt denies any pain @ this time. CBI in place flowing without issue @ bedside
--- NOTE | 2021-11-25 23:10 | PC.NURSE ---
THIS RN RECEIVED A PHONE CALL FROM DR. GONZALEZ INQUIRING HOW PATIENT IS DOING. THIS RN INQUIRED IF THIS RN SHOULD CHANGE THE GAUZE THAT IS WRAPPED AROUND THE TIP OF PATIENT'S PENIS. PER MD, LEAVE GAUZE ALONE UNLESS BLOOD IS DRIPPING IS NOTED. PER MD, BLADDER IRRIGATION IS TO KEEP URINE PINK TO LIGHT RED. NO OTHER CONCERNS.
[2021-11-26] VITALS (10 sets, daily range): BP systolic 96–119; BP diastolic 43–54; PULSE 83–94; RESP 14–16; TEMP 36.6–37.3; O2SAT 92–100; BMI 22.3
--- NOTE | 2021-11-26 04:37 | PC.NURSE ---
PATIENT HAS COMPLAINED OF PAIN ON HIS PENIS. THIS RN HAS OFFERED PAIN MEDICATION ACCORDINGLY. PATIENT REFUSED 1X. PATIENT ASKED SRNA FOR PAIN MEDICATION, THIS RN ATTEMPTED TO ADMINISTER, PATIENT WAS SLEEPING. THIS RN WILL CONTINUE TO MONITOR PAIN LEVEL. URINE HAS CONTINUED TO BE LIGHT RED IN COLOR. PATIENT HAS TOLERATED BLADDER IRRIGATION THUS FAR. NO OTHER CONCERNS AT THIS TIME.
[2021-11-26 07:12] LABS: Anion Gap 12.5 mEq/L (5-15); Blood Urea Nitrogen 38 mg/dl (9-20); Calcium 7.8 mg/dl (8.4-10.2); Carbon Dioxide 24 mmol/L (22.0-30.0); Chloride 103 mmol/L (98-107); Creatinine Clearance Estimated 36 mL/min (50-200); Estimated Glomerular Filt Rate 42 ml/min (>60); GFR (African American) 51 ML/MIN (>60); Glucose 104 mg/dl (74-100); Potassium 4.5 mmoL/L (3.5-5.1); Sodium 135 mmol/L (136-145)
[2021-11-26 07:17] LABS: Basophils % 0.1 % (0.1-2.0); Eosinophils % 0.2 % (0.1-12.0); Hematocrit 25.1 % (42.0-52.0); Hemoglobin 7.8 g/dL (14.1-18.0); Lymphocytes # 0.6 K/mm3 (0.7-4.5); Lymphocytes % 8.5 % (10-50); Mean Corpuscular HGB Conc 30.9 g/dL (31.8-35.4); Mean Corpuscular Hemoglobin 30.3 pg (27.0-31.2); Mean Corpuscular Volume 97.8 fl (80-94); Mean Platelet Volume 7.7 fl (7.4-10.4); Monocytes # 0.6 K/mm3 (0.1-1.0); Monocytes % 8.1 % (1.7-9.3); Neutrophils # 6.1 K/mm3 (1.8-7.8); Platelet Count 319 K/mm3 (142-424); Red Blood Count 2.57 M/mm3 (4.60-6.20); Red Cell Distribution Width 14.6 % (11.5-17.5); White Blood Count 7.4 K/mm3 (4.8-10.8)
--- NOTE | 2021-11-26 08:08 | P.PN_ITS ---
Internal Medicine - PN: Subj *Date: 11/26/21 *Time: 08:08 Exam Vital signs and Labs for Last 24 Hours: Temp Pulse Resp BP Pulse Ox 97.9 F 92 H 16 109/45 L 99 11/26/21 07:39 11/26/21 07:39 11/26/21 07:39 11/26/21 07:39 11/26/21 07:39 Laboratory Results - last 24 hr 11/26/21 06:43: WBC 7.4, RBC 2.57 L, Hgb 7.8 L, Hct 25.1 L, MCV 97.8 H, MCH 30.3, MCHC 30.9 L, RDW 14.6, Plt Count 319, MPV 7.7, Neut % (Auto) 83.0 H, Lymph % (Auto) 8.5 L, [place] % (Auto) 8.1, Eos % (Auto) 0.2, Baso % (Auto) 0.1, Neut # (Auto) 6.1, Lymph # (Auto) 0.6 L, [place] # (Auto) 0.6, Eos # (Auto) 0.0, Baso # (Auto) 0.0 11/26/21 06:43: Sodium 135 L, Potassium 4.5, Chloride 103, Carbon Dioxide 24, Anion Gap 12.5, BUN 38 H, Creatinine 1.60 H, Estimated Creat Clear 36, Estimated GFR 42 L, Est GFR ( Amer) 51 L, Glucose 104 H, Calcium 7.8 L I & O for Last 24 hours: Intake & Output 11/23/21 11/24/21 11/25/21 11/26/21 23:59 23:59 23:59 23:59 Intake Total 840 / 840 1215 / 1215 1760 / 1760 240 / 240 Output Total 0 / 100 935 / 935 6725 / 6725 5150 / 5150 Balance 840 / 740 280 / 280 -4965 / -4965 -4910 / -4910 Weight 64.41 kg 65.136 kg 66.769 kg 68.356 kg Microbiology Reports for the Last 24 Hours: Microbiology 11/24/21 15:30 Urine,Clean Catch Urine Culture - Preliminary NO GROWTH AFTER 24 HOURS Assessment and Plan (1) Pneumonia Status: Acute Category: Medical Code(s): J18.9 - Pneumonia, unspecified organism (2) Symptomatic anemia Status: Acute Category: Medical Code(s): D64.9 - Anemia, unspecified (3) Urinary tract bacterial infections Status: Acute Category: Medical Code(s): N39.0 - Urinary tract infection, s ite not specified; A49.9 - Bacterial infection, unspecified (4) Acute kidney injury superimposed on chronic kidney disease Status: Acute Category: Medical Code(s): N17.9 - Acute kidney failure, unspecified; N18.9 - Chronic kidney disease, unspecified (5) Chronic kidney disease, stage III (moderate) Status: Chronic Category: Medical Code(s): N18.3 - Chronic kidney disease, stage 3 (moderate) (6) Panlobular emphysema Status: Chronic Category: Medical Code(s): J43.1 - Panlobular emphysema (7) Gross hematuria Status: Acute Category: Medical Code(s): R31.0 - Gross hematuria (8) Pleural effusion Status: Acute Category: Medical Code(s): J90 - Pleural effusion, not elsewhere classified The patient's infection will respond to the chosen ABx?: Yes Is the patient receiving the right drug, dose, and route?: Yes Could a more targeted ABx be ordered?: No (CURRENT URINE CX SHOWS NO GROWTH)
--- NOTE | 2021-11-26 08:34 | HMH.ACPN2 ---
Internal Medicine - PN: Subj *Date: 11/26/21 *Time: 08:34 Interval history: Patient is alert this morning, pleasant and talkative. States his breathing is better after Lasix yesterday. Does note that he had a very sharp twinge of chest pain about 3 hours ago that lasted for 5 or 6 seconds, he did not alert anyone about this. His is understandably concerned about him not communicating this to nursing staff or her during the event. Exam Vital signs and Labs for Last 24 Hours: Temp Pulse Resp BP Pulse Ox 97.9 F 92 H 16 109/45 L 99 11/26/21 07:39 11/26/21 07:39 11/26/21 07:39 11/26/21 07:39 11/26/21 07:39 Laboratory Results - last 24 hr 11/26/21 06:43: WBC 7.4, RBC 2.57 L, Hgb 7.8 L, Hct 25.1 L, MCV 97.8 H, MCH 30.3, MCHC 30.9 L, RDW 14.6, Plt Count 319, MPV 7.7, Neut % (Auto) 83.0 H, Lymph % (Auto) 8.5 L, [place] % (Auto) 8.1, Eos % (Auto) 0.2, Baso % (Auto) 0.1, Neut # (Auto) 6.1, Lymph # (Auto) 0.6 L, [place] # (Auto) 0.6, Eos # (Auto) 0.0, Baso # (Auto) 0.0 11/26/21 06:43: Sodium 135 L, Potassium 4.5, Chloride 103, Carbon Dioxide 24, Anion Gap 12.5, BUN 38 H, Creatinine 1.60 H, Estimated Creat Clear 36, Estimated GFR 42 L, Est GFR ( Amer) 51 L, Glucose 104 H, Calcium 7.8 L I & O for Last 24 hours: Intake & Output 11/23/21 11/24/21 11/25/21 11/26/21 11:59 11:59 11:59 11:59 Intake Total 610 / 610 840 / 840 1855 / 1855 1000 / 1000 Output Total 100 / 100 100 / 100 1360 / 1360 36648 / 41554 Balance 510 / 510 740 / 740 495 / 495 -65360 / -60185 Weight 142 lb 143 lb 9.6 oz 147 lb 3.2 oz 150 lb 11.2 oz Microbiology Reports for the Last 24 Hours: Microbiology 11/24/21 15:30 Urine,Clean Catch Urine Culture - Preliminary NO GROWTH AFTER 24 HOURS Narrative: Pleasant and alert, wearing oxygen. Less dyspnea than yesterday. Irrigation Reyes device is functioning well and urinary catheter bag is pink-tinged without visible clots. Extremities are warm and well-perfused. Heart rate is regular with his previously noted murmur. Occasional ectopic beats. Lungs are well-expanded and clear. Assessment and Plan (1) Pneumonia Status: Acute Category: Medical Code(s): J18.9 - Pneumonia, unspecified organism (2) Symptomatic anemia Status: Acute Category: Medical Code(s): D64.9 - Anemia, unspecified (3) Urinary tract bacterial infections Status: Acute Category: Medical Code(s): N39.0 - Urinary tract infection, site not specified; A49.9 - Bacterial infection, unspecified (4) Acute kidney injury superimposed on chronic kidney disease Status: Acute Category: Medical Code(s): N17.9 - Acute kidney failure, unspecified; N18.9 - Chronic kidney disease, unspecified (5) Chronic kidney disease, stage III (moderate) Status: Chronic Category: Medical Code(s): N18.3 - Chronic kidney disease, stage 3 (moderate) (6) Panlobular emphysema Status: Chronic Category: Medical Code(s): J43.1 - Panlobular emphysema (7) Gross hematuria Status: Acute Category: Medical Code(s): R31.0 - Gross hematuria (8) Pleural effusion Status: Acute Category: Medical Code(s): J90 - Pleural effusion, not elsewhere classified - Assessment and plan all Dx Assessment and Plan for all problems:: Multiple comorbidities-I think chest pain is nonanginal. He also thinks this. I encouraged him that if he has further episodes to let the staff know and we would obtain an EKG. Otherwise continue current management. His hemoglobin is very minimally below 8 g, I will check it tomorrow, continue bladder irrigation.
--- NOTE | 2021-11-26 10:48 | HMH.ANESII ---
[facility] Anesthesia Record Part II Discharge Time: 12:10 Destination: Medical Surgical Department PACU nurse assessment reviewed?: Yes Patient Condition:: Good Anesthesia Complications:: None Swallowing reflex intact?: Yes Cyanosis?: No Blood Pressure: 112/54 Pulse Rate: 85 Temperature: 99.1 F Mental Status: Alert & Oriented Pain level:: 0 Nausea and/or vomitting:: None Intake, IV Amount: 0
--- NOTE | 2021-11-26 16:52 | PC.NURSE ---
per Dr. Ayala I stopped CBI. Pt has tolerated it well through out the shift. There has been no clots present and he has been producing urine. He denies any pain @ this time. I flushed catheter to verify that it was working properly. He tolerated well. he has ambulated around the room multiple times. o2 saturation has remained stable
[2021-11-27 04:00] VITALS: BP 104/75; PULSE 104; RESP 20; TEMP 36.8; O2SAT 97
--- NOTE | 2021-11-27 04:03 | PC.NURSE ---
Pt rested on and off t/o the shift. Pt c/o of pain in abdomen stated he thinks he needs to have a BM . Gave patient pure juice, with no luck of a BM thus far in shift. and patient thinks it could be a prostate issue making him have pain. Reyes is draining light red urine, with no clots present, and pt states he is having no pain in that area. Pt remains on 2L NC with O2 sats 98%.
[2021-11-27 06:46] LABS: Basophils % 0.4 % (0.1-2.0); Eosinophils # 0.1 K/mm3 (0.0-0.4); Eosinophils % 2.1 % (0.1-12.0); Hematocrit 26.3 % (42.0-52.0); Hemoglobin 8.1 g/dL (14.1-18.0); Lymphocytes # 0.7 K/mm3 (0.7-4.5); Lymphocytes % 13.9 % (10-50); Mean Corpuscular HGB Conc 30.7 g/dL (31.8-35.4); Mean Corpuscular Hemoglobin 30.1 pg (27.0-31.2); Mean Corpuscular Volume 98.1 fl (80-94); Mean Platelet Volume 7.5 fl (7.4-10.4); Monocytes # 0.5 K/mm3 (0.1-1.0); Monocytes % 8.7 % (1.7-9.3); Neutrophils % 74.9 % (37.0-80.0); Platelet Count 312 K/mm3 (142-424); Red Blood Count 2.68 M/mm3 (4.60-6.20); Red Cell Distribution Width 14.7 % (11.5-17.5); White Blood Count 5.3 K/mm3 (4.8-10.8)
[2021-11-27 07:10] LABS: Anion Gap 10.4 mEq/L (5-15); Blood Urea Nitrogen 33 mg/dl (9-20); Calcium 7.8 mg/dl (8.4-10.2); Carbon Dioxide 25 mmol/L (22.0-30.0); Chloride 104 mmol/L (98-107); Creatinine Clearance Estimated 44 mL/min (50-200); Estimated Glomerular Filt Rate 53 ml/min (>60); GFR (African American) 64 ML/MIN (>60); Glucose 98 mg/dl (74-100); Potassium 4.4 mmoL/L (3.5-5.1); Sodium 135 mmol/L (136-145)
[2021-11-27 08:00] VITALS: BP 101/45; PULSE 96; RESP 20; TEMP 36.9; O2SAT 100
--- NOTE | 2021-11-27 08:46 | HMH.ACPN2 ---
Internal Medicine - PN: Subj *Date: 11/27/21 *Time: 08:46 Interval history: Patient is up in a chair this morning. States that he feels better except for constipation. He feels like he is a little bit short of breath because his lower abdomen feels bloated. Urinary catheter in good position. Irrigation has stopped, urine in the bag is a chad-colored fluid but otherwise clear without sediment. He is alert, pleasant and oriented. Exam Vital signs and Labs for Last 24 Hours: Temp Pulse Resp BP Pulse Ox 98.2 F 104 H 20 104/75 L 97 11/27/21 04:00 11/27/21 04:00 11/27/21 04:00 11/27/21 04:00 11/27/21 04:00 Laboratory Results - last 24 hr 11/27/21 06:10: WBC 5.3 D, RBC 2.68 L, Hgb 8.1 L, Hct 26.3 L, MCV 98.1 H, MCH 30.1, MCHC 30.7 L, RDW 14.7, Plt Count 312, MPV 7.5, Neut % (Auto) 74.9, Lymph % (Auto) 13.9, [place] % (Auto) 8.7, Eos % (Auto) 2.1, Baso % (Auto) 0.4, Neut # (Auto) 4.0, Lymph # (Auto) 0.7, [place] # (Auto) 0.5, Eos # (Auto) 0.1, Baso # (Auto) 0.0 11/27/21 06:10: Sodium 135 L, Potassium 4.4, Chloride 104, Carbon Dioxide 25, Anion Gap 10.4, BUN 33 H, Creatinine 1.30 H, Estimated Creat Clear 44, Estimated GFR 53 L, Est GFR ( Amer) 64 D, Glucose 98, Calcium 7.8 L I & O for Last 24 hours: Intake & Output 11/24/21 11/25/21 11/26/21 11/27/21 11:59 11:59 11:59 11:59 Intake Total 840 / 840 1855 / 1855 1000 / 1000 600 / 600 Output Total 100 / 100 1360 / 1360 08579 / 21182 1500 / 1500 Balance 740 / 740 495 / 495 -59682 / -81662 -900 / -900 Weight 143 lb 9.6 oz 147 lb 3.2 oz 150 lb 11.2 oz Microbiology Reports for the Last 24 Hours: Microbiology 11/24/21 15:30 Urine,Clean Catch Urine Culture - Final NO GROWTH AFTER 48 HOURS 11/22/21 15:03 Urine,Clean Catch Urine Culture - Final Yeast Narrative: Alert and oriented. Appears comfortable. Maintains his pursed lip breathing as he regularly does. His lungs are clearer than yesterday but some scattered rhonchi. Heart rate regular with his previously noted murmur. Irregularly rhythm as noted. No edema or clubbing. Assessment and Plan (1) Pneumonia Status: Acute Category: Medical Code(s): J18.9 - Pneumonia, unspecified organism (2) Symptomatic anemia Status: Acute Category: Medical Code(s): D64.9 - Anemia, unspecified (3) Urinary tract bacterial infections Status: Acute Category: Medical Code(s): N39.0 - Urinary tract infection, site not specified; A49.9 - Bacterial infection, unspecified (4) Acute kidney injury superimposed on chronic kidney disease Status: Acute Category: Medical Code(s): N17.9 - Acute kidney failure, unspecified; N18.9 - Chronic kidney disease, unspecified (5) Chronic kidney disease, stage III (moderate) Status: Chronic Category: Medical Code(s): N18.3 - Chronic kidney disease, stage 3 (moderate) (6) Panlobular emphysema Status: Chronic Category: Medical Code(s): J43.1 - Panlobular emphysema (7) Gross hematuria Status: Acute Category: Medical Code(s): R31.0 - Gross hematuria (8) Pleural effusion Status: Acute Category: Medical Code(s): J90 - Pleural effusion, not elsewhere classified - Assessment and plan all Dx Assessment and Plan for all problems:: Magnesium citrate today for constipation. 1 more dose of Lasix given his fluid administration and minimal shortness of air. Okay to discharge from my standpoint if urology clears.
[2021-11-27 10:02] VITALS: O2SAT 96
--- NOTE | 2021-11-27 14:04 | DIET.NUTRFU ---
Saw patient and today, she had requested handout on iron fortified foods. Provided handout, during visit patient indicated he was having a rough day- constipated and nauseated. Reviewed menu choices to help with intake, he did not feel like eating anything. Reviewed snacks available on unit with and supplement choices. She had tried supplements at home in the past and did not like them. They were hoping to discharge today
--- NOTE | 2021-11-27 14:19 | PC.NURSE ---
Pt has had x1 small, hard BM. Pt does feel like he will go some more. Fleets enema ordered by MD Cortes held at this time. Will continue to monitor.
--- NOTE | 2021-11-27 15:19 | HMH.CONFU ---
Internal Medicine - PN: Subj *Date: 11/27/21 *Time: 15:19 Interval history: Patient is status post cystoscopy evacuation of small amount of clot, bilateral ureteroscopy with bilateral stent placement and fulguration of bladder and prostate bleeding on Saturday. His urine is clearing and he is now off of Brilinta and aspirin. His right ureter appeared edematous and inflamed throughout its course but the right renal pelvis did not appear to be involved. The left ureter had a stenosis distally and we were able to find the true lumen to place a stent but it was only examined in the very distal aspect where it to appeared to the edematous and friable. Patient is tolerating the stents and Reyes catheter. There is continuous bladder irrigation is off this morning and the urine is slightly blood-tinged. This patient has a history of amyloidosis of the ureters several years ago and ureteroscopy at that time looks exactly like it did Saturday. No biopsies were performed Saturday as bleeding was already the issue. His renal function has improved to 1.3 with placement of the stents. His hemoglobin is stable at 8.1. Exam Vital signs and Labs for Last 24 Hours: Temp Pulse Resp BP Pulse Ox 98.4 F 96 H 20 101/45 L 96 11/27/21 08:00 11/27/21 08:00 11/27/21 08:00 11/27/21 08:00 11/27/21 10:02 Laboratory Results - last 24 hr 11/27/21 06:10: WBC 5.3 D, RBC 2.68 L, Hgb 8.1 L, Hct 26.3 L, MCV 98.1 H, MCH 30.1, MCHC 30.7 L, RDW 14.7, Plt Count 312, MPV 7.5, Neut % (Auto) 74.9, Lymph % (Auto) 13.9, [place] % (Auto) 8.7, Eos % (Auto) 2.1, Baso % (Auto) 0.4, Neut # (Auto) 4.0, Lymph # (Auto) 0.7, [place] # (Auto) 0.5, Eos # (Auto) 0.1, Baso # (Auto) 0.0 11/27/21 06:10: Sodium 135 L, Potassium 4.4, Chloride 104, Carbon Dioxide 25, Anion Gap 10.4, BUN 33 H, Creatinine 1.30 H, Estimated Creat Clear 44, Estimated GFR 53 L, Est GFR ( Amer) 64 D, Glucose 98, Calcium 7.8 L I & O for Last 24 hours: Intake & Output 11/24/21 11/25/21 11/26/21 11/27/21 23:59 23:59 23:59 23:59 Intake Total 1215 / 1215 1760 / 1760 840 / 840 520 / 520 Output Total 935 / 935 6725 / 6725 6250 / 6600 700 / 700 Balance 280 / 280 -4965 / -4965 -5410 / -5760 -180 / -180 Weight 65.136 kg 66.769 kg 68.356 kg Microbiology Reports for the Last 24 Hours: Microbiology 11/22/21 13:20 Blood Blood Culture - Final NO GROWTH AFTER 5 DAYS 11/22/21 13:20 Blood Blood Culture - Final NO GROWTH AFTER 5 DAYS 11/24/21 15:30 Urine,Clean Catch Urine Culture - Final NO GROWTH AFTER 48 HOURS - Constitutional no acute distress - *Routine HEENT Exam Head: Present: normocephalic Eye: Present: EOMI, PERRL ENT: Present: mucous membranes moist - *Routine Neck Exam Present: supple. Absent: lymphadenopathy - *Routine Respiratory Exam Present: accessory muscle use, prolonged expiratory phase - *Routine Cardiovascular Exam Absent: JVD - *Routine Abdominal Exam Present: soft. Absent: tenderness - *Routine Extremities Exam Absent: cyanosis, clubbing, edema - *Routine Skin Exam Present: warm. Absent: rash - *Routine Neurological Exam Present: alert, oriented X3 Assessment and Plan (1) Pneumonia Status: Acute Category: Medical Code(s): J18.9 - Pneumonia, unspecified organism (2) Symptomatic anemia Status: Acute Category: Medical Code(s): D64.9 - Anemia, unspecified (3) Urinary tract bacterial infections Status: Acute Category: Medical Code(s): N39.0 - Urinary tract infection, site not specified; A49.9 - Bacterial infection, unspecified (4) Acute kidney injury superimposed on chronic kidney disease Status: Acute Category: Medical Code(s): N17.9 - Acute kidney failure, unspecified; N18.9 - Chronic kidney disease, unspecified (5) Chronic kidney disease, stage III (moderate) Status: Chronic Category: Medical Code(s): N18.3 - Chronic k
[2021-11-27 16:00] VITALS: BP 104/40; PULSE 79; RESP 20; TEMP 36.5; O2SAT 95
--- NOTE | 2021-11-27 18:09 | PC.NURSE ---
Pt has been up to the chair majority of this shift. Reyes cath bag draining cloudy, dark pink urine w/ sediment. Pt had x2 episodes of N/V this shift after drinking magnesium citrate too quickly. Zofran administered per NOV. Pt did have x3 formed BM's later this afternoon. Abdomen remains tender to palpate and hyperactive bowel sounds noted to all 4 quads. Pt RA this shift was 92%, o2 removed. o2 put put back on by when pt became exerted after walking to and from bathroom. o2 at the time was 97% on 2L. No other acute changes or complaints, will continue to monitor.
[2021-11-27 20:00] VITALS: BP 102/45; PULSE 81; RESP 16; TEMP 36.9; O2SAT 98
[2021-11-28] VITALS: O2SAT 98
[2021-11-28 04:00] VITALS: BP 100/47; PULSE 91; RESP 14; TEMP 36.6; O2SAT 97
[2021-11-28 05:00] VITALS: BMI 20.7
[2021-11-28 06:11] LABS: Basophils % 0.7 % (0.1-2.0); Eosinophils # 0.1 K/mm3 (0.0-0.4); Eosinophils % 1.8 % (0.1-12.0); Hematocrit 25.9 % (42.0-52.0); Hemoglobin 7.8 g/dL (14.1-18.0); Lymphocytes # 0.7 K/mm3 (0.7-4.5); Lymphocytes % 15.3 % (10-50); Mean Corpuscular HGB Conc 30.1 g/dL (31.8-35.4); Mean Corpuscular Hemoglobin 29.9 pg (27.0-31.2); Mean Corpuscular Volume 99.4 fl (80-94); Mean Platelet Volume 7.5 fl (7.4-10.4); Monocytes # 0.4 K/mm3 (0.1-1.0); Monocytes % 7.8 % (1.7-9.3); Neutrophils # 3.3 K/mm3 (1.8-7.8); Neutrophils % 74.3 % (37.0-80.0); Platelet Count 311 K/mm3 (142-424); Red Cell Distribution Width 14.7 % (11.5-17.5); White Blood Count 4.4 K/mm3 (4.8-10.8)
[2021-11-28 06:19] LABS: Anion Gap 9.6 mEq/L (5-15); Blood Urea Nitrogen 31 mg/dl (9-20); Carbon Dioxide 28 mmol/L (22.0-30.0); Chloride 104 mmol/L (98-107); Creatinine Clearance Estimated 41 mL/min (50-200); Estimated Glomerular Filt Rate 53 ml/min (>60); GFR (African American) 64 ML/MIN (>60); Glucose 101 mg/dl (74-100); Potassium 4.6 mmoL/L (3.5-5.1); Sodium 137 mmol/L (136-145)
--- NOTE | 2021-11-28 07:15 | HMH.DCSUM ---
General - General Admission date:: 11/22/21 Discharge date: 11/28/21 HPI HPI: 81-year-old white male with multiple medical problems including COPD, coronary atherosclerotic heart disease, recent stent placement within the past 12 months in [place], diastolic and systolic CHF and recent hematuria, with current indwelling Reyes catheter because of severe urinary retention. Over the past week patient has had increasing hematuria, blood counts of been monitored and slowly declining. Urology feels that this is a slow decline in his hemoglobin based on some chronic irritation from the urinary tract but no definitive sites of bleeding have been identified. Patient came to the ER yesterday, found to have relatively low hemoglobin, given his coronary disease and hemoglobin below 8 patient was admitted for further evaluation and transfusion. Hospital Course Hospital Course: 81-year-old male with concern for pneumonia, hematuria, urinary obstruction. Admitted to medicine for management of his problems. On admission noted to have an increased oxygen requirement and findings on chest x-ray of possible pneumonia. Additionally has concern for gross hematuria and urinary obstruction. Urology consulted during admission, appreciate their recommendations. Course as follows: Pneumonia Acute hypoxia -Wears oxygen at home. Able to wean during hospitalization. Completed 7 days of antibiotics on day of discharge. No need for continued antibiotics. Continue supplemental oxygen as needed at home. Hematuria UTI Urinary obstruction VANESSA on CKD -During admission, patient's anticoagulation including Brilinta and aspirin were stopped due to exacerbating factors with his hematuria. Reyes catheter was placed to relieve any urinary obstruction. Urology consulted. Patient was taken over the weekend to the OR for placement of ureteral stents and examination of bladder for possible sources of bleeding. Tolerated procedure well. Has had improvement in bleeding. Catheter to remain in place. Will be discharged home with catheter and address to follow-up with urology. Additionally urology has concern for the following: Inflamed and edematous bilateral ureters status post stent placement. 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 The patient and his cannot recall how they were treated. I think treatment of recurrent amyloidosis with the in the patient's best interest if it can be tolerated. Is certainly not a candidate for nephro ureterectomy. -Needs referral as an outpatient for further evaluation and treatment. Anemia -Acute, likely secondary to blood loss from his chronic hematuria over the past month. Transfusion threshold of 8 given his cardiac history. Stable after transfusion of 1 unit. Additionally discontinued simvastatin, Brilinta after discussing risks and benefits. Stable for discharge home. Examined on day of discharge. Objective Vital signs: Temp Pulse Resp BP Pulse Ox 97.8 F 91 H 14 100/47 L 97 11/28/21 04:00 11/28/21 04:00 11/28/21 04:00 11/28/21 04:00 11/28/21 04:00 Narrative: - Constitutional No acute distress, thin, chronically ill appearing - *Routine HEENT Exam Head: Present: normocephalic Eye: Present: EOMI, PERRL ENT: Present: mucous membranes moist - *Routine Neck Exam Present: supple. Absent: lymphadenopathy - *Routine Respiratory Exam Present: Clear to auscultation, no wheeze or crackles - *Routine Cardiovascular Exam Present: Irregularly irregular, rate controlled - *Routine Abdominal Exam Present: soft, normoactive bowel sounds. suprapubic tenderness; Reyes catheter in place, crusted blood at distal end of urethra. No active bleeding. Reyes bag with light pink urine - *Routine Extremities Exam Absent: cyanosis, clubbing, edema - *Routine Skin Exam Present: warm. Absent: rash - *Routine Neurological Exam
[2021-11-28 08:00] VITALS: BP 109/60; PULSE 81; RESP 16; TEMP 36.9; O2SAT 94
--- NOTE | 2021-11-28 10:39 | PC.NURSE ---
Pt has been rdy for d/c for over an hr approx 1 hr. Awaiting for p/u.
--- NOTE | 2021-11-29 11:28 | CARE MANAGER ---
Contacted patient's regarding follow up from discharge from hospital. She states his urine output was decreased yesterday, but has increased today. His appetite is not the best, but he is eating. They were able to picker and packer his Metoprolol. They have follow up appointments scheduled with PCP and Dr. Ayala and are aware of them. Deny any questions or concerns. PAULETTE Collins
== END 2021-11-28 10:49 | disposition home or self-care (01) | DRG 665 ==
LOC: ER 17:00 → 2ND 18:32
PROVIDERS: Emergency Medicine; Internal Medicine Adolescent Medicine; Nurse Practitioner Family; Urology; Admitting Provider Internal Medicine Adolescent Medicine; Emergency Provider Emergency Medicine; PCP Internal Medicine Adolescent Medicine; Visit Provider Internal Medicine Adolescent Medicine
PROC: 0TJB8ZZ Inspection of Bladder, Via Natural or Artificial Opening Endoscopic (ICD-10-PCS; CPT 52000; principal; 2021-11-25 09:00)
DX: N13.6 Pyonephrosis (principal); J18.9 Pneumonia, unspecified organism; I13.0 Hypertensive heart and chronic kidney disease with heart failure and stage 1 through stage 4 chronic kidney disease, or unspecified chronic kidney disease; E86.0 Dehydration; Z20.822 Contact with and (suspected) exposure to COVID-19; Z95.1 Presence of aortocoronary bypass graft; Z95.5 Presence of coronary angioplasty implant and graft; Z99.81 Dependence on supplemental oxygen; M19.90 Unspecified osteoarthritis, unspecified site; I25.10 Atherosclerotic heart disease of native coronary artery without angina pectoris; I50.9 Heart failure, unspecified; Z87.442 Personal history of urinary calculi; I25.2 Old myocardial infarction; J43.1 Panlobular emphysema; N18.30 Chronic kidney disease, stage 3 unspecified; D63.1 Anemia in chronic kidney disease; R31.0 Gross hematuria; R31.9 Hematuria, unspecified
CPT/HCPCS: 52332; 52214; 36415; 71046; 74018; 74176; 80048; 80053; 81001; 83605; 83735; 83880; 84436; 84443; 84484; 85007; 85014; 85018; 85025; 85048; 85049; 85378; 86140; 86850; 87040; 87070; 87086; 87205; 93005; 94640; 96365; 96375; 97162; 97166; 99285; C1769; C2617; C9803; J0696; J2405; P9016; U0003; U0005

== ENCOUNTER 2021-12-07 13:50 | Emergency (ER) | payer MEDICARE, SELFPAY ==
[2021-12-07] VITALS (7 sets, daily range): BP systolic 106–132; BP diastolic 39–74; PULSE 61–74; RESP 14–18; TEMP 36.5–36.6; O2SAT 96–99; BMI 21.2
--- NOTE | 2021-12-07 13:55 | ECG_ITS ---
APPROVED REPORT Exam: Resting ECG HR:71 bpm ECG Measurements Heart Rate 71 AXES QRSd 141 QRS -81 QT 464 T -75 QTc 486 Conclusion Electronic ventricular pacemaker LEFT BUNDLE BRANCH BLOCK [120+ ms QRS DURATION, 80+ ms Q/S IN V1/V2, 85+ ms R IN I/aVL/V5/V6] LATERAL MYOCARDIAL INFARCTION , OF INDETERMINATE AGE [40+ ms Q WAVE AND/OR ST/T ABNORMALITY IN I/aVL/V5/V6] ABNORMAL ECG UNCONFIRMED REPORT Electronically signed by : Benja Cortes MD 12/09/2021 12:33:54
--- NOTE | 2021-12-07 14:00 | XR_ITS ---
FINAL REPORT CLINICAL HISTORY: syncope COMPARISON: November 23, 2021 FINDINGS: Cardiomegaly is noted. There has been prior median sternotomy. There are small to moderate bilateral pleural effusions, worse from prior. There are worsening bibasilar opacities. There is no pneumothorax. The bony thorax is intact. IMPRESSION: Worsening bibasilar opacities favoring atelectasis over pneumonia. Small to moderate bilateral pleural effusions, worse. Reviewed, Interpreted and Dictated by Michi Maguire III, MD Transcribed by Daniel Garcia Authenticated by Michi Maguire III, MD on 12/07/2021 02:33:11 PM [facility]
--- NOTE | 2021-12-07 14:00 | CT_ITS ---
FINAL REPORT CLINICAL HISTORY: loc, syncope, dizziness COMPARISON: October 08, 2019 FINDINGS: Axial images of the head were obtained without contrast. Coronal reformatted images were also obtained. This study was performed with techniques to keep radiation doses as low as reasonably achievable (ALARA). Individualized dose reduction techniques using automated exposure control or adjustment of mA and/or kV according to the patient's size were employed. There is generalized age-appropriate atrophy. Periventricular low-attenuation areas are seen consistent with mild chronic ischemic changes. There is no evidence of intracranial hemorrhage or mass. There is no evidence of acute infarct. There is no evidence of shift of the midline structures. No skull abnormality is seen on the bone window images. IMPRESSION: Atrophy and mild periventricular chronic ischemic changes, stable. No acute intracranial abnormality identified. Reviewed, Interpreted and Dictated by Michi Maguire III, MD Transcribed by Dania Mendoza Authenticated by Michi Maguire III, MD on 12/07/2021 02:41:11 PM [facility]
--- NOTE | 2021-12-07 14:07 | HMH.EDSYNC ---
ED Disposition Clinical Impression: Pleural effusion Syncope Qualifiers: Syncope type: unspecified Qualified Code(s): R55 - Syncope and collapse Disposition: Home, Self-Care Condition on Discharge: Good Instructions: DI for Syncope in Adults (Fainting), Pleural Effusion Additional Instructions: follow up pcp next week, return here for worse Referrals: Benja Cortes MD [Primary Care Provider] - - Critical Care Critical Care Time: No Attestation: On 12/07/21, the high probability of a clinically significant, sudden or life threatening deterioration of the following system(s) required my full and direct attention, intervention and personal management. The time I documented below is in addition to time spent performing reported procedures but includes the following listed in this critical care notation. Medical Decision Making - Medical Records Medical records reviewed: Yes: I reviewed the patient's medical records. - Juan Miguel Inquiry Pt receiving controlled substance: No Vital Signs: 12/07/21 13:50 12/07/21 14:00 12/07/21 14:30 Temperature 97.7 F Temperature Source Oral Pulse Rate 69 61 Pulse Rate [Right Radial] 70 Respiratory Rate 18 14 16 Blood Pressure 124/47 L 106/39 L Blood Pressure [Right Arm] 131/47 L Blood Pressure Mean [Right Arm] 75 Blood Pressure Source [Right Arm] Automatic Cuff Blood Pressure Position [Right Arm] Sitting 02 Sat by Pulse Oximetry 98 97 99 Oxygen Delivery Method Nasal Cannula Oxygen Flow Rate (LPM) 2 12/07/21 15:00 12/07/21 15:30 Temperature Temperature Source Pulse Rate 73 74 Pulse Rate [Right Radial] Respiratory Rate 16 17 Blood Pressure 114/53 L 121/47 L Blood Pressure [Right Arm] Blood Pressure Mean [Right Arm] Blood Pressure Source [Right Arm] Blood Pressure Position [Right Arm] 02 Sat by Pulse Oximetry 99 96 Oxygen Delivery Method Oxygen Flow Rate (LPM) - Lab Data Lab Results 12/07/21 14:35: WBC 6.8, RBC 3.01 L, Hgb 9.0 L, Hct 28.4 L, MCV 94.2 H, MCH 29.9, MCHC 31.8, RDW 14.7, Plt Count 348, MPV 8.3, Neut % (Auto) 80.9 H, Lymph % (Auto) 11.7, [place] % (Auto) 5.1, Eos % (Auto) 2.0, Baso % (Auto) 0.3, Neut # (Auto) 5.5, Lymph # (Auto) 0.8, [place] # (Auto) 0.4, Eos # (Auto) 0.1, Baso # (Auto) 0.0 12/07/21 14:35: Sodium 136, Potassium 4.4, Chloride 101, Carbon Dioxide 29, Anion Gap 10.4, BUN 26 H, Creatinine 1.30 H, Estimated Creat Clear 42, Estimated GFR 53 L, Est GFR ( Amer) 64, Glucose 111 H, Calcium 7.6 L, Total Bilirubin 0.7, AST 22, ALT 15, Alkaline Phosphatase 81, Troponin I 0.02, Total Protein 6.2 L, Albumin 3.6, Globulin 2.6, Albumin/Globulin Ratio 1.4 Result diagrams: 12/07/21 14:35 12/07/21 14:35 Orders (Tests/Meds): ORDERS Category Date Time Status Troponin I Q3H Lab 12/07/21 17:15 Ordered Troponin I Q3H Lab 12/07/21 20:15 Ordered - ECG Data Tracing #1 I reviewed this ECG and interpreted as documented below: ekg by me undetermined rhythm, rate 69, ns iv conduct delay, no st elev Medical Decision Narrative: 1543 reeval, appears well, vss discused results ok with plan to double lasix 2 days and f/u pcp next week Syncope HPI - General Stated Complaint: Syncopy Time Seen by Provider: 12/07/21 14:00 Mode of Arrival: EMS Source of Information: Patient Limitations: No Limitations - History of Present Illness HPI narrative: getting into van, near/syncope episode, loc brief with memory loss, fully resolved now MD complaint: loss of consciousness, felt faint Onset (ago): hour(s) -: second(s), minutes(s) Prodromal symptoms: none Injuries sustained associated with event: none Current symptoms: none Treatments prior to arrival: none - Related Data Home Medications Medication Instructions Recorded Confirmed Aspirin [Aspir 81] 81 mg PO DAILY 12/10/17 11/22/21 Furosemide [Lasix 40mg tablet] 40 mg PO DAILY 03/09/19 11/22/21 polyethylene glycoL 3350 [Miralax 17 gm PO
[2021-12-07 14:43] LABS: Basophils % 0.3 % (0.1-2.0); Eosinophils # 0.1 K/mm3 (0.0-0.4); Hematocrit 28.4 % (42.0-52.0); Lymphocytes # 0.8 K/mm3 (0.7-4.5); Lymphocytes % 11.7 % (10-50); Mean Corpuscular HGB Conc 31.8 g/dL (31.8-35.4); Mean Corpuscular Hemoglobin 29.9 pg (27.0-31.2); Mean Corpuscular Volume 94.2 fl (80-94); Mean Platelet Volume 8.3 fl (7.4-10.4); Monocytes # 0.4 K/mm3 (0.1-1.0); Monocytes % 5.1 % (1.7-9.3); Neutrophils # 5.5 K/mm3 (1.8-7.8); Neutrophils % 80.9 % (37.0-80.0); Platelet Count 348 K/mm3 (142-424); Red Blood Count 3.01 M/mm3 (4.60-6.20); Red Cell Distribution Width 14.7 % (11.5-17.5); White Blood Count 6.8 K/mm3 (4.8-10.8)
[2021-12-07 14:49] LABS: Chloride 101 mmol/L (98-107); Sodium 136 mmol/L (136-145)
[2021-12-07 14:50] LABS: Potassium 4.4 mmoL/L (3.5-5.1)
[2021-12-07 14:52] LABS: Alanine Aminotransferase 15 U/L (12-78); Albumin Level 3.6 g/dl (3.5-5.0); Albumin/Globulin Ratio 1.4 (1.1-1.8); Alkaline Phosphatase 81 U/L (38-126); Anion Gap 10.4 mEq/L (5-15); Aspartate Amino Transferase 22 U/L (17-59); Bilirubin,Total 0.7 mg/dl (0.2-1.3); Blood Urea Nitrogen 26 mg/dl (9-20); Carbon Dioxide 29 mmol/L (22.0-30.0); Creatinine Clearance Estimated 42 mL/min (50-200); Estimated Glomerular Filt Rate 53 ml/min (>60); GFR (African American) 64 ML/MIN (>60); Globulin 2.6 g/dL (1.3-3.2); Total Protein,Serum 6.2 g/dl (6.3-8.2)
[2021-12-07 14:53] LABS: Calcium 7.6 mg/dl (8.4-10.2); Glucose 111 mg/dl (74-100)
[2021-12-07 15:04] LABS: Troponin I 0.02 ng/ml (0.00-0.034)
--- NOTE | 2021-12-07 16:37 | PC.NURSE ---
URINE OUTPUT 1300CC URINE
== END 2021-12-07 16:40 | disposition home or self-care (01) ==
PROVIDERS: Emergency Provider Emergency Medicine; PCP Internal Medicine Adolescent Medicine
DX: J90 Pleural effusion, not elsewhere classified (principal); R55 Syncope and collapse; I48.91 Unspecified atrial fibrillation; I10 Essential (primary) hypertension; E78.5 Hyperlipidemia, unspecified; Z79.899 Other long term (current) drug therapy
CPT/HCPCS: 70450; 71045; 80053; 84484; 85025; 93005; 99284

== ENCOUNTER → 2021-12-12 13:45 | Outpatient (CLI) | payer MEDICARE, SELFPAY ==
--- NOTE | 2021-12-12 13:50 | XR_ITS ---
FINAL REPORT CLINICAL HISTORY: LT WRIST PAIN FINDINGS: LEFT WRIST Three views demonstrate no acute fracture or dislocation. The visualized joint spaces are normally aligned. The bones are osteopenic. There is prominent soft tissue swelling over the dorsum of the wrist. IMPRESSION: Soft tissue swelling with no acute bony abnormality. Reviewed, Interpreted and Dictated by Leighton Caballero MD Transcribed by Sri Kang Authenticated by Leighton Caballero MD on 12/12/2021 04:01:12 PM [facility]
== END ==
PROVIDERS: PCP Internal Medicine Adolescent Medicine; Visit Provider Internal Medicine Adolescent Medicine
DX: M25.532 Pain in left wrist (principal)
CPT/HCPCS: 73110

== ENCOUNTER → 2022-01-09 10:15 | Outpatient (CLI) | payer MEDICARE, SELFPAY | PROVIDERS: Visit Provider Urology | DX: N13.30 Unspecified hydronephrosis (principal); R31.9 Hematuria, unspecified; Z01.812 Encounter for preprocedural laboratory examination; Z11.52 Encounter for screening for COVID-19 | CPT/HCPCS: C9803; U0003; U0005 ==

== ENCOUNTER 2022-01-12 09:48 | Day surgery (SDC) | payer MEDICARE, SELFPAY ==
[2022-01-10 10:52] VITALS: BMI 20.7
[2022-01-12 10:59] VITALS: BP 114/55; PULSE 93; RESP 18; TEMP 36.6; O2SAT 98
[2022-01-12 12:05] VITALS: BP 139/71; PULSE 86; RESP 18; TEMP 36.3; O2SAT 95
[2022-01-12 12:15] VITALS: BP 139/71; PULSE 86; RESP 18; TEMP 36.3; O2SAT 95
--- NOTE | 2022-01-12 13:07 | HMH.OPNOTE ---
Date of procedure: 01/12/22 Pre-op Diagnosis:: Gross hematuria and status post bilateral stent placement Post-op Diagnosis:: Same Procedure performed:: Cystoscopy with bilateral stent removal Surgeon:: uX Ayala MD Anesthesia: local Estimated blood loss (mL): 0 Clinical Note:: 82-year-old white male with history of ureteral amyloidosis with several week history of gross hematuria status post bilateral stent placement. He was also taken off of one of his blood thinners with resolution of the hematuria. He presents today for cystoscopy and stent removal. Operative findings:: Stents were removed without difficulty. Operative note:: Patient taken to the cystoscopy suite after informed consent was obtained. On the stretcher he was prepped and draped in the standard surgical fashion and 2% lidocaine placed into the urethra and clamped. After 5 minutes the flexible scope was passed into the urethral meatus and passed into the bladder without difficulty. Stents were easily identifiable and a flexible stent grasper passed through the scope and the right ureteral stent was removed without difficulty. Scope was repassed and the left ureteral stent was removed without difficulty. Patient tolerated the procedure well no complications. Condition: stable Disposition: same day Specimens:: Ureteral stents x2 Complications:: None
== END 2022-01-12 12:15 | disposition home or self-care (01) ==
LOC: OUTP 09:50
PROVIDERS: PCP Internal Medicine Adolescent Medicine; Visit Provider Urology
PROC: (CPT 52310; principal; 2022-01-12 11:45)
DX: R31.0 Gross hematuria (principal); I48.91 Unspecified atrial fibrillation; I50.9 Heart failure, unspecified; I25.10 Atherosclerotic heart disease of native coronary artery without angina pectoris; E78.5 Hyperlipidemia, unspecified; I11.0 Hypertensive heart disease with heart failure; I25.2 Old myocardial infarction; N28.9 Disorder of kidney and ureter, unspecified; Z87.442 Personal history of urinary calculi; Z82.3 Family history of stroke; Z80.9 Family history of malignant neoplasm, unspecified; Z82.49 Family history of ischemic heart disease and other diseases of the circulatory system
CPT/HCPCS: 52310

== ENCOUNTER → 2022-01-29 13:26 | Outpatient (CLI) | payer MEDICARE, SELFPAY ==
[2022-01-31 10:47] LABS: PSA, Free 0.62 ng/mL; Prostate Specific Ag 2.2 ng/mL (0.0-4.0)
== END ==
PROVIDERS: Visit Provider Urology
DX: R97.20 Elevated prostate specific antigen [PSA] (principal)
CPT/HCPCS: 36415; 84153; 84154

== ENCOUNTER → 2022-04-06 08:55 | Outpatient (CLI) | payer MEDICARE, SELFPAY ==
--- NOTE | 2022-04-06 09:07 | XR_ITS ---
FINAL REPORT CLINICAL HISTORY: RT SHOULDER JOINT PAIN ON MOVEMENT, fall 3 weeks ago FINDINGS: 3 views of the right shoulder were obtained. The bones are osteopenic. There is a chronic, healed distal right clavicle fracture. There is no acute fracture or dislocation. There are mild hypertrophic changes at the AC joint. There are no soft tissue abnormalities. IMPRESSION: No acute process. Reviewed, Interpreted and Dictated by Leighton Caballero MD Transcribed by Daniel Garcia Authenticated and [facility]
== END ==
PROVIDERS: PCP Internal Medicine Adolescent Medicine; Visit Provider Nurse Practitioner Family
DX: M25.511 Pain in right shoulder (principal)
CPT/HCPCS: 73030

== ENCOUNTER 2022-04-24 15:28 | Emergency (ER) | payer MEDICARE, SELFPAY ==
[2022-04-24 15:28] VITALS: BP 120/57; PULSE 82; RESP 24; TEMP 37.2; O2SAT 94; BMI 21.7
[2022-04-24 15:29] VITALS: BMI 22.7
--- NOTE | 2022-04-24 15:30 | XR_ITS ---
FINAL REPORT CLINICAL HISTORY: FLUID RETENTION COMPARISON: 12/07/2021 FINDINGS: SINGLE-VIEW CHEST There is cardiomegaly. The patient is status post median sternotomy. There is bibasilar atelectasis. There is a small right and moderate left pleural effusion. There is no pneumothorax. IMPRESSION: Bilateral pleural effusions, left greater than right with bibasilar atelectasis. Reviewed, Interpreted and Dictated by Michi Maguire III, MD Transcribed by Elizabeth Barnes Authenticated and . [facility]
--- NOTE | 2022-04-24 15:30 | PC.NURSE ---
urine out via catheter was 700cc
--- NOTE | 2022-04-24 15:35 | ECG_ITS ---
APPROVED REPORT Exam: Resting ECG HR:84 bpm ECG Measurements Heart Rate 84 AXES QRSd 148 QRS 155 QT 394 T 32 QTc 435 Conclusion ATRIAL FIBRILLATION INDETERMINATE AXIS INTRAVENTRICULAR CONDUCTION DELAY [130+ ms QRS DURATION] ABNORMAL ECG UNCONFIRMED REPORT Electronically signed by : Benja Cortes MD 04/25/2022 21:03:28
--- NOTE | 2022-04-24 15:37 | PC.NURSE ---
RADIOLOGY HERE FOR CXR
[2022-04-24 15:40] LABS: Basophils % 0.2 % (0.1-2.0); Eosinophils % 0.3 % (0.1-12.0); Hematocrit 33.6 % (42.0-52.0); Hemoglobin 10.1 g/dL (14.1-18.0); Lymphocytes # 0.8 K/mm3 (0.7-4.5); Lymphocytes % 14.3 % (10-50); Mean Corpuscular HGB Conc 30.1 g/dL (31.8-35.4); Mean Corpuscular Hemoglobin 24.6 pg (27.0-31.2); Mean Corpuscular Volume 81.5 fl (80-94); Mean Platelet Volume 8.8 fl (7.4-10.4); Monocytes # 0.5 K/mm3 (0.1-1.0); Monocytes % 8.3 % (1.7-9.3); Neutrophils # 4.4 K/mm3 (1.8-7.8); Neutrophils % 76.8 % (37.0-80.0); Platelet Count 235 K/mm3 (142-424); Red Blood Count 4.12 M/mm3 (4.60-6.20); Red Cell Distribution Width 20.6 % (11.5-17.5); White Blood Count 5.7 K/mm3 (4.8-10.8)
[2022-04-24 15:44] LABS: Chloride 93 mmol/L (98-107); Sodium 133 mmol/L (136-145)
--- NOTE | 2022-04-24 15:44 | PC.NURSE ---
XR AT BEDSIDE
[2022-04-24 15:45] LABS: Potassium 4.8 mmoL/L (3.5-5.1)
[2022-04-24 15:47] LABS: Anion Gap 8.8 mEq/L (5-15); Blood Urea Nitrogen 48 mg/dl (9-20); Calcium 8.6 mg/dl (8.4-10.2); Carbon Dioxide 36 mmol/L (22.0-30.0); Creatinine Clearance Estimated 30 mL/min (50-200); Estimated Glomerular Filt Rate 36 ml/min (>60); GFR (African American) 44 ML/MIN (>60); Glucose 128 mg/dl (74-100)
[2022-04-24 15:56] LABS: NT Pro Brain Natriuretic Pep. 13400 pg/mL (0-450)
[2022-04-24 16:00] LABS: Troponin I 0.07 ng/ml (0.00-0.034)
--- NOTE | 2022-04-24 16:05 | PC.NURSE ---
pulled pt up in bed with other staff nurse for pt comfort
--- NOTE | 2022-04-24 16:16 | HMH.EDGENADL ---
ED Disposition Clinical Impression: Acute urinary retention Congestive heart failure Qualifiers: Heart failure type: unspecified Heart failure chronicity: acute on chronic Qualified Code(s): I50.9 - Heart failure, unspecified Disposition: Home, Self-Care Condition on Discharge: Good Instructions: How to Care for Your Reyes Catheter -- Male, DI for Heart Failure, DI for Urinary Tract Infection (UTI), DI for Urinary Retention in Men Additional Instructions: Keep Reyes catheter in until follow-up with Dr. Cortes or Dr. Ayala. See Dr. Cortes at the [facility] clinic in [place] this . Call Dr. Ayala to make appointment for follow-up. Cipro as prescribed. Continue current medications. Call Dr. Cortes if worsening. Prescriptions: Ciprofloxacin HCl [Cipro 500mg Tab] 500 mg PO BID #14 tab Transmission Status: Pending to [id number] Referrals: Benja Cortes MD [Primary Care Provider] - - Critical Care Critical Care Time: No Attestation: On 04/24/22, the high probability of a clinically significant, sudden or life threatening deterioration of the following system(s) required my full and direct attention, intervention and personal management. The time I documented below is in addition to time spent performing reported procedures but includes the following listed in this critical care notation. Medical Decision Making - Medical Records Medical records reviewed: Yes: I reviewed the patient's medical records. MR Comment: Reviewed discharge summary from most recent admission to the hospital 11/22/2021. - Juan Miguel Inquiry Pt receiving controlled substance: No Vital Signs: 04/24/22 15:28 04/24/22 16:30 04/24/22 17:00 Temperature 99 F Temperature Source Oral Pulse Rate 80 80 Pulse Rate [Radial] 82 Respiratory Rate 24 22 17 Blood Pressure 113/52 L 96/52 L Blood Pressure [Right Arm] 120/57 L Blood Pressure Mean 72 62 Blood Pressure Mean [Right Arm] 78 Blood Pressure Position [Right Arm] Sitting 02 Sat by Pulse Oximetry 94 L 95 99 Oxygen Delivery Method Nasal Cannula Oxygen Flow Rate (LPM) 4 - Lab Data Lab Results 04/24/22 15:00: WBC 5.7, RBC 4.12 L, Hgb 10.1 L, Hct 33.6 L, MCV 81.5, MCH 24.6 L, MCHC 30.1 L, RDW 20.6 H, Plt Count 235, MPV 8.8, Neut % (Auto) 76.8, Lymph % (Auto) 14.3, [place] % (Auto) 8.3, Eos % (Auto) 0.3, Baso % (Auto) 0.2, Neut # (Auto) 4.4, Lymph # (Auto) 0.8, [place] # (Auto) 0.5, Eos # (Auto) 0.0, Baso # (Auto) 0.0 04/24/22 15:00: Sodium 133 L, Potassium 4.8, Chloride 93 L, Carbon Dioxide 36 H, Anion Gap 8.8, BUN 48 H, Creatinine 1.80 H, Estimated Creat Clear 30, Estimated GFR 36 L, Est GFR ( Amer) 44 L, Glucose 128 H, Calcium 8.6, Troponin I 0.07 H 04/24/22 15:00: NT-Pro-B Natriuret Pep 23217 H 04/24/22 15:40: Urine Color Yellow, Urine Appearance Clear, Urine pH 5.0, Ur Specific [place] 1.025, Urine Protein 1+, Urine Glucose (UA) Negative, Urine Ketones Negative, Urine Blood Trace-i, Urine Nitrate Negative, Urine Bilirubin Negative, Urine Urobilinogen 0.2, Ur Leukocyte Esterase 1+ A, Urine RBC 3-5, Urine WBC 20-50, Ur Squamous Epith Cells Occasional, Urine Bacteria 2+, Urine Yeast 1+ 04/24/22 15:48: SARS-CoV-2 (PCR) Not detected, Influenza A Untype (PCR) Not detected, Influenza Type B (PCR) Not detected Result diagrams: 04/24/22 15:00 04/24/22 15:00 Orders (Tests/Meds): ED MEDICATIONS Generic Name Dose Route Start Last Admin Trade Name Freq PRN Reason Stop Dose Admin Sodium Chloride 10 ml 04/24/22 15:30 Sodium Chloride 0.9% 10ml Flush Syringe IV 05/24/22 15:29 NEEDED PRN Maintain IV Site Discontinued Medications Generic Name Dose Route Start Last Admin Trade Name Freq PRN Reason Stop Dose Admin Levofloxacin 500 mg 04/24/22 17:57 Levofloxacin 500mg Tab PO 04/24/22 17:58 ONCE ONE ORDERS Category Date Time Status Troponin I Q3H Lab 04/24/22 18:45 Ordered Troponin I Q3H Lab
[2022-04-24 16:27] LABS: Microscopic, Urine URINE MICROSCOPIC (MICROSCOPIC)
[2022-04-24 16:29] LABS: Appearance,Urine CLEAR (Clear); Bilirubin,Urine Negative (Negative); Blood, Urine TRACE-I (Negative); Color,Urine YELLOW (Yellow); Glucose,Urine (UA) Negative (Negative); Ketones,Urine Negative (Negative); Leukocyte Esterase,Urine 1+ (Negative); Nitrate,Urine Negative (Negative); Protein,Urine 1+ (Negative); Specific Gravity, Urine 1.025 (1.005-1.030); Urobilinogen,Urine 0.2 EU/dl (0.2)
[2022-04-24 16:30] VITALS: BP 113/52; PULSE 80; RESP 22; O2SAT 95
--- NOTE | 2022-04-24 16:37 | PC.NURSE ---
monitor cable changed and stickers rearranged for better monitoring of pt heart rate. Pt states he is ready to go home and he wants some supper when he leaves. family at bs
[2022-04-24 16:48] LABS: Bacteria,Urine 2+ /lpf; Squamous Epithelial Cell,Urine Occasional #/hpf (0-5); WBC,Urine 20-50 #/hpf (0-3); Yeast,Urine 1+ /lpf
--- NOTE | 2022-04-24 16:55 | PC.NURSE ---
paged for bed 5, office closed at this time. Registration states was on for
--- NOTE | 2022-04-24 16:57 | PC.NURSE ---
on hold for YULIA MEADOWS
[2022-04-24 17:00] VITALS: BP 96/52; PULSE 80; RESP 17; O2SAT 99
[2022-04-24 17:15] LABS: Coronavirus 19, PCR Not Detected (NotDetected); Influenza A, PCR Not Detected (NotDetected); Influenza B, PCR Not Detected (NotDetected)
--- NOTE | 2022-04-24 17:53 | PC.NURSE ---
MD at bs, updating about poc
[2022-04-24 18:00] VITALS: BP 116/65; PULSE 83; RESP 18; O2SAT 99
[2022-04-24 18:26] VITALS: BP 116/65; PULSE 78; RESP 20; TEMP 36.6; O2SAT 96
--- NOTE | 2022-04-24 18:29 | PC.NURSE ---
assisted pt to car via wheelchair
== END 2022-04-24 18:28 | disposition home or self-care (01) ==
PROVIDERS: Emergency Provider Emergency Medicine; PCP Internal Medicine Adolescent Medicine
DX: R33.9 Retention of urine, unspecified (principal); I11.0 Hypertensive heart disease with heart failure; I50.9 Heart failure, unspecified; Z88.2 Allergy status to sulfonamides; Z88.6 Allergy status to analgesic agent; I48.91 Unspecified atrial fibrillation; I25.10 Atherosclerotic heart disease of native coronary artery without angina pectoris; E78.5 Hyperlipidemia, unspecified; I25.2 Old myocardial infarction; N18.9 Chronic kidney disease, unspecified; M19.90 Unspecified osteoarthritis, unspecified site; D64.9 Anemia, unspecified
CPT/HCPCS: 51702; 71045; 80048; 81001; 83880; 84484; 85025; 87086; 93005; 96374; 99284; C9803; U0003; U0005

== ENCOUNTER 2022-05-05 08:37 | Inpatient (IN) | payer MEDICARE, SELFPAY ==
[2022-05-05] VITALS (12 sets, daily range): BP systolic 99–121; BP diastolic 43–72; PULSE 67–114; RESP 14–24; TEMP 36.7–37.1; O2SAT 77–100; BMI 21.8; BMI 24.8
--- NOTE | 2022-05-05 08:53 | PC.NURSE ---
YULIA MEADOWS AT
--- NOTE | 2022-05-05 08:57 | HMH.EDGENADL ---
ED Disposition Clinical Impression: Dehydration Disposition: Admitted as Observation Condition on Discharge: Good - Critical Care Critical Care Time: No Attestation: On 05/05/22, the high probability of a clinically significant, sudden or life threatening deterioration of the following system(s) required my full and direct attention, intervention and personal management. The time I documented below is in addition to time spent performing reported procedures but includes the following listed in this critical care notation. Medical Decision Making - Medical Records Medical records reviewed: Yes: I reviewed the patient's medical records. - Juan Miguel Inquiry Pt receiving controlled substance: No Vital Signs: 05/05/22 08:40 05/05/22 09:01 05/05/22 09:16 Temperature 98.1 F Temperature Source Oral Pulse Rate 84 67 Pulse Rate [Left Radial] 114 H Respiratory Rate 20 18 20 Blood Pressure 117/60 121/48 L Blood Pressure [Right Arm] 117/60 Blood Pressure Mean 72 78 Blood Pressure Mean [Right Arm] 79 02 Sat by Pulse Oximetry 97 100 97 Oxygen Delivery Method Nasal Cannula Oxygen Flow Rate (LPM) 4 05/05/22 09:31 Temperature Temperature Source Pulse Rate 68 Pulse Rate [Left Radial] Respiratory Rate 20 Blood Pressure 119/49 L Blood Pressure [Right Arm] Blood Pressure Mean 72 Blood Pressure Mean [Right Arm] 02 Sat by Pulse Oximetry 77 L Oxygen Delivery Method Oxygen Flow Rate (LPM) - Lab Data Lab Results 05/05/22 09:43: WBC 7.2, RBC 4.16 L, Hgb 10.2 L, Hct 33.8 L, MCV 81.2, MCH 24.4 L, MCHC 30.1 L, RDW 20.1 H, Plt Count 356, MPV 8.0, Neut % (Auto) 78.9, Lymph % (Auto) 11.1, [place] % (Auto) 8.6, Eos % (Auto) 1.0, Baso % (Auto) 0.3, Neut # (Auto) 5.7, Lymph # (Auto) 0.8, [place] # (Auto) 0.6, Eos # (Auto) 0.1, Baso # (Auto) 0.0 05/05/22 09:43: Sodium 127 L, Potassium 3.6, Chloride 81 L, Carbon Dioxide 40 H, Anion Gap 9.6, BUN 57 H, Creatinine 1.80 H, Estimated Creat Clear 35, Estimated GFR 36 L, Est GFR ( Amer) 44 L, Glucose 119 H, Calcium 8.2 L, Total Bilirubin 0.9, AST 21, ALT 11 L, Alkaline Phosphatase 92, Total Protein 6.1 L, Albumin 3.5, Globulin 2.6, Albumin/Globulin Ratio 1.3 Result diagrams: 05/05/22 09:43 05/05/22 09:43 Orders (Tests/Meds): ED MEDICATIONS Discontinued Medications Generic Name Dose Route Start Last Admin Trade Name Freq PRN Reason Stop Dose Admin Sodium Chloride 1,000 mls @ 75 mls/hr 05/05/22 10:30 Sod Chlor 0.9% 1000ml Bag IV 06/04/22 10:29 .[id number] PAM Sodium Chloride 250 ml 05/05/22 10:33 Sodium Chloride 0.9% 250ml Bag IV 05/05/22 10:34 ONCE ONE - Physician Consults Physician Consulted: Dr Moreno accepts obs here Time: 10:45 General Adult HPI - General Stated complaint: Weakness Time Seen by Provider: 05/05/22 08:57 - History of Present Illness HPI narrative: difficult to wake up this am, weakness Severity: moderate Consistency: other (improving) Relieving factors: none Exacerbating factors: none Associated symptoms: denies other symptoms - Related Data Home Medications Medication Instructions Recorded Confirmed polyethylene glycoL 3350 [Miralax 17 gm PO DAILY 03/09/19 01/29/22 17gm Packet] Fluticasone Propionate [Flonase 2 spry NS DAILYP PRN 03/10/19 01/29/22 Allergy Relief NS] Tamsulosin HCl 0.4 mg PO HS 03/10/19 01/29/22 pantoprazole 40 mg tablet,delayed 40 mg PO DAILY 11/02/19 01/29/22 release tiotropium 2.5 mcg-olodaterol 2.5 1 spray INHALATION DAILY 11/02/19 01/29/22 mcg/actuation mist for inhalation albuterol sulfate 2.5 mg INHALATION Q4H PRN 01/18/20 01/29/22 carvediloL [Carvedilol 3.125mg Tab] 3.125 mg PO BID 01/12/22 01/29/22 Aspirin [Aspirin 81mg EC Tab] 81 mg PO DAILY 05/05/22 05/05/22 Dutasteride [Avodart] 0.5 mg PO DAILY 05/05/22 05/05/22 Metoprolol Tartrate [Lopressor 12.5 mg PO BID 05/05/22 05/05/22 25mg tablet] Pregabalin [Pregabalin 50mg 50 mg PO TID
--- NOTE | 2022-05-05 09:04 | PC.NURSE ---
PT family requesting that come round on the pt if he is in house. Explained that is not on this weekend and he is not in house.
--- NOTE | 2022-05-05 09:23 | PC.NURSE ---
adjust pt in bed with extra support to his right side with a pillow, pt tolerated well and verbalized relief of decreased pain in his coccyx area.
--- NOTE | 2022-05-05 09:24 | PC.NURSE ---
Adjusted pt in bed
--- NOTE | 2022-05-05 09:46 | INFXCTL.NOTE ---
Obtained labs on pt via straight stick
--- NOTE | 2022-05-05 09:50 | PC.NURSE ---
meal tray called for pt
[2022-05-05 10:00] LABS: Basophils % 0.3 % (0.1-2.0); Eosinophils # 0.1 K/mm3 (0.0-0.4); Hematocrit 33.8 % (42.0-52.0); Hemoglobin 10.2 g/dL (14.1-18.0); Lymphocytes # 0.8 K/mm3 (0.7-4.5); Lymphocytes % 11.1 % (10-50); Mean Corpuscular HGB Conc 30.1 g/dL (31.8-35.4); Mean Corpuscular Hemoglobin 24.4 pg (27.0-31.2); Mean Corpuscular Volume 81.2 fl (80-94); Monocytes # 0.6 K/mm3 (0.1-1.0); Monocytes % 8.6 % (1.7-9.3); Neutrophils # 5.7 K/mm3 (1.8-7.8); Neutrophils % 78.9 % (37.0-80.0); Platelet Count 356 K/mm3 (142-424); Red Blood Count 4.16 M/mm3 (4.60-6.20); Red Cell Distribution Width 20.1 % (11.5-17.5); White Blood Count 7.2 K/mm3 (4.8-10.8)
[2022-05-05 10:13] LABS: Chloride 81 mmol/L (98-107); Potassium 3.6 mmoL/L (3.5-5.1); Sodium 127 mmol/L (136-145)
[2022-05-05 10:16] LABS: Alanine Aminotransferase 11 U/L (12-78); Albumin Level 3.5 g/dl (3.5-5.0); Albumin/Globulin Ratio 1.3 (1.1-1.8); Alkaline Phosphatase 92 U/L (38-126); Aspartate Amino Transferase 21 U/L (17-59); Bilirubin,Total 0.9 mg/dl (0.2-1.3); Blood Urea Nitrogen 57 mg/dl (9-20); Creatinine Clearance Estimated 35 mL/min (50-200); Estimated Glomerular Filt Rate 36 ml/min (>60); GFR (African American) 44 ML/MIN (>60); Globulin 2.6 g/dL (1.3-3.2); Total Protein,Serum 6.1 g/dl (6.3-8.2)
[2022-05-05 10:17] LABS: Calcium 8.2 mg/dl (8.4-10.2); Glucose 119 mg/dl (74-100)
[2022-05-05 10:23] LABS: Anion Gap 9.6 mEq/L (5-15); Carbon Dioxide 40 mmol/L (22.0-30.0)
--- NOTE | 2022-05-05 10:28 | PC.NURSE ---
speaking to dr pichardo for admission
--- NOTE | 2022-05-05 10:33 | PC.NURSE ---
speaking to tobacco warehouse agent for admission
--- NOTE | 2022-05-05 10:39 | HMH.PHAINT ---
MEDICATION RECONCILIATION COMPLETED ON PATIENT USING EXTERNAL FILL HISTORY FROM PHARMACY AND SCOUT REPORT. -JACE ULLOAD
--- NOTE | 2022-05-05 10:54 | HMH.PHAVTE ---
[facility] Pharmacy VTE Monitoring - Patient Demographics Admission date: 05/05/22 Report Date: 05/05/22 Time: 10:54 Allergies/Adverse Reactions: Patient Allergies hydrocodone [From LORTAB] Allergy (Mild, Verified 01/29/22 12:46) oxycodone [From PERCOCET] Allergy (Mild, Verified 01/29/22 12:46) sulfamethoxazole [From BACTRIM] Allergy (Mild, Verified 01/29/22 12:46) trimethoprim [From BACTRIM] Allergy (Mild, Verified 01/29/22 12:46) Height: 1.88 m Weight: 77.111 kg Patient Problems: Current Active Problems Dehydration (Acute) - VTE Risk Labs: VTE Related Lab Results Hgb 10.2 g/dL (14.1-18.0) L 05/05/22 09:43 Hct 33.8 % (42.0-52.0) L 05/05/22 09:43 Plt Count 356 K/mm3 (142-424) 05/05/22 09:43 BUN 57 mg/dl (9-20) H 05/05/22 09:43 Creatinine 1.80 mg/dl (0.66-1.25) H 05/05/22 09:43 Estimated Creat Clear 35 mL/min (50-200) 05/05/22 09:43 - Prophylaxis VTE Prophylaxis Ordered?: Yes Types of VTE Prophylaxis: TEDS Knee High Location of Applied Device: Bilateral Lower Extremeties
--- NOTE | 2022-05-05 10:54 | PC.NURSE ---
notified pts of bed status, relayed that waiting on RN to accept call to receive bed report
--- NOTE | 2022-05-05 11:01 | PC.NURSE ---
Brittani CALDWELL obtaining nasal swab and starting IV access
--- NOTE | 2022-05-05 11:19 | PC.NURSE ---
IV established and fluid bolus running per order
[2022-05-05 11:20] LABS: Coronavirus 19, PCR Not Detected (NotDetected); Influenza A, PCR Not Detected (NotDetected); Influenza B, PCR Not Detected (NotDetected)
--- NOTE | 2022-05-05 11:20 | PC.NURSE ---
called report to gabriela tolentino on the floor
--- NOTE | 2022-05-05 12:01 | PC.NURSE ---
pt being taken up hospital room
--- NOTE | 2022-05-05 12:03 | PC.NURSE ---
Pt to 2nd floor per nursing staff via stretcher
--- NOTE | 2022-05-05 12:03 | PC.NURSE ---
Pt arrived to the floor at this time
--- NOTE | 2022-05-05 12:56 | HMH.HP ---
*Admission Date: 05/05/22 *Chief complaint: SOA, orthopnea, weakness, edema *History of present illness: Mr. Mercer a pleasant 82-year-old male with multiple unfortunate comorbidities including end-stage COPD, coronary artery disease, diastolic heart failure, volume overload, and amyloidosis with chronic kidney disease. He presented to the ER because his condition has progressed to the point that his was concerned he was dying this morning. Several discussions over the past few weeks with PCP led to decision to consult hospice. Plan for hospice to see him at home on Saturday. Unfortunately patient is too weak, edematous, and short of breath to be managed at home at this time. On arrival to the ER he was somewhat confused. Has family with him and help answer questions. Required increasing oxygen from his baseline. Labs obtained showing VANESSA and hyponatremia. Admitted for management. On arrival to the floor, discussion with patient's daughter about goals of care and what led to his coming to the hospital. Family appears understanding of the severity of his current condition, limited treatment options, and lack of response on his part over the past few weeks to these. They state their goal is to keep him comfortable. They would like to try to treat the volume overload. Of note, he has been having a gradual decline with his comorbidities over the past 6 to 12 months. His condition has drastically deteriorated. [facility] History I have reviewed the patient's past medical history: Yes Medical History: Reports:: Atrial Fibrillation, Congestive Heart Failure, Coronary Artery Disease, Hyperlipidemia, Hypertension, Kidney Stones, Myocardial Infarction, Renal Insufficiency Denies:: Cancer, Diabetes Mellitus Type 1, Diabetes Mellitus Type 2, Internal Pacemaker, MRSA, Seizures *Have you ever received a pneumonia vaccine?: Yes *Have you received a flu vaccine this season?: Yes Other Medical History: Reports: Anemia, Arthritis, Cataracts, Sinus Problems. Denies: Blood Transfusion Reaction Other Surgeries: Yes: No Previous Surgery, Angiogram, Angioplasty, CABG, Cardiac Catheterization, Cardiac Surgery, Cholecystectomy, Colonoscopy, Coronary Stent, Open Heart Surgery, Ureter Stent, Other. No: Pacemaker Amputation: No Fractures: No - *Social History Smoking Status: Former smoker Tobacco Type: cigarettes Alcohol Intake: never Substance Use Type: denies use *Occupational Status:: retired Housing: house Household Members: spouse *Travel in the last 8 weeks: None Family Hx:: Heart Attack Review of Systems - Review of Systems Review of systems:: pertinent systems reviewed and negative unless documented below (14 point review of systems performed, pertinent positives and negatives as per HPI) Meds Home Medications Medication Instructions Recorded Confirmed Type RX: polyethylene glycoL 3350 17 gm PO DAILY 03/09/19 05/05/22 History [Miralax 17gm Packet] RX: Fluticasone Propionate 2 spry NS DAILYP PRN 03/10/19 05/05/22 History [Flonase Allergy Relief NS] RX: Tamsulosin HCl 0.4 mg PO HS 03/10/19 05/05/22 History pantoprazole 40 mg tablet,delayed 40 mg PO DAILY 11/02/19 05/05/22 History release tiotropium 2.5 mcg-olodaterol 2.5 1 puff IH DAILY 11/02/19 05/05/22 History mcg/actuation mist for inhalation albuterol sulfate 2.5 mg IH Q4HP PRN 01/18/20 05/05/22 History carvediloL [Carvedilol 3.125mg Tab] 3.125 mg PO BID 01/12/22 05/05/22 History Aspirin [Aspirin 81mg EC Tab] 81 mg PO DAILY 05/05/22 05/05/22 History Dutasteride [Avodart] 0.5 mg PO DAILY 05/05/22 05/05/22 History Metoprolol Tartrate [Lopressor 12.5 mg PO BID 05/05/22 05/05/22 History 25mg tablet] Pregabalin [Pregabalin 50mg 50 mg PO TID 05/05/22 05/05/22 History Capsule] metOLazone [metOLazone 2.5mg 2.5 mg PO DAILY 05/05/22 05/05/22 History Tablet] Allergies Allergy/AdvReac Type Severity Reaction Status Date / Time hydrocodone [From LORTAB] Allergy Mild
--- NOTE | 2022-05-05 14:00 | PC.NURSE ---
pt unable to tolerate admin of enema. upon placing pt on his right side he became extremely cyanotic/minimally responsive. admin of enema was haulted. pt was turned on back pulled up in bed with hob elevated. pt color returned to baseline. made aware of pt inability to tolerate enema.
--- NOTE | 2022-05-05 16:01 | XR_ITS ---
PROCEDURE INFORMATION: Exam: XR Chest Exam date and time: 05/05/2022 4:08 PM Age: 82 years old Clinical indication: Shortness of breath; Additional info: SOA TECHNIQUE: Imaging protocol: Radiologic exam of the chest. Views: 1 view. COMPARISON: CR XR CHEST PORTABLE 04/24/2022 3:46 PM FINDINGS: Lungs: Underlying opacities may represent atelectasis or pneumonia.. Pleural spaces: Large left pleural effusion. Moderate right pleural effusion.. Heart/Mediastinum: Cardiomegaly and vascular prominence may represent congestive heart failure or pulmonary edema. Bones/joints: Median sternotomy IMPRESSION: 1. Large left pleural effusion. Moderate right pleural effusion.. 2. Cardiomegaly and vascular prominence may represent congestive heart failure or pulmonary edema. 3. Underlying opacities may represent atelectasis or pneumonia..
--- NOTE | 2022-05-05 16:05 | PC.NURSE ---
Addendum entered by Ernie Ronquillo RN 05/05/22 16:25: late entry-[id number] made aware via telephone cxray ordered Original Note: late entry-pt o2 dropped to 81% on 4lnc. non-rebreather and continuous pulse oximeter applied. 02 98% on non-rebreather.
--- NOTE | 2022-05-05 17:03 | INFXCTL.NOTE ---
when pt arrived to floor he was alert and oriented. able to answer questions and follow commands. he is now alert to person only, minimally verbal. has been placed on non-rebreather for o2 support. murphy cath in place draining clear yellow urine. has samy made aware of changes in pt status. family is at bedside. courtesy cart provided
--- NOTE | 2022-05-05 17:57 | PC.NURSE ---
Verified w/Imtiaz (pharmacy) on how to mix medication; Remove 100mls of ns out of a 250 ml bag and replace with 25mg/100ml of bumex;
[2022-05-06 03:45] VITALS: BP 92/44; PULSE 85; RESP 14; O2SAT 100; BMI 25.0
--- NOTE | 2022-05-06 05:17 | PC.NURSE ---
Pt awake, but not alert. Pt is on non-rebreather with O2 sats > 90%, lung sounds are decreased w/ rhonchi. Pt is on bumex gtt, but pt has had very minimal output. See I&O. Pt has had agonal breathing, but no auditory secretions. Pulses in extremities are weak, but present at this time. Family at bedside. Family has voiced that they just want pt comfortable. Family also requested AM labs to be cancelled. Talked to pts family about prn medications, that if they feel pt is agitated or uncomfortable to let us know. Verbalized understanding. At this time pt seems comfortable. Call light in reach.
[2022-05-06 07:52] VITALS: BP 85/46; PULSE 85; RESP 14; O2SAT 92
--- NOTE | 2022-05-06 10:31 | HMH.ACPN2 ---
Internal Medicine - PN: Subj *Date: 05/06/22 *Time: 10:58 Interval history: Patient has gradually declined over the past 24 hours. Had an episode where enema was attempted and he became unresponsive. Oxygen saturations improved after that episode however he has not regained much alertness or orientation. Family with him at bedside. Patient on nonrebreather. Agonal breathing. No response to verbal stimuli or physical stimuli. Has had no significant response to Bumex drip overnight. Exam Vital signs and Labs for Last 24 Hours: Temp Pulse Resp BP Pulse Ox 98.2 F 85 14 85/46 L 92 L 05/05/22 20:00 05/06/22 07:52 05/06/22 07:52 05/06/22 07:52 05/06/22 07:52 Laboratory Results - last 24 hr 05/05/22 11:15: SARS-CoV-2 (PCR) Not detected, Influenza A Untype (PCR) Not detected, Influenza Type B (PCR) Not detected I & O for Last 24 hours: Intake & Output 05/03/22 05/04/22 05/05/22 05/06/22 23:59 23:59 23:59 23:59 Intake Total 60 / 60 Output Total 200 / 200 75 / 75 Balance -200 / -200 -15 / -15 Weight 74.106 kg 74.871 kg Narrative: - Constitutional obtunded, mild distress, thin, chronically ill appearing, disheveled - *Routine HEENT Exam Head: Present: other (Loss of periorbital fat) Eye: Present: EOMI, PERRL ENT: Present: mucous membranes moist - *Routine Neck Exam Present: supple. Absent: lymphadenopathy - *Routine Respiratory Exam Present: decreased breath sounds, wheezes, diminished air movement - *Routine Cardiovascular Exam Present: RRR - *Routine Abdominal Exam Present: soft, normoactive bowel sounds. Absent: tenderness - *Routine Extremities Exam Present: edema (3+ to thighs, 1+ in abdomen). Absent: cyanosis, clubbing - *Routine Skin Exam Present: warm. Absent: rash - *Routine Neurological Exam Present: obtunded, no response to verbal or physical stimuli Assessment and Plan (1) Acute on chronic respiratory failure with hypoxia and hypercapnia Status: Acute Category: Medical Code(s): J96.21 - Acute and chronic respiratory failure with hypoxia; J96.22 - Acute and chronic respiratory failure with hypercapnia (2) COPD (chronic obstructive pulmonary disease) Status: Acute Category: Medical Code(s): J44.9 - Chronic obstructive pulmonary disease, unspecified (3) Congestive heart failure Status: Acute Category: Medical Code(s): I50.9 - Heart failure, unspecified (4) Moderate protein-calorie malnutrition Status: Acute Category: Medical Code(s): E44.0 - Moderate protein-calorie malnutrition - Assessment and plan all Dx Assessment and Plan for all problems:: 82yo M with end stage COPD, volume overload, VANESSA on CKD, and diastolic heart failure who presented to the ER with increased respiratory distress and confusion. Admitted to attempt diuresis. No meaningful response. Patient has become less responsive over the past 24 hours. Concern that he is dying. Discussed goals of care with family at bedside this morning. Family consisted of and daughter along with other extended family. They want to make sure he stays comfortable. Transition goals of care to comfort measures/hospice style care as opposed to curative/treatment measures. - Continue Supplemental O2 as needed for goal sats >90. Chest imaging with pleural effusions and volume overload/pulmonary congestion - Morphine and Ativan for air hunger and agitation/distress -Discontinue Bumex gtt -Leave Reyes in place DNR Comfort care Patient actively dying, family at bedside.
[2022-05-06 11:19] LABS: Basophils # 0.1 K/mm3 (0-0.2); Basophils % 1.1 % (0.1-2.0); Eosinophils # 0.1 K/mm3 (0.0-0.4); Eosinophils % 1.3 % (0.1-12.0); Hematocrit 36.8 % (42.0-52.0); Hemoglobin 10.3 g/dL (14.1-18.0); Lymphocytes % 10.3 % (10-50); Mean Corpuscular Hemoglobin 23.9 pg (27.0-31.2); Mean Corpuscular Volume 85.5 fl (80-94); Mean Platelet Volume 12.6 fl (7.4-10.4); Monocytes # 1.1 K/mm3 (0.1-1.0); Monocytes % 12.3 % (1.7-9.3); Neutrophils # 6.9 K/mm3 (1.8-7.8); Platelet Count 157 K/mm3 (142-424); Red Blood Count 4.31 M/mm3 (4.60-6.20); Red Cell Distribution Width 19.6 % (11.5-17.5); White Blood Count 9.3 K/mm3 (4.8-10.8)
[2022-05-06 11:34] LABS: Chloride 84 mmol/L (98-107)
[2022-05-06 11:35] LABS: Sodium 127 mmol/L (136-145)
[2022-05-06 11:37] LABS: Alanine Aminotransferase 54 U/L (12-78); Aspartate Amino Transferase 139 U/L (17-59); Blood Urea Nitrogen 64 mg/dl (9-20); Creatinine Clearance Estimated 28 mL/min (50-200); Estimated Glomerular Filt Rate 29 ml/min (>60); GFR (African American) 35 ML/MIN (>60)
[2022-05-06 11:38] LABS: Albumin Level 3.5 g/dl (3.5-5.0); Albumin/Globulin Ratio 1.3 (1.1-1.8); Alkaline Phosphatase 74 U/L (38-126); Bilirubin,Total 1.5 mg/dl (0.2-1.3); Calcium 7.9 mg/dl (8.4-10.2); Carbon Dioxide 37 mmol/L (22.0-30.0); Globulin 2.6 g/dL (1.3-3.2); Glucose 116 mg/dl (74-100); Magnesium 2.1 mg/dl (1.6-2.3); Total Protein,Serum 6.1 g/dl (6.3-8.2)
[2022-05-06 11:43] LABS: Anion Gap 12.3 mEq/L (5-15); Potassium 6.3 mmoL/L (3.5-5.1)
--- NOTE | 2022-05-06 14:10 | HMH.DEATH ---
Pronouncement Note - Date and Time of Date of : 05/06/22 Time of : 13:50 - PCOD Preliminary cause of : Acute respiratory failure - Additional Data Confirmation of : no pulse, no respirations, no heart sounds, pupils fixed and dilated Family: at bedside Attending physician: Benja Cortes MD
--- NOTE | 2022-05-06 14:29 | PC.NURSE ---
pt @ 1350 pronounced by ER . Contacted [facility] and pt was a rule out for donation based on age. spoke with Marlene Carrillo. family is @ bedside and requested [facility] in [place]. Contacted them. Notified pts MD
--- NOTE | 2022-05-06 15:35 | PC.NURSE ---
home has left with pt. took his dentures
--- NOTE | 2022-05-06 15:53 | P.DN_ITS ---
Discharge Sum: Prov - Provider Primary care physician: Benja Cortes MD Visit Care Team Role Provider Type Bulmaro Li MD Emergency Provider ER Physician Benja Cortes MD Attending Provider Staff Physician Primary Care Provider Jhony Mott MD Admit Provider Staff Physician Admitting clinician: Jhony Mott Attending physician on admission: Jhony Mott Pronouncing clinician: Poncho Hallmanolga Discharge Sum: Diag - PCOD Cause of : Acute respiratory failure Discharge Sum: Summary - Date and Time Date of admission: 05/06/22 10:36 Date of : 05/06/22 Time of : 13:50 - Hospital Course prior to Hospital Course Information: 82yo M with end stage COPD, volume overload, VANESSA on CKD, and diastolic heart failure who presented to the ER with increased respiratory distress and c onfusion. Admitted to attempt diuresis. No meaningful response. Patient has become less responsive over the past 24 hours. Concern that he is dying. Discussed goals of care with family at bedside this morning. Family consisted of and daughter along with other extended family. They want to make sure he stays comfortable. Transition goals of care to comfort measures/hospice style care as opposed to curative/treatment measures. - Continued Supplemental O2 as needed for goal sats >90. On non-rebreather. Chest imaging with pleural effusions and volume overload/pulmonary congestion - Morphine and Ativan for air hunger and agitation/distress DNR Comfort care - Additional Data Confirmation of as documented by pronouncing clinician: no pulse, no respirations, no heart sounds, pupils fixed and dilated Family: at bedside Attending/PCP notified?: Yes Attending physician: Benja Cortes MD Was code activated?: No Autopsy requested?: No ampoule examiner notified?: No Organ bank notified?: Yes Advance directives: No Hospice patient?: No
== END 2022-05-06 15:30 | disposition expired | DRG 291 ==
LOC: ER 08:45 → 2ND 10:46
PROVIDERS: Admitting Provider Internal Medicine Adolescent Medicine; Emergency Provider Emergency Medicine; PCP Internal Medicine Adolescent Medicine; Visit Provider Internal Medicine Adolescent Medicine
DX: I13.0 Hypertensive heart and chronic kidney disease with heart failure and stage 1 through stage 4 chronic kidney disease, or unspecified chronic kidney disease (principal); I50.31 Acute diastolic (congestive) heart failure; J96.21 Acute and chronic respiratory failure with hypoxia; J96.22 Acute and chronic respiratory failure with hypercapnia; E44.0 Moderate protein-calorie malnutrition; N17.9 Acute kidney failure, unspecified; Z51.5 Encounter for palliative care; Z66 Do not resuscitate; J44.9 Chronic obstructive pulmonary disease, unspecified; Z68.25 Body mass index [BMI] 25.0-25.9, adult; N18.9 Chronic kidney disease, unspecified
CPT/HCPCS: 71045; 80053; 83735; 85025; 94640; 94760; 99285; C9803; G0378; U0003; U0005